=== PATIENT | male | born 1960 | race Caucasian/White ===

== ENCOUNTER → 2017-07-02 | Outpatient (CLI) | payer MEDICARE, OTHER ==
--- NOTE | 2017-07-02 10:17 | FL ---
EXAMINATION TYPE: FL barium swallow DATE OF EXAM: 07/02/2017 CLINICAL HISTORY: Difficulty swallowing liquids. TECHNIQUE: A single contrast esophagram is performed utilizing air and barium. A total of 48 second s of fluoroscopic time was utilized during procedure. 175 images were saved. COMPARISON: None FINDINGS: The exam is slightly limited as the patient was somewhat unable to follow instructions. The esophagus shows normal motility and emptying into the stomach. No evidence of hiatal hernia or s tricture noted. No significant gastroesophageal reflux was seen during real time performance of this study. No aspiration is identified. IMPRESSION: 1. No aspiration identified on today's examination, however if there is further clinical concern for aspiration modified barium swallow exam with speech therapy is recommended for full evaluation. 2. No evidence of hiatal hernia, esophageal stricture, gastroesophageal reflux, or abnormal esophagea l motility.
== END | disposition home or self-care (01) ==
LOC: RADFLWHC 08:41 → EEVIPCON 08:45
PROVIDERS: ATTEND Family Medicine
DX: R13.10 Dysphagia, unspecified (principal)
CPT/HCPCS: 74220

== ENCOUNTER 2021-01-12 08:23 | Emergency (ER) | payer MEDICARE, OTHER ==
[2021-01-12 08:33] VITALS: TEMP 97.9
[2021-01-12 09:45] VITALS: RESP 16
--- NOTE | 2021-01-12 10:19 | US ---
EXAMINATION TYPE: US venous doppler duplex LE RT DATE OF EXAM: 01/12/2021 10:05 AM COMPARISON: NONE CLINICAL HISTORY: Right lower extremity swelling, non ambulatory. SIDE PERFORMED: Right TECHNIQUE: The lower extremity deep venous system is examined utilizing real time linear array sonog ricardo with graded compression, doppler sonography and color-flow sonography. Patient unable to follow instructions and is in RLD position, thus limited US exam is performed. VESSELS IMAGED: Common Femoral Vein Deep Femoral Vein Femoral Vein Popliteal Vein Proximal Calf Veins Right Leg: Sonographic imaging maintained compression and flow in the imaged deep veins of the right lower extremity. Mild swelling of the in and subcutaneous tissue. IMPRESSION: Suboptimal evaluation due to nonambulatory condition without sonographic evidence of deep vein thrombosis in the right lower extremity
--- NOTE | 2021-01-12 10:34 | CT ---
EXAMINATION TYPE: CT lower extremity RT wo con DATE OF EXAM: 01/12/2021 COMPARISON: None HISTORY: Fall, pain TECHNIQUE: CT scan of the right lower extremity from the distal femur to the optimal foot without contrast. Thre e-D reconstruction reformats were performed. CT DLP: 203.1 mGycm Automated exposure control for dose reduction was used. FINDINGS: There is generalized osteopenia. There is a linear oblique hypoattenuating line extending from the di stal fibular diaphysis towards the tibiofibular syndesmosis. There is mild overlying soft tissue swel ling. There is narrowing at the lateral tibiotalar joint. The anterior cortex of the lateral malleolu s is displaced anteriorly 1 to 2 mm. The tibia itself appears intact. There is trace ankle joint effu danny. Included foot is acutely intact. The knee joint is acutely intact. Enthesophyte changes are see n at the insertion of the quadriceps and origin of the patellar tendons. Vascular calcifications are seen in the mid caliber. IMPRESSION: 1 TO 2 MM DISPLACED FRACTURE OF THE DISTAL FIBULAR DIAPHYSIS AND LATERAL MALLEOLUS EXTENDING INTO THE TIBIA FIBULAR SYNDESMOSIS. MILD NARROWING OF THE LATERAL TIBIOTALAR JOINT.
--- NOTE | 2021-01-12 10:57 | ED ---
Fall HPI - General Chief Complaint: Fall Stated Complaint: fall, hip pain Source: EMS Mode of arrival: EMS - History of Present Illness Initial Comments: Patient is a 60-year-old male with past medical history of cognitive imparement, nonambulatory who presents to the emergency department from [facility]. Patient was in his wheelchair 2 weeks ago when he fell out of it and injured his right ankle. They have done to x-rays of the joint at the nursing facility and there was question of a fracture. They do request that the patient have a CT performed of his right lower extremity. They state that his swelling has persisted. Patient's as impaired communication and therefore does not voice any pain. He is not on any anticoagulation. No known history of DVT or PE. No overlying skin changes. No other alleviating, precipitating or modifying factors. - Related Data Allergies Allergy/AdvReac Type Severity Reaction Status Date / Time Penicillins Allergy Unknown Verified 01/12/21 08:34 phenobarbital Allergy Unknown Verified 01/12/21 08:33 Review of Systems ROS Statement: Those systems with pertinent positive or pertinent negative responses have been documented in the HPI. ROS Other: All systems not noted in ROS Statement are negative. Past Medical History History of Any Multi-Drug Resistant Organisms: None Reported Past Psychological History: No Psychological Hx Reported Smoking Status: Smoker, current status unknown Past Alcohol Use History: Unable to Obtain Past Drug Use History: Unable to Obtain General Exam Limitations: altered mental status General appearance: alert, in no apparent distress Head exam: Present: atraumatic, normocephalic, normal inspection Respiratory exam: Present: normal lung sounds bilaterally. Absent: respiratory distress, wheezes, rales, rhonchi, stridor Cardiovascular Exam: Present: regular rate, normal rhythm, normal heart sounds. Absent: systolic murmur, diastolic murmur, rubs, gallop, clicks Extremities exam: Present: other (swelling rle - some tenderness to palpation. 2+ DP and PT pulses bilaterally. Atrophic musculature secondary to non weight bearing status. No cellulitic changes) Neurological exam: Present: alert Course Vital Signs 01/12/21 01/12/21 01/12/21 08:27 09:33 10:00 Temperature 97.9 F Pulse Rate 99 Respiratory 18 16 16 Rate Blood Pressure 159/81 O2 Sat by Pulse 94 L 95 95 Oximetry 01/12/21 01/12/21 11:00 11:16 Temperature 97.9 F Pulse Rate 89 Respiratory 16 16 Rate Blood Pressure 162/79 O2 Sat by Pulse 95 95 Oximetry Procedures - Orthopedic Splinting/Casting Injury #1 Side: right Lower Extremity Injury Location: short leg Lower Extremity Immobilizer: Blaise wrap, synthetic pre-padded splint Medical Decision Making - Medical Decision Making Upon arrival patient is placed into room 15. A thorough history and physical exam was performed. I did order a Doppler ultrasound of the right lower extremity as the patient is nonambulatory with swelling. It feels demonstrated DVT however it is a suboptimal evaluation. CT of the lower extremity is performed which demonstrates a 1-2 mm displaced fracture of the distal fibular diaphysis and lateral malleolus extending into the tibia fibular syndesmosis. There is mild narrowing of the tibiotalar joint. It discuss results with Luis F Rios asking if there is any benefit in splinting the patient as he is nonambulatory. He does believe the patient should be placed in a short leg splints needs to follow-up with orthopedics for further treatment. This is discussed with the nursing facility. Patient is placed in a orthoglass splint and is transferred back in stable condition Disposition Clinical Impression: Fall, Fracture of distal end of fibula Disposition: HOME SELF-CARE Condition: Stable Instructions (If sedation given, give patient instructions): Leg Fracture (ED) Additional Instructions: Please follow up with the orthopedic specialists. Call to make an appointment. Rest and elevate the extremity. Do not remove the splint. Return to the ED for any new or worsening symptoms. Is patient prescribed a controlled substance at d/c from ED?: No Referrals: Roque Madison MD [Primary Care Provider] - 1-2 days Matty Phillips MD [STAFF PHYSICIAN] - 1-2 days Time of Disposition: 10:56
[2021-01-12 11:17] VITALS: BP 162/79; PULSE 89
== END 2021-01-12 11:53 | disposition home or self-care (01) ==
LOC: EC 08:23 → EEVIPCON 08:23 → EC 11:53
DX: S82.61XA Displaced fracture of lateral malleolus of right fibula, initial encounter for closed fracture (principal); F17.200 Nicotine dependence, unspecified, uncomplicated; Z88.0 Allergy status to penicillin; Z88.8 Allergy status to other drugs, medicaments and biological substances; W19.XXXA Unspecified fall, initial encounter; Y92.009 Unspecified place in unspecified non-institutional (private) residence as the place of occurrence of the external cause
CPT/HCPCS: 29515; 99284

== ENCOUNTER 2024-09-12 15:54 | Inpatient (IN) | payer MEDICARE, OTHER ==
[2024-09-12 15:58] LABS: Glucose,Whole Blood 124 mg/dL (70-110)
--- NOTE | 2024-09-12 16:06 | ED ---
General Adult HPI - General Chief complaint: Altered Mental Status Stated complaint: unrsponsive Time Seen by Provider: 09/12/24 16:01 Source: EMS Mode of arrival: EMS Limitations: altered mental status - History of Present Illness Initial comments: Patient is 63-year-old gentleman past medical history of intellectual disability, chronic hypoxic respiratory failure typically on 1 to 2 L oxygen nasal cannula presenting from [facility] for respiratory distress and altered mental status. Patient was reportedly last seen at 1 PM acting like his normal self, AO x 2 and interactive. He was found prior to arrival in respiratory distress with pulse ox of 40%. On EMS arrival pulse ox remained 40% he was placed on a nonrebreather mask which brought his pulse ox up to 100%. He was minimally responsive. No seizure-like activity. Patient is not on blood thinners - Related Data Home Medications Medication Instructions Recorded Confirmed Acetaminophen Tab [Tylenol Tab] 500 mg PO TID 09/12/24 09/12/24 Brimonidine Tartrate [Alphagan P 1 drop BOTH EYES Q12H 09/12/24 09/12/24 0.2% Ophth Soln] Calcium Carbonate/Vitamin D3 1 tab PO BID 09/12/24 09/12/24 [Calcium 600 mg-Vit D3 5 mcg (200 unit)] Divalproex ER [Depakote ER] 1,000 mg PO DAILY 09/12/24 09/12/24 Divalproex ER [Depakote ER] 250 mg PO DAILY 09/12/24 09/12/24 Fluocinolone/Shower Cap 1 applic TOPICAL HS 09/12/24 09/12/24 [Cqzsa-Ltknhlu-Cs Scalp Oil] Ipratropium-Albuterol Nebulize 3 ml INHALATION RT-Q4H PRN 09/12/24 09/12/24 [Duoneb 0.5 mg-3 mg/3 ml Soln] Ketoconazole 2% Shampoo [Nizoral] 1 applic TOPICAL SUWE 09/12/24 09/12/24 Lactulose 20 gm PO TID@0700,1300,1900 09/12/24 09/12/24 Levothyroxine Sodium [Synthroid] 137 mcg PO DAILY@0500 09/12/24 09/12/24 Scopolamine [Scopolamine 1 MG/72 1 patch TRANSDERM Q72H 09/12/24 09/12/24 HR patch] Sennosides [Senokot] 17.2 mg PO HS 09/12/24 09/12/24 carBAMazepine [TEGretol XR] 400 mg PO BID@0700,1900 09/12/24 09/12/24 clonazePAM [KlonoPIN] 0.5 mg PO BID 09/12/24 09/12/24 levETIRAcetam [Keppra] 1,000 mg PO DAILY 09/12/24 09/12/24 lisinopriL 2.5 mg PO DAILY@0700 09/12/24 09/12/24 Allergies Allergy/AdvReac Type Severity Reaction Status Date / Time Penicillins Allergy Unknown Verified 09/12/24 16:28 phenobarbital Allergy Unknown Verified 09/12/24 16:28 Review of Systems ROS Statement: Those systems with pertinent positive or pertinent negative responses have been documented in the HPI. ROS Other: All systems not noted in ROS Statement are negative. Past Medical History Past Medical History: Asthma, Eye Disorder, Pneumonia History of Any Multi-Drug Resistant Organisms: None Reported Past Psychological History: No Psychological Hx Reported Smoking Status: Smoker, current status unknown Past Alcohol Use History: Unable to Obtain Past Drug Use History: Unable to Obtain General Exam - General Exam Comments Initial Comments: PE: CONSTITUTIONAL: Ill appearing, lethargic, does not appearing to be in distress, appears awake but eyes open however does not give verbal responses or follow commands SKIN: Warm, dry, no jaundice, hives or petechiae EYES: Right cornea is pale with nonreactive pupil (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 No appreciated murmurs, rubs or gallops. Strong radial pulses with intact distal perfusion. No lower e xtremity edema GASTROINTESTINAL: Soft, active bowel sounds throughout, non-tender, non- distended, no palpable masses, no rebound or guarding. No hepatosplenomegaly MUSCULOSKELETAL: Extremities have no gross deformity, no edema, redness, or swelling. muscle contractures of bilateral LE NEUROLOGIC:_a/o x 0, GCS 9, no verbal response, withdraws from pain, eyes open, question upward gaze of left eye no facial droop, grimaces with painful simuli to RUE andRLE, withdraws from painful stimuli of left upper and lower extremities, exam limited as patient unable to follow commands PSYCHIATRIC:unable to assess] Limitations: altered mental status Course Vital Signs 09/12/24 09/12/24 09/12/24 15:57 16:00 16:24 Temperature Pulse Rate 98 96 Respiratory 28 H 19 Rate Blood Pressure 123/60 140/74 O2 Sat by Pulse 100 100 97 Oximetry Fraction of Inspired Oxygen (FIO2) 09/12/24 09/12/24 09/12/24 16:28 16:50 16:59 Temperature 93.9 F L 94.5 F L Pulse Rate 90 90 74 Respiratory 26 H 26 H Rate Blood Pressure 108/63 129/74 104/70 O2 Sat by Pulse 98 100 100 Oximetry Fraction of 100 Inspired Oxygen (FIO2) 09/12/24 09/12/24 18:09 18:17 Temperature 95.2 F L 95.2 F L Pulse Rate 78 77 Respiratory 26 H 26 H Rate Blood Pressure 93/66 102/72 O2 Sat by Pulse 100 100 Oximetry Fraction of Inspired Oxygen (FIO2) EKG Findings - EKG Comments: EKG Findings:: Sinus rhythm, rate 97 bpm intervals within acceptable limits, normal axis, diffuse T wave inversions, no acute ST elevations or depressions, right bundle branch block small Q waves present II and avF Procedures - Intubation Sedative: Etomidate Laryngoscope: Arnav Assist Device Used: other (glydescope) ET Tube Size: 7.5 ET Tube Uncuffed: No Tube Secured Depth (cm): 24 Tube Secured Location: lips Tube Placement Confirmation: visualized tube passing through cords, equal breath sounds bilaterally, no breath sounds over epigastrium, confirmation by capnomet ry Patient Tolerated Procedure: well Intubation Complications: none Medical Decision Making - Medical Decision Making Was pt. sent in by a medical professional or institution (, PA, HEEL ATT[employer], urgent c are, hospital, or group home...) When possible be specific @ -sent in by [facility] Did you speak to anyone other than the patient for history (EMS, parent, family, police, friend...)? What history was obtained from this source @ EMS neetaronel provided history, patient had pulse ox 40% on their arrival to facility, now 100% on NRB, usually AOx1-2, pt now altered, no change in mental status from when pt was picked up to when he arrived here Did you review nursing and triage notes (agree or disagree)? Why? @ -I reviewed nursing and triage notes Were old charts reviewed (outside hosp., previous admission, EMS record, old EKG, old radiological studies, urgent care reports/EKG's, group home records)? Report findings @ -Medical records reviewed Differential Diagnosis (chest pain, altered mental status, abdominal pain women, abdominal pain men, vaginal bleeding, weakness, fever, dyspnea, syncope, headache, dizziness, GI bleed, back pain, seizure, CVA, palpatations, mental health, musculoskeletal)? @Differential Altered Mental Status: Hypoglycemia, DKA, hypercapnia, ETOH, overdose, CO poisoning, trauma, myxedema coma, HTN encephalopathy, infection, encephalitis, psychosis, intercranial hemorrhage, hepatic encephalopathy, meningitis, CVA, this is not meant to be an all-inclusive list EKG interpreted by me (3pts min.). @ -As above X-rays interpreted by me (1pt min.). Personally reviewed x-ray, ET tube appears appropriately positioned approximately 3 cm above the ezra, read by radiologist as 2.9 cm, multifocal opacities concerning for pneumonia I agree with radiologist interpretation CT interpreted by me (1pt min.). @I personally reviewed CT brain and CTA, and CT brain I see no evidence of hemorrhage, abscess or mass effect, and on CTA head and neck I see no evidence of dissection or large vessel occlusion I agree with radiologist interpretation U/S interpreted by me (1pt. min.). @ -None done What testing was considered but not performed or refused? (CT, X-rays, U/S, labs)? Why? @ -None What meds were considered but not given or refused? Why? @ -None Did you discuss the management of the patient with other professionals (professionals i.e. , PA, HE[employer], lab, RT, psych nurse, social science teacher, case manager specialist, teacher, state highway police officer, residential case manager)? Give summary @Case discussed with Ashley, neurointerventional team at [facility], recommends medical management with full dose aspirin and statin, MRI Was smoking cessation discussed for >3mins.? @ -No Was critical care preformed (if so, how long)? @ Yes 60 minutes Were there social determinants of health that impacted care today? How? (Homelessness, low income, unemployed, alcoholism, drug addiction, transport ation, low edu. Level, literacy, decrease access to med. care, fpc, rehab)? @ -No Was there de-escalation of care discussed even if they declined (Discuss DNR or withdrawal of care, Hospice)? @ -No What co-morbidities impacted this encounter? (DM, HTN, Smoking, COPD, CAD, Cancer, CVA, ARF, Chemo, Hep., AIDS, mental health diagnosis, sleep apnea, morbid obesity)? @ -intellectual disability, chronic hypoxic respiratory failure on 1-2 L home O2 Was patient admitted / discharged? Hospital course, mention meds given and route, prescriptions, significant lab abnormalities, going to OR and other p ertinent info. @ -Admission-this is a 63-year-old gentleman presenting today for respiratory distress and altered mental status from [facility]. Reportedly has intellectual disability and is oriented x 1-2 at baseline. Also reportedly was recently treated for pneumonia and completed oral antibiotics. Was last known normal at 1 PM this afternoon. At 330 approximately patient was found by staff in respiratory distress. EMS arrived and on the arrival patient had a pulse ox of 40%. A nonrebreather was placed. Patient was noted to be lethargic and altered. Not answering questions. Blind in right eye, was thought to have nonreactive pupil on left. Blood glucose was 130 for EMS. Pt placed on a NRB and transported to the ED with subsequent rise in pulse ox to 100% but persistent altered mentation. Patient seen and assessed on arrival. He is on a nonrebreather with pulse ox 100%. He is awake but lethargic. He is resting with his eyes open, left pupil is 3 equal round reactive however he appears to be gazing upwards. He does not follow commands or respond to verbal stimuli. H e withdraws his left upper and left lower extremity to painful stimuli, and grimaces with painful stimuli to the right lower and right upper extremity. Differential diagnosis was broad, top considerations included CVA, acute hypoxemic versus hypercapnic encephalopathy, infection, seizure. For this reason 4 mg IV Versed was trialed without improvement in mentation/change in mental status. Stroke alert was activated. ABG was obtained. Intubation was considered however patient is protecting his airway, not having any active episodes of emesis, nonrebreather was able to be decreased to 8 L with persistent pulse ox 100%. Patient taken to CT, but while patient was in CT ABG resulted with a pH of 7.131, CO2 greater than 98, consistent with hypercapnic respiratory failure, I suspect this is most likely the reason for the patient's altered mental status. At this point he is not mentating well enough to be able to tolerate BiPAP so will need to be intubated. 1 Litre NS hung prior to intubation. Imaging was completed to ensure no signs of hemorrhage, LVO or dissection. Patient returned to trauma bay and was intubated for hypercapnia. He tolerated this well without complication. X-ray appeared to show ET tube in appropriate position with possible multifocal pneumonia in the right lobe of the lung. CT brain was consistent with concerns of mastoiditis. For this reason patient was covered with antibiotics including cefepime, azithromycin and vancomycin. Blood cultures and lactic ordered, ordered additional litre NS, +maintenance fluids, completing sepsis bundle . Case was discussed with Dr. Ochoa, critical care who kindly excepted patient for admission to the ICU. Case discussed with CARRINGTON Roberts kindly accepted patient for admission. Undiagnosed new problem with uncertain prognosis? @ -No Drug Therapy requiring intensive monitoring for toxicity (Heparin, Nitro, In sulin, Cardizem)? @ -No Were any procedures done? @ -No Diagnosis/symptom? @ -Acute metabolic encephalopathy, hypercapneic respiratory failure, multifocal pnuemonia Acute, or Chronic, or Acute on Chronic? @acute Uncomplicated (without systemic symptoms) or Complicated (systemic symptoms)? complicated Side effects of treatment? @ -No Exacerbation, Progression, or Severe Exacerbation? @ -No Poses a threat to life or bodily function? How? (Chest pain, [place], [place], pneumonia, PE, COPD, DKA, ARF, appy, cholecystitis, CVA, Diverticulitis, Homicidal, Suicidal, threat to staff... and all critical care pts) @Yes - Lab Data Result diagrams: 09/15/24 04:13 09/15/24 04:13 Lab Results 09/12/24 09/12/24 09/12/24 Range/Units 15:57 16:05 16:05 WBC 12.37 H (4.50-10.00) 10*3/uL RBC 3.40 L (4.40-5.60) 10*6/uL Hgb 11.7 L (13.0-17.0) g/dL Hct 38.1 L (39.6-50.0) % MCV 112.1 H (80.0-97.0) fL MCH 34.4 H (27.0-32.0) pg MCHC 30.7 L (32.0-37.0) g/dL Plt Count 176 (140-440) 10*3/uL MPV 9.5 (9.5-12.2) fL Immature Gran % (Auto) 0.3 % Neutrophils % 83.9 % Lymphocytes % 7.9 % Monocytes % 7.5 % Eosinophils % 0.2 % Basophils % 0.2 % Immature Gran # 0.04 (0.00-0.04) 10*3/uL Neutrophils # 10.36 H (1.80-7.70) 10*3/uL Lymphocytes # 0.98 (0.90-5.00) 10*3/uL Monocytes # 0.93 (0.20-1.00) 10*3/uL Eosinophils # 0.03 L (0.04-0.35) 10*3/uL Basophils # 0.03 (0.00-0.10) 10*3/uL Manual Slide Review Performed Stomatocytes Present PT 10.2 (10.0-12.5) sec INR 0.9 (<1.2) APTT 23.7 (22.0-30.0) sec Sample Site ABG pH (7.35-7.45) ABG pCO2 (35-45) mmHg ABG pO2 (83-108) mmHg ABG O2 Saturation (94-97) % Miguel Test Hemoglobin (13.0-17.5) gm/dL FiO2 % Sodium (137-145) mmol/L Potassium (3.5-5.1) mmol/L Chloride (98-107) mmol/L Carbon Dioxide (22-30) mmol/L Anion Gap mmol/L BUN (9-20) mg/dL Creatinine (0.66-1.25) mg/dL Est GFR (CKD-EPI)AfAm (>60 ml/min/1.73 sqM) Est GFR (CKD-EPI)NonAf (>60 ml/min/1.73 sqM) Glucose (74-99) mg/dL POC Glucose (mg/dL) 124 H (70-110) mg/dL POC Glu Fountain Worker ID Nicole Reba Calcium (8.4-10.2) mg/dL Total Bilirubin (0.2-1.3) mg/dL AST (17-59) U/L ALT (4-49) U/L Alkaline Phosphatase (38-126) U/L Creatine Kinase (55-170) U/L Troponin I (0.000-0.034) ng/mL Total Protein (6.3-8.2) g/dL Albumin (3.5-5.0) g/dL Procalcitonin (0.02-0.50) ng/mL 09/12/24 09/12/24 09/12/24 Range/Units 16:05 16:05 16:05 WBC (4.50-10.00) 10*3/uL RBC (4.40-5.60) 10*6/uL Hgb (13.0-17.0) g/dL Hct (39.6-50.0) % MCV (80.0-97.0) fL MCH (27.0-32.0) pg MCHC (32.0-37.0) g/dL Plt Count (140-440) 10*3/uL MPV (9.5-12.2) fL Immature Gran % (Auto) % Neutrophils % % Lymphocytes % % Monocytes % % Eosinophils % % Basophils % % Immature Gran # (0.00-0.04) 10*3/uL Neutrophils # (1.80-7.70) 10*3/uL Lymphocytes # (0.90-5.00) 10*3/uL Monocytes # (0.20-1.00) 10*3/uL Eosinophils # (0.04-0.35) 10*3/uL Basophils # (0.00-0.10) 10*3/uL Manual Slide Review Stomatocytes PT (10.0-12.5) sec INR (<1.2) APTT (22.0-30.0) sec Sample Site ABG pH (7.35-7.45) ABG pCO2 (35-45) mmHg ABG pO2 (83-108) mmHg ABG O2 Saturation (94-97) % Miguel Test Hemoglobin (13.0-17.5) gm/dL FiO2 % Sodium 140 (137-145) mmol/L Potassium 5.3 H (3.5-5.1) mmol/L Chloride 96 L (98-107) mmol/L Carbon Dioxide 37 H (22-30) mmol/L Anion Gap 7 mmol/L BUN 43 H (9-20) mg/dL Creatinine 0.79 (0.66-1.25) mg/dL Est GFR (CKD-EPI)AfAm >90 (>60 ml/min/1.73 sqM) Est GFR (CKD-EPI)NonAf >90 (>60 ml/min/1.73 sqM) Glucose 125 H (74-99) mg/dL POC Glucose (mg/dL) (70-110) mg/dL POC Glu Fountain Worker ID Calcium 8.6 (8.4-10.2) mg/dL Total Bilirubin 0.4 (0.2-1.3) mg/dL AST 22 (17-59) U/L ALT 12 (4-49) U/L Alkaline Phosphatase 87 (38-126) U/L Creatine Kinase 169 (55-170) U/L Troponin I <0.012 (0.000-0.034) ng/mL Total Protein 7.3 (6.3-8.2) g/dL Albumin 3.8 (3.5-5.0) g/dL Procalcitonin 0.11 (0.02-0.50) ng/mL 09/12/24 Range/Units 16:08 WBC (4.50-10.00) 10*3/uL RBC (4.40-5.60) 10*6/uL Hgb (13.0-17.0) g/dL Hct (39.6-50.0) % MCV (80.0-97.0) fL MCH (27.0-32.0) pg MCHC (32.0-37.0) g/dL Plt Count (140-440) 10*3/uL MPV (9.5-12.2) fL Immature Gran % (Auto) % Neutrophils % % Lymphocytes % % Monocytes % % Eosinophils % % Basophils % % Immature Gran # (0.00-0.04) 10*3/uL Neutrophils # (1.80-7.70) 10*3/uL Lymphocytes # (0.90-5.00) 10*3/uL Monocytes # (0.20-1.00) 10*3/uL Eosinophils # (0.04-0.35) 10*3/uL Basophils # (0.00-0.10) 10*3/uL Manual Slide Review Stomatocytes PT (10.0-12.5) sec INR (<1.2) APTT (22.0-30.0) sec Sample Site RBrach ABG pH 7.13 L* (7.35-7.45) ABG pCO2 >98 H* (35-45) mmHg ABG pO2 153 H (83-108) mmHg ABG O2 Saturation 99.0 H (94-97) % Miguel Test Yes Hemoglobin 12.2 L (13.0-17.5) gm/dL FiO2 100 % Sodium (137-145) mmol/L Potassium (3.5-5.1) mmol/L Chloride (98-107) mmol/L Carbon Dioxide (22-30) mmol/L Anion Gap mmol/L BUN (9-20) mg/dL Creatinine (0.66-1.25) mg/dL Est GFR (CKD-EPI)AfAm (>60 ml/min/1.73 sqM) Est GFR (CKD-EPI)NonAf (>60 ml/min/1.73 sqM) Glucose (74-99) mg/dL POC Glucose (mg/dL) (70-110) mg/dL POC Glu Fountain Worker ID Calcium (8.4-10.2) mg/dL Total Bilirubin (0.2-1.3) mg/dL AST (17-59) U/L ALT (4-49) U/L Alkaline Phosphatase (38-126) U/L Creatine Kinase (55-170) U/L Troponin I (0.000-0.034) ng/mL Total Protein (6.3-8.2) g/dL Albumin (3.5-5.0) g/dL Procalcitonin (0.02-0.50) ng/mL Disposition Clinical Impression: Respiratory failure with hypercapnia, Acute metabolic encephalopathy Disposition: ADMITTED IP TO THIS HOSP Condition: Serious
[2024-09-12] MEDS: MIDAZOLAM 2 MG/2 ML VIAL IV ONE (16:08)
[2024-09-12 16:12] LABS: ABG PO2 153 mmHg (83-108); Allen Test Performed? Yes
[2024-09-12 16:15] LABS: Basophils # (A) 0.03 10*3/uL (0.00-0.10); Basophils % (A) 0.2 %; Eosinophils # (A) 0.03 10*3/uL (0.04-0.35); Eosinophils % (A) 0.2 %; HCT 38.1 % (39.6-50.0); HGB 11.7 g/dL (13.0-17.0); Lymphocytes # (A) 0.98 10*3/uL (0.90-5.00); Lymphocytes % (A) 7.9 %; MCH 34.4 pg (27.0-32.0); MCHC 30.7 g/dL (32.0-37.0); MCV 112.1 fL (80.0-97.0); Mean Platelet Volume 9.5 fL (9.5-12.2); Monocytes # (A) 0.93 10*3/uL (0.20-1.00); Monocytes % (A) 7.5 %; Neutrophils # (A) 10.36 10*3/uL (1.80-7.70); Neutrophils % (A) 83.9 %; Platelet Count 176 10*3/uL (140-440); RDW 12.9 % (11.5-14.5); WBC 12.37 10*3/uL (4.50-10.00)
[2024-09-12] MEDS ORDERED: fentaNYL (PF) 50 MCG/ML 2 ML AMP IVP PRN (16:20)
[2024-09-12] MEDS: ETOMIDATE 2 MG/ML 10 ML VIAL IVP STA ×2 (16:27→16:35)
[2024-09-12] MEDS: ROCURONIUM 10 MG/ML (5 ML VIAL) IV ONE (16:28)
[2024-09-12 16:32] LABS: ALT 12 U/L (4-49); AST 22 U/L (17-59); African American GFR (CKD) >90 (>60 ml/min/1.73 sqM); Albumin 3.8 g/dL (3.5-5.0); Alkaline Phosphatase 87 U/L (38-126); Blood Urea Nitrogen 43 mg/dL (9-20); Calcium 8.6 mg/dL (8.4-10.2); Chloride 96 mmol/L (98-107); Creatine Kinase 169 U/L (55-170); Glucose 125 mg/dL (74-99); Non-African American GFR(CKD) >90 (>60 ml/min/1.73 sqM); Potassium 5.3 mmol/L (3.5-5.1); Sodium 140 mmol/L (137-145); Total Bilirubin 0.4 mg/dL (0.2-1.3); Total Protein 7.3 g/dL (6.3-8.2)
--- NOTE | 2024-09-12 16:33 | CT ---
Head CT without contrast HISTORY: Code stroke. Neural deficit, stroke is suspected. COMPARISON: None TECHNIQUE: Multiple axial images were obtained the skull base to the vertex without the use of IV con trast material. The ventricles, basal cisterns and sulci over convexities are within normal limits for the patient's age and there is no mass effect or shift in midline structures. No abnormal density is seen throughout the brain parenchyma. There is no acute intra or extra-axial h emorrhage. Posterior fossa including the brainstem, fourth ventricle and cerebellopontine angles are grossly nor mal. There is marked calcification in decreased size of the right globe. There is a mucous retention cyst or polyp in the inferior left maxillary sinus. The frontal, ethmoid and sphenoid sinuses are well aerated. There is moderate fluid in the mastoid air cells bilaterally. The calvarium is intact. IMPRESSION: 1. No acute bleed or mass effect. 2. Sinusitis and mastoiditis as described above. [facility], Workstation: CARO 09/12/2024 4:31 PM
[2024-09-12 16:37] LABS: ABG PH 7.13 (7.35-7.45)
[2024-09-12 16:38] LABS: ABG PCO2 >98 mmHg (35-45)
[2024-09-12 16:38] LABS: Anion Gap 7 mmol/L
[2024-09-12 16:39] LABS: Carbon Dioxide 37 mmol/L (22-30)
--- NOTE | 2024-09-12 16:53 | XR ---
EXAMINATION TYPE: XR chest 1V portable DATE OF EXAM: 09/12/2024 4:41 PM COMPARISON: Same day CT head/neck study. CLINICAL INDICATION: Male, 63 years old with history of Tube placement; [facility] TECHNIQUE: XR chest 1V portable Frontal view of the chest. FINDINGS: Cardiomegaly. Small bilateral pleural effusions. No definite pneumothorax. Endotracheal tube terminates proximal to 0.5 cm above the ezra. Enteric t ube courses below the left hemidiaphragm with distal side hole overlying the expected gastric lumen. Patchy subtle opacities in the upper lobe region. IMPRESSION: 1. Endotracheal tube terminates 2.5 cm above ezra. 2. Enteric tube distal sidehole overlies the expected gastric lumen. 3. Small bilateral pleural effusions and subtle patchy opacities in the upper lobes which could refl ect infectious etiology. [facility], , 09/12/2024 4:51 PM
--- NOTE | 2024-09-12 17:05 | CT ---
EXAMINATION TYPE: CT angio head neck DATE OF EXAM: 09/12/2024 4:48 PM COMPARISON: None. CLINICAL INDICATION: Male, 63 years old with history of Neuro deficit, acute, stroke suspected; PHH, unresponsive. low O2. code stroke TECHNIQUE: Axially acquired helical CT angiogram of the head and neck was obtained with contrast. Axi al images are supplemented with 3D reconstructions and MIP images which were post-processed at an in dependent workstation. NASCET criteria used. Contrast used:65 ml mL of Isovue 370 with IV Contrast, Oral contrast used: None. CT DLP: 481.7 mGycm, Automated exposure control for dose reduction was used. FINDINGS: CTA HEAD: No evidence of acute intracranial hemorrhage, mass effect, or midline shift. The ventricles, sulci, a nd cisterns are unremarkable. Vertebral arteries: The vertebral arteries are patent. Vertebral artery dominance: Codominant Basilar artery: The basilar artery is intact. The basilar artery bifurcation is normal. Internal Carotid arteries: The cervical, petrous, cavernous and supraclinoid segments are normal. ASHLYN: Hypoplastic right A1 segment of the right anterior cerebral artery. Patent with no evidence of a neurysm. ACOM: Present without evidence of aneurysm. MCA: Patent with no evidence of aneurysm. BOTTOM HOOP DRIVER: Patent with no evidence of aneurysm. PCOM: Hypoplastic bilaterally. Dural sinuses: Patent. CTA NECK: Right Carotid System: The common carotid artery and external carotid artery are patent. The carotid bifurcation demonstrate s no evidence of hemodynamically significant stenosis. The remaining portions of the internal carotid artery demonstrate normal size without significant narrowing. Left Carotid System: The common carotid artery and external carotid artery are patent. The carotid bifurcation demonstrate s no evidence of hemodynamically significant stenosis. The remaining portions of the internal carotid artery demonstrate normal size without significant narrowing. Vertebral arteries are patent without evidence hemodynamically significant stenosis. There is a three-vessel aortic arch. The origins of the great vessels are patent. No evidence of hemo dynamically significant stenosis. Upper thorax: Severe dextroconvex scoliotic curvature and multilevel thoracic spine degenerative boss ges. Patchy ground glass opacities and partial visualized upper lobes. Consolidative changes in the p artially visualized left lung. IMPRESSION: 1. No evidence of dissection of the cervical internal carotid arteries or vertebral arteries. 2. No any evidence of significant stenosis at the carotid bifurcations. 3. No evidence of intracranial high-grade stenosis or intracranial aneurysm. 4. Patchy groundglass and consolidative opacities and partially visualized upper lungs suspicious fo r multifocal pneumonia. *Consider brain MRI for further evaluation if there is continued clinical concern for acute ischemia. [facility], , 09/12/2024 5:02 PM
[2024-09-12] MEDS: fentaNYL (PF). 1,000 MCG in SODIUM CHLORIDE 0.9% 80 ML IV SCH (17:08)
[2024-09-12] MEDS ORDERED: VANCOMYCIN IV PER PHARMACY 1 EACH MISC MISCELLANE PRN (17:10)
[2024-09-12] MEDS: INSULIN REGULAR 100 UNIT/ML VIAL (IV) IV ONE (17:23)
[2024-09-12] MEDS: DEXTROSE 50% SYRINGE 50 ML IVP ONE (17:24)
[2024-09-12] MEDS: CALCIUM GLUCONATE IN NACL 1 GM in SALINE 1 100ML.BAG IVPB ONE (17:24)
[2024-09-12] MEDS: fentaNYL (PF) 50 MCG/ML 2 ML AMP IVP STA (17:29)
[2024-09-12] MEDS: ATORVASTATIN 80 MG TAB PO STA (17:30)
[2024-09-12] MEDS: ASPIRIN 325 MG TAB PO STA (17:30)
[2024-09-12] MEDS ORDERED: Phosphorus Replacement Protoco 1 EACH MISC MISCELLANE PRN (17:45)
[2024-09-12] MEDS ORDERED: NALOXONE 0.4 MG/ML 1 ML VIAL IV PRN (17:45)
[2024-09-12] MEDS ORDERED: ACETAMINOPHEN SUPPOSITORY 650 MG SUPP RECTAL PRN (17:45)
[2024-09-12] MEDS ORDERED: Potassium Replacement Protocol 1 EACH MISC MISCELLANE PRN (17:45)
[2024-09-12] MEDS ORDERED: Magnesium Replacement Protocol 1 EACH MISC MISCELLANE PRN (17:45)
[2024-09-12] MEDS: SODIUM CHLORIDE 0.9% 1,000 ML IV SCH (17:53)
[2024-09-12] MEDS: SODIUM CHLORIDE 0.9% 1,000 ML IV ONE (17:53)
[2024-09-12] MEDS: AZITHROMYCIN 500 MG in SODIUM CHLORIDE 0.9% 250 ML IVPB STA (17:59)
[2024-09-12] MEDS: VANCOMYCIN 1,500 MG in SODIUM CHLORIDE 0.9% 500 ML 500 ML IVPB STA (18:11)
[2024-09-12 18:30] LABS: ABG Base Excess 8.7 mmol/L; ABG HCO3 31 mmol/L (21-25); ABG Oxygen Saturation >100.0 % (94-97); ABG PCO2 31 mmHg (35-45); ABG PO2 187 mmHg (83-108); ABG TCO2 31 mmol/L (19-24); Allen Test Performed? Yes
[2024-09-12 18:31] LABS: Stomatocytes Present
[2024-09-12 18:39] LABS: INR 0.9 (<1.2); Partial Thromboplastin Time 23.7 sec (22.0-30.0); Prothrombin Time 10.2 sec (10.0-12.5)
[2024-09-12 18:41] LABS: Glucose,Whole Blood 145 mg/dL (70-110)
[2024-09-12] MEDS: CEFEPIME 2 GM in SODIUM CHLORIDE 0.9% 100 ML IVPB STA (20:24)
[2024-09-12] MEDS: LACTATED RINGERS 1,000 ML IV SCH (20:27)
[2024-09-13] MEDS: levETIRAcetam IV 500 MG/5 ML VIAL IVP SCH ×2 (00:15→19:46)
--- NOTE | 2024-09-13 00:51 | P.CNPUL ---
History of Present Illness Consult date: 09/13/24 Requesting physician: Denia Boo Reason for consult: other (ICU management) Chief complaint: Altered mental status History of present illness: Patient is a 63-year-old male with past medical history significant for intellectual disability, seizure disorder, hypertension, hypothyroidism, chronic hypoxemic respiratory failure. He resides at a local [facility]. Noted to be confused with increased work of breathing by staff. His SpO2 was reading 40%. EMS was called and patient was transferred to the emergency department on a nonrebreather. He was minimally responsive on arrival. ABG consistent with severe hypercapnic respiratory failure with a PaO2 of 153, pCO2 greater than 98, pH of 7.13. Previously, received 4 mg IV Versed. Patient was intubated by the ER provider. Brain CT without contrast did not show any acute intracranial hemorrhage or mass effect. There was some sinusitis and moderate fluid in the mastoid air cells bilaterally. Brain CT angio did not show any evidence of cervical internal carotid artery or vertebral artery dissection or stenosis at the carotid bifurcations. No evidence of high-grade intracranial stenosis or aneurysm. Patchy groundglass and consolidative opacities visualized in the upper lung schwartz. Chest x-ray following intubation showing the endotracheal tube terminating 2.5 cm above the ezra. Severe kyphoscoliosis. There is patchy subtle opacities bilaterally. Suspect small bilateral pleural effusions. Enteric tube likely in the duodenum. CBC: WBC count 12.4, hemoglobin 11.7, platelets 176. CMP: Sodium 140, potassium 5.3, chloride 96, serum bicarb 37, BUN 43, creatinine 0.79, glucose 125. Lactic 2.4. LFTs not elevated. Troponin less than 0.012. EKG: Sinus rhythm, rate 97 bpm, RBBB pattern. Patient currently being evaluated in the intensive care unit. Remains intubated to the mechanical ventilator. Current ventilator settings assist-control, respiratory rate 20, tidal volume 450, FiO2 70%, PEEP of 5. Previous ventilator settings were appropriately adjusted following a recent follow-up ABG with a PaO2 of 187, PCO2 of 31, pH of 7.6. This was done on FiO2 100%. Respiratory rate has since been adjusted and FiO2 is being titrated appropriately. He is sedated on propofol which is infusing at 45 mcg/kg/min as well as fentanyl infusing at 0.5 mcg/kg/h. Currently synchronous with ventilator settings. Peak pressures around 26. Lactated Ringer's also infusing at 130 mL/h. Indwelling urinary catheter with urine output of greater than 100 mL/h. Blood pressure has been normotensive. Previously, patient was hypothermic with a temperature as low as 93.9 F, and was on a external warming blanket. Now normothermic. Continues with empiric antibiotics. Patient has a legal power of insurance attorney. Current CODE STATUS is full. Review of Systems ROS unobtainable: due to endotracheal tube, due to mental status Past Medical History Past Medical History: Asthma, Eye Disorder, Pneumonia History of Any Multi-Drug Resistant Organisms: None Reported Past Psychological History: No Psychological Hx Reported Smoking Status: Smoker, current status unknown Past Alcohol Use History: Unable to Obtain Past Drug Use History: Unable to Obtain Medications and Allergies Home Medications Medication Instructions Recorded Confirmed Type Acetaminophen Tab [Tylenol Tab] 500 mg PO TID 09/12/24 09/12/24 History Brimonidine Tartrate [Alphagan P 1 drop BOTH EYES Q12H 09/12/24 09/12/24 History 0.2% Ophth Soln] Calcium Carbonate/Vitamin D3 1 tab PO BID 09/12/24 09/12/24 History [Calcium 600 mg-Vit D3 5 mcg (200 unit)] Divalproex ER [Depakote ER] 1,000 mg PO DAILY 09/12/24 09/12/24 History Divalproex ER [Depakote ER] 250 mg PO DAILY 09/12/24 09/12/24 History Fluocinolone/Shower Cap 1 applic TOPICAL HS 09/12/24 09/12/24 History [Pmmti-Qdbovjj-Eq Scalp Oil] Ipratropium-Albuterol Nebulize 3 ml INHALATION RT-Q4H PRN 09/12/24 09/12/24 History [Duoneb 0.5 mg-3 mg/3 ml Soln] Ketoconazole 2% Shampoo [Nizoral] 1 applic TOPICAL SUWE 09/12/24 09/12/24 History Lactulose 20 gm PO TID@0700,1300,1900 09/12/24 09/12/24 History Levothyroxine Sodium [Synthroid] 137 mcg PO DAILY@0500 09/12/24 09/12/24 History Scopolamine [Scopolamine 1 MG/72 1 patch TRANSDERM Q72H 09/12/24 09/12/24 History HR patch] Sennosides [Senokot] 17.2 mg PO HS 09/12/24 09/12/24 History carBAMazepine [TEGretol XR] 400 mg PO BID@0700,1900 09/12/24 09/12/24 History clonazePAM [KlonoPIN] 0.5 mg PO BID 09/12/24 09/12/24 History levETIRAcetam [Keppra] 1,000 mg PO DAILY 09/12/24 09/12/24 History lisinopriL 2.5 mg PO DAILY@0700 09/12/24 09/12/24 History Allergies Allergy/AdvReac Type Severity Reaction Status Date / Time Penicillins Allergy Unknown Verified 09/12/24 16:28 phenobarbital Allergy Unknown Verified 09/12/24 16:28 Physical Exam Vitals: Vital Signs Temp Pulse Resp BP Pulse Ox FiO2 09/12/24 19:44 70 09/12/24 19:38 70 09/12/24 19:00 70 26 H 91/63 100 09/12/24 18:50 95.5 F L 71 26 H 95/49 100 09/12/24 18:41 26 H 100 09/12/24 18:17 95.2 F L 77 26 H 102/72 100 09/12/24 18:09 95.2 F L 78 26 H 93/66 100 09/12/24 16:59 94.5 F L 74 26 H 104/70 100 09/12/24 16:50 93.9 F L 90 26 H 129/74 100 09/12/24 16:28 90 108/63 98 100 09/12/24 16:24 96 19 140/74 97 09/12/24 16:00 100 09/12/24 15:57 98 28 H 123/60 100 Intake and Output 09/12/24 09/12/24 09/13/24 14:59 22:59 06:59 Intake Total 701.769 Output Total 260 Balance 441.769 Intake: IV 630 Sodium Chloride 0.9% 1, 130 000 ml @ 130 mls/hr IV . Q7H42M [facility] Rx#:[id number] Vancomycin 1,500 mg In 500 Sodium Chloride 0.9% 500 ml 500 ml @ 167 mls/hr IVPB Q12H [facility] Rx#: [id number] Intake, IV Titration 71.769 Amount propofoL 1,000 mg In 71.769 Empty Bag 1 bag @ 15 MCG/ KG/MIN 7.348 mls/hr IV . [id number] [facility] Rx#:[id number] Output: Urine 260 Uretheral (Carrillo) 60 Other: Weight 67.4 kg GENERAL EXAM: Sedated, 63-year-old male, intubated to the mechanical ventilator, currently synchronous with set rate HEAD: Normocephalic and atraumatic EYES: Blind right eye, left eye with normal pupillary response. No nystagmus. Nonicteric sclera. NOSE: Clear with pink turbinates. THROAT: No erythema or exudates. NECK: No masses, no JVD. CHEST: No chest wall deformity. Severe kyphoscoliosis. LUNGS: Equal air entry with no crackles, wheeze, rhonchi or dullness. With minimal dark marie endotracheal secretions. Peak pressures 26. CVS: S1 and S2 normal with no audible murmur, regular rhythm. No extra heart sounds ABDOMEN: No hepatosplenomegaly, active bowel sounds, no guarding or rigidity. SPINE: No scoliosis or deformity SKIN: No rashes CENTRAL NERVOUS SYSTEM: Sedated, withdraws to painful stimuli in all 4 extremities, no clinical seizure activity noted. EXTREMITIES: There is no peripheral edema, clubbing, or cyanosis. Peripheral pulses are intact. SCDs on. Results - Laboratory Findings CBC and BMP: 09/12/24 16:05 09/12/24 21:15 ABG ABG pH 7.60 (7.35-7.45) H* 09/12/24 18:26 ABG pCO2 31 mmHg (35-45) L 09/12/24 18:26 ABG pO2 187 mmHg (83-108) H 09/12/24 18:26 ABG O2 Saturation >100.0 % (94-97) H 09/12/24 18:26 PT/INR, D-dimer PT 10.2 sec (10.0-12.5) 09/12/24 16:05 INR 0.9 (<1.2) 09/12/24 16:05 Abnormal lab findings: Abnormal Labs 09/12/24 09/12/24 09/12/24 15:57 16:05 16:05 WBC 12.37 H RBC 3.40 L Hgb 11.7 L Hct 38.1 L MCV 112.1 H MCH 34.4 H MCHC 30.7 L Neutrophils # 10.36 H Eosinophils # 0.03 L ABG pH ABG pCO2 ABG pO2 ABG HCO3 ABG Total CO2 ABG O2 Saturation Hemoglobin Potassium 5.3 H Chloride 96 L Carbon Dioxide 37 H BUN 43 H Glucose 125 H POC Glucose (mg/dL) 124 H Plasma Lactic Acid Juan Francisco 09/12/24 09/12/24 09/12/24 16:08 18:00 18:26 WBC RBC Hgb Hct MCV MCH MCHC Neutrophils # Eosinophils # ABG pH 7.13 L* 7.60 H* ABG pCO2 >98 H* 31 L ABG pO2 153 H 187 H ABG HCO3 31 H ABG Total CO2 31 H ABG O2 Saturation 99.0 H >100.0 H Hemoglobin 12.2 L 10.5 L Potassium Chloride Carbon Dioxide BUN Glucose POC Glucose (mg/dL) Plasma Lactic Acid Juan Francisco 2.4 H* 09/12/24 18:39 WBC RBC Hgb Hct MCV MCH MCHC Neutrophils # Eosinophils # ABG pH ABG pCO2 ABG pO2 ABG HCO3 ABG Total CO2 ABG O2 Saturation Hemoglobin Potassium Chloride Carbon Dioxide BUN Glucose POC Glucose (mg/dL) 145 H Plasma Lactic Acid Juan Francisco - Diagnostic Findings Chest x-ray: image reviewed Assessment and Plan Assessment: Acute hypoxemic and hypercapnic respiratory failure, intubated to the mechanical ventilator; chest x-ray following intubation showing the endotracheal tube terminating 2.5 cm above the ezra. Severe kyphoscoliosis. There is patchy subtle opacities bilaterally. Suspect small bilateral pleural effusions. Multifocal pneumonia, healthcare associated, sepsis Acute leukocytosis Hypothermia, with external warming blanket Altered mental status, likely secondary to hypercapnic encephalopathy History of intellectual disability History of seizure disorder Severe kyphoscoliosis Blind right eye History of hypertension History of hypothyroidism [facility] resident Plan: Patient will remain intubated to the mechanical ventilator, with current ventilator settings, continue to wean FiO2 as tolerated Follow-up ABGs showing improvement in patient's severe hypercapnic and hypoxemic respiratory failure Continue sedation with a combination of propofol and fentanyl with daily interruptions of sedation May be difficult to wean from mechanical ventilator due to severe kyphoscoliosis and likely underlying restrictive process Continue broad-spectrum antibiotics Blood cultures, sputum cultures, urine Legionella antigen, Cepheid 4 Plex, and procalcitonin level pending. Antiepileptic medications were restarted, no clinical seizure activity noted on my examination. Previously received 4 mg IV Versed in ED. Seizure precautions Neurology is consulted GI prophylaxis: Protonix DVT prophylaxis: Subcutaneous heparin and mechanical SCDs Case discussed with legal guardian Current CODE STATUS is full Current prognosis is guarded, and patient will be monitored in the intensive care unit. I have personally seen and examined the patient, performed the documentation and the assessment and plan as written. Number of minutes spent on the visit:20 This dictation was produced using [employer] dictation software please excuse grammatical errors Time with Patient: Greater than 30
--- NOTE | 2024-09-13 01:05 | P.PCN ---
Date of Procedure: 09/13/24 Preoperative Diagnosis: Acute hypoxemic and hypercapnic respiratory failure, pneumonia, sepsis Postoperative Diagnosis: Acute hypoxemic and hypercapnic respiratory failure, pneumonia, sepsis Procedure(s) Performed: Insertion of a right radial arterial line Indications for Procedure: Hemodynamic monitoring and frequent blood draws Description of Procedure: Informed consent was obtained, and a procedural timeout was performed . The patient was placed in supine position. The right radial region was prepared in a sterile fashion, and a sterile drape was applied. The right radial artery was palpated, easily cannulated, and a guidewire was placed. A Cook catheter was inserted over the guidewire, and the guidewire was removed. There was good arterial blood flow, good arterial waveform, and no complications. The line was secured with using a 3-0 silk suture.
[2024-09-13 01:56] LABS: Amorphous Sediment,Urine Rare /hpf; Appearance,Urine Clear (Clear); Bilirubin,Urine Negative (Negative); Blood,Urine Small (Negative); Color,Urine Colorless; Glucose,Urine (UA) Negative (Negative); Ketones,Urine Negative (Negative); Leukocyte Esterase,Urine Small (Negative); Mucus,Urine Rare /hpf; Nitrite,Urine Negative (Negative); PH, Urine 8.5 (5.0-8.0); Protein,Urine Trace (Negative); RBC,Urine 68 /hpf (0-5); Specific Gravity,Urine 1.027 (1.001-1.035); Urobilinogen,Urine <2.0 mg/dL (<2.0); WBC,Urine 37 /hpf (0-5)
[2024-09-13] MEDS: SODIUM CHLORIDE 0.9% 1,000 ML IV ONE (02:00)
[2024-09-13 02:10] LABS: Influenza A Not Detected (Not Detectd); Influenza B Not Detected (Not Detectd); RSV Not Detected (Not Detectd)
[2024-09-13 02:19] LABS: ABG Base Excess 10.8 mmol/L; ABG HCO3 32 mmol/L (21-25); ABG Oxygen Saturation >100.0 % (94-97); ABG PCO2 31 mmHg (35-45); ABG PO2 195 mmHg (83-108); ABG TCO2 33 mmol/L (19-24)
[2024-09-13 02:26] LABS: ABG PH 7.63 (7.35-7.45); Allen Test Performed? no
[2024-09-13 04:02] LABS: Glucose,Whole Blood 90 mg/dL (70-110)
[2024-09-13] MEDS: IPRATROPIUM-ALBUTEROL 3 ML NEB INHALATION SCH (04:19)
[2024-09-13 04:35] LABS: Basophils # (A) 0.01 10*3/uL (0.00-0.10); Basophils % (A) 0.2 %; Eosinophils # (A) 0.02 10*3/uL (0.04-0.35); Eosinophils % (A) 0.3 %; HCT 29.5 % (39.6-50.0); Lymphocytes # (A) 0.68 10*3/uL (0.90-5.00); Lymphocytes % (A) 10.8 %; MCH 33.1 pg (27.0-32.0); MCHC 30.8 g/dL (32.0-37.0); Mean Platelet Volume 10.1 fL (9.5-12.2); Monocytes # (A) 0.67 10*3/uL (0.20-1.00); Monocytes % (A) 10.6 %; Neutrophils # (A) 4.92 10*3/uL (1.80-7.70); Neutrophils % (A) 77.8 %; Platelet Count 152 10*3/uL (140-440); RBC 2.75 10*6/uL (4.40-5.60); RDW 12.5 % (11.5-14.5); WBC 6.32 10*3/uL (4.50-10.00)
[2024-09-13 04:48] LABS: HGB 9.1 g/dL (13.0-17.0)
[2024-09-13 04:49] LABS: MCV 107.3 fL (80.0-97.0)
[2024-09-13 04:54] LABS: African American GFR (CKD) >90 (>60 ml/min/1.73 sqM); Anion Gap 2 mmol/L; Blood Urea Nitrogen 31 mg/dL (9-20); Calcium 8.4 mg/dL (8.4-10.2); Carbon Dioxide 30 mmol/L (22-30); Chloride 105 mmol/L (98-107); Glucose 78 mg/dL (74-99); Non-African American GFR(CKD) >90 (>60 ml/min/1.73 sqM); Potassium 3.9 mmol/L (3.5-5.1); Sodium 137 mmol/L (137-145)
[2024-09-13] MEDS: NOREPINEPHRINE 4 MG in SODIUM CHLORIDE 0.9% 250 ML IV SCH (05:40)
[2024-09-13] MEDS: VANCOMYCIN 1,500 MG in SODIUM CHLORIDE 0.9% 500 ML 500 ML IVPB SCH (05:44)
[2024-09-13 05:55] LABS: ABG Base Excess 7.3 mmol/L; ABG HCO3 30 mmol/L (21-25); ABG Oxygen Saturation 98.7 % (94-97); ABG PCO2 33 mmHg (35-45); ABG PO2 83 mmHg (83-108); ABG TCO2 31 mmol/L (19-24)
[2024-09-13 06:03] LABS: ABG PH 7.56 (7.35-7.45); Allen Test Performed? no
[2024-09-13 06:05] LABS: Glucose,Whole Blood 97 mg/dL (70-110)
--- NOTE | 2024-09-13 08:12 | XR ---
EXAMINATION TYPE: XR chest 1V portable DATE OF EXAM: 09/13/2024 4:16 AM COMPARISON: Chest radiographs from 09/12/2024 TECHNIQUE: XR chest 1V portable Portable AP radiograph of the chest. CLINICAL INDICATION:Male, 63 years old with history of Tube placement; FINDINGS: Lungs/Pleura: No pneumothorax. No sizable pleural effusion. Pulmonary vascularity: Mild pulmonary vascular congestion. Heart/mediastinum: Cardiomediastinal silhouette is enlarged and stable. Musculoskeletal: No acute osseous pathology. Marked dextroscoliotic curvature of the thoracic spine. Other findings: None Lines/Tubes: Endotracheal tube with distal tip 2.4 cm above the ezra Nasogastric tube with its distal tip and side-port projecting under the diaphragm. IMPRESSION: 1. Cardiomegaly and mild pulmonary vascular congestion. Correlate with BNP for congestive heart fail ure. 2. Stable support tubes. 3. Marked scoliotic curvature. [facility], , 09/13/2024 8:10 AM
[2024-09-13] MEDS: POTASSIUM BICARBONATE/CIT AC 20 MEQ TABLET.EFF NG-TUBE SCH (09:40)
[2024-09-13] MEDS: CISATRACURIUM 2 MG/ML 5 ML VIAL IV ONE (09:49)
[2024-09-13] MEDS: CHLORHEXIDINE GLUCONATE 15 ML CUP MUCOUS MEM SCH (10:44)
[2024-09-13] MEDS: PANTOPRAZOLE 40 MG/10 ML VIAL IV SCH (10:44)
[2024-09-13] MEDS: HEPARIN SODIUM,PORCINE 5,000 UNIT/ML 1 ML VIAL SQ SCH (10:44)
[2024-09-13] MEDS: AZITHROMYCIN 500 MG in SODIUM CHLORIDE 0.9% 250 ML IVPB SCH (10:45)
--- NOTE | 2024-09-13 11:03 | XR ---
EXAMINATION TYPE: XR chest 1V portable DATE OF EXAM: 09/13/2024 10:44 AM COMPARISON: Chest radiographs from 09/13/2024 TECHNIQUE: XR chest 1V portable Portable AP radiograph of the chest. CLINICAL INDICATION:Male, 63 years old with history of post central line insertion; FINDINGS: Lungs/Pleura: No pneumothorax. Small bilateral pleural effusions suggested. Patchy perihilar airspace opacities. Heart/mediastinum: Cardiomediastinal silhouette is enlarged and stable. Musculoskeletal: No acute osseous pathology. Marked dextroscoliotic curvature of the thoracic spine. Other findings: None Lines/Tubes: Endotracheal tube with distal tip 2.6 cm above the ezra Nasogastric tube with its distal tip and side-port projecting under the diaphragm. Interval placement of right IJ central venous catheter with distal tip in the region of the low SVC. IMPRESSION: 1. Interval placement of right IJ central venous catheter with distal tip in the region of the low S VC. No discrete pneumothorax. Remaining support tubes are stable. 2. Cardiomegaly with small bilateral pleural effusions suggested. Bilateral perihilar airspace opacit ies which may represent pulmonary edema versus infiltrates. [facility], , 09/13/2024 11:01 AM
[2024-09-13 11:36] LABS: ABG Base Excess 3.6 mmol/L; ABG HCO3 29 mmol/L (21-25); ABG PCO2 45 mmHg (35-45); ABG PH 7.42 (7.35-7.45); ABG PO2 93 mmHg (83-108); ABG TCO2 30 mmol/L (19-24)
[2024-09-13 11:38] LABS: Allen Test Performed? NO
[2024-09-13 11:52] LABS: Glucose,Whole Blood 102 mg/dL (70-110)
[2024-09-13 11:52] LABS: African American GFR (CKD) >90 (>60 ml/min/1.73 sqM); Anion Gap 0 mmol/L; Blood Urea Nitrogen 26 mg/dL (9-20); Calcium 8.1 mg/dL (8.4-10.2); Carbon Dioxide 31 mmol/L (22-30); Chloride 106 mmol/L (98-107); Glucose 111 mg/dL (74-99); Non-African American GFR(CKD) >90 (>60 ml/min/1.73 sqM); Potassium 4.1 mmol/L (3.5-5.1); Sodium 137 mmol/L (137-145)
--- NOTE | 2024-09-13 11:57 | PCN ---
PROCEDURE NOTE PROCEDURE: Right internal jugular triple-lumen catheter. PREOPERATIVE DIAGNOSIS: Administration of fluids and pressors. POSTOPERATIVE DIAGNOSIS: Administration of fluids and pressors. OPERATORS: Dr. Ochoa, Dr. Heller and Dr. Plata. The patient's procedure took place in room 254. There was informed consent. TRIPLE LUMEN CATHETER PLACEMENT: Indication: Hemodynamic monitoring/Intravenous access. A time-out was completed verifying correct patient, procedure, site, positioning, and implant(s) or special equipment if applicable. The patient was placed in a dependent position appropriate for triple lumen catheter placement based on the vein to be cannulated. The patient's right shoulder or right neck or right groin was prepped and draped in sterile fashion. 1% Lidocaine was used to anesthetize the surrounding skin area. A triple lumen 9F Cordis catheter was introduced into the right internal jugular vein using Seldinger technique. The catheter was threaded smoothly over the guide wire and appropriate blood return was obtained. Each lumen of the catheter was evacuated of air and flushed with sterile saline. The catheter was then sutured in place to the skin and a sterile dressing applied. Perfusion to the extremity distal to the point of catheter insertion was checked and found to be adequate. We used a right internal jugular vein. We went via the posterior approach. There was good blood return from all 3 ports. The patient tolerated the procedure well. A chest x-ray was ordered. The tip of the catheter was seen in the superior vena cava and right atrium. The catheter was sutured in place. Sterile dressing was applied by the nurse. There was no immediate complication. MMODL / IJN: [id number] /
[2024-09-13 12:54] VITALS: BMI 22.9
--- NOTE | 2024-09-13 15:09 | P.HPIM ---
History of Present Illness H&P Date: 09/13/24 Chief Complaint: Difficulty in breathing Patient is a 63-year-old male with a known history of mentally challenged, seizure disorder, asthma, hypertension, hypothyroidism and chronic hypoxemic respiratory failure who is currently at [facility]. Patient was sent to hospital due to worsening shortness of breath and altered mental status and was also hypoxic with pulse ox 40% when he presented to ER. Patient was placed on nonrebreather and was minimally responsive on arrival to ER. Patient had ABGs was done showed PaO2 153. pCO2 98 and also pH 7.13 patient was intubated in the ER. Patient was also sedated with propofol and fentanyl. CT head showed no acute bleed or mass effect. Sinusitis and mastoiditis as described above. CT angiogram of the head and neck showed no evidence of dissection of the cervical internal carotid arteries or vertebral arteries. Patchy groundglass and consolidative opacities in partially visualized upper lungs suspicious for multifocal pneumonia Chest x-ray showed endotracheal tube terminates 2.5 cm above ezra. Enteric tube distal sidehole overlies the expected gastric lumen. Small bilateral pleural effusions and subtle patchy opacities in the upper lobes which could reflect infectious etiology. EKG showed sinus rhythm with right bundle branch block. Laboratory data on admission showed WBC 12.3 hemoglobin 11.7 and platelets 176 and MCV 112 sodium 140 potassium 5.3 chloride 96 bicarb is 37 BUN 43 and creatinine 0.79 and blood sugar 125 and calcium 8.6 liver enzymes are not elevated troponin x 1 negative and procalcitonin level is 0.11 Patient is also hypothermic requiring Roly hugger. Influenza A BRAC COVID-19 and Legionella urine antigen negative. Review of Systems ROS unobtainable: due to mental status Past Medical History Past Medical History: Asthma, Eye Disorder, Pneumonia History of Any Multi-Drug Resistant Organisms: None Reported Past Psychological History: No Psychological Hx Reported Smoking Status: Smoker, current status unknown Past Alcohol Use History: Unable to Obtain Past Drug Use History: Unable to Obtain Medications and Allergies Home Medications Medication Instructions Recorded Confirmed Type Acetaminophen Tab [Tylenol Tab] 500 mg PO TID 09/12/24 09/12/24 History Brimonidine Tartrate [Alphagan P 1 drop BOTH EYES Q12H 09/12/24 09/12/24 History 0.2% Ophth Soln] Calcium Carbonate/Vitamin D3 1 tab PO BID 09/12/24 09/12/24 History [Calcium 600 mg-Vit D3 5 mcg (200 unit)] Divalproex ER [Depakote ER] 1,000 mg PO DAILY 09/12/24 09/12/24 History Divalproex ER [Depakote ER] 250 mg PO DAILY 09/12/24 09/12/24 History Fluocinolone/Shower Cap 1 applic TOPICAL HS 09/12/24 09/12/24 History [Sytrz-Vmgxdux-Tk Scalp Oil] Ipratropium-Albuterol Nebulize 3 ml INHALATION RT-Q4H PRN 09/12/24 09/12/24 History [Duoneb 0.5 mg-3 mg/3 ml Soln] Ketoconazole 2% Shampoo [Nizoral] 1 applic TOPICAL SUWE 09/12/24 09/12/24 History Lactulose 20 gm PO TID@0700,1300,1900 09/12/24 09/12/24 History Levothyroxine Sodium [Synthroid] 137 mcg PO DAILY@0500 09/12/24 09/12/24 History Scopolamine [Scopolamine 1 MG/72 1 patch TRANSDERM Q72H 09/12/24 09/12/24 History HR patch] Sennosides [Senokot] 17.2 mg PO HS 09/12/24 09/12/24 History carBAMazepine [TEGretol XR] 400 mg PO BID@0700,1900 09/12/24 09/12/24 History clonazePAM [KlonoPIN] 0.5 mg PO BID 09/12/24 09/12/24 History levETIRAcetam [Keppra] 1,000 mg PO DAILY 09/12/24 09/12/24 History lisinopriL 2.5 mg PO DAILY@0700 09/12/24 09/12/24 History Allergies Allergy/AdvReac Type Severity Reaction Status Date / Time Penicillins Allergy Unknown Verified 09/12/24 16:28 phenobarbital Allergy Unknown Verified 09/12/24 16:28 Physical Exam Vitals: Vital Signs Temp Pulse Resp BP Pulse Ox FiO2 09/13/24 11:49 92 09/13/24 11:40 96 09/13/24 11:38 50 09/13/24 08:11 80 09/13/24 08:03 83 09/13/24 07:57 50 09/13/24 07:00 95.5 F L 61 20 100 09/13/24 06:45 55 L 20 100 09/13/24 06:30 64 20 100 09/13/24 06:15 59 L 20 100 09/13/24 06:00 95.4 F L 57 L 20 106/52 100 09/13/24 05:45 47 L 20 100 09/13/24 05:30 95.5 F L 56 L 20 100 09/13/24 05:15 55 L 20 100 09/13/24 05:00 95.9 F L 55 L 20 100 09/13/24 04:45 57 L 20 100 09/13/24 04:32 64 20 09/13/24 04:30 63 20 100 09/13/24 04:23 50 09/13/24 04:20 60 20 09/13/24 04:15 66 20 100 09/13/24 04:00 97.5 F L 54 L 20 100 50 09/13/24 03:45 61 20 100 09/13/24 03:30 64 20 100 09/13/24 03:15 63 20 100 09/13/24 03:00 99.7 F H 65 20 100 09/13/24 02:45 67 20 100 09/13/24 02:40 50 09/13/24 02:30 73 20 100 09/13/24 02:15 74 20 100 09/13/24 02:00 76 20 100 09/13/24 01:45 102.0 F H 80 20 100 09/13/24 01:30 84 20 100 09/13/24 01:15 101.8 F H 85 20 99 09/13/24 01:00 87 20 106/52 100 09/13/24 00:45 85 20 114/70 100 09/13/24 00:30 88 20 113/70 100 09/13/24 00:15 88 20 98/55 100 09/13/24 00:12 70 09/13/24 00:00 101.2 F H 84 20 135/53 100 70 09/12/24 23:45 86 20 104/78 100 09/12/24 23:30 86 20 90/61 100 09/12/24 23:15 82 20 90/70 100 09/12/24 23:00 98.9 F 82 20 106/61 100 09/12/24 22:45 80 20 108/78 100 09/12/24 22:30 80 20 133/74 100 09/12/24 22:15 92 22 105/69 100 09/12/24 22:00 75 21 108/55 100 09/12/24 21:45 73 20 102/61 100 09/12/24 21:30 72 22 106/67 100 09/12/24 21:15 72 20 97/65 100 09/12/24 21:00 70 20 97/58 100 09/12/24 20:45 68 20 90/57 100 09/12/24 20:30 68 20 84/53 100 09/12/24 20:15 67 20 89/56 100 09/12/24 20:00 97.4 F L 68 20 81/50 100 70 09/12/24 19:45 69 20 88/57 100 09/12/24 19:44 70 09/12/24 19:38 70 09/12/24 19:00 70 26 H 91/63 100 09/12/24 18:50 95.5 F L 71 26 H 95/49 100 09/12/24 18:41 26 H 100 09/12/24 18:17 95.2 F L 77 26 H 102/72 100 09/12/24 18:09 95.2 F L 78 26 H 93/66 100 09/12/24 16:59 94.5 F L 74 26 H 104/70 100 09/12/24 16:50 93.9 F L 90 26 H 129/74 100 09/12/24 16:28 90 108/63 98 100 09/12/24 16:24 96 19 140/74 97 09/12/24 16:00 100 09/12/24 15:57 98 28 H 123/60 100 Intake and Output 09/12/24 09/13/24 09/13/24 22:59 06:59 14:59 Intake Total 3368.183 9887.265 326.498 Output Total 450 540 75 Balance 519.360 2017.265 251.498 Intake: IV 760 Sodium Chloride 0.9% 1, 260 000 ml @ 130 mls/hr IV . Q7H42M [facility] Rx#:[id number] Vancomycin 1,500 mg In 500 Sodium Chloride 0.9% 500 ml 500 ml @ 167 mls/hr IVPB Q12H [facility] Rx#: [id number] Intake, IV Titration 388.806 6378.265 326.498 Amount Lactated Ringers 1,000 ml 260 1040 130 @ 130 mls/hr IV .Q7H42M [facility] Rx#:[id number] Norepinephrine 4 mg In 3.909 11.901 Sodium Chloride 0.9% 250 ml @ 0.03 MCG/KG/MIN 7. 818 mls/hr IV .Q24H [facility] Rx#:[id number] Sodium Chloride 0.9% 1, 1000 000 ml @ 999 mls/hr IV . Q1H1M [facility] Rx#:[id number] Vancomycin 1,500 mg In 500 Sodium Chloride 0.9% 500 ml 500 ml @ 167 mls/hr IVPB [facility] Rx#: [id number] fentaNYL (PF). 1,000 mcg 62.322 31.568 In Sodium Chloride 0.9% 80 ml @ 0.5 MCG/KG/HR 4. 082 mls/hr IV .Q24H [facility] Rx#:[id number] propofoL 1,000 mg In 71.769 190.034 153.029 Empty Bag 1 bag @ 15 MCG/ KG/MIN 7.348 mls/hr IV . [id number] [facility] Rx#:[id number] Output: Urine 450 540 75 Uretheral (Carrillo) 60 Other: Voiding Method Indwelling Catheter Indwelling Catheter Weight 67.4 kg 68.4 kg ABP, PAP, CO, CI - Last 8 Hours Arterial Blood Pressure 102/42 Arterial Blood Pressure 109/43 Arterial Blood Pressure 111/47 Arterial Blood Pressure 123/49 Arterial Blood Pressure 140/57 Arterial Blood Pressure 121/45 Arterial Blood Pressure 109/43 Arterial Blood Pressure 112/42 Arterial Blood Pressure 108/42 Arterial Blood Pressure 108/43 Arterial Blood Pressure 120/50 PHYSICAL EXAMINATION: Patient is lying in the bed intubated and sedated. Mentally challenged at baseline.. HEENT: Normocephalic. Neck is supple. Left pupils reactive. Nostrils clear. Or al cavity is moist. Right eye blindness Neck reveals no JVD, carotid bruits, or thyromegaly. CHEST EXAMINATION: Trachea is central. Symmetrical expansion. Bibasilar diminished sounds. Scattered coarse sounds. No wheezing. CARDIAC: Normal S1, S2 with no gallops. No murmurs ABDOMEN: Soft. Bowel sounds normal. No organomegaly. No abdominal bruits. Extremities: reveal no edema. No clubbing or cyanosis Neurologically could not be assessed at this time. Contracted extremities. Skin: No rash or skin lesions. Psychiatric: Could not be assessed. Musculoskeletal: No joint swelling or deformity. Results CBC & Chem 7: 09/13/24 03:49 09/13/24 11:29 Labs: Abnormal Lab Results - Last 24 Hours (Table) 09/12/24 09/12/24 09/12/24 Range/Units 15:57 16:05 16:05 WBC 12.37 H (4.50-10.00) 10*3/uL RBC 3.40 L (4.40-5.60) 10*6/uL Hgb 11.7 L (13.0-17.0) g/dL Hct 38.1 L (39.6-50.0) % MCV 112.1 H (80.0-97.0) fL MCH 34.4 H (27.0-32.0) pg MCHC 30.7 L (32.0-37.0) g/dL Neutrophils # 10.36 H (1.80-7.70) 10*3/uL Lymphocytes # (0.90-5.00) 10*3/uL Eosinophils # 0.03 L (0.04-0.35) 10*3/uL ABG pH (7.35-7.45) ABG pCO2 (35-45) mmHg ABG pO2 (83-108) mmHg ABG HCO3 (21-25) mmol/L ABG Total CO2 (19-24) mmol/L ABG O2 Saturation (94-97) % Hemoglobin (13.0-17.5) gm/dL Potassium 5.3 H (3.5-5.1) mmol/L Chloride 96 L (98-107) mmol/L Carbon Dioxide 37 H (22-30) mmol/L BUN 43 H (9-20) mg/dL Creatinine (0.66-1.25) mg/dL Glucose 125 H (74-99) mg/dL POC Glucose (mg/dL) 124 H (70-110) mg/dL Plasma Lactic Acid Juan Francisco (0.7-2.0) mmol/L Calcium (8.4-10.2) mg/dL Urine pH (5.0-8.0) Urine Protein (Negative) Urine Blood (Negative) Ur Leukocyte Esterase (Negative) Urine RBC (0-5) /hpf Urine WBC (0-5) /hpf Amorphous Sediment (None) /hpf Urine Mucus (None) /hpf 09/12/24 09/12/24 09/12/24 Range/Units 16:08 18:00 18:26 WBC (4.50-10.00) 10*3/uL RBC (4.40-5.60) 10*6/uL Hgb (13.0-17.0) g/dL Hct (39.6-50.0) % MCV (80.0-97.0) fL MCH (27.0-32.0) pg MCHC (32.0-37.0) g/dL Neutrophils # (1.80-7.70) 10*3/uL Lymphocytes # (0.90-5.00) 10*3/uL Eosinophils # (0.04-0.35) 10*3/uL ABG pH 7.13 L* 7.60 H* (7.35-7.45) ABG pCO2 >98 H* 31 L (35-45) mmHg ABG pO2 153 H 187 H (83-108) mmHg ABG HCO3 31 H (21-25) mmol/L ABG Total CO2 31 H (19-24) mmol/L ABG O2 Saturation 99.0 H >100.0 H (94-97) % Hemoglobin 12.2 L 10.5 L (13.0-17.5) gm/dL Potassium (3.5-5.1) mmol/L Chloride (98-107) mmol/L Carbon Dioxide (22-30) mmol/L BUN (9-20) mg/dL Creatinine (0.66-1.25) mg/dL Glucose (74-99) mg/dL POC Glucose (mg/dL) (70-110) mg/dL Plasma Lactic Acid Juan Francisco 2.4 H* (0.7-2.0) mmol/L Calcium (8.4-10.2) mg/dL Urine pH (5.0-8.0) Urine Protein (Negative) Urine Blood (Negative) Ur Leukocyte Esterase (Negative) Urine RBC (0-5) /hpf Urine WBC (0-5) /hpf Amorphous Sediment (None) /hpf Urine Mucus (None) /hpf 09/12/24 09/13/24 09/13/24 Range/Units 18:39 00:49 02:20 WBC (4.50-10.00) 10*3/uL RBC (4.40-5.60) 10*6/uL Hgb (13.0-17.0) g/dL Hct (39.6-50.0) % MCV (80.0-97.0) fL MCH (27.0-32.0) pg MCHC (32.0-37.0) g/dL Neutrophils # (1.80-7.70) 10*3/uL Lymphocytes # (0.90-5.00) 10*3/uL Eosinophils # (0.04-0.35) 10*3/uL ABG pH 7.63 H* (7.35-7.45) ABG pCO2 31 L (35-45) mmHg ABG pO2 195 H (83-108) mmHg ABG HCO3 32 H (21-25) mmol/L ABG Total CO2 33 H (19-24) mmol/L ABG O2 Saturation >100.0 H (94-97) % Hemoglobin 9.5 L (13.0-17.5) gm/dL Potassium (3.5-5.1) mmol/L Chloride (98-107) mmol/L Carbon Dioxide (22-30) mmol/L BUN (9-20) mg/dL Creatinine (0.66-1.25) mg/dL Glucose (74-99) mg/dL POC Glucose (mg/dL) 145 H (70-110) mg/dL Plasma Lactic Acid Juan Francisco (0.7-2.0) mmol/L Calcium (8.4-10.2) mg/dL Urine pH 8.5 H (5.0-8.0) Urine Protein Trace H (Negative) Urine Blood Small H (Negative) Ur Leukocyte Esterase Small H (Negative) Urine RBC 68 H (0-5) /hpf Urine WBC 37 H (0-5) /hpf Amorphous Sediment Rare H (None) /hpf Urine Mucus Rare H (None) /hpf 09/13/24 09/13/24 09/13/24 Range/Units 03:49 03:49 05:48 WBC (4.50-10.00) 10*3/uL RBC 2.75 L (4.40-5.60) 10*6/uL Hgb 9.1 L D (13.0-17.0) g/dL Hct 29.5 L (39.6-50.0) % MCV 107.3 H (80.0-97.0) fL MCH 33.1 H (27.0-32.0) pg MCHC 30.8 L (32.0-37.0) g/dL Neutrophils # (1.80-7.70) 10*3/uL Lymphocytes # 0.68 L (0.90-5.00) 10*3/uL Eosinophils # 0.02 L (0.04-0.35) 10*3/uL ABG pH 7.56 H* (7.35-7.45) ABG pCO2 33 L (35-45) mmHg ABG pO2 (83-108) mmHg ABG HCO3 30 H (21-25) mmol/L ABG Total CO2 31 H (19-24) mmol/L ABG O2 Saturation 98.7 H (94-97) % Hemoglobin 9.2 L (13.0-17.5) gm/dL Potassium (3.5-5.1) mmol/L Chloride (98-107) mmol/L Carbon Dioxide (22-30) mmol/L BUN 31 H (9-20) mg/dL Creatinine 0.53 L (0.66-1.25) mg/dL Glucose (74-99) mg/dL POC Glucose (mg/dL) (70-110) mg/dL Plasma Lactic Acid Juan Francisco (0.7-2.0) mmol/L Calcium (8.4-10.2) mg/dL Urine pH (5.0-8.0) Urine Protein (Negative) Urine Blood (Negative) Ur Leukocyte Esterase (Negative) Urine RBC (0-5) /hpf Urine WBC (0-5) /hpf Amorphous Sediment (None) /hpf Urine Mucus (None) /hpf 09/13/24 09/13/24 Range/Units 11:29 11:34 WBC (4.50-10.00) 10*3/uL RBC (4.40-5.60) 10*6/uL Hgb (13.0-17.0) g/dL Hct (39.6-50.0) % MCV (80.0-97.0) fL MCH (27.0-32.0) pg MCHC (32.0-37.0) g/dL Neutrophils # (1.80-7.70) 10*3/uL Lymphocytes # (0.90-5.00) 10*3/uL Eosinophils # (0.04-0.35) 10*3/uL ABG pH (7.35-7.45) ABG pCO2 (35-45) mmHg ABG pO2 (83-108) mmHg ABG HCO3 29 H (21-25) mmol/L ABG Total CO2 30 H (19-24) mmol/L ABG O2 Saturation 98.0 H (94-97) % Hemoglobin 9.6 L (13.0-17.5) gm/dL Potassium (3.5-5.1) mmol/L Chloride (98-107) mmol/L Carbon Dioxide 31 H (22-30) mmol/L BUN 26 H (9-20) mg/dL Creatinine 0.59 L (0.66-1.25) mg/dL Glucose 111 H (74-99) mg/dL POC Glucose (mg/dL) (70-110) mg/dL Plasma Lactic Acid Juan Francisco (0.7-2.0) mmol/L Calcium 8.1 L (8.4-10.2) mg/dL Urine pH (5.0-8.0) Urine Protein (Negative) Urine Blood (Negative) Ur Leukocyte Esterase (Negative) Urine RBC (0-5) /hpf Urine WBC (0-5) /hpf Amorphous Sediment (None) /hpf Urine Mucus (None) /hpf Thrombosis Risk Factor Assmnt - DVT/VTE Prophylaxis DVT/VTE Prophylaxis: Pharmacologic Prophylaxis ordered Assessment and Plan Assessment: Acute hypoxic and hypercapnic respiratory failure requiring intubation mec hanical ventilator. Multifocal pneumonia-healthcare associated Sepsis secondary pneumonia Hypertension Hypothyroidism Hypothermia Altered mental status secondary to metabolic encephalopathy and infection History of intellectual disability Seizure disorder Severe kyphoscoliosis Right eye blindness Medical debility currently at [facility] DVT prophylax with heparin subcu Plan: Patient is currently in the MICU. Intubated and sedated. Requiring pressor support with norepinephrine. Does have cough and gag reflex. Continued on antibiotics above ceftriaxone, vancomycin and azithromycin. Patient was started back on antiepileptic medications Keppra 1000 mg IV every 12. Neurology and critical care team is on board. Follow culture report. Prognosis is guarded at this time with multimedical problems and comorbid conditions. Time with Patient: Greater than 30
--- NOTE | 2024-09-13 15:51 | P.CNNES ---
History of Present Illness Consult date: 09/13/24 Requesting physician: Denia Boo Reason for Consult: Altered mental status History of Present Illness: Patient is a 63-year-old male, with history of intellectual disability, seizure disorder, hypertension, hypothyroidism and chronic hypoxic respiratory failure, resides at a local shelter. Patient was brought to the hospital by ambulance yesterday at 3:54 PM for altered mental status. Patient not able to provide history, as patient is intubated, sedated on propofol and fentanyl. As per EMS flowsheet when they arrived at [facility] to find 63-year-old male laying in his bed unresponsive with pulse ox in the 40s. Patient was last seen normal around 1 PM in the afternoon. When patient was rechecked he was found to be unresponsive and leaning towards his right side, unable to hold hims elf upright. Patient has history of cognitive impairment. Patient's GCS was 3. Patient remained unresponsive to all stimuli during transport. Patient remained on 15 L nonrebreather mask throughout the transport. EKG showed sinus rhythm. Blood glucose was 130. Patient's vitals at the scene was blood pressure 105/58, pulse rate 98 respiration 30. CO2 was 80. Patient developed acute hypoxemic and hypercapnic respiratory failure, and was intubated in the ER. Patient has been diagnosed with multifocal pneumonia, healthcare associated's, with sepsis. Patient had hypothermia, requiring war sera blanket. Patient has severe kyphoscoliosis. He is blind in the right eye. Vital signs in the hospital was 123/60, pulse rate 98. Patient had spiked temperature of 101.2 at midnight. Blood test shows WBC 12.37, hemoglobin 11.7 platelets are 176. PT PTT normal, ABG with pH of 7.13, PCO2 > 98, pO2 153 saturation 99%. Sodium 140 potassium 5.3, BUN 43 creatinine 0.79. Hepatic panel is normal troponin negative, CK normal. Lactate 2.4. UA shows no significant infection. CT head showed no acute bleed or mass effect. Sinusitis and mastoiditis. I personally reviewed CT head, agree with the findings. EKG shows sinus rhythm. Chest x-ray shows endotracheal tube. Enteric tube distal sidehole overlies expected gastric lumen. Small bilateral pleural effusion and subtle patchy opacities in the upper lobes, which could reflect infectious etiology. Home medications include Depakote 250 mg in the morning and Depakote 1000 mg daily, lisinopril 2.5 mg, Tegretol XR 400 mg twice daily clonazepam 0.5 mg twice daily, lactulose Keppra 1000 mg daily, Review of Systems ROS unobtainable: due to endotracheal tube, due to mental status Past Medical History Past Medical History: Asthma, Eye Disorder, Pneumonia History of Any Multi-Drug Resistant Organisms: None Reported Past Psychological History: No Psychological Hx Reported Smoking Status: Smoker, current status unknown Past Alcohol Use History: Unable to Obtain Past Drug Use History: Unable to Obtain Medications and Allergies Home Medications Medication Instructions Recorded Confirmed Type Acetaminophen Tab [Tylenol Tab] 500 mg PO TID 09/12/24 09/12/24 History Brimonidine Tartrate [Alphagan P 1 drop BOTH EYES Q12H 09/12/24 09/12/24 History 0.2% Ophth Soln] Calcium Carbonate/Vitamin D3 1 tab PO BID 09/12/24 09/12/24 History [Calcium 600 mg-Vit D3 5 mcg (200 unit)] Divalproex ER [Depakote ER] 1,000 mg PO DAILY 09/12/24 09/12/24 History Divalproex ER [Depakote ER] 250 mg PO DAILY 09/12/24 09/12/24 History Fluocinolone/Shower Cap 1 applic TOPICAL HS 09/12/24 09/12/24 History [Zfikc-Jzzbmjt-Cj Scalp Oil] Ipratropium-Albuterol Nebulize 3 ml INHALATION RT-Q4H PRN 09/12/24 09/12/24 History [Duoneb 0.5 mg-3 mg/3 ml Soln] Ketoconazole 2% Shampoo [Nizoral] 1 applic TOPICAL SUWE 09/12/24 09/12/24 Hi story Lactulose 20 gm PO TID@0700,1300,1900 09/12/24 09/12/24 History Levothyroxine Sodium [Synthroid] 137 mcg PO DAILY@0500 09/12/24 09/12/24 History Scopolamine [Scopolamine 1 MG/72 1 patch TRANSDERM Q72H 09/12/24 09/12/24 History HR patch] Sennosides [Senokot] 17.2 mg PO HS 09/12/24 09/12/24 History carBAMazepine [TEGretol XR] 400 mg PO BID@0700,1900 09/12/24 09/12/24 History clonazePAM [KlonoPIN] 0.5 mg PO BID 09/12/24 09/12/24 History levETIRAcetam [Keppra] 1,000 mg PO DAILY 09/12/24 09/12/24 History lisinopriL 2.5 mg PO DAILY@0700 09/12/24 09/12/24 History Allergies Allergy/AdvReac Type Severity Reaction Status Date / Time Penicillins Allergy Unknown Verified 09/12/24 16:28 phenobarbital Allergy Unknown Verified 09/12/24 16:28 Physical Examination - Vital Signs Vital Signs: Vital Signs Temp Pulse Resp BP Pulse Ox FiO2 09/13/24 12:15 96 16 98/62 97 09/13/24 12:00 97.3 F L 98 16 96 50 09/13/24 11:49 92 09/13/24 11:45 94 16 100 09/13/24 11:40 96 09/13/24 11:38 50 09/13/24 11:30 96 16 100 09/13/24 11:15 97.5 F L 101 H 16 100 09/13/24 11:00 99 16 100 09/13/24 10:45 98 16 100 09/13/24 10:30 105 H 16 99 09/13/24 10:15 104 H 16 99 09/13/24 10:00 96 16 96 09/13/24 09:45 86 16 96 09/13/24 09:30 96.9 F L 73 16 93 L 09/13/24 09:15 72 20 92 L 09/13/24 09:00 74 20 92 L 09/13/24 08:45 70 20 100 09/13/24 08:30 75 20 100 09/13/24 08:15 80 20 154/70 100 09/13/24 08:11 80 09/13/24 08:03 83 09/13/24 08:00 95.7 F L 68 21 100 50 09/13/24 07:57 50 09/13/24 07:45 61 20 106/52 100 09/13/24 07:30 59 L 20 100 09/13/24 07:15 64 20 100 09/13/24 07:00 95.5 F L 61 20 100 09/13/24 06:45 55 L 20 100 09/13/24 06:30 64 20 100 09/13/24 06:15 59 L 20 100 09/13/24 06:00 95.4 F L 57 L 20 106/52 100 09/13/24 05:45 47 L 20 100 09/13/24 05:30 95.5 F L 56 L 20 100 09/13/24 05:15 55 L 20 100 09/13/24 05:00 95.9 F L 55 L 20 100 09/13/24 04:45 57 L 20 100 09/13/24 04:32 64 20 09/13/24 04:30 63 20 100 09/13/24 04:23 50 09/13/24 04:20 60 20 09/13/24 04:15 66 20 100 09/13/24 04:00 97.5 F L 54 L 20 100 50 09/13/24 03:45 61 20 100 09/13/24 03:30 64 20 100 09/13/24 03:15 63 20 100 09/13/24 03:00 99.7 F H 65 20 100 09/13/24 02:45 67 20 100 09/13/24 02:40 50 09/13/24 02:30 73 20 100 09/13/24 02:15 74 20 100 09/13/24 02:00 76 20 100 09/13/24 01:45 102.0 F H 80 20 100 09/13/24 01:30 84 20 100 09/13/24 01:15 101.8 F H 85 20 99 09/13/24 01:00 87 20 106/52 100 09/13/24 00:45 85 20 114/70 100 09/13/24 00:30 88 20 113/70 100 09/13/24 00:15 88 20 98/55 100 09/13/24 00:12 70 09/13/24 00:00 101.2 F H 84 20 135/53 100 70 09/12/24 23:45 86 20 104/78 100 09/12/24 23:30 86 20 90/61 100 09/12/24 23:15 82 20 90/70 100 09/12/24 23:00 98.9 F 82 20 106/61 100 09/12/24 22:45 80 20 108/78 100 09/12/24 22:30 80 20 133/74 100 09/12/24 22:15 92 22 105/69 100 09/12/24 22:00 75 21 108/55 100 09/12/24 21:45 73 20 102/61 100 09/12/24 21:30 72 22 106/67 100 09/12/24 21:15 72 20 97/65 100 09/12/24 21:00 70 20 97/58 100 09/12/24 20:45 68 20 90/57 100 09/12/24 20:30 68 20 84/53 100 09/12/24 20:15 67 20 89/56 100 09/12/24 20:00 97.4 F L 68 20 81/50 100 70 09/12/24 19:45 69 20 88/57 100 09/12/24 19:44 70 09/12/24 19:38 70 09/12/24 19:00 70 26 H 91/63 100 09/12/24 18:50 95.5 F L 71 26 H 95/49 100 09/12/24 18:41 26 H 100 09/12/24 18:17 95.2 F L 77 26 H 102/72 100 09/12/24 18:09 95.2 F L 78 26 H 93/66 100 09/12/24 16:59 94.5 F L 74 26 H 104/70 100 09/12/24 16:50 93.9 F L 90 26 H 129/74 100 09/12/24 16:28 90 108/63 98 100 09/12/24 16:24 96 19 140/74 97 09/12/24 16:00 100 09/12/24 15:57 98 28 H 123/60 100 Intake and Output 09/12/24 09/13/24 09/13/24 22:59 06:59 14:59 Intake Total 8759.458 6041.265 1311.916 Output Total 450 540 315 Balance 407.783 0358.265 996.916 Intake: IV 760 650 Sodium Chloride 0.9% 1, 260 650 000 ml @ 130 mls/hr IV . Q7H42M [facility] Rx#:[id number] Vancomycin 1,500 mg In 500 Sodium Chloride 0.9% 500 ml 500 ml @ 167 mls/hr IVPB Q12H [facility] Rx#: [id number] Intake, IV Titration 076.472 2790.265 661.916 Amount Azithromycin 500 mg In 250 Sodium Chloride 0.9% 250 ml @ 250 mls/hr IVPB DAILY [facility] Rx#:[id number] Lactated Ringers 1,000 ml 260 1040 130 @ 130 mls/hr IV .Q7H42M [facility] Rx#:[id number] Norepinephrine 4 mg In 3.909 27.319 Sodium Chloride 0.9% 250 ml @ 0.03 MCG/KG/MIN 7. 818 mls/hr IV .Q24H [facility] Rx#:[id number] Sodium Chloride 0.9% 1, 1000 000 ml @ 999 mls/hr IV . Q1H1M [facility] Rx#:[id number] Sodium Chloride 0.9% 1, 20 000 ml @ 999 mls/hr IV . Q1H1M [facility] Rx#:[id number] Vancomycin 1,500 mg In 500 Sodium Chloride 0.9% 500 ml 500 ml @ 167 mls/hr IVPB ONCE [facility] Rx#: [id number] cefTRIAXone 1 gm In 50 Sodium Chloride 0.9% 50 ml @ 100 mls/hr IVPB Q24HR [facility] Rx#:[id number] fentaNYL (PF). 1,000 mcg 62.322 31.568 In Sodium Chloride 0.9% 80 ml @ 0.5 MCG/KG/HR 4. 082 mls/hr IV .Q24H [facility] Rx#:[id number] propofoL 1,000 mg In 71.769 190.034 153.029 Empty Bag 1 bag @ 15 MCG/ KG/MIN 7.348 mls/hr IV . Q66L82H [facility] Rx#:[id number] Output: Urine 450 540 315 Uretheral (Carrillo) 60 Other: Voiding Method Indwelling Catheter Indwelling Catheter Indwelling Catheter Weight 67.4 kg 68.4 kg 68.4 kg ABP, PAP, CO, CI - Last 8 Hours Arterial Blood Pressure 88/46 Arterial Blood Pressure 91/47 Arterial Blood Pressure 89/47 Arterial Blood Pressure 102/47 Arterial Blood Pressure 93/45 Arterial Blood Pressure 124/64 Arterial Blood Pressure 144/68 Arterial Blood Pressure 181/77 Arterial Blood Pressure 172/69 Arterial Blood Pressure 163/66 Arterial Blood Pressure 137/61 Arterial Blood Pressure 110/46 Arterial Blood Pressure 115/48 Arterial Blood Pressure 122/51 Arterial Blood Pressure 131/55 Arterial Blood Pressure 146/63 Arterial Blood Pressure 120/50 Arterial Blood Pressure 121/49 Arterial Blood Pressure 122/51 Arterial Blood Pressure 102/42 Arterial Blood Pressure 109/43 Arterial Blood Pressure 111/47 Arterial Blood Pressure 123/49 Arterial Blood Pressure 140/57 Arterial Blood Pressure 121/45 Arterial Blood Pressure 109/43 Patient is a late middle-aged male, who is intubated, sedated. Patie nt on propofol 35 mcg/kg/min. Patient also on fentanyl 0.5 mcg/kg/h. Patient also on norepinephrine 0.1 mcg/kg/min. Patient is sedated, unresponsive, intubated. On cranial nerve examination, patient's left pupil is about 3 mm, very minimally reacting. Patient has corneal opacity on the right side. Patient is legally blind right eye. Oculocephalics absent. Neck appears somewhat stiff. He is having sometimes fine tremors of his lower jaw, almost like chattering teeth. No obvious seizure-like activity. On muscle strength testing, patient is not following any directions because of mental status. Patient does withdraw slightly to painful stimulus in all 4 extremities. He slightly grimaces also. Deep tendon reflexes are hypoactive. Plantars are probable upgoing. Sensory to touch cannot be assessed. Response to painful stimulus as above. Cerebellar function cannot be assessed. Tone and bulk of muscles normal. Gait deferred.. On general examination, there is no carotid bruit or murmur, S1-S2 audible. Chest is clear on consultation. Abdomen is soft nontender. No organomegaly, bowel sounds present. Peripheral pulses are present. No peripheral edema. Results - Laboratory Findings CBC and BMP: 09/13/24 03:49 09/13/24 11:29 Abnormal Lab Findings: Abnormal Labs 09/12/24 09/12/24 09/12/24 15:57 16:05 16:05 WBC 12.37 H RBC 3.40 L Hgb 11.7 L Hct 38.1 L MCV 112.1 H MCH 34.4 H MCHC 30.7 L Neutrophils # 10.36 H Lymphocytes # Eosinophils # 0.03 L ABG pH ABG pCO2 ABG pO2 ABG HCO3 ABG Total CO2 ABG O2 Saturation Hemoglobin Potassium 5.3 H Chloride 96 L Carbon Dioxide 37 H BUN 43 H Creatinine Glucose 125 H POC Glucose (mg/dL) 124 H Plasma Lactic Acid Juan Francisco Calcium Urine pH Urine Protein Urine Blood Ur Leukocyte Esterase Urine RBC Urine WBC Amorphous Sediment Urine Mucus 09/12/24 09/12/24 09/12/24 16:08 18:00 18:26 WBC RBC Hgb Hct MCV MCH MCHC Neutrophils # Lymphocytes # Eosinophils # ABG pH 7.13 L* 7.60 H* ABG pCO2 >98 H* 31 L ABG pO2 153 H 187 H ABG HCO3 31 H ABG Total CO2 31 H ABG O2 Saturation 99.0 H >100.0 H Hemoglobin 12.2 L 10.5 L Potassium Chloride Carbon Dioxide BUN Creatinine Glucose POC Glucose (mg/dL) Plasma Lactic Acid Juan Francisco 2.4 H* Calcium Urine pH Urine Protein Urine Blood Ur Leukocyte Esterase Urine RBC Urine WBC Amorphous Sediment Urine Mucus 09/12/24 09/13/24 09/13/24 18:39 00:49 02:20 WBC RBC Hgb Hct MCV MCH MCHC Neutrophils # Lymphocytes # Eosinophils # ABG pH 7.63 H* ABG pCO2 31 L ABG pO2 195 H ABG HCO3 32 H ABG Total CO2 33 H ABG O2 Saturation >100.0 H Hemoglobin 9.5 L Potassium Chloride Carbon Dioxide BUN Creatinine Glucose POC Glucose (mg/dL) 145 H Plasma Lactic Acid Juan Francisco Calcium Urine pH 8.5 H Urine Protein Trace H Urine Blood Small H Ur Leukocyte Esterase Small H Urine RBC 68 H Urine WBC 37 H Amorphous Sediment Rare H Urine Mucus Rare H 09/13/24 09/13/24 09/13/24 03:49 03:49 05:48 WBC RBC 2.75 L Hgb 9.1 L D Hct 29.5 L MCV 107.3 H MCH 33.1 H MCHC 30.8 L Neutrophils # Lymphocytes # 0.68 L Eosinophils # 0.02 L ABG pH 7.56 H* ABG pCO2 33 L ABG pO2 ABG HCO3 30 H ABG Total CO2 31 H ABG O2 Saturation 98.7 H Hemoglobin 9.2 L Potassium Chloride Carbon Dioxide BUN 31 H Creatinine 0.53 L Glucose POC Glucose (mg/dL) Plasma Lactic Acid Juan Francisco Calcium Urine pH Urine Protein Urine Blood Ur Leukocyte Esterase Urine RBC Urine WBC Amorphous Sediment Urine Mucus 09/13/24 09/13/24 11:29 11:34 WBC RBC Hgb Hct MCV MCH MCHC Neutrophils # Lymphocytes # Eosinophils # ABG pH ABG pCO2 ABG pO2 ABG HCO3 29 H ABG Total CO2 30 H ABG O2 Saturation 98.0 H Hemoglobin 9.6 L Potassium Chloride Carbon Dioxide 31 H BUN 26 H Creatinine 0.59 L Glucose 111 H POC Glucose (mg/dL) Plasma Lactic Acid Juan Francisco Calcium 8.1 L Urine pH Urine Protein Urine Blood Ur Leukocyte Esterase Urine RBC Urine WBC Amorphous Sediment Urine Mucus Assessment and Plan Assessment: * Altered mental status, likely due to metabolic encephalopathy. * Acute hypoxic, hypercapnic respiratory failure, status post intubation. * Severe kyphoscoliosis * Multifocal pneumonia, healthcare associated with sepsis * Hypothermia, due to above * History of intellectual disability * History of seizure disorder * Right eye blindness * Hypertension * Hypothyroidism * [facility]CF resident Plan: * Patient is having some tremoring, which is not seizures, likely related to hypothermia/temperature/infection. * Patient will be continued on same seizure medication as he was taking at home. We will switch from oral to IV form if possible otherwise through OGT. * EEG was performed, which was abnormal due to background slowing of moderate degree, suggestive of generalized cerebral dysfunction as can be seen with toxic metabolic encephalopathy related to diffuse structural brain abnormality or medication effect. No epileptiform activity was seen. * Check Tegretol, Depakote and Keppra level. Check ammonia level. * Patient currently on azithromycin and ceftriaxone. * Other medical management as per IM and critical care. * Neurology will follow sporadically. * Thank you for the consult.
[2024-09-13 18:29] LABS: Glucose,Whole Blood 110 mg/dL (70-110)
[2024-09-13] MEDS: carBAMazepine 200 MG TAB PO SCH (19:46)
[2024-09-13] MEDS: VALPROATE SODIUM 750 MG in SODIUM CHLORIDE 0.9% 50 ML IVPB SCH (20:01)
--- NOTE | 2024-09-13 22:18 | EEG ---
ELECTROENCEPHALOGRAM REPORT PREAMBLE: This is a 63-year-old male, who came with tremors. The patient does have a history of seizure disorder, on Keppra, Depakote, and Tegretol. EEG FINDINGS: This is a 21-channel digital EEG recording with video component, utilizing 10/20 international system with referential and bipolar montage. Background consists of moderately well-developed and regulated, mixed frequencies of 6 Hz theta, intermixed with some 3 Hz delta activity in the bihemispheric region. Background does not seem to be reactive to eye opening or closing. Some periods of generalized suppression are also seen intermittently during the study. Hyperventilation and photic stimulation were not done. No definitive focal or generalized epileptiform activity was seen. Some sleep spindles were seen with superimposed sleep. IMPRESSION: This is an abnormal EEG due to background slowing of at least moderate degree, and some periods of generalized background suppression as well. Overall, this is suggestive of generalized cerebral dysfunction as can be seen with toxic metabolic encephalopathy or related to diffuse structural brain abnormality or medication effect. Clinical correlation is recommended. No definitive epileptiform activity was seen. No electrographic seizure was recorded. MMODL / IJN: [id number] / [facility]
[2024-09-14 00:03] LABS: Glucose,Whole Blood 121 mg/dL (70-110)
[2024-09-14 02:54] LABS: Carbamazepine (Tegretol) 3.8 UG/ML (4.0-12.0)
[2024-09-14 04:31] LABS: Basophils # (A) 0.02 10*3/uL (0.00-0.10); Basophils % (A) 0.3 %; Eosinophils # (A) 0.05 10*3/uL (0.04-0.35); Eosinophils % (A) 0.8 %; HCT 27.2 % (39.6-50.0); HGB 8.9 g/dL (13.0-17.0); Lymphocytes # (A) 0.82 10*3/uL (0.90-5.00); Lymphocytes % (A) 12.4 %; MCH 34.2 pg (27.0-32.0); MCHC 32.7 g/dL (32.0-37.0); MCV 104.6 fL (80.0-97.0); Mean Platelet Volume 9.2 fL (9.5-12.2); Neutrophils # (A) 5.11 10*3/uL (1.80-7.70); Platelet Count 168 10*3/uL (140-440); RDW 13.1 % (11.5-14.5); WBC 6.63 10*3/uL (4.50-10.00)
[2024-09-14 04:55] LABS: African American GFR (CKD) >90 (>60 ml/min/1.73 sqM); Blood Urea Nitrogen 17 mg/dL (9-20); Calcium 8.3 mg/dL (8.4-10.2); Carbon Dioxide 27 mmol/L (22-30); Glucose 141 mg/dL (74-99); Non-African American GFR(CKD) >90 (>60 ml/min/1.73 sqM); Potassium 4.1 mmol/L (3.5-5.1); Sodium 139 mmol/L (137-145)
[2024-09-14 05:03] LABS: Anion Gap 6 mmol/L; Chloride 106 mmol/L (98-107)
[2024-09-14 05:24] LABS: ABG Base Excess 4.9 mmol/L; ABG HCO3 29 mmol/L (21-25); ABG Oxygen Saturation 98.8 % (94-97); ABG PCO2 43 mmHg (35-45); ABG PH 7.45 (7.35-7.45); ABG PO2 132 mmHg (83-108); ABG TCO2 31 mmol/L (19-24)
[2024-09-14 05:26] LABS: Allen Test Performed? no
[2024-09-14 06:08] LABS: Glucose,Whole Blood 158 mg/dL (70-110)
[2024-09-14] MEDS: VANCOMYCIN TROUGH DUE 1 EACH MISC MISCELLANE ONE (07:38)
--- NOTE | 2024-09-14 08:10 | XR ---
EXAMINATION TYPE: XR chest 1V portable DATE OF EXAM: 09/14/2024 5:33 AM COMPARISON: Chest radiographs from 09/13/2024 TECHNIQUE: XR chest 1V portable Portable AP radiograph of the chest. CLINICAL INDICATION:Male, 63 years old with history of Tube placement; FINDINGS: Lungs/Pleura: No pneumothorax. Small bilateral pleural effusions suggested. Patchy perihilar airspace opacities redemonstrated. Heart/mediastinum: Cardiomediastinal silhouette is enlarged and stable. Musculoskeletal: No acute osseous pathology. Marked dextroscoliotic curvature of the thoracic spine. Other findings: None Lines/Tubes: Endotracheal tube with distal tip 2.9 cm above the ezra Nasogastric tube with its distal tip and side-port projecting under the diaphragm. Stable right IJ central venous catheter with distal tip in the region of the low SVC. IMPRESSION: 1. Stable support lines and tubes. 2. Cardiomegaly with small bilateral pleural effusions suggested. Similar bilateral perihilar airspac e opacities which may represent pulmonary edema versus infiltrates. [facility], , 09/14/2024 8:08 AM
--- NOTE | 2024-09-14 10:05 | P.PN ---
Subjective Progress Note Date: 09/14/24 Acute hypoxemic and hypercapnic respiratory failure Patient is a 63-year-old male with past medical history significant for intellectual disability, seizure disorder, hypertension, hypothyroidism, chronic hypoxemic respiratory failure. He resides at a local [facility]. Noted to be confused with increased work of breathing by staff. His SpO2 was reading 40%. EMS was called and patient was transferred to the emergency department on a nonrebreather. He was minimally responsive on arrival. ABG consistent with severe hypercapnic respiratory failure with a PaO2 of 153, pCO2 greater than 98, pH of 7.13. Previously, received 4 mg IV Versed. Patient was intubated by the ER provider. Brain CT without contrast did not show any acute intracranial hemorrhage or mass effect. There was some sinusitis and moderate fluid in the mastoid air cells bilaterally. Brain CT angio did not show any evidence of cervical internal carotid artery or vertebral artery dissection or stenosis at the carotid bifurcations. No evidence of high-grade intracranial stenosis or aneurysm. Patchy groundglass and consolidative opacities visualized in the upper lung schwartz. Chest x-ray following intubation showing the endotracheal tube terminating 2.5 cm above the ezra. Severe kyphoscoliosis. There is patchy subtle opacities bilaterally. Suspect small bilateral pleural effusions. Enteric tube likely in the duodenum. CBC: WBC count 12.4, hemoglobin 11.7, platelets 176. CMP: Sodium 140, potassium 5.3, chloride 96, serum bicarb 37, BUN 43, creatinine 0.79, glucose 125. Lactic 2.4. LFTs not elevated. Troponin less than 0.012. EKG: Sinus rhythm, rate 97 bpm, RBBB pattern. Patient currently being evaluated in the intensive care unit. Remains intubated to the mechanical ventilator. Current ventilator settings assist-control, respiratory rate 20, tidal volume 450, FiO2 70%, PEEP of 5. Previous ventilator settings were appropriately adjusted following a recent follow-up ABG with a PaO2 of 187, PCO2 of 31, pH of 7.6. This was done on FiO2 100%. Respiratory rate has since been adjusted and FiO2 is being titrated appropriately. He is sedated on propofol which is infusing at 45 mcg/kg/min as well as fentanyl infusing at 0.5 mcg/kg/h. Currently synchronous with ventilator settings. Peak pressures ar ound 26. Lactated Ringer's also infusing at 130 mL/h. Indwelling urinary catheter with urine output of greater than 100 mL/h. Blood pressure has been normotensive. Previously, patient was hypothermic with a temperature as low as 93.9 F, and was on a external warming blanket. Now normothermic. Continues with empiric antibiotics. Patient has a legal power of securities attorney. Current CODE STATUS is full. 09/14/2024 Patient seen and examined at the bedside. Patient continue be sedated and mechanically ventilated. Currently patient is sedated with fentanyl at 0.5 mcg/kg/min and propofol at 30 mcg/kg/min. Patient is on volume assist-control with setting of respiratory of 16, tidal volume of 400, FiO2 of 40% and PEEP of 5. Arterial blood gas today shows pH of 7.45, pCO2 43, PaO2 132, bicarb 29. FiO2 is decreased to 35%. Chest x-ray this morning shows cardiomegaly with small bilateral pleural effusions. Urine output is good. Patient is also on lactated Ringer's running at 130 cc/h and Levophed at 0.03 mcg/kg/h. Patient is continued to be on vancomycin, azithromycin and Rocephin for empiric coverage for multifocal pneumonia. Prolactin is 0.11. Lab work from today shows WBC 6.6 3, hemoglobin 8.9, platelet count 162, sodium 139, potassium 4.1, chloride 106, bicarb 27, BUN 17, creatinine 0.56, glucose 141, calcium 8.3. He is currently on vital HP tube feeds running at 30 cc/h with a goal of 50. Objective - Vital Signs Vital signs: Vital Signs Temp 97.3 F L 09/14/24 09:00 Pulse 72 09/14/24 09:00 Resp 16 09/14/24 09:00 BP 117/70 09/14/24 09:00 Pulse Ox 100 09/14/24 09:00 FiO2 40 09/14/24 08:08 Intake & Output 09/13/24 09/14/24 09/14/24 18:59 06:59 18:59 Intake Total 3064.598 2990.741 569.403 Output Total 610 1820 250 Balance 2454.598 1170.741 319.403 Weight 68.4 kg Intake: IV 36 2146 366 Lactated Ringers 1,000 ml 1560 260 @ 130 mls/hr IV .[id number] [facility] Rx#:[id number] Valproate Sodium 750 mg 50 50 In Sodium Chloride 0.9% 50 ml @ 50 mls/hr IVPB Q12HR [facility] Rx#:[id number] Vancomycin 1,500 mg In 500 Sodium Chloride 0.9% 500 ml 500 ml @ 167 mls/hr IVPB Q12H [facility] Rx#: [id number] a line 36 36 6 cefTRIAXone 1 gm In 50 Sodium Chloride 0.9% 50 ml @ 100 mls/hr IVPB Q24HR [facility] Rx#:[id number] Intake, IV Titration 3028.598 454.741 113.403 Amount Azithromycin 500 mg In 250 Sodium Chloride 0.9% 250 ml @ 250 mls/hr IVPB DAILY [facility] Rx#:[id number] Lactated Ringers 1,000 ml 1560 @ 130 mls/hr [facility] Rx#:[id number] Norepinephrine 4 mg In 172.820 241.273 Sodium Chloride 0.9% 250 ml @ 0.03 MCG/KG/MIN 7. 818 mls/hr IV .Q24H [facility] Rx#:[id number] Sodium Chloride 0.9% 1, 130 000 ml @ 130 mls/hr IV . Q7H42[facility] Rx#:[id number] Sodium Chloride 0.9% 1, 10 000 ml @ 999 mls/hr IV . [facility] Rx#:[id number] Sodium Chloride 0.9% 1, 90 000 ml @ 999 mls/hr IV . Q[address] Rx#:[id number] Vancomycin 1,500 mg In 500 Sodium Chloride 0.9% 500 ml 500 ml @ 167 mls/hr IVPB Q12H [facility] Rx#: [id number] cefTRIAXone 1 gm In 50 Sodium Chloride 0.9% 50 ml @ 100 mls/hr IVPB Q24HR [facility] Rx#:[id number] fentaNYL (PF). 1,000 mcg 31.568 88.910 In Sodium Chloride 0.9% 80 ml @ 0.5 MCG/KG/HR 4. 082 mls/hr IV .Q24H [facility] Rx#:[id number] propofoL 1,000 mg In 234.210 213.468 24.493 Empty Bag 1 bag @ 15 MCG/ KG/MIN 7.348 mls/hr IV . [id number] [facility] Rx#:[id number] Tube Feeding 300 60 Other 90 30 Output: Urine 610 1820 250 Other: Voiding Method Indwelling Catheter Indwelling Catheter Indwelling Catheter ABP, PAP, CO, CI - Last Documented Arterial Blood Pressure 120/53 - Exam GENERAL EXAM: Sedated, 63-year-old male, intubated to the mechanical ventilator, currently synchronous with set rate HEAD: Normocephalic and atraumatic EYES: Blind right eye, left eye with normal pupillary response. No nystagmus. Nonicteric sclera. NOSE: Clear with pink turbinates. THROAT: No erythema or exudates. NECK: No masses, no JVD. CHEST: No chest wall deformity. Severe kyphoscoliosis. LUNGS: Equal air entry with no crackles, wheeze, rhonchi or dullness. With minimal dark marie endotracheal secretions. CVS: S1 and S2 normal with no audible murmur, regular rhythm. No extra heart sounds ABDOMEN: No hepatosplenomegaly, active bowel sounds, no guarding or rigidity. SPINE: No scoliosis or deformity SKIN: No rashes CENTRAL NERVOUS SYSTEM: Sedated, withdraws to painful stimuli in all 4 extremities, no clinical seizure activity noted. EXTREMITIES: There is no peripheral edema, clubbing, or cyanosis. Peripheral pulses are intact. SCDs on. - Labs CBC & Chem 7: 09/14/24 04:22 09/14/24 04:22 Labs: Abnormal Lab Results - Last 24 Hours (Table) 09/13/24 09/13/24 09/13/24 Range/Units 11:29 11:34 16:08 RBC (4.40-5.60) 10*6/uL Hgb (13.0-17.0) g/dL Hct (39.6-50.0) % MCV (80.0-97.0) fL MCH (27.0-32.0) pg MPV (9.5-12.2) fL Lymphocytes # (0.90-5.00) 10*3/uL ABG pO2 (83-108) mmHg ABG HCO3 29 H (21-25) mmol/L ABG Total CO2 30 H (19-24) mmol/L ABG O2 Saturation 98.0 H (94-97) % Hemoglobin 9.6 L (13.0-17.5) gm/dL Carbon Dioxide 31 H (22-30) mmol/L BUN 26 H (9-20) mg/dL Creatinine 0.59 L (0.66-1.25) mg/dL Glucose 111 H (74-99) mg/dL POC Glucose (mg/dL) (70-110) mg/dL Calcium 8.1 L (8.4-10.2) mg/dL Carbamazepine 3.8 L (4.0-12.0) UG/ML 09/14/24 09/14/24 09/14/24 Range/Units 00:02 04:22 04:22 RBC 2.60 L (4.40-5.60) 10*6/uL Hgb 8.9 L (13.0-17.0) g/dL Hct 27.2 L (39.6-50.0) % MCV 104.6 H (80.0-97.0) fL MCH 34.2 H (27.0-32.0) pg MPV 9.2 L (9.5-12.2) fL Lymphocytes # 0.82 L (0.90-5.00) 10*3/uL ABG pO2 (83-108) mmHg ABG HCO3 (21-25) mmol/L ABG Total CO2 (19-24) mmol/L ABG O2 Saturation (94-97) % Hemoglobin (13.0-17.5) gm/dL Carbon Dioxide (22-30) mmol/L BUN (9-20) mg/dL Creatinine 0.56 L (0.66-1.25) mg/dL Glucose 141 H (74-99) mg/dL POC Glucose (mg/dL) 121 H (70-110) mg/dL Calcium 8.3 L (8.4-10.2) mg/dL Carbamazepine (4.0-12.0) UG/ML 09/14/24 09/14/24 Range/Units 05:14 06:07 RBC (4.40-5.60) 10*6/uL Hgb (13.0-17.0) g/dL Hct (39.6-50.0) % MCV (80.0-97.0) fL MCH (27.0-32.0) pg MPV (9.5-12.2) fL Lymphocytes # (0.90-5.00) 10*3/uL ABG pO2 132 H (83-108) mmHg ABG HCO3 29 H (21-25) mmol/L ABG Total CO2 31 H (19-24) mmol/L ABG O2 Saturation 98.8 H (94-97) % Hemoglobin 9.0 L (13.0-17.5) gm/dL Carbon Dioxide (22-30) mmol/L BUN (9-20) mg/dL Creatinine (0.66-1.25) mg/dL Glucose (74-99) mg/dL POC Glucose (mg/dL) 158 H (70-110) mg/dL Calcium (8.4-10.2) mg/dL Carbamazepine (4.0-12.0) UG/ML Microbiology - Last 24 Hours (Table) 09/12/24 18:00 Blood Culture - Preliminary Blood 09/12/24 22:30 Gram Stain - Preliminary Sputum Assessment and Plan Assessment: Acute hypoxemic and hypercapnic respiratory failure, intubated to the mechanical ventilator; chest x-ray following intubation showing the endotracheal tube terminating 2.5 cm above the ezra. Severe kyphoscoliosis. There is patchy subtle opacities bilaterally. Suspect small bilateral pleural effusions. Multifocal pneumonia, healthcare associated, sepsis, less likely Acute leukocytosis, resolved Hypothermia, with external warming blanket Altered mental status, likely secondary to hypercapnic encephalopathy History of intellectual disability History of seizure disorder Severe kyphoscoliosis Blind right eye History of hypertension History of hypothyroidism ECF resident Macrocytic anemia Plan: Patient will remain intubated to the mechanical ventilator, with current ventilator settings, continue to wean FiO2 as tolerated Follow-up ABGs showing improvement in patient's severe hypercapnic and hypoxemic respiratory failure Continue sedation with a combination of propofol and fentanyl with daily interruptions of sedation May be difficult to wean from mechanical ventilator due to severe kyphoscoliosis and likely underlying restrictive process Broad-spectrum antibiotics have been discontinued with prolactin level to be negative and WBC is normal. Blood cultures, sputum cultures, urine Legionella antigen, is pending Cepheid 4 Plex is negative Order vitamin B12, folate RBC, iron studies including ferritin, cortisol level Order echocardiogram to assess cardiac structure and to rule out cardiac etiology for encephalopathy Antiepileptic medications were restarted, no clinical seizure activity noted on my examination. Seizure precautions Neurology is is following GI prophylaxis: Protonix DVT prophylaxis: Subcutaneous heparin and mechanical SCDs Case discussed with legal guardian Current CODE STATUS is full Current prognosis is guarded, and patient will be monitored in the intensive care unit.
[2024-09-14 11:48] LABS: Glucose,Whole Blood 101 mg/dL (70-110)
[2024-09-14 17:39] LABS: T4, Free (Free Thyroxine) 1.26 ng/dL (0.78-2.19)
[2024-09-14 18:58] LABS: Glucose,Whole Blood 95 mg/dL (70-110)
[2024-09-14 22:02] LABS: % Iron Saturation 11.76 (15.00-50.00); Iron 16 UG/DL (65-175); Total Iron Binding Capacity 136 UG/DL (228-460)
[2024-09-14 23:33] LABS: Glucose,Whole Blood 123 mg/dL (70-110)
[2024-09-15 04:22] LABS: Basophils # (A) 0.01 10*3/uL (0.00-0.10); Basophils % (A) 0.2 %; Eosinophils # (A) 0.11 10*3/uL (0.04-0.35); Eosinophils % (A) 1.8 %; HGB 8.5 g/dL (13.0-17.0); Lymphocytes # (A) 0.86 10*3/uL (0.90-5.00); Lymphocytes % (A) 14.1 %; MCH 33.7 pg (27.0-32.0); MCHC 32.7 g/dL (32.0-37.0); MCV 103.2 fL (80.0-97.0); Mean Platelet Volume 9.6 fL (9.5-12.2); Monocytes # (A) 0.57 10*3/uL (0.20-1.00); Monocytes % (A) 9.4 %; Neutrophils # (A) 4.52 10*3/uL (1.80-7.70); Neutrophils % (A) 74.3 %; Platelet Count 159 10*3/uL (140-440); RBC 2.52 10*6/uL (4.40-5.60); RDW 13.6 % (11.5-14.5); WBC 6.08 10*3/uL (4.50-10.00)
[2024-09-15 04:38] LABS: African American GFR (CKD) >90 (>60 ml/min/1.73 sqM); Anion Gap -1 mmol/L; Blood Urea Nitrogen 15 mg/dL (9-20); Calcium 7.9 mg/dL (8.4-10.2); Carbon Dioxide 31 mmol/L (22-30); Chloride 107 mmol/L (98-107); Glucose 114 mg/dL (74-99); Non-African American GFR(CKD) >90 (>60 ml/min/1.73 sqM); Potassium 3.6 mmol/L (3.5-5.1); Sodium 137 mmol/L (137-145)
[2024-09-15] MEDS: POTASSIUM BICARBONATE/CIT AC 20 MEQ TABLET.EFF NG-TUBE SCH (04:59)
[2024-09-15 05:38] LABS: Glucose,Whole Blood 120 mg/dL (70-110)
[2024-09-15 05:48] LABS: ABG Base Excess 5.2 mmol/L; ABG HCO3 30 mmol/L (21-25); ABG Oxygen Saturation 95.4 % (94-97); ABG PCO2 45 mmHg (35-45); ABG PH 7.44 (7.35-7.45); ABG PO2 70 mmHg (83-108); ABG TCO2 31 mmol/L (19-24)
[2024-09-15 05:49] LABS: Allen Test Performed? no
--- NOTE | 2024-09-15 08:08 | XR ---
EXAMINATION TYPE: XR chest 1V portable DATE OF EXAM: 09/15/2024 5:34 AM COMPARISON: Multiple radiographs, with the most recent on 09/14/2024 TECHNIQUE: XR chest 1V portable Portable AP radiograph of the chest. CLINICAL INDICATION:Male, 63 years old with history of Tube placement; FINDINGS: Lungs/Pleura: No pneumothorax. Small bilateral pleural effusions suggested. Patchy perihilar airspace opacities redemonstrated. Heart/mediastinum: Cardiomediastinal silhouette is enlarged and stable. Musculoskeletal: No acute osseous pathology. Marked dextroscoliotic curvature of the thoracic spine. Other findings: None Lines/Tubes: Endotracheal tube with distal tip 3.0 cm above the ezra Nasogastric tube with its distal tip and side-port projecting under the diaphragm. Stable right IJ central venous catheter with distal tip in the region of the low SVC. IMPRESSION: 1. Stable support lines and tubes. 2. Cardiomegaly with small bilateral pleural effusions suggested. Similar bilateral perihilar airspac e opacities which may represent pulmonary edema versus infiltrates. [facility], , 09/15/2024 8:06 AM
[2024-09-15] MEDS: cefTRIAXone 2 GM in DEXTROSE 5% IN WATER 50 ML IVPB SCH (08:42)
[2024-09-15] MEDS ORDERED: IPRATROPIUM-ALBUTEROL 3 ML NEB INHALATION PRN (09:00)
--- NOTE | 2024-09-15 09:01 | P.PN ---
Subjective Progress Note Date: 09/14/24 Patient was seen for a follow-up. Patient continues to be intubated on mechanical ventilation. Patient is on propofol 10 g/kg/min. Patient is off fentanyl. Patient is more awake. Objective - Vital Signs Vital signs: Vital Signs Temp 99.3 F 09/14/24 12:00 Pulse 96 09/14/24 14:45 Resp 18 09/14/24 14:45 BP 109/68 09/14/24 14:45 Pulse Ox 100 09/14/24 14:45 FiO2 30 09/14/24 14:59 Intake & Output 09/13/24 09/14/24 09/14/24 18:59 06:59 18:59 Intake Total 3064.598 2990.741 1605.922 Output Total 610 1820 750 Balance 2454.598 1170.741 855.922 Weight 68.4 kg Intake: IV 36 2146 1006 Azithromycin 500 mg In 250 Sodium Chloride 0.9% 250 ml @ 250 mls/hr IVPB DAILY [facility] Rx#:[id number] Lactated Ringers 1,000 ml 1560 635 @ 75 mls/hr IV .[id number] [facility] Rx#:[id number] Valproate Sodium 750 mg 50 50 In Sodium Chloride 0.9% 50 ml @ 50 mls/hr IVPB Q12HR [facility] Rx#:[id number] Vancomycin 1,500 mg In 500 Sodium Chloride 0.9% 500 ml 500 ml @ 167 mls/hr IVPB Q12H [facility] Rx#: [id number] a line 36 36 21 cefTRIAXone 1 gm In 50 Sodium Chloride 0.9% 50 ml @ 100 mls/hr IVPB Q24HR [facility] Rx#:[id number] Intake, IV Titration 3028.598 454.741 279.922 Amount Azithromycin 500 mg In 250 Sodium Chloride 0.9% 250 ml @ 250 mls/hr IVPB DAILY [facility] Rx#:[id number] Lactated Ringers 1,000 ml 1560 @ 75 mls/hr IV .[id number] [facility] Rx#:[id number] Norepinephrine 4 mg In 172.820 241.273 136.515 Sodium Chloride 0.9% 250 ml @ 0.03 MCG/KG/MIN 7. 818 mls/hr IV .Q24H [facility] Rx#:[id number] Sodium Chloride 0.9% 1, 130 000 ml @ 130 mls/hr IV . Q7H42M [facility] Rx#:[id number] Sodium Chloride 0.9% 1, 10 000 ml @ 999 mls/hr IV . Q1H1M [facility] Rx#:[id number] Sodium Chloride 0.9% 1, 90 000 ml @ 999 mls/hr IV . Q1H1M [facility] Rx#:[id number] Vancomycin 1,500 mg In 500 Sodium Chloride 0.9% 500 ml 500 ml @ 167 mls/hr IVPB Q12H [facility] Rx#: [id number] cefTRIAXone 1 gm In 50 Sodium Chloride 0.9% 50 ml @ 100 mls/hr IVPB Q24HR [facility] Rx#:[id number] fentaNYL (PF). 1,000 mcg 31.568 88.910 In Sodium Chloride 0.9% 80 ml @ 0.5 MCG/KG/HR 4. 082 mls/hr IV .Q24H [facility] Rx#:[id number] propofoL 1,000 mg In 234.210 213.468 54.497 Empty Bag 1 bag @ 15 MCG/ KG/MIN 7.348 mls/hr IV . [id number] [facility] Rx#:[id number] Tube Feeding 300 260 Other 90 60 Output: Urine 610 1820 750 Other: Voiding Method Indwelling Catheter Indwelling Catheter Indwelling Catheter ABP, PAP, CO, CI - Last Documented Arterial Blood Pressure 118/52 - Exam Patient is on mechanical ventilation. He is only on propofol 10 g. Patient is more awake. He opens his eyes to nailbed pressures. Does not make eye contact or track. No obvious seizure-like activity. - Labs CBC & Chem 7: 09/15/24 04:13 09/15/24 04:13 Labs: Abnormal Lab Results - Last 24 Hours (Table) 09/13/24 09/14/24 09/14/24 Range/Units 16:08 00:02 04:22 RBC 2.60 L (4.40-5.60) 10*6/uL Hgb 8.9 L (13.0-17.0) g/dL Hct 27.2 L (39.6-50.0) % MCV 104.6 H (80.0-97.0) fL MCH 34.2 H (27.0-32.0) pg MPV 9.2 L (9.5-12.2) fL Lymphocytes # 0.82 L (0.90-5.00) 10*3/uL ABG pO2 (83-108) mmHg ABG HCO3 (21-25) mmol/L ABG Total CO2 (19-24) mmol/L ABG O2 Saturation (94-97) % Hemoglobin (13.0-17.5) gm/dL Creatinine (0.66-1.25) mg/dL Glucose (74-99) mg/dL POC Glucose (mg/dL) 121 H (70-110) mg/dL Calcium (8.4-10.2) mg/dL Carbamazepine 3.8 L (4.0-12.0) UG/ML 09/14/24 09/14/24 09/14/24 Range/Units 04:22 05:14 06:07 RBC (4.40-5.60) 10*6/uL Hgb (13.0-17.0) g/dL Hct (39.6-50.0) % MCV (80.0-97.0) fL MCH (27.0-32.0) pg MPV (9.5-12.2) fL Lymphocytes # (0.90-5.00) 10*3/uL ABG pO2 132 H (83-108) mmHg ABG HCO3 29 H (21-25) mmol/L ABG Total CO2 31 H (19-24) mmol/L ABG O2 Saturation 98.8 H (94-97) % Hemoglobin 9.0 L (13.0-17.5) gm/dL Creatinine 0.56 L (0.66-1.25) mg/dL Glucose 141 H (74-99) mg/dL POC Glucose (mg/dL) 158 H (70-110) mg/dL Calcium 8.3 L (8.4-10.2) mg/dL Carbamazepine (4.0-12.0) UG/ML Microbiology - Last 24 Hours (Table) 09/12/24 22:30 Gram Stain - Preliminary Sputum Sputum Culture - Preliminary Haemophilus influenzae 09/12/24 18:00 Blood Culture - Preliminary Blood Assessment and Plan Assessment: * Altered mental status, likely due to metabolic encephalopathy. * Acute hypoxic, hypercapnic respiratory failure, status post intubation. * Severe kyphoscoliosis * Multifocal pneumonia, healthcare associated with sepsis * Hypothermia, due to above * History of intellectual disability * History of seizure disorder * Right eye blindness * Hypertension * Hypothyroidism * ECF resident Plan: * Patient is doing better. No seizure-like activity noticed by the nursing staff. * Patient will be continued on same seizure medication as he was taking at home. We will switch from oral to IV form if possible otherwise through OGT. * EEG was performed, which was abnormal due to background slowing of moderate degree, suggestive of generalized cerebral dysfunction as can be seen with toxic metabolic encephalopathy related to diffuse structural brain abnormality or medication effect. No epileptiform activity was seen. * Tegretol 3.8(4-12), Depakote 37 and Keppra level 32.3(3-60). Ammonia 16. * Patient currently on azithromycin and ceftriaxone. Patient is off vancomycin. * Other medical management as per IM and critical care.
[2024-09-15] MEDS: AZITHROMYCIN 500 MG in SODIUM CHLORIDE 0.9% 250 ML IVPB SCH (09:25)
--- NOTE | 2024-09-15 09:53 | P.PN ---
Subjective Progress Note Date: 09/15/24 Acute hypoxemic and hypercapnic respiratory failure Patient is a 63-year-old male with past medical history significant for intellectual disability, seizure disorder, hypertension, hypothyroidism, chronic hypoxemic respiratory failure. He resides at a local [facility]. Noted to be confused with increased work of breathing by staff. His SpO2 was reading 40%. EMS was called and patient was transferred to the emergency department on a nonrebreather. He was minimally responsive on arrival. ABG consistent with severe hypercapnic respiratory failure with a PaO2 of 153, pCO2 greater than 98, pH of 7.13. Previously, received 4 mg IV Versed. Patient was intubated by the ER provider. Brain CT without contrast did not show any acute intracranial hemorrhage or mass effect. There was some sinusitis and moderate fluid in the mastoid air cells bilaterally. Brain CT angio did not show any evidence of cervical internal carotid artery or vertebral artery dissection or stenosis at the carotid bifurcations. No evidence of high-grade intracranial stenosis or aneurysm. Patchy groundglass and consolidative opacities visualized in the upper lung schwartz. Chest x-ray following intubation showing the endotracheal tube terminating 2.5 cm above the ezra. Severe kyphoscoliosis. There is patchy subtle opacities bilaterally. Suspect small bilateral pleural effusions. Enteric tube likely in the duodenum. CBC: WBC count 12.4, hemoglobin 11.7, platelets 176. CMP: Sodium 140, potassium 5.3, chloride 96, serum bicarb 37, BUN 43, creatinine 0.79, glucose 125. Lactic 2.4. LFTs not elevated. Troponin less than 0.012. EKG: Sinus rhythm, rate 97 bpm, RBBB pattern. Patient currently being evaluated in the intensive care unit. Remains intubated to the mechanical ventilator. Current ventilator settings assist-control, respiratory rate 20, tidal volume 450, FiO2 70%, PEEP of 5. Previous ventilator settings were appropriately adjusted following a recent follow-up ABG with a PaO2 of 187, PCO2 of 31, pH of 7.6. This was done on FiO2 100%. Respiratory rate has since been adjusted and FiO2 is being titrated appropriately. He is sedated on propofol which is infusing at 45 mcg/kg/min as well as fentanyl infusing at 0.5 mcg/kg/h. Currently synchronous with ventilator settings. Peak pressures royal und 26. Lactated Ringer's also infusing at 130 mL/h. Indwelling urinary catheter with urine output of greater than 100 mL/h. Blood pressure has been normotensive. Previously, patient was hypothermic with a temperature as low as 93.9 F, and was on a external warming blanket. Now normothermic. Continues with empiric antibiotics. 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 Current CODE STATUS is full. 09/14/2024 Patient seen and examined at the bedside. Patient continue be sedated and mechanically ventilated. Currently patient is sedated with fentanyl at 0.5 mcg/kg/min and propofol at 30 mcg/kg/min. Patient is on volume assist-control with setting of respiratory of 16, tidal volume of 400, FiO2 of 40% and PEEP of 5. Arterial blood gas today shows pH of 7.45, pCO2 43, PaO2 132, bicarb 29. FiO2 is decreased to 35%. Chest x-ray this morning shows cardiomegaly with small bilateral pleural effusions. Urine output is good. Patient is also on lactated Ringer's running at 130 cc/h and Levophed at 0.03 mcg/kg/h. Patient is continued to be on vancomycin, azithromycin and Rocephin for empiric coverage for multifocal pneumonia. Prolactin is 0.11. Lab work from today shows WBC 6.63, hemoglobin 8.9, platelet count 162, sodium 139, potassium 4.1, chloride 106, bicarb 27, BUN 17, creatinine 0.56, glucose 141, calcium 8.3. He is currently on vital HP tube feeds running at 30 cc/h with a goal of 50. 09/15/2024 Patient seen and examined at the bedside. Patient continued to be sedated and mechanically ventilated. Patient is currently on fentanyl at 0.05 mcg/kg/min and propofol at 25 mcg/kg/min. Patient is on volume assist-control with a settings of respiratory rate of 16, tidal volume of 400, FiO2 of 30%, PEEP of 5.0. ABG shows pH of 7.44, pCO2 45, PO2 of 70, HCO3 of 30. Chest x-ray done today shows cardiomegaly with small bilateral pleural effusions. Urine output is good. Patient is on lactated ringer Ringer's at 75 cc/h. He is getting tube feeds with vital HP at 55 which is at goal. Patient has been restarted on azithromycin and Rocephin for positive sputum culture which shows H. influenzae growth. Lab work from today shows WBC 6.08, hemoglobin 8.5, platelet count 159, sodium 137, potassium 3.6, chloride 107, bicarb 31, BUN 15, creatinine 0.57, glucose 114, calcium 7.9. TSH 19.7, free T41.26, cortisol 11.2. Iron 16, TIBC 136, percent saturation 11.76, transferrin 97, ferritin 446.0. Objective - Vital Signs Vital signs: Vital Signs Temp 98.1 F 09/15/24 08:00 Pulse 85 09/15/24 09:00 Resp 16 09/15/24 09:00 BP 96/55 09/15/24 09:00 Pulse Ox 98 09/15/24 09:00 FiO2 30 09/15/24 08:09 Intake & Output 09/14/24 09/15/24 09/15/24 18:59 06:59 18:59 Intake Total 2146.295 1932.670 714.307 Output Total 1250 850 75 Balance 796.135 0837.670 639.307 Intake: IV 1318 1064 478 Azithromycin 500 mg In 250 250 Sodium Chloride 0.9% 250 ml @ 250 mls/hr IVPB DAILY AG Rx#:[id number] Lactated Ringers 1,000 ml 935 975 75 @ 75 mls/hr IV .[id number] [facility] Rx#:[id number] Valproate Sodium 750 mg 50 50 50 In Sodium Chloride 0.9% 50 ml @ 50 mls/hr IVPB Q12HR [facility] Rx#:[id number] a line 33 39 3 cefTRIAXone 1 gm In 50 50 Sodium Chloride 0.9% 50 ml @ 100 mls/hr IVPB Q24HR [facility] Rx#:[id number] cefTRIAXone 2 gm In 50 Dextrose 5% in Water 50 ml @ 100 mls/hr IVPB Q24HR [facility] Rx#:[id number] Intake, IV Titration 318.295 102.670 154.307 Amount Norepinephrine 4 mg In 136.515 Sodium Chloride 0.9% 250 ml @ 0.03 MCG/KG/MIN 7. 818 mls/hr IV .Q24H [facility] Rx#:[id number] fentaNYL (PF). 1,000 mcg 88.910 61.434 In Sodium Chloride 0.9% 80 ml @ 0.5 MCG/KG/HR 4. 082 mls/hr IV .Q24H [facility] Rx#:[id number] propofoL 1,000 mg In 92.870 102.670 92.873 Empty Bag 1 bag @ 15 MCG/ KG/MIN 7.348 mls/hr IV . [id number] [facility] Rx#:[id number] Tube Feeding 420 676 52 Other 90 90 30 Output: Urine 1250 850 75 Other: Voiding Method Indwelling Catheter Indwelling Catheter Indwelling Catheter ABP, PAP, CO, CI - Last Documented Arterial Blood Pressure 99/47 - Exam GENERAL EXAM: Sedated, 63-year-old male, intubated to the mechanical ventilator, currently synchronous with set rate HEAD: Normocephalic and atraumatic EYES: Blind right eye, left eye with normal pupillary response. No nystagmus. Nonicteric sclera. NOSE: Clear with pink turbinates. THROAT: No erythema or exudates. NECK: No masses, no JVD. CHEST: No chest wall deformity. Severe kyphoscoliosis. LUNGS: Equal air entry with no crackles, wheeze, rhonchi or dullness. With minimal dark marie endotracheal secretions. CVS: S1 and S2 normal with no audible murmur, regular rhythm. No extra heart sounds ABDOMEN: No hepatosplenomegaly, active bowel sounds, no guarding or rigidity. SPINE: No scoliosis or deformity SKIN: No rashes CENTRAL NERVOUS SYSTEM: Sedated, withdraws to painful stimuli in all 4 extremities, no clinical seizure activity noted. EXTREMITIES: There is no peripheral edema, clubbing, or cyanosis. Peripheral pu lses are intact. SCDs on. - Labs CBC & Chem 7: 09/15/24 04:13 09/15/24 04:13 Labs: Abnormal Lab Results - Last 24 Hours (Table) 09/14/24 09/14/24 09/15/24 Range/Units 04:22 23:31 04:13 RBC 2.52 L (4.40-5.60) 10*6/uL Hgb 8.5 L (13.0-17.0) g/dL Hct 26.0 L (39.6-50.0) % MCV 103.2 H (80.0-97.0) fL MCH 33.7 H (27.0-32.0) pg Lymphocytes # 0.86 L (0.90-5.00) 10*3/uL ABG pO2 (83-108) mmHg ABG HCO3 (21-25) mmol/L ABG Total CO2 (19-24) mmol/L Hemoglobin (13.0-17.5) gm/dL Carbon Dioxide (22-30) mmol/L Creatinine (0.66-1.25) mg/dL Glucose (74-99) mg/dL POC Glucose (mg/dL) 123 H (70-110) mg/dL Calcium (8.4-10.2) mg/dL Iron 16 L (65-175) UG/DL TIBC 136 L (228-460) UG/DL % Saturation 11.76 L (15.00-50.00) Transferrin 97.0 L (204.0-354.0) mg/dL Ferritin 446.0 H (22.0-322.0) ng/mL TSH 19.700 H (0.465-4.680) mIU/L 09/15/24 09/15/24 09/15/24 Range/Units 04:13 05:36 05:44 RBC (4.40-5.60) 10*6/uL Hgb (13.0-17.0) g/dL Hct (39.6-50.0) % MCV (80.0-97.0) fL MCH (27.0-32.0) pg Lymphocytes # (0.90-5.00) 10*3/uL ABG pO2 70 L (83-108) mmHg ABG HCO3 30 H (21-25) mmol/L ABG Total CO2 31 H (19-24) mmol/L Hemoglobin 8.5 L (13.0-17.5) gm/dL Carbon Dioxide 31 H (22-30) mmol/L Creatinine 0.57 L (0.66-1.25) mg/dL Glucose 114 H (74-99) mg/dL POC Glucose (mg/dL) 120 H (70-110) mg/dL Calcium 7.9 L (8.4-10.2) mg/dL Iron (65-175) UG/DL TIBC (228-460) UG/DL % Saturation (15.00-50.00) Transferrin (204.0-354.0) mg/dL Ferritin (22.0-322.0) ng/mL TSH (0.465-4.680) mIU/L Microbiology - Last 24 Hours (Table) 09/12/24 18:00 Blood Culture - Preliminary Blood 09/12/24 22:30 Gram Stain - Preliminary Sputum Sputum Culture - Preliminary Haemophilus influenzae Assessment and Plan Assessment: Acute hypoxemic and hypercapnic respiratory failure, intubated to the mechanical ventilator; chest x-ray following intubation showing the endotracheal tube terminating 2.5 cm above the ezra. Severe kyphoscoliosis. There is patchy subtle opacities bilaterally. Suspect small bilateral pleural effusions. Multifocal pneumonia, healthcare associated, sepsis, less likely Acute leukocytosis, resolved Hypothermia, with external warming blanket Altered mental status, likely secondary to hypercapnic encephalopathy History of intellectual disability History of seizure disorder Severe kyphoscoliosis Blind right eye History of hypertension History of hypothyroidism, home levothyroxine has been restarted [facility]CF resident Macrocytic anemia versus anemia of chronic disease Plan: Patient will remain intubated to the mechanical ventilator, with current ventilator settings, continue to wean FiO2 as tolerated Follow-up ABGs showing improvement in patient's severe hypercapnic and hypoxemic respiratory failure Fentanyl has been discontinued. Will wean patient off propofol and perform daily interruption of sedation and SBT. May be difficult to wean from mechanical ventilator due to severe kyphoscoliosis and likely underlying restrictive process Sputum culture positive for H. influenzae influenza, patient has been restarted on Rocephin (day 3 of 5) and azithromycin (day 3 of 3) Blood cultures preliminary report shows no growth, sputum cultures is positive for H influenza, urine Legionella antigen is negative Cepheid 4 Plex is negative Iron level is low start patient on ferrous sulfate 325 mg orally once daily Order echocardiogram to assess cardiac structure and to rule out cardiac etiology for encephalopathy, reports pending Antiepileptic medications were restarted, no clinical seizure activity noted on my examination. Seizure precautions Neurology is is following GI prophylaxis: Protonix DVT prophylaxis: Subcutaneous heparin and mechanical SCDs Case discussed with legal guardian Current CODE STATUS is full Current prognosis is guarded, and patient will be monitored in the intensive care unit.
--- NOTE | 2024-09-15 10:16 | CA ---
Transthoracic Echo Report Name: Bertin Erickson Age: 63 Gender: M : 1960 Exam Date: 09/14/2024 12:55 Exam Location: [facility] Ht (in): 68 Wt (lb): 150 Ordering Physician: Aries Plata MD Attending/Referring Phys: Compressor Engineer Laney Eastman RDCS Procedure CPT: Indications: Cardiac structure assessment; history of AMS Cardiac Hx: severe scoliosis, dextrocardia Technical Quality: Very technically difficult study Contrast 1: Total Dose (mL): Contrast 2: Total Dose (mL): MEASUREMENTS (Male / Female) Normal Values 2D ECHO LV Diastolic Volume MOD 4C 73.6 cm??? LV Systolic Volume MOD 4C 41.6 cm??? LV Ejection Fraction MOD 4C 43.5 % LV Cardiac Index MOD 4C 1697.6 cm???/min???m??? LV Diastolic Length 4C 8.1 cm LV Systolic Length 4C 7.6 cm M-MODE LV Diastolic Diameter MM 5.0 cm 4.2 - 5.9 / 3.9 - 5.3 cm LV Systolic Diameter MM 4.1 cm LV Cardiac Index MM Teich 2463.0 cm???/min???m??? IVS Diastolic Thickness MM 0.8 cm 0.6 - 1.0 / 0.6 - 0.9 cm LVPW Diastolic Thickness MM 0.9 cm 0.6 - 1.0 / 0.6 - 0.9 cm LV Relative Wall Thickness MM 0.3 0.24 - 0.42 / 0.22 - 0.42 LV Mass Index MM 84.0 g/m??? 49 - 115 / 43 - 95 g/m??? FINDINGS Left Ventricle Left ventricular ejection fraction is estimated at 35-40 %. Moderately decreased fractional shortening. Moderately decreased midwall fractional shortening. Only basel vargas remberto Right Ventricle Right ventricle not well visualized. Right Atrium Right atrium not well visualized. Left Atrium Left atrium not well visualized. Mitral Valve Mitral valve not well visualized. Aortic Valve Aortic valve not well visualized. Tricuspid Valve Tricuspid valve not well visualized. Pulmonic Valve Pulmonic valve not well visualized. Pericardium Small pericardial effusion. by RV Aorta Aortic root and proximal ascending aorta not well visualized. CONCLUSIONS Technically difficult study with poor acoustic window and limited views LVEF 35% Apical and periapical hypokinesia Small pericardial effusion, with no signs of tamponade physiology Previewed by: Dr Kaleb Suero (Electronically Signed) Final Date: 15 September 2024 10:15
--- NOTE | 2024-09-15 10:41 | P.PN ---
Subjective Progress Note Date: 09/14/24 Patient is a 63-year-old male with a known history of mentally challenged, seizure disorder, asthma, hypertension, hypothyroidism and chronic hypoxemic respiratory failure who is currently at [facility]. Patient was sent to hospital due to worsening shortness of breath and altered mental status and was also hypoxic with pulse ox 40% when he presented to ER. Patient was placed on nonrebreather and was minimally responsive on arrival to ER. Patient had ABGs was done showed PaO2 153. pCO2 98 and also pH 7.13 patient was intubated in the ER. Patient was also sedated with propofol and fentanyl. CT head showed no acute bleed or mass effect. Sinusitis and mastoiditis as described above. CT angiogram of the head and neck showed no evidence of dissection of the cervical internal carotid arteries or vertebral arteries. Patchy groundglass and consolidative opacities in partially visualized upper lungs suspicious for multifocal pneumonia Chest x-ray showed endotracheal tube terminates 2.5 cm above ezra. Enteric tube distal sidehole overlies the expected gastric lumen. Small bilateral pleural effusions and subtle patchy opacities in the upper lobes which could reflect infectious etiology. EKG showed sinus rhythm with right bundle branch block. Laboratory data on admission showed WBC 12.3 hemoglobin 11.7 and platelets 176 and MCV 112 sodium 140 potassium 5.3 chloride 96 bicarb is 37 BUN 43 and creatinine 0.79 and blood sugar 125 and calcium 8.6 liver enzymes are not elevated troponin x 1 negative and procalcitonin level is 0.11 Patient is also hypothermic requiring Roly hugger. Influenza A BRAC COVID-19 and Legionella urine antigen negative. 09/14/2024 Patient is currently in the MICU. On sedation holiday. Was able to tolerate pressure support for short duration this morning currently back to [facility] control.. ABG showed pH 7.4 [id number] and PO2 132 Other laboratory data showed WBC 6.6 hemoglobin 8.9 and MCV 104.6 and platelets 168. BUN 17 and creatinine 0.56. Chest x-ray showed cardiomegaly with small bilateral pleural effusions. Patient is on IV hydration with Ringer's lactate at 130 cc/h and also requiring pressure support with Levophed. Continue with antibiotics for multifocal pneumonia. Procalcitonin level is not elevated at 0.11. Current medications reviewed. Objective - Vital Signs Vital signs: Vital Signs Temp 97.5 F L 09/14/24 10:00 Pulse 90 09/14/24 10:00 Resp 16 09/14/24 10:00 BP 128/74 09/14/24 10:00 Pulse Ox 100 09/14/24 10:00 FiO2 35 09/14/24 08:40 Intake & Output 09/13/24 09/14/24 09/14/24 18:59 06:59 18:59 Intake Total 3064.598 2990.741 1089.893 Output Total 610 1820 325 Balance 2454.598 1170.741 764.893 Weight 68.4 kg Intake: IV 36 2146 694 Azithromycin 500 mg In 250 Sodium Chloride 0.9% 250 ml @ 250 mls/hr IVPB DAILY [facility] Rx#:[id number] Lactated Ringers 1,000 ml 1560 335 @ 75 mls/hr IV .[id number] AG Rx#:[id number] Valproate Sodium 750 mg 50 50 In Sodium Chloride 0.9% 50 ml @ 50 mls/hr IVPB Q12HR [facility] Rx#:[id number] Vancomycin 1,500 mg In 500 Sodium Chloride 0.9% 500 ml 500 ml @ 167 mls/hr IVPB Q12H [facility] Rx#: [id number] a line 36 36 9 cefTRIAXone 1 gm In 50 Sodium Chloride 0.9% 50 ml @ 100 mls/hr IVPB Q24HR [facility] Rx#:[id number] Intake, IV Titration 3028.598 454.741 265.893 Amount Azithromycin 500 mg In 250 Sodium Chloride 0.9% 250 ml @ 250 mls/hr IVPB DAILY [facility] Rx#:[id number] Lactated Ringers 1,000 ml 1560 @ 75 mls/hr IV .[id number] [facility] Rx#:[id number] Norepinephrine 4 mg In 172.820 241.273 122.486 Sodium Chloride 0.9% 250 ml @ 0.03 MCG/KG/MIN 7. 818 mls/hr IV .Q24H [facility] Rx#:[id number] Sodium Chloride 0.9% 1, 130 000 ml @ 130 mls/hr IV . [id number] [facility] Rx#:[id number] Sodium Chloride 0.9% 1, 10 000 ml @ 999 mls/hr IV . Q1H1M [facility] Rx#:[id number] Sodium Chloride 0.9% 1, 90 000 ml @ 999 mls/hr IV . Q1H1M [facility] Rx#:[id number] Vancomycin 1,500 mg In 500 Sodium Chloride 0.9% 500 ml 500 ml @ 167 mls/hr IVPB Q12H [facility] Rx#: [id number] cefTRIAXone 1 gm In 50 Sodium Chloride 0.9% 50 ml @ 100 mls/hr IVPB Q24HR [facility] Rx#:[id number] fentaNYL (PF). 1,000 mcg 31.568 88.910 In Sodium Chloride 0.9% 80 ml @ 0.5 MCG/KG/HR 4. 082 mls/hr IV .Q24H [facility] Rx#:[id number] propofoL 1,000 mg In 234.210 213.468 54.497 Empty Bag 1 bag @ 15 MCG/ KG/MIN 7.348 mls/hr IV . [id number] [facility] Rx#:[id number] Tube Feeding 300 100 Other 90 30 Output: Urine 610 1820 325 Other: Voiding Method Indwelling Catheter Indwelling Catheter Indwelling Catheter ABP, PAP, CO, CI - Last Documented Arterial Blood Pressure 125/63 - Exam PHYSICAL EXAMINATION: Patient is lying in the bed intubated and sedated. Mentally challenged at baseline.. HEENT: Normocephalic. Neck is supple. Left pupils reactive. Nostrils clear. Oral cavity is moist. Right eye blindness Neck reveals no JVD, carotid bruits, or thyromegaly. CHEST EXAMINATION: Trachea is central. Symmetrical expansion. Bibasilar diminished sounds. Scattered coarse sounds. No wheezing. CARDIAC: Normal S1, S2 with no gallops. No murmurs ABDOMEN: Soft. Bowel sounds normal. No organomegaly. No abdominal bruits. Extremities: reveal no edema. No clubbing or cyanosis Neurologically could not be assessed at this time. Contracted extremities. Skin: No rash or skin lesions. Psychiatric: Could not be assessed. Musculoskeletal: No joint swelling or deformity. - Labs CBC & Chem 7: 09/15/24 04:13 09/15/24 04:13 Labs: Abnormal Lab Results - Last 24 Hours (Table) 09/13/24 09/13/24 09/13/24 Range/Units 11:29 11:34 16:08 RBC (4.40-5.60) 10*6/uL Hgb (13.0-17.0) g/dL Hct (39.6-50.0) % MCV (80.0-97.0) fL MCH (27.0-32.0) pg MPV (9.5-12.2) fL Lymphocytes # (0.90-5.00) 10*3/uL ABG pO2 (83-108) mmHg ABG HCO3 29 H (21-25) mmol/L ABG Total CO2 30 H (19-24) mmol/L ABG O2 Saturation 98.0 H (94-97) % Hemoglobin 9.6 L (13.0-17.5) gm/dL Carbon Dioxide 31 H (22-30) mmol/L BUN 26 H (9-20) mg/dL Creatinine 0.59 L (0.66-1.25) mg/dL Glucose 111 H (74-99) mg/dL POC Glucose (mg/dL) (70-110) mg/dL Calcium 8.1 L (8.4-10.2) mg/dL Carbamazepine 3.8 L (4.0-12.0) UG/ML 09/14/24 09/14/24 09/14/24 Range/Units 00:02 04:22 04:22 RBC 2.60 L (4.40-5.60) 10*6/uL Hgb 8.9 L (13.0-17.0) g/dL Hct 27.2 L (39.6-50.0) % MCV 104.6 H (80.0-97.0) fL MCH 34.2 H (27.0-32.0) pg MPV 9.2 L (9.5-12.2) fL Lymphocytes # 0.82 L (0.90-5.00) 10*3/uL ABG pO2 (83-108) mmHg ABG HCO3 (21-25) mmol/L ABG Total CO2 (19-24) mmol/L ABG O2 Saturation (94-97) % Hemoglobin (13.0-17.5) gm/dL Carbon Dioxide (22-30) mmol/L BUN (9-20) mg/dL Creatinine 0.56 L (0.66-1.25) mg/dL Glucose 141 H (74-99) mg/dL POC Glucose (mg/dL) 121 H (70-110) mg/dL Calcium 8.3 L (8.4-10.2) mg/dL Carbamazepine (4.0-12.0) UG/ML 09/14/24 09/14/24 Range/Units 05:14 06:07 RBC (4.40-5.60) 10*6/uL Hgb (13.0-17.0) g/dL Hct (39.6-50.0) % MCV (80.0-97.0) fL MCH (27.0-32.0) pg MPV (9.5-12.2) fL Lymphocytes # (0.90-5.00) 10*3/uL ABG pO2 132 H (83-108) mmHg ABG HCO3 29 H (21-25) mmol/L ABG Total CO2 31 H (19-24) mmol/L ABG O2 Saturation 98.8 H (94-97) % Hemoglobin 9.0 L (13.0-17.5) gm/dL Carbon Dioxide (22-30) mmol/L BUN (9-20) mg/dL Creatinine (0.66-1.25) mg/dL Glucose (74-99) mg/dL POC Glucose (mg/dL) 158 H (70-110) mg/dL Calcium (8.4-10.2) mg/dL Carbamazepine (4.0-12.0) UG/ML Microbiology - Last 24 Hours (Table) 09/12/24 18:00 Blood Culture - Preliminary Blood 09/12/24 22:30 Gram Stain - Preliminary Sputum Assessment and Plan Assessment: Acute hypoxic and hypercapnic respiratory failure requiring intubation mechanical ventilator. Possible multifocal pneumonia-healthcare associated Sepsis secondary pneumonia Hypertension Hypothyroidism Hypothermia Altered mental status secondary to metabolic encephalopathy and infection History of intellectual disability Seizure disorder Severe kyphoscoliosis Right eye blindness Medical debility currently at [facility] DVT prophylax with heparin subcu Plan: Patient is currently in the MICU. Intubated on mechanical ventilator. Sedation is off. Continued on IV hydration. Requiring pressor support with norepinephrine. Does have cough and gag reflex. Vancomycin has been discontinued. Continue ceftriaxone and monitor. Procalcitonin is not elevated. Patient was started back on antiepileptic medications Keppra 1000 mg IV every 12. Also on Depakote. Neurology and critical care team is on board. Follow culture report. Prognosis is guarded at this time with multimedical problems and comorbid conditions. Time with Patient: Greater than 30
[2024-09-15 12:05] LABS: Glucose,Whole Blood 91 mg/dL (70-110)
[2024-09-15] MEDS ORDERED: FERROUS SULFATE 325 MG TAB PO SCH (12:30)
[2024-09-15] MEDS: FERROUS SULFATE ORAL ELIXIR 300 MG/5 ML CUP PO SCH (17:01)
[2024-09-15 17:11] LABS: Glucose,Whole Blood 104 mg/dL (70-110)
[2024-09-15] MEDS: SENNOSIDES 8.6 MG TAB PO SCH (20:40)
[2024-09-16 00:20] LABS: Glucose,Whole Blood 91 mg/dL (70-110)
[2024-09-16 04:42] LABS: Glucose,Whole Blood 101 mg/dL (70-110)
[2024-09-16 04:56] LABS: Basophils # (A) 0.01 10*3/uL (0.00-0.10); Basophils % (A) 0.2 %; Eosinophils # (A) 0.14 10*3/uL (0.04-0.35); Eosinophils % (A) 2.7 %; HCT 23.8 % (39.6-50.0); HGB 7.8 g/dL (13.0-17.0); Lymphocytes # (A) 0.72 10*3/uL (0.90-5.00); Lymphocytes % (A) 13.9 %; MCH 33.5 pg (27.0-32.0); MCHC 32.8 g/dL (32.0-37.0); MCV 102.1 fL (80.0-97.0); Mean Platelet Volume 9.7 fL (9.5-12.2); Monocytes # (A) 0.45 10*3/uL (0.20-1.00); Monocytes % (A) 8.7 %; Neutrophils # (A) 3.83 10*3/uL (1.80-7.70); Neutrophils % (A) 74.1 %; Platelet Count 159 10*3/uL (140-440); RBC 2.33 10*6/uL (4.40-5.60); RDW 14.1 % (11.5-14.5); WBC 5.17 10*3/uL (4.50-10.00)
[2024-09-16 05:13] LABS: African American GFR (CKD) >90 (>60 ml/min/1.73 sqM); Anion Gap 3 mmol/L; Blood Urea Nitrogen 17 mg/dL (9-20); Calcium 7.8 mg/dL (8.4-10.2); Carbon Dioxide 30 mmol/L (22-30); Chloride 104 mmol/L (98-107); Glucose 93 mg/dL (74-99); Non-African American GFR(CKD) >90 (>60 ml/min/1.73 sqM); Potassium 3.9 mmol/L (3.5-5.1); Sodium 137 mmol/L (137-145)
[2024-09-16 05:57] LABS: ABG Base Excess 5.9 mmol/L; ABG HCO3 30 mmol/L (21-25); ABG Oxygen Saturation 96.7 % (94-97); ABG PCO2 42 mmHg (35-45); ABG PH 7.47 (7.35-7.45); ABG PO2 77 mmHg (83-108); ABG TCO2 31 mmol/L (19-24)
[2024-09-16] MEDS: LEVOTHYROXINE 137 MCG TAB PO SCH (06:18)
[2024-09-16 06:24] LABS: Allen Test Performed? No
--- NOTE | 2024-09-16 06:55 | XR ---
EXAMINATION TYPE: XR chest 1V portable DATE OF EXAM: 09/16/2024 COMPARISON: 09/15/2024 CLINICAL INDICATION: Male, 63 years old with history of Pt. intubated; TECHNIQUE: Single frontal view of the chest is obtained. FINDINGS: There is an ET tube 2.4 cm above the ezra. The NG tube within the stomach. There is marked deformity of the thorax secondary to severe scoliosis of the thoracic spine. There are hazy opacities in the lung bases bilaterally reflecting pleural effusions and interstitial infiltrates. There is no pneumothorax. IMPRESSION: 1. ET tube 2.4 cm above the ezra. NG tube within the stomach. 2. No change in the acute cardiopulmonary disease involving both mid and lower lung zones. [facility], , 09/16/2024 6:53 AM
[2024-09-16] MEDS: POTASSIUM BICARBONATE/CIT AC 20 MEQ TABLET.EFF NG-TUBE SCH (09:18)
--- NOTE | 2024-09-16 09:33 | P.PN ---
Subjective Progress Note Date: 09/15/24 Patient was seen for a follow-up. Patient continues to be intubated on mechanical ventilation. Patient is on propofol 25 g/kg/min. Patient is off fentanyl. Patient is again sedated. Objective - Vital Signs Vital signs: Vital Signs Temp 97.6 F 09/15/24 16:00 Pulse 87 09/15/24 17:00 Resp 16 09/15/24 17:00 BP 100/59 09/15/24 17:00 Pulse Ox 100 09/15/24 17:00 FiO2 30 09/15/24 17:00 Intake & Output 09/14/24 09/15/24 09/15/24 18:59 06:59 18:59 Intake Total 2146.295 5598.431 4907.307 Output Total 1250 850 675 Balance 240.360 7474.670 1217.307 Weight 68.4 kg Intake: IV 1318 1064 1180 Azithromycin 500 mg In 250 250 Sodium Chloride 0.9% 250 ml @ 250 mls/hr IVPB DAILY AG Rx#:[id number] Lactated Ringers 1,000 ml 935 975 750 @ 75 mls/hr IV .[id number] AG Rx#:[id number] Valproate Sodium 750 mg 50 50 50 In Sodium Chloride 0.9% 50 ml @ 50 mls/hr IVPB Q12HR AG Rx#:[id number] a line 33 39 30 cefTRIAXone 1 gm In 50 50 Sodium Chloride 0.9% 50 ml @ 100 mls/hr IVPB Q24HR AG Rx#:[id number] cefTRIAXone 2 gm In 50 Dextrose 5% in Water 50 ml @ 100 mls/hr IVPB Q24HR AG Rx#:[id number] Intake, IV Titration 318.295 102.670 154.307 Amount Norepinephrine 4 mg In 136.515 Sodium Chloride 0.9% 250 ml @ 0.03 MCG/KG/MIN 7. 818 mls/hr IV .Q24H AG Rx#:[id number] fentaNYL (PF). 1,000 mcg 88.910 61.434 In Sodium Chloride 0.9% 80 ml @ 0.5 MCG/KG/HR 4. 082 mls/hr IV .Q24H AG Rx#:[id number] propofoL 1,000 mg In 92.870 102.670 92.873 Empty Bag 1 bag @ 15 MCG/ KG/MIN 7.348 mls/hr IV . [id number] [facility] Rx#:[id number] Tube Feeding 420 676 468 Other 90 90 90 Output: Urine 1250 850 675 Other: Voiding Method Indwelling Catheter Indwelling Catheter Indwelling Catheter ABP, PAP, CO, CI - Last Documented Arterial Blood Pressure 116/55 - Exam Patient is on mechanical ventilation. He is only on propofol 25 g. Patient is sedated. No obvious seizure-like activity. Exam limited. - Labs CBC & Chem 7: 09/16/24 04:41 09/16/24 04:41 Labs: Abnormal Lab Results - Last 24 Hours (Table) 09/14/24 09/14/24 09/15/24 Range/Units 04:22 23:31 04:13 RBC 2.52 L (4.40-5.60) 10*6/uL Hgb 8.5 L (13.0-17.0) g/dL Hct 26.0 L (39.6-50.0) % MCV 103.2 H (80.0-97.0) fL MCH 33.7 H (27.0-32.0) pg Lymphocytes # 0.86 L (0.90-5.00) 10*3/uL ABG pO2 (83-108) mmHg ABG HCO3 (21-25) mmol/L ABG Total CO2 (19-24) mmol/L Hemoglobin (13.0-17.5) gm/dL Carbon Dioxide (22-30) mmol/L Creatinine (0.66-1.25) mg/dL Glucose (74-99) mg/dL POC Glucose (mg/dL) 123 H (70-110) mg/dL Calcium (8.4-10.2) mg/dL Iron 16 L (65-175) UG/DL TIBC 136 L (228-460) UG/DL % Saturation 11.76 L (15.00-50.00) Transferrin 97.0 L (204.0-354.0) mg/dL Ferritin 446.0 H (22.0-322.0) ng/mL 09/15/24 09/15/24 09/15/24 Range/Units 04:13 05:36 05:44 RBC (4.40-5.60) 10*6/uL Hgb (13.0-17.0) g/dL Hct (39.6-50.0) % MCV (80.0-97.0) fL MCH (27.0-32.0) pg Lymphocytes # (0.90-5.00) 10*3/uL ABG pO2 70 L (83-108) mmHg ABG HCO3 30 H (21-25) mmol/L ABG Total CO2 31 H (19-24) mmol/L Hemoglobin 8.5 L (13.0-17.5) gm/dL Carbon Dioxide 31 H (22-30) mmol/L Creatinine 0.57 L (0.66-1.25) mg/dL Glucose 114 H (74-99) mg/dL POC Glucose (mg/dL) 120 H (70-110) mg/dL Calcium 7.9 L (8.4-10.2) mg/dL Iron (65-175) UG/DL TIBC (228-460) UG/DL % Saturation (15.00-50.00) Transferrin (204.0-354.0) mg/dL Ferritin (22.0-322.0) ng/mL Microbiology - Last 24 Hours (Table) 09/12/24 22:30 Gram Stain - Final Sputum Sputum Culture - Final Haemophilus influenzae 09/12/24 18:00 Blood Culture - Preliminary Blood Assessment and Plan Assessment: * Altered mental status, likely due to metabolic encephalopathy. * Acute hypoxic, hypercapnic respiratory failure, status post intubation. * Severe kyphoscoliosis * Multifocal pneumonia, healthcare associated with sepsis * Hypothermia, due to above * History of intellectual disability * History of seizure disorder * Right eye blindness * Hypertension * Hypothyroidism * ECF resident Plan: * Patient is sedated today, exam limited. No seizure-like activity noticed by the nursing staff. * Patient will be continued on same seizure medication as he was taking at home. We will switch from oral to IV form if possible otherwise through OGT. * EEG was performed, which was abnormal due to background slowing of moderate degree, suggestive of generalized cerebral dysfunction as can be seen with toxic metabolic encephalopathy related to diffuse structural brain abnormality or medication effect. No epileptiform activity was seen. * Tegretol 3.8(4-12), Depakote 37 and Keppra level 32.3(3-60). Ammonia 16. * Patient currently on azithromycin and ceftriaxone. Patient is off vancomycin. * Other medical management as per IM and critical care. * Supportive care.
--- NOTE | 2024-09-16 09:49 | P.PN ---
Subjective Progress Note Date: 09/16/24 Principal diagnosis: Respiratory failure. Patient is a 63-year-old male with past medical history significant for intellectual disability, seizure disorder, hypertension, hypothyroidism, chronic hypoxemic respiratory failure. He resides at a local [facility]. Noted to be confused with increased work of breathing by staff. His SpO2 was reading 40%. EMS was called and patient was transferred to the emergency department on a nonrebreather. He was minimally responsive on arrival. ABG consistent with severe hypercapnic respiratory failure with a PaO2 of 153, pCO2 greater than 98, pH of 7.13. Previously, received 4 mg IV Versed. Patient was intubated by the ER provider. Brain CT without contrast did not show any acute intracranial hemorrhage or mass effect. There was some sinusitis and moderate fluid in the mastoid air cells bilaterally. Brain CT angio did not show any evidence of cervical internal carotid artery or vertebral artery dissection or stenosis at the carotid bifurcations. No evidence of high-grade intracranial stenosis or aneurysm. Patchy groundglass and consolidative opacities visualized in the upper lung schwartz. Chest x-ray following intubation showing the endotracheal tube terminating 2.5 cm above the ezra. Severe kyphoscoliosis. There is pat sneha subtle opacities bilaterally. Suspect small bilateral pleural effusions. Enteric tube likely in the duodenum. CBC: WBC count 12.4, hemoglobin 11.7, platelets 176. CMP: Sodium 140, potassium 5.3, chloride 96, serum bicarb 37, BUN 43, creatinine 0.79, glucose 125. Lactic 2.4. LFTs not elevated. Troponin less than 0.012. EKG: Sinus rhythm, rate 97 bpm, RBBB pattern. Patient currently being evaluated in the intensive care unit. Remains intubated to the mechanical ventilator. Current ventilator settings assist-control, respiratory rate 20, tidal volume 450, FiO2 70%, PEEP of 5. Previous ventilator settings were appropriately adjusted following a recent follow-up ABG with a PaO2 of 187, PCO2 of 31, pH of 7.6. This was done on FiO2 100%. Respiratory rate has since been adjusted and FiO2 is being titrated appropriately. He is sedated on propofol which is infusing at 45 mcg/kg/min as well as fentanyl infusing at 0.5 mcg/kg/h. Currently synchronous with ventilator settings. Peak pressures around 26. Lactated Ringer's also infusing at 130 mL/h. Indwelling urinary catheter with urine output of greater than 100 mL/h. Blood pressure has been normotensive. Previously, patient was hypothermic with a temperature as low as 93.9 F, and was on a external warming blanket. Now normothermic. Continues with empiric antibiotics. Patient has a legal power of staff attorney. Current CODE STATUS is full. 09/14/2024 Patient seen and examined at the bedside. Patient continue be sedated and mechanically ventilated. Currently patient is sedated with fentanyl at 0.5 mcg/kg/min and propofol at 30 mcg/kg/min. Patient is on volume assist-control with setting of respiratory of 16, tidal volume of 400, FiO2 of 40% and PEEP of 5. Arterial blood gas today shows pH of 7.45, pCO2 43, PaO2 132, bicarb 29. FiO2 is decreased to 35%. Chest x-ray this morning shows cardiomegaly with s mall bilateral pleural effusions. Urine output is good. Patient is also on lactated Ringer's running at 130 cc/h and Levophed at 0.03 mcg/kg/h. Patient is continued to be on vancomycin, azithromycin and Rocephin for empiric coverage for multifocal pneumonia. Prolactin is 0.11. Lab work from today shows WBC 6.63, hemoglobin 8.9, platelet count 162, sodium 139, potassium 4.1, chloride 106, bicarb 27, BUN 17, creatinine 0.56, glucose 141, calcium 8.3. He is currently on vital HP tube feeds running at 30 cc/h with a goal of 50. 09/15/2024 Patient seen and examined at the bedside. Patient continued to be sedated and mechanically ventilated. Patient is currently on fentanyl at 0.05 mcg/kg/min and propofol at 25 mcg/kg/min. Patient is on volume assist-control with a settings of respiratory rate of 16, tidal volume of 400, FiO2 of 30%, PEEP of 5.0. ABG shows pH of 7.44, pCO2 45, PO2 of 70, HCO3 of 30. Chest x-ray done today shows cardiomegaly with small bilateral pleural effusions. Urine output is good. Patient is on lactated ringer Ringer's at 75 cc/h. He is getting tube feeds with vital HP at 55 which is at goal. Patient has been restarted on azithromycin and Rocephin for positive sputum culture which shows H. influenzae growth. Lab work from today shows WBC 6.08, hemoglobin 8.5, platelet count 159, sodium 137, potassium 3.6, chloride 107, bicarb 31, BUN 15, creatinine 0.57, glucose 114, calcium 7.9. TSH 19.7, free T41.26, cortisol 11.2. Iron 16, TIBC 136, percent saturation 11.76, transferrin 97, ferritin 446.0. Progress note dated September 16, 2024. 63-year-old male seen today in room 254. He remains on the mechanical ventilator. He is on volume assist-control, rate 16, tidal volume 400, FiO2 30%, PEEP of 5. Blood gases show PO2 77, pCO2 of 42, pH is 7.47. The patient is currently on propofol at 25 mcg/kg/min, lactated Ringer's at 75 cc an hour, saline at 20 cc an hour. The patient is also getting vital high-protein at 52 cc an hour which is goal. Sputum was positive for Haemophilus influenzae. The patient continues on Rocephin. White count is 5.17, hemoglobin 7.8, hematocrit 23.8, platelet count is 159,000. Sodium 137, potassium 3.9, chloride 104, CO2 30, BUN 17, creatinine 0.54. Calcium is 7.8. Chest x-ray shows the endotracheal tube 2.4 cm above the ezra. The patient has diffuse bilateral opacities. Objective - Vital Signs Vital signs: Vital Signs Temp 98.2 F 09/16/24 04:00 Pulse 91 09/16/24 08:23 Resp 16 09/16/24 07:00 BP 121/69 09/16/24 07:00 Pulse Ox 99 09/16/24 07:00 FiO2 30 09/16/24 08:05 Intake & Output 09/15/24 09/16/24 09/16/24 18:59 06:59 18:59 Intake Total 2304.307 1674.866 130 Output Total 875 1320 80 Balance 1429.307 354.866 50 Weight 68.4 kg Intake: IV 1336 858 78 Azithromycin 500 mg In 250 Sodium Chloride 0.9% 250 ml @ 250 mls/hr IVPB DAILY [facility] Rx#:[id number] Lactated Ringers 1,000 ml 900 825 75 @ 75 mls/hr IV .[id number] [facility] Rx#:[id number] Valproate Sodium 750 mg 50 In Sodium Chloride 0.9% 50 ml @ 50 mls/hr IVPB Q12HR [facility] Rx#:[id number] a line 36 33 3 cefTRIAXone 1 gm In 50 Sodium Chloride 0.9% 50 ml @ 100 mls/hr IVPB Q24HR [facility] Rx#:[id number] cefTRIAXone 2 gm In 50 Dextrose 5% in Water 50 ml @ 100 mls/hr IVPB Q24HR [facility] Rx#:[id number] Intake, IV Titration 254.307 102.866 Amount Valproate Sodium 750 mg 50 In Sodium Chloride 0.9% 50 ml @ 50 mls/hr IVPB Q12HR [facility] Rx#:[id number] fentaNYL (PF). 1,000 mcg 61.434 In Sodium Chloride 0.9% 80 ml @ 0.5 MCG/KG/HR 4. 082 mls/hr IV .Q24H [facility] Rx#:[id number] propofoL 1,000 mg In 192.873 52.866 Empty Bag 1 bag @ 15 MCG/ KG/MIN 7.348 mls/hr IV . [id number] [facility] Rx#:[id number] Tube Feeding 624 624 52 Other 90 90 Output: Urine 875 1320 80 Other: Voiding Method Indwelling Catheter Indwelling Catheter # Bowel Movements 0 ABP, PAP, CO, CI - Last Documented Arterial Blood Pressure 121/51 - Exam No acute distress, sedated, with an orally placed endotracheal tube. HEENT examination is grossly unremarkable. Neck supple. Full range of motion. No adenopathy thyromegaly or neck vein distention. Cardiovascular examination reveals regular rhythm rate. S1-S2 normal. No S3 or S4. No discernible murmur noted. Lungs reveal bilateral coarse rhonchi. No wheezes. No crackles. Breath sounds equal bilaterally. Abdomen soft with bowel sounds. No masses or tenderness. Extremities are intact. No cyanosis clubbing or edema. Skin is without rash or lesion. Neurologic examination cannot be evaluated as the patient is currently sedated. - Labs CBC & Chem 7: 09/16/24 04:41 09/16/24 04:41 Labs: Abnormal Lab Results - Last 24 Hours (Table) 09/16/24 09/16/24 09/16/24 Range/Units 04:41 04:41 05:52 RBC 2.33 L (4.40-5.60) 10*6/uL Hgb 7.8 L (13.0-17.0) g/dL Hct 23.8 L (39.6-50.0) % MCV 102.1 H (80.0-97.0) fL MCH 33.5 H (27.0-32.0) pg Lymphocytes # 0.72 L (0.90-5.00) 10*3/uL ABG pH 7.47 H (7.35-7.45) ABG pO2 77 L (83-108) mmHg ABG HCO3 30 H (21-25) mmol/L ABG Total CO2 31 H (19-24) mmol/L Hemoglobin 8.1 L (13.0-17.5) gm/dL Creatinine 0.54 L (0.66-1.25) mg/dL Calcium 7.8 L (8.4-10.2) mg/dL Microbiology - Last 24 Hours (Table) 09/12/24 18:00 Blood Culture - Preliminary Blood 09/12/24 22:30 Gram Stain - Final Sputum Sputum Culture - Final Haemophilus influenzae Assessment and Plan Assessment: Acute hypoxemic and hypercapnic respiratory failure, intubated and on the mechanical ventilator. Multifocal pneumonia, secondary to Haemophilus influenzae. Acute leukocytosis, secondary to infection. Hypothermia, resolved. Altered mental status, secondary to encephalopathy, and sepsis. History of intellectual disability. History of seizure disorder. Severe kyphoscoliosis. Blind right eye. History of hypertension. History of hypothyroidism. Plan: Plan dated September 16, 2024. The patient is seen today in room 254. The patient remains on the mechanical ventilator. Ventilator settings include volume assist-control, rate 16, tidal volume 400, FiO2 30%, PEEP of 5. Blood gases show pO2 of 77, PCO2 of 42, pH of 7.47. The patient is getting propofol at 25 mcg/kg/min, and is also on tube feeds, with vital HP, at goal. The patient continues on Rocephin, Haemophilus i nfluenzae that is in his sputum. The patient's overall prognosis is poor. We will continue to follow the patient, make recommendations. We have spoken to the patient's legal guardian. CODE STATUS remains full. The patient in our opinion should be a DNR. Labs, x-rays, and medications are reviewed. We will continue to follow. Dictation was produced using [employer] dictation software. Please excuse any grammatical, word or spelling errors. Time with Patient: Greater than 30
[2024-09-16 11:21] LABS: Glucose,Whole Blood 87 mg/dL (70-110)
--- NOTE | 2024-09-16 17:54 | P.PN ---
Subjective Progress Note Date: 09/15/24 Patient is a 63-year-old male with a known history of mentally challenged, seizure disorder, asthma, hypertension, hypothyroidism and chronic hypoxemic respiratory failure who is currently at [facility]. Patient was sent to hospital due to worsening shortness of breath and altered mental status and was also hypoxic with pulse ox 40% when he presented to ER. Patient was placed on nonrebreather and was minimally responsive on arrival to ER. Patient had ABGs was done showed PaO2 153. pCO2 98 and also pH 7.13 patient was intubated in the ER. Patient was also sedated with propofol and fentanyl. CT head showed no acute bleed or mass effect. Sinusitis and mastoiditis as described above. CT angiogram of the head and neck showed no evidence of dissection of the cervical internal carotid arteries or vertebral arteries. Patchy groundglass and consolidative opacities in partially visualized upper lungs suspicious for multifocal pneumonia Chest x-ray showed endotracheal tube terminates 2.5 cm above ezra. Enteric tube distal sidehole overlies the expected gastric lumen. Small bilateral pleural effusions and subtle patchy opacities in the upper lobes which could reflect infectious etiology. EKG showed sinus rhythm with right bundle branch block. Laboratory data on admission showed WBC 12.3 hemoglobin 11.7 and platelets 176 and MCV 112 sodium 140 potassium 5.3 chloride 96 bicarb is 37 BUN 43 and creatinine 0.79 and blood sugar 125 and calcium 8.6 liver enzymes are not elevated troponin x 1 negative and procalcitonin level is 0.11 Patient is also hypothermic requiring Roly hugger. Influenza A BRAC COVID-19 and Legionella urine antigen negative. 09/14/2024 Patient is currently in the MICU. On sedation holiday. Was able to tolerate pressure support for short duration this morning currently back to [facility]- control.. ABG showed pH 7.4 [id number] and PO2 132 Other laboratory data showed WBC 6.6 hemoglobin 8.9 and MCV 104.6 and platelets 168. BUN 17 and creatinine 0.56. Chest x-ray showed cardiomegaly with small bilateral pleural effusions. Patient is on IV hydration with Ringer's lactate at 130 cc/h and also requiring pressure support with Levophed. Continue with antibiotics for multifocal pneumonia. Procalcitonin level is not elevated at 0.11. 09/15/2024 Patient is in the MICU. Intubated and on mechanical ventilator. Patient is back on sedation with propofol and is also on fentanyl drip. Currently on assist-control with respiratory rate 16, tidal volume 400 FiO2 30% and PEEP of 5. Chest x-ray showed cardiomegaly and small bilateral pleural effusions. Continued on IV hydration with Ringer's lactate at 75 cc/h. Patient is being continued on antibiotics in the form of ceftriaxone. Sputum culture showed haemophilus influenza. Laboratory showed WBC 6.0 hemoglobin 8.5 and platelets 159 sodium 137 potassium 3.6 chloride 107 bicarb is 31 BUN 51 creatinine 0.57 blood sugar 114 and calcium 7.9. Current medications reviewed. Objective - Vital Signs Vital signs: Vital Signs Temp 98.1 F 09/15/24 08:00 Pulse 95 09/15/24 10:00 Resp 16 09/15/24 10:00 BP 115/66 09/15/24 10:00 Pulse Ox 97 09/15/24 10:00 FiO2 30 09/15/24 08:09 Intake & Output 09/14/24 09/15/24 09/15/24 18:59 06:59 18:59 Intake Total 2146.295 1932.670 974.307 Output Total 1250 850 235 Balance 282.800 0626.670 739.307 Intake: IV 1318 1064 634 Azithromycin 500 mg In 250 250 Sodium Chloride 0.9% 250 ml @ 250 mls/hr IVPB DAILY [facility] Rx#:[id number] Lactated Ringers 1,000 ml 935 975 225 @ 75 mls/hr IV .[id number] [facility] Rx#:[id number] Valproate Sodium 750 mg 50 50 50 In Sodium Chloride 0.9% 50 ml @ 50 mls/hr IVPB Q12HR AG Rx#:[id number] a line 33 39 9 cefTRIAXone 1 gm In 50 50 Sodium Chloride 0.9% 50 ml @ 100 mls/hr IVPB Q24HR AG Rx#:[id number] cefTRIAXone 2 gm In 50 Dextrose 5% in Water 50 ml @ 100 mls/hr IVPB Q24HR AG Rx#:[id number] Intake, IV Titration 318.295 102.670 154.307 Amount Norepinephrine 4 mg In 136.515 Sodium Chloride 0.9% 250 ml @ 0.03 MCG/KG/MIN 7. 818 mls/hr IV .Q24H [facility] Rx#:[id number] fentaNYL (PF). 1,000 mcg 88.910 61.434 In Sodium Chloride 0.9% 80 ml @ 0.5 MCG/KG/HR 4. 082 mls/hr IV .Q24H [facility] Rx#:[id number] propofoL 1,000 mg In 92.870 102.670 92.873 Empty Bag 1 bag @ 15 MCG/ KG/MIN 7.348 mls/hr IV . [id number] [facility] Rx#:[id number] Tube Feeding 420 676 156 Other 90 90 30 Output: Urine 1250 850 235 Other: Voiding Method Indwelling Catheter Indwelling Catheter Indwelling Catheter ABP, PAP, CO, CI - Last Documented Arterial Blood Pressure 113/58 - Exam PHYSICAL EXAMINATION: Patient is lying in the bed intubated and sedated. Mentally challenged at base line.. HEENT: Normocephalic. Neck is supple. Left pupils reactive. Nostrils clear. Oral cavity is moist. Right eye blindness Neck reveals no JVD, carotid bruits, or thyromegaly. CHEST EXAMINATION: Trachea is central. Symmetrical expansion. Bibasilar diminished sounds. Scattered coarse sounds. No wheezing. CARDIAC: Normal S1, S2 with no gallops. No murmurs ABDOMEN: Soft. Bowel sounds normal. No organomegaly. No abdominal bruits. Extremities: reveal no edema. No clubbing or cyanosis Neurologically could not be assessed at this time. Contracted extremities. Skin: No rash or skin lesions. Psychiatric: Could not be assessed. Musculoskeletal: No joint swelling or deformity. - Labs CBC & Chem 7: 09/16/24 04:41 09/16/24 04:41 Labs: Abnormal Lab Results - Last 24 Hours (Table) 09/14/24 09/14/24 09/15/24 Range/Units 04:22 23:31 04:13 RBC 2.52 L (4.40-5.60) 10*6/uL Hgb 8.5 L (13.0-17.0) g/dL Hct 26.0 L (39.6-50.0) % MCV 103.2 H (80.0-97.0) fL MCH 33.7 H (27.0-32.0) pg Lymphocytes # 0.86 L (0.90-5.00) 10*3/uL ABG pO2 (83-108) mmHg ABG HCO3 (21-25) mmol/L ABG Total CO2 (19-24) mmol/L Hemoglobin (13.0-17.5) gm/dL Carbon Dioxide (22-30) mmol/L Creatinine (0.66-1.25) mg/dL Glucose (74-99) mg/dL POC Glucose (mg/dL) 123 H (70-110) mg/dL Calcium (8.4-10.2) mg/dL Iron 16 L (65-175) UG/DL TIBC 136 L (228-460) UG/DL % Saturation 11.76 L (15.00-50.00) Transferrin 97.0 L (204.0-354.0) mg/dL Ferritin 446.0 H (22.0-322.0) ng/mL TSH 19.700 H (0.465-4.680) mIU/L 09/15/24 09/15/24 09/15/24 Range/Units 04:13 05:36 05:44 RBC (4.40-5.60) 10*6/uL Hgb (13.0-17.0) g/dL Hct (39.6-50.0) % MCV (80.0-97.0) fL MCH (27.0-32.0) pg Lymphocytes # (0.90-5.00) 10*3/uL ABG pO2 70 L (83-108) mmHg ABG HCO3 30 H (21-25) mmol/L ABG Total CO2 31 H (19-24) mmol/L Hemoglobin 8.5 L (13.0-17.5) gm/dL Carbon Dioxide 31 H (22-30) mmol/L Creatinine 0.57 L (0.66-1.25) mg/dL Glucose 114 H (74-99) mg/dL POC Glucose (mg/dL) 120 H (70-110) mg/dL Calcium 7.9 L (8.4-10.2) mg/dL Iron (65-175) UG/DL TIBC (228-460) UG/DL % Saturation (15.00-50.00) Transferrin (204.0-354.0) mg/dL Ferritin (22.0-322.0) ng/mL TSH (0.465-4.680) mIU/L Microbiology - Last 24 Hours (Table) 09/12/24 22:30 Gram Stain - Final Sputum Sputum Culture - Final Haemophilus influenzae 09/12/24 18:00 Blood Culture - Preliminary Blood Assessment and Plan Assessment: Acute hypoxic and hypercapnic respiratory failure requiring intubation mechanical ventilator. Multifocal pneumonia-healthcare associated. Sputum culture showed influenza pneumonia. Sepsis secondary pneumonia Hypertension Hypothyroidism Hypothermia Altered mental status secondary to metabolic encephalopathy and infection History of intellectual disability Seizure disorder Severe kyphoscoliosis Right eye blindness Medical debility currently at [facility] DVT prophylax with heparin subcu Plan: Patient is currently in the MICU. Intubated on mechanical ventilator. Sedated. Continued on IV hydration. Pressure support is off. Patient has been continued on antibiotics at home ceftriaxone. Patient was started back on antiepileptic medications Keppra 1000 mg IV every 12. Also on Depakote. Neurology and critical care team is on board. Blood cultures negative. Sputum culture showed haemophilus influenza. Prognosis is guarded at this time with multimedical problems and comorbid conditions. Time with Patient: Greater than 30
--- NOTE | 2024-09-16 17:57 | P.PN ---
Subjective Progress Note Date: 09/16/24 Patient is a 63-year-old male with a known history of mentally challenged, seizure disorder, asthma, hypertension, hypothyroidism and chronic hypoxemic respiratory failure who [facility]. Patient was sent to hospital due to worsening shortness of breath and altered mental status and was also hypoxic with pulse ox 40% when he presented to ER. Patient was placed on nonrebreather and was minimally responsive on arrival to ER. Patient had ABGs was done showed PaO2 153. pCO2 98 and also pH 7.13 patient was intubated in the ER. Patient was also sedated with propofol and fentanyl. CT head showed no acute bleed or mass effect. Sinusitis and mastoiditis as described above. CT angiogram of the head and neck showed no evidence of dissection of the cervical internal carotid arteries or vertebral arteries. Patchy groundglass and consolidative opacities in partially visualized upper lungs suspicious for multifocal pneumonia Chest x-ray showed endotracheal tube terminates 2.5 cm above ezra. Enteric tube distal sidehole overlies the expected gastric lumen. Small bilateral pleural effusions and subtle patchy opacities in the upper lobes which could reflect infectious etiology. EKG showed sinus rhythm with right bundle branch block. Laboratory data on admission showed WBC 12.3 hemoglobin 11.7 and platelets 176 and MCV 112 sodium 140 potassium 5.3 chloride 96 bicarb is 37 BUN 43 and creatinine 0.79 and blood sugar 125 and calcium 8.6 liver enzymes are not elevated troponin x 1 negative and procalcitonin level is 0.11 Patient is also hypothermic requiring Roly hugger. Influenza A BRAC COVID-19 and Legionella urine antigen negative. 09/14/2024 Patient is currently in the MICU. On sedation holiday. Was able to tolerate pressure support for short duration this morning currently back to [facility]- control.. ABG showed pH 7.4 [id number] and PO2 132 Other laboratory data showed WBC 6.6 hemoglobin 8.9 and MCV 104.6 and platelets 168. BUN 17 and creatinine 0.56. Chest x-ray showed cardiomegaly with small bilateral pleural effusions. Patient is on IV hydration with Ringer's lactate at 130 cc/h and also requiring pressure support with Levophed. Continue with antibiotics for multifocal pneumonia. Procalcitonin level is not elevated at 0.11. 09/15/2024 Patient is in the MICU. Intubated and on mechanical ventilator. Patient is back on sedation with propofol and is also on fentanyl drip. Currently on assist-control with respiratory rate 16, tidal volume 400 FiO2 30% and PEEP of 5. Chest x-ray showed cardiomegaly and small bilateral pleural effusions. Continued on IV hydration with Ringer's lactate at 75 cc/h. Patient is being continued on antibiotics in the form of ceftriaxone. Sputum culture showed haemophilus influenza. Laboratory showed WBC 6.0 hemoglobin 8.5 and platelets 159 sodium 137 potassium 3.6 chloride 107 bicarb is 31 BUN 51 creatinine 0.57 blood sugar 114 and calcium 7.9. 09/16/2024 Patient is in the MICU. Remains on mechanical ventilator. Sedated with propofol drip. Continues on IV hydration with Ringer's lactate at 75 cc/h. Patient was also started on NG tube feeding. Continued on antibiotics in the form of ceftriaxone. Sputum culture is growing haemophilus influenza. Lab data showed WBC 5.1 hemoglobin 7.8 and platelets 159, sodium 137 potassium 3.9 chloride 104 bicarb is 30 BUN 17 and creatinine 0.54 and blood sugar 101 and calcium 7.8. Current medications reviewed. Objective - Vital Signs Vital signs: Vital Signs Temp 97.9 F 09/16/24 12:00 Pulse 92 09/16/24 13:00 Resp 11 L 09/16/24 13:00 BP 133/75 09/16/24 13:00 Pulse Ox 99 09/16/24 13:00 FiO2 30 09/16/24 12:00 Intake & Output 09/15/24 09/16/24 09/16/24 18:59 06:59 18:59 Intake Total 2304.307 7162.457 9813.698 Output Total 875 1320 565 Balance 1429.307 354.866 663.698 Weight 68.4 kg Intake: IV 1336 858 546 Azithromycin 500 mg In 250 Sodium Chloride 0.9% 250 ml @ 250 mls/hr IVPB DAILY AG Rx#:[id number] Lactated Ringers 1,000 ml 900 825 525 @ 75 mls/hr IV .[id number] AG Rx#:[id number] Valproate Sodium 750 mg 50 In Sodium Chloride 0.9% 50 ml @ 50 mls/hr IVPB Q12HR AG Rx#:[id number] a line 36 33 21 cefTRIAXone 1 gm In 50 Sodium Chloride 0.9% 50 ml @ 100 mls/hr IVPB Q24HR AG Rx#:[id number] cefTRIAXone 2 gm In 50 Dextrose 5% in Water 50 ml @ 100 mls/hr IVPB Q24HR AG Rx#:[id number] Intake, IV Titration 254.307 102.866 124.698 Amount Valproate Sodium 750 mg 50 In Sodium Chloride 0.9% 50 ml @ 50 mls/hr IVPB Q12HR AG Rx#:[id number] fentaNYL (PF). 1,000 mcg 61.434 In Sodium Chloride 0.9% 80 ml @ 0.5 MCG/KG/HR 4. 082 mls/hr IV .Q24H AG Rx#:[id number] propofoL 1,000 mg In 192.873 52.866 124.698 Empty Bag 1 bag @ 15 MCG/ KG/MIN 7.348 mls/hr IV . [id number] AG Rx#:[id number] Tube Feeding 624 624 468 Other 90 90 90 Output: Urine 875 1320 565 Other: Voiding Method Indwelling Catheter Indwelling Catheter Indwelling Catheter # Bowel Movements 0 ABP, PAP, CO, CI - Last Documented Arterial Blood Pressure 122/57 - Exam PHYSICAL EXAMINATION: Patient is lying in the bed intubated and sedated. Mentally challenged at baseline.. HEENT: Normocephalic. Neck is supple. Left pupils reactive. Nostrils clear. Oral cavity is moist. Right eye blindness Neck reveals no JVD, carotid bruits, or thyromegaly. CHEST EXAMINATION: Trachea is central. Symmetrical expansion. Bibasilar diminished sounds. Scattered coarse sounds. No wheezing. CARDIAC: Normal S1, S2 with no gallops. No murmurs ABDOMEN: Soft. Bowel sounds normal. No organomegaly. No abdominal bruits. Extremities: reveal no edema. No clubbing or cyanosis Neurologically could not be assessed at this time. Contracted extremities. Skin: No rash or skin lesions. Psychiatric: Could not be assessed. Musculoskeletal: No joint swelling or deformity. - Labs CBC & Chem 7: 09/16/24 04:41 09/16/24 04:41 Labs: Abnormal Lab Results - Last 24 Hours (Table) 09/16/24 09/16/24 09/16/24 Range/Units 04:41 04:41 05:52 RBC 2.33 L (4.40-5.60) 10*6/uL Hgb 7.8 L (13.0-17.0) g/dL Hct 23.8 L (39.6-50.0) % MCV 102.1 H (80.0-97.0) fL MCH 33.5 H (27.0-32.0) pg Lymphocytes # 0.72 L (0.90-5.00) 10*3/uL ABG pH 7.47 H (7.35-7.45) ABG pO2 77 L (83-108) mmHg ABG HCO3 30 H (21-25) mmol/L ABG Total CO2 31 H (19-24) mmol/L Hemoglobin 8.1 L (13.0-17.5) gm/dL Creatinine 0.54 L (0.66-1.25) mg/dL Calcium 7.8 L (8.4-10.2) mg/dL Microbiology - Last 24 Hours (Table) 09/12/24 18:00 Blood Culture - Preliminary Blood Assessment and Plan Assessment: Acute hypoxic and hypercapnic respiratory failure requiring intubation mechanical ventilator. Multifocal pneumonia-healthcare associated. Sputum culture showed influenza pneumonia. Sepsis secondary pneumonia Hypertension Hypothyroidism Hypothermia Altered mental status secondary to metabolic encephalopathy and infection History of intellectual disability Seizure disorder Severe kyphoscoliosis Right eye blindness Medical debility currently at [facility] DVT prophylax with heparin subcu Plan: Patient is currently in the MICU. Intubated on mechanical ventilator. Sedated. Continued on IV hydration with Ringer's lactate. Pressure support is off. Patient has been continued on antibiotics at home ceftriaxone. Patient was started back on antiepileptic medications Keppra 1000 mg IV every 12. Also on Depakote. Neurology and critical care team is on board. Blood cultures negative. Sputum culture showed haemophilus influenza. Prognosis is guarded at this time with multimedical problems and comorbid conditions. Time with Patient: Greater than 30
[2024-09-16 18:07] LABS: Glucose,Whole Blood 104 mg/dL (70-110)
[2024-09-16 23:43] LABS: Glucose,Whole Blood 118 mg/dL (70-110)
[2024-09-17 05:23] LABS: Basophils # (A) 0.01 10*3/uL (0.00-0.10); Basophils % (A) 0.2 %; Eosinophils # (A) 0.15 10*3/uL (0.04-0.35); Eosinophils % (A) 3.1 %; HCT 23.8 % (39.6-50.0); HGB 7.9 g/dL (13.0-17.0); Lymphocytes % (A) 12.4 %; MCH 33.9 pg (27.0-32.0); MCHC 33.2 g/dL (32.0-37.0); MCV 102.1 fL (80.0-97.0); Mean Platelet Volume 9.7 fL (9.5-12.2); Monocytes # (A) 0.41 10*3/uL (0.20-1.00); Monocytes % (A) 8.5 %; Neutrophils # (A) 3.63 10*3/uL (1.80-7.70); Neutrophils % (A) 75.2 %; Platelet Count 192 10*3/uL (140-440); RBC 2.33 10*6/uL (4.40-5.60); RDW 14.4 % (11.5-14.5); WBC 4.83 10*3/uL (4.50-10.00)
[2024-09-17 05:37] LABS: Glucose,Whole Blood 122 mg/dL (70-110)
[2024-09-17 05:40] LABS: ABG Base Excess 5.1 mmol/L; ABG HCO3 30 mmol/L (21-25); ABG Oxygen Saturation 96.8 % (94-97); ABG PCO2 44 mmHg (35-45); ABG PH 7.44 (7.35-7.45); ABG PO2 83 mmHg (83-108); ABG TCO2 31 mmol/L (19-24)
[2024-09-17 05:40] LABS: African American GFR (CKD) >90 (>60 ml/min/1.73 sqM); Anion Gap 1 mmol/L; Blood Urea Nitrogen 19 mg/dL (9-20); Carbon Dioxide 32 mmol/L (22-30); Chloride 106 mmol/L (98-107); Glucose 103 mg/dL (74-99); Non-African American GFR(CKD) >90 (>60 ml/min/1.73 sqM); Sodium 139 mmol/L (137-145)
[2024-09-17 05:54] LABS: Allen Test Performed? No
--- NOTE | 2024-09-17 07:03 | XR ---
EXAMINATION TYPE: XR chest 1V portable DATE OF EXAM: 09/17/2024 COMPARISON: 09/16/2024 CLINICAL INDICATION: Male, 63 years old with history of Pt. intubated; TECHNIQUE: Single frontal view of the chest is obtained. FINDINGS: ET tube is 2.7 cm above the ezra. There is an NG tube within the stomach. There is marked deformity of the thorax secondary to severe scoliosis of the thoracic spine. There is no change in the bilateral diffuse primarily interstitial process. There is no pneumothorax. IMPRESSION: 1. ET tube 2.7 cm above the ezra. 2. No change in the acute cardiopulmonary process. [facility], Workstation: [facility], 09/17/2024 7:00 AM
--- NOTE | 2024-09-17 08:50 | P.PN ---
Subjective Progress Note Date: 09/17/24 Principal diagnosis: Respiratory failure. Patient is a 63-year-old male with past medical history significant for intellectual disability, seizure disorder, hypertension, hypothyroidism, chronic hypoxemic respiratory failure. He resides at a local [facility]. Noted to be confused with increased work of breathing by staff. His SpO2 was reading 40%. EMS was called and patient was transferred to the emergency department on a nonrebreather. He was minimally responsive on arrival. ABG consistent with severe hypercapnic respiratory failure with a PaO2 of 153, pCO2 greater than 98, pH of 7.13. Previously, received 4 mg IV Versed. Patient was intubated by the ER provider. Brain CT without contrast did not show any acute intracranial hemorrhage or mass effect. There was some sinusitis and moderate fluid in the mastoid air cells bilaterally. Brain CT angio did not show any evidence of cervical internal carotid artery or vertebral artery dissection or stenosis at the carotid bifurcations. No evidence of high-grade intracranial stenosis or aneurysm. Patchy groundglass and consolidative opacities visualized in the upper lung schwartz. Chest x-ray following intubation showing the endotracheal tube terminating 2.5 cm above the ezra. Severe kyphoscoliosis. There is pat sneha subtle opacities bilaterally. Suspect small bilateral pleural effusions. Enteric tube likely in the duodenum. CBC: WBC count 12.4, hemoglobin 11.7, platelets 176. CMP: Sodium 140, potassium 5.3, chloride 96, serum bicarb 37, BUN 43, creatinine 0.79, glucose 125. Lactic 2.4. LFTs not elevated. Troponin less than 0.012. EKG: Sinus rhythm, rate 97 bpm, RBBB pattern. Patient currently being evaluated in the intensive care unit. Remains intubated to the mechanical ventilator. Current ventilator settings assist-control, respiratory rate 20, tidal volume 450, FiO2 70%, PEEP of 5. Previous ventilator settings were appropriately adjusted following a recent follow-up ABG with a PaO2 of 187, PCO2 of 31, pH of 7.6. This was done on FiO2 100%. Respiratory rate has since been adjusted and FiO2 is being titrated appropriately. He is sedated on propofol which is infusing at 45 mcg/kg/min as well as fentanyl infusing at 0.5 mcg/kg/h. Currently synchronous with ventilator settings. Peak pressures around 26. Lactated Ringer's also infusing at 130 mL/h. Indwelling urinary catheter with urine output of greater than 100 mL/h. Blood pressure has been normotensive. Previously, patient was hypothermic with a temperature as low as 93.9 F, and was on a external warming blanket. Now normothermic. Continues with empiric antibiotics. Patient has a legal power of attorney general. Current CODE STATUS is full. 09/14/2024 Patient seen and examined at the bedside. Patient continue be sedated and mechanically ventilated. Currently patient is sedated with fentanyl at 0.5 mcg/kg/min and propofol at 30 mcg/kg/min. Patient is on volume assist-control with setting of respiratory of 16, tidal volume of 400, FiO2 of 40% and PEEP of 5. Arterial blood gas today shows pH of 7.45, pCO2 43, PaO2 132, bicarb 29. FiO2 is decreased to 35%. Chest x-ray this morning shows cardiomegaly with s mall bilateral pleural effusions. Urine output is good. Patient is also on lactated Ringer's running at 130 cc/h and Levophed at 0.03 mcg/kg/h. Patient is continued to be on vancomycin, azithromycin and Rocephin for empiric coverage for multifocal pneumonia. Prolactin is 0.11. Lab work from today shows WBC 6.63, hemoglobin 8.9, platelet count 162, sodium 139, potassium 4.1, chloride 106, bicarb 27, BUN 17, creatinine 0.56, glucose 141, calcium 8.3. He is currently on vital HP tube feeds running at 30 cc/h with a goal of 50. 09/15/2024 Patient seen and examined at the bedside. Patient continued to be sedated and mechanically ventilated. Patient is currently on fentanyl at 0.05 mcg/kg/min and propofol at 25 mcg/kg/min. Patient is on volume assist-control with a settings of respiratory rate of 16, tidal volume of 400, FiO2 of 30%, PEEP of 5.0. ABG shows pH of 7.44, pCO2 45, PO2 of 70, HCO3 of 30. Chest x-ray done today shows cardiomegaly with small bilateral pleural effusions. Urine output is good. Patient is on lactated ringer Ringer's at 75 cc/h. He is getting tube feeds with vital HP at 55 which is at goal. Patient has been restarted on azithromycin and Rocephin for positive sputum culture which shows H. influenzae growth. Lab work from today shows WBC 6.08, hemoglobin 8.5, platelet count 159, sodium 137, potassium 3.6, chloride 107, bicarb 31, BUN 15, creatinine 0.57, glucose 114, calcium 7.9. TSH 19.7, free T41.26, cortisol 11.2. Iron 16, TIBC 136, percent saturation 11.76, transferrin 97, ferritin 446.0. Progress note dated September 16, 2024. 63-year-old male seen today in room 254. He remains on the mechanical ventilator. He is on volume assist-control, rate 16, tidal volume 400, FiO2 30%, PEEP of 5. Blood gases show PO2 77, pCO2 of 42, pH is 7.47. The patient is currently on propofol at 25 mcg/kg/min, lactated Ringer's at 75 cc an hour, saline at 20 cc an hour. The patient is also getting vital high-protein at 52 cc an hour which is goal. Sputum was positive for Haemophilus influenzae. The patient continues on Rocephin. White count is 5.17, hemoglobin 7.8, hematocrit 23.8, platelet count is 159,000. Sodium 137, potassium 3.9, chloride 104, CO2 30, BUN 17, creatinine 0.54. Calcium is 7.8. Chest x-ray shows the endotracheal tube 2.4 cm above the ezra. The patient has diffuse bilateral opacities. Progress note dated September 17, 2024. 63-year-old male seen today in room 254. The patient remains on the mechanical ventilator, with settings of volume assist-control, rate 16, tidal volume 400, FiO2 30%, PEEP of 5. Blood gases show pO2 of 83, pCO2 of 44, and a pH of 7.44. He is on propofol at 35 mcg/kg/min, LR at 75 cc an hour, saline at 20 cc an hour, and vital high-protein at 52 cc an hour, which is goal. He continues on Rocephin for the Haemophilus influenzae that was in his sputum. Today the patient will have a daily interruption of sedation. I do not suspect he is ready for weaning and extubation. Current white count 4.8, hemoglobin 7.9, hematocrit 23.8, platelet count 192,000. Sodium 139, potassium 4, chlorides 106, CO2 32, BUN 19, creatinine 0.49. Glucose is 122. Calcium 8. Chest x-ray is largely unchanged. Objective - Vital Signs Vital signs: Vital Signs Temp 97.7 F 09/17/24 04:00 Pulse 85 09/17/24 08:06 Resp 16 09/17/24 07:00 BP 115/64 09/17/24 07:00 Pulse Ox 98 09/17/24 07:00 FiO2 30 09/17/24 07:45 Intake & Output 09/16/24 09/17/24 09/17/24 18:59 06:59 18:59 Intake Total 6706.426 7188.299 202.871 Output Total 1215 2065 100 Balance 742.000 -138.701 102.871 Intake: IV 936 936 78 Lactated Ringers 1,000 ml 900 900 75 @ 75 mls/hr IV .[id number] AG Rx#:[id number] a line 36 36 3 Intake, IV Titration 200.000 224.299 72.871 Amount Valproate Sodium 750 mg 50 In Sodium Chloride 0.9% 50 ml @ 50 mls/hr IVPB Q12HR AG Rx#:[id number] propofoL 1,000 mg In 200.000 174.299 72.871 Empty Bag 1 bag @ 15 MCG/ KG/MIN 7.348 mls/hr IV . [id number] AG Rx#:[id number] Tube Feeding 728 676 52 Other 93 90 Output: Urine 1215 2065 100 Other: Voiding Method Indwelling Catheter Indwelling Catheter ABP, PAP, CO, CI - Last Documented Arterial Blood Pressure 116/55 - Exam No acute distress, sedated, with an orally placed endotracheal tube. HEENT examination is grossly unremarkable. Neck supple. Full range of motion. No adenopathy thyromegaly or neck vein distention. Cardiovascular examination reveals regular rhythm rate. S1-S2 normal. No S3 or S4. No discernible murmur noted. Lungs reveal bilateral coarse rhonchi. No wheezes. No crackles. Breath sounds equal bilaterally. Abdomen soft with bowel sounds. No masses or tenderness. Extremities are intact. No cyanosis clubbing or edema. Skin is without rash or lesion. Neurologic examination cannot be evaluated as the patient is currently sedated. - Labs CBC & Chem 7: 09/17/24 05:00 09/17/24 05:00 Labs: Abnormal Lab Results - Last 24 Hours (Table) 09/16/24 09/17/24 09/17/24 Range/Units 23:42 05:00 05:00 RBC 2.33 L (4.40-5.60) 10*6/uL Hgb 7.9 L (13.0-17.0) g/dL Hct 23.8 L (39.6-50.0) % MCV 102.1 H (80.0-97.0) fL MCH 33.9 H (27.0-32.0) pg Lymphocytes # 0.60 L (0.90-5.00) 10*3/uL ABG HCO3 (21-25) mmol/L ABG Total CO2 (19-24) mmol/L Hemoglobin (13.0-17.5) gm/dL Carbon Dioxide 32 H (22-30) mmol/L Creatinine 0.49 L (0.66-1.25) mg/dL Glucose 103 H (74-99) mg/dL POC Glucose (mg/dL) 118 H (70-110) mg/dL Calcium 8.0 L (8.4-10.2) mg/dL 09/17/24 09/17/24 Range/Units 05:35 05:35 RBC (4.40-5.60) 10*6/uL Hgb (13.0-17.0) g/dL Hct (39.6-50.0) % MCV (80.0-97.0) fL MCH (27.0-32.0) pg Lymphocytes # (0.90-5.00) 10*3/uL ABG HCO3 30 H (21-25) mmol/L ABG Total CO2 31 H (19-24) mmol/L Hemoglobin 8.6 L (13.0-17.5) gm/dL Carbon Dioxide (22-30) mmol/L Creatinine (0.66-1.25) mg/dL Glucose (74-99) mg/dL POC Glucose (mg/dL) 122 H (70-110) mg/dL Calcium (8.4-10.2) mg/dL Microbiology - Last 24 Hours (Table) 09/12/24 18:00 Blood Culture - Preliminary Blood Assessment and Plan Assessment: Acute hypoxemic and hypercapnic respiratory failure, intubated and on the mechanical ventilator. Multifocal pneumonia, secondary to Haemophilus influenzae. Acute leukocytosis, secondary to infection. Hypothermia, resolved. Altered mental status, secondary to encephalopathy, and sepsis. History of intellectual disability. History of seizure disorder. Severe kyphoscoliosis. Blind right eye. History of hypertension. History of hypothyroidism. Plan: Plan dated September 16, 2024. The patient is seen today in room 254. The patient remains on the mechanical ventilator. Ventilator settings include volume assist-control, rate 16, tidal volume 400, FiO2 30%, PEEP of 5. Blood gases show pO2 of 77, PCO2 of 42, pH of 7.47. The patient is getting propofol at 25 mcg/kg/min, and is also on tube feeds, with vital HP, at goal. The patient continues on Rocephin, Haemophilus influenzae that is in his sputum. The patient's overall prognosis is poor. We will continue to follow the patient, make recommendations. We have spoken to the patient's legal guardian. CODE STATUS remains full. The patient in our opinion should be a DNR. Labs, x-rays, and medications are reviewed. We will continue to follow. Dictation was produced using [employer] software. Please excuse any grammatical, word or spelling errors. Plan dated September 17, 2024. The patient is seen today in room 254. Currently he remains on the mechanical ventilator. Blood gases show pO2 of 83, pCO2 of 44, pH of 7.44. He is getting propofol at 35 mcg/kg/min, LR at 75 cc an hour, saline at 20 cc an hour, and vital high-protein at goal, which is 52 cc an hour. The patient continues on Rocephin. Labs, x-rays, and all medications are reviewed. We will lighten the patient sedation, and evaluate him. I do not suspect that he is a candidate for weaning and extubation. Overall prognosis remains guarded. We will continue to follow. Dictation was produced using [employer] software. Please excuse any grammatical, word or spelling errors. Time with Patient: Greater than 30
[2024-09-17 13:15] LABS: Glucose,Whole Blood 106 mg/dL (70-110)
[2024-09-17 17:54] LABS: Glucose,Whole Blood 107 mg/dL (70-110)
--- NOTE | 2024-09-17 20:13 | P.PN ---
Subjective Progress Note Date: 09/17/24 Patient is a 63-year-old male with a known history of mentally challenged, seizure disorder, asthma, hypertension, hypothyroidism and chronic hypoxemic respiratory failure who is currently at [facility]. Patient was sent to hospital due to worsening shortness of breath and altered mental status and was also hypoxic with pulse ox 40% when he presented to ER. Patient was placed on nonrebreather and was minimally responsive on arrival to ER. Patient had ABGs was done showed PaO2 153. pCO2 98 and also pH 7.13 patient was intubated in the ER. Patient was also sedated with propofol and fentanyl. CT head showed no acute bleed or mass effect. Sinusitis and mastoiditis as described above. CT angiogram of the head and neck showed no evidence of dissection of the cervical internal carotid arteries or vertebral arteries. Patchy groundglass and consolidative opacities in partially visualized upper lungs suspicious for multifocal pneumonia Chest x-ray showed endotracheal tube terminates 2.5 cm above ezra. Enteric tube distal sidehole overlies the expected gastric lumen. Small bilateral pleural effusions and subtle patchy opacities in the upper lobes which could reflect infectious etiology. EKG showed sinus rhythm with right bundle branch block. Laboratory data on admission showed WBC 12.3 hemoglobin 11.7 and platelets 176 and MCV 112 sodium 140 potassium 5.3 chloride 96 bicarb is 37 BUN 43 and creatinine 0.79 and blood sugar 125 and calcium 8.6 liver enzymes are not elevated troponin x 1 negative and procalcitonin level is 0.11 Patient is also hypothermic requiring Roly hugger. Influenza A BRAC COVID-19 and Legionella urine antigen negative. 09/14/2024 Patient is currently in the MICU. On sedation holiday. Was able to tolerate pressure support for short duration this morning currently back to [facility]- control.. ABG showed pH 7.4 UOP038 and PO2 132 Other laboratory data showed WBC 6.6 hemoglobin 8.9 and MCV 104.6 and platelets 168. BUN 17 and creatinine 0.56. Chest x-ray showed cardiomegaly with small bilateral pleural effusions. Patient is on IV hydration with Ringer's lactate at 130 cc/h and also requiring pressure support with Levophed. Continue with antibiotics for multifocal pneumonia. Procalcitonin level is not elevated at 0.11. 09/15/2024 Patient is in the MICU. Intubated and on mechanical ventilator. Patient is back on sedation with propofol and is also on fentanyl drip. Currently on assist-control with respiratory rate 16, tidal volume 400 FiO2 30% and PEEP of 5. Chest x-ray showed cardiomegaly and small bilateral pleural effusions. Continued on IV hydration with Ringer's lactate at 75 cc/h. Patient is being continued on antibiotics in the form of ceftriaxone. Sputum culture showed haemophilus influenza. Laboratory showed WBC 6.0 hemoglobin 8.5 and platelets 159 sodium 137 potassium 3.6 chloride 107 bicarb is 31 BUN 51 creatinine 0.57 blood sugar 114 and calcium 7.9. 09/16/2024 Patient is in the MICU. Remains on mechanical ventilator. Sedated with propofol drip. Continues on IV hydration with Ringer's lactate at 75 cc/h. Patient was also started on NG tube feeding. Continued on antibiotics in the form of ceftriaxone. Sputum culture is growing haemophilus influenza. Lab data showed WBC 5.1 hemoglobin 7.8 and platelets 159, sodium 137 potassium 3.9 chloride 104 bicarb is 30 BUN 17 and creatinine 0.54 and blood sugar 101 and calcium 7.8. 09/17/2024 Patient is in the MICU. Currently intubated on mechanical ventilator. Patient did have daily sedation holiday today and was placed back on Pro[employer]. Not on pressor support. Continued on antibiotics in the form of ceftriaxone. Sputum cultures growing haemophilus influenza. Patient is on IV hydration with Ringer's lactate at 75 cc/h. On tube feeding via NG tube. Chest x-ray showed ET tube 2.7 cm above ezra. No change in acute pulmonary process. Laboratory data showed WBC 4.8 hemoglobin 7.9 and platelets 192 sodium 139 potassium 4.0 chloride 106 bicarb is 32, BUN 19 and creatinine 0.49 and blood sugar 103 and calcium 8.0. Current medications reviewed. Objective - Vital Signs Vital signs: Vital Signs Temp 97.9 F 09/17/24 08:00 Pulse 95 09/17/24 10:00 Resp 16 09/17/24 10:00 BP 128/77 09/17/24 10:00 Pulse Ox 99 09/17/24 10:00 FiO2 30 09/17/24 08:00 Intake & Output 09/16/24 09/17/24 09/17/24 18:59 06:59 18:59 Intake Total 0657.199 3090.299 655.892 Output Total 1215 2065 430 Balance 742.000 -138.701 225.892 Intake: IV 936 936 372 .9 KVO 60 Lactated Ringers 1,000 ml 900 900 300 @ 75 mls/hr IV .[id number] AG Rx#:[id number] a line 36 36 12 Intake, IV Titration 200.000 224.299 179.892 Amount Valproate Sodium 750 mg 50 50 In Sodium Chloride 0.9% 50 ml @ 50 mls/hr IVPB Q12HR AG Rx#:[id number] cefTRIAXone 2 gm In 50 Dextrose 5% in Water 50 ml @ 100 mls/hr IVPB Q24HR AG Rx#:[id number] propofoL 1,000 mg In 200.000 174.299 79.892 Empty Bag 1 bag @ 15 MCG/ KG/MIN 7.348 mls/hr IV . [id number] AG Rx#:[id number] Tube Feeding 728 676 104 Other 93 90 Output: Urine 1215 430 Other: Voiding Method Indwelling Catheter Indwelling Catheter Indwelling Catheter ABP, PAP, CO, CI - Last Documented Arterial Blood Pressure 144/62 - Exam PHYSICAL EXAMINATION: Patient is lying in the bed intubated and sedated. Mentally challenged at baseline.. HEENT: Normocephalic. Neck is supple. Left pupils reactive. Nostrils clear. Oral cavity is moist. Right eye blindness Neck reveals no JVD, carotid bruits, or thyromegaly. CHEST EXAMINATION: Trachea is central. Symmetrical expansion. Bibasilar diminished sounds. Scattered coarse sounds. No wheezing. CARDIAC: Normal S1, S2 with no gallops. No murmurs ABDOMEN: Soft. Bowel sounds normal. No organomegaly. No abdominal bruits. Extremities: reveal no edema. No clubbing or cyanosis Neurologically could not be assessed at this time. Contracted extremities. Skin: No rash or skin lesions. Psychiatric: Could not be assessed. Musculoskeletal: No joint swelling or deformity. - Labs CBC & Chem 7: 09/17/24 05:00 09/17/24 05:00 Labs: Abnormal Lab Results - Last 24 Hours (Table) 09/16/24 09/17/24 09/17/24 Range/Units 23:42 05:00 05:00 RBC 2.33 L (4.40-5.60) 10*6/uL Hgb 7.9 L (13.0-17.0) g/dL Hct 23.8 L (39.6-50.0) % MCV 102.1 H (80.0-97.0) fL MCH 33.9 H (27.0-32.0) pg Lymphocytes # 0.60 L (0.90-5.00) 10*3/uL ABG HCO3 (21-25) mmol/L ABG Total CO2 (19-24) mmol/L Hemoglobin (13.0-17.5) gm/dL Carbon Dioxide 32 H (22-30) mmol/L Creatinine 0.49 L (0.66-1.25) mg/dL Glucose 103 H (74-99) mg/dL POC Glucose (mg/dL) 118 H (70-110) mg/dL Calcium 8.0 L (8.4-10.2) mg/dL 09/17/24 09/17/24 Range/Units 05:35 05:35 RBC (4.40-5.60) 10*6/uL Hgb (13.0-17.0) g/dL Hct (39.6-50.0) % MCV (80.0-97.0) fL MCH (27.0-32.0) pg Lymphocytes # (0.90-5.00) 10*3/uL ABG HCO3 30 H (21-25) mmol/L ABG Total CO2 31 H (19-24) mmol/L Hemoglobin 8.6 L (13.0-17.5) gm/dL Carbon Dioxide (22-30) mmol/L Creatinine (0.66-1.25) mg/dL Glucose (74-99) mg/dL POC Glucose (mg/dL) 122 H (70-110) mg/dL Calcium (8.4-10.2) mg/dL Assessment and Plan Assessment: Acute hypoxic and hypercapnic respiratory failure requiring intubation mechanical ventilator. Multifocal pneumonia-healthcare associated. Sputum culture showed influenza pneumonia. Sepsis secondary pneumonia Hypertension Hypothyroidism Hypothermia Altered mental status secondary to metabolic encephalopathy and infection History of intellectual disability Seizure disorder Severe kyphoscoliosis Right eye blindness Medical debility currently at [facility] DVT prophylax with heparin subcu Plan: Patient is currently in the MICU. Intubated on mechanical ventilator. Sedated. Continued on IV hydration with Ringer's lactate. Pressure support is off. Patient has been continued on antibiotics at home ceftriaxone. Patient was started back on antiepileptic medications Keppra 1000 mg IV every 12. Also on Depakote. Neurology and critical care team is on board. Blood cultures negative. Sputum culture showed haemophilus influenza. Prognosis is guarded at this time with multimedical problems and comorbid conditions. Pending court appointed legal guardian. Time with Patient: Greater than 30
[2024-09-18 00:18] LABS: Glucose,Whole Blood 98 mg/dL (70-110)
[2024-09-18 04:28] LABS: Glucose,Whole Blood 109 mg/dL (70-110)
[2024-09-18 05:16] LABS: ABG Base Excess 5.4 mmol/L; ABG HCO3 30 mmol/L (21-25); ABG Oxygen Saturation 95.9 % (94-97); ABG PCO2 44 mmHg (35-45); ABG PH 7.44 (7.35-7.45); ABG PO2 76 mmHg (83-108); ABG TCO2 31 mmol/L (19-24)
[2024-09-18 05:25] LABS: Allen Test Performed? No
--- NOTE | 2024-09-18 09:22 | XR ---
EXAMINATION TYPE: XR chest 1V portable DATE OF EXAM: 09/18/2024 6:27 AM COMPARISON: 09/17/2024 CLINICAL INDICATION: Male, 63 years old with history of shortness of breath; TECHNIQUE: XR chest 1V portable Frontal view of the chest. FINDINGS: Lungs/Pleura: There is no evidence of pleural effusion, focal consolidation, or pneumothorax. Pulmonary vascularity: Unremarkable. Heart/mediastinum: Cardiomediastinal silhouette is unremarkable. Musculoskeletal: No acute osseous pathology. Other findings: None Lines/Tubes: Endotracheal tube with distal tip 2.8 cm above the ezra. Nasogastric tube with its distal tip and side-port projecting under the diaphragm. IMPRESSION: No acute cardiopulmonary disease/process. [facility], , 09/18/2024 9:20 AM
[2024-09-18] MEDS: MAGNESIUM SULFATE-D5W PMX 1 GM in DEXTROSE/WATER 1 100ML.BAG IVPB ONE (10:43)
[2024-09-18 11:30] LABS: Glucose,Whole Blood 95 mg/dL (70-110)
[2024-09-18 11:36] LABS: Basophils # (A) 0.02 10*3/uL (0.00-0.10); Basophils % (A) 0.4 %; Eosinophils # (A) 0.13 10*3/uL (0.04-0.35); Eosinophils % (A) 2.7 %; HCT 25.9 % (39.6-50.0); HGB 8.4 g/dL (13.0-17.0); Lymphocytes # (A) 0.65 10*3/uL (0.90-5.00); Lymphocytes % (A) 13.4 %; MCH 33.2 pg (27.0-32.0); MCHC 32.4 g/dL (32.0-37.0); MCV 102.4 fL (80.0-97.0); Mean Platelet Volume 9.5 fL (9.5-12.2); Monocytes # (A) 0.61 10*3/uL (0.20-1.00); Monocytes % (A) 12.6 %; Neutrophils # (A) 3.39 10*3/uL (1.80-7.70); Neutrophils % (A) 69.7 %; Platelet Count 233 10*3/uL (140-440); RBC 2.53 10*6/uL (4.40-5.60); RDW 14.5 % (11.5-14.5); WBC 4.86 10*3/uL (4.50-10.00)
[2024-09-18 11:59] LABS: African American GFR (CKD) >90 (>60 ml/min/1.73 sqM); Anion Gap 4 mmol/L; Blood Urea Nitrogen 20 mg/dL (9-20); Calcium 7.8 mg/dL (8.4-10.2); Carbon Dioxide 28 mmol/L (22-30); Chloride 106 mmol/L (98-107); Glucose 94 mg/dL (74-99); Non-African American GFR(CKD) >90 (>60 ml/min/1.73 sqM); Potassium 3.8 mmol/L (3.5-5.1); Sodium 138 mmol/L (137-145)
--- NOTE | 2024-09-18 13:28 | P.PN ---
Subjective Progress Note Date: 09/18/24 Patient is a 63-year-old male with past medical history significant for intellectual disability, seizure disorder, hypertension, hypothyroidism, chronic hypoxemic respiratory failure. He resides at a local [facility]. Noted to be confused with increased work of breathing by staff. His SpO2 was reading 40%. EMS was called and patient was transferred to the emergency department on a nonrebreather. He was minimally responsive on arrival. ABG consistent with severe hypercapnic respiratory failure with a PaO2 of 153, pCO2 greater than 98, pH of 7.13. Previously, received 4 mg IV Versed. Patient was intubated by the ER provider. Brain CT without contrast did not show any acute intracranial hemorrhage or mass effect. There was some sinusitis and moderate fluid in the mastoid air cells bilaterally. Brain CT angio did not show any evidence of cervical internal carotid artery or vertebral artery dissection or stenosis at the carotid bifurcations. No evidence of high-grade intracranial stenosis or aneurysm. Patchy groundglass and consolidative opacities visualized in the upper lung schwartz. Chest x-ray following intubation showing the endotracheal tube terminating 2.5 cm above the ezra. Severe kyphoscoliosis. There is patchy subtle opacities bilaterally. Suspect small bilateral pleural effusions. Enteric tube likely in the duodenum. CBC: WBC count 12.4, hemoglobin 11.7, platelets 176. CMP: Sodium 140, potassium 5.3, chloride 96, serum bicarb 37, BUN 43, creatinine 0.79, glucose 125. Lactic 2.4. LFTs not elevated. Troponin less than 0.012. EKG: Sinus rhythm, rate 97 bpm, RBBB pattern. Patient currently being evaluated in the intensive care unit. Remains intubated to the mechanical ventilator. Current ventilator settings assist-control, respiratory rate 20, tidal volume 450, FiO2 70%, PEEP of 5. Previous ventilator settings were appropriately adjusted following a recent follow-up ABG with a PaO2 of 187, PCO2 of 31, pH of 7.6. This was done on FiO2 100%. Respiratory rate has since been adjusted and FiO2 is being titrated appropriately. He is sedated on propofol which is infusing at 45 mcg/kg/min as well as fentanyl infusing at 0.5 mcg/kg/h. Currently synchronous with ventilator settings. Peak pressures around 26. Lactated Ringer's also infusing at 130 mL/h. Indwelling urinary catheter with urine output of greater than 100 mL/h. Blood pressure has been normotensive. Previously, patient was hypothermic with a temperature as low as 93.9 F, and was on a external warming blanket. Now normothermic. Continues with empiric antibiotics. Patient has a legal power of erisa attorney. Current CODE STATUS is full. 09/14/2024 Patient seen and examined at the bedside. Patient continue be sedated and mechanically ventilated. Currently patient is sedated with fentanyl at 0.5 mcg/kg/min and propofol at 30 mcg/kg/min. Patient is on volume assist-control with setting of respiratory of 16, tidal volume of 400, FiO2 of 40% and PEEP of 5. Arterial blood gas today shows pH of 7.45, pCO2 43, PaO2 132, bicarb 29. FiO2 is decreased to 35%. Chest x-ray this morning shows cardiomegaly with small bilateral pleural effusions. Urine output is good. Patient is also on lactated Ringer's running at 130 cc/h and Levophed at 0.03 mcg/kg/h. Patient is continued to be on vancomycin, azithromycin and Rocephin for empiric coverage for multifocal pneumonia. Prolactin is 0.11. Lab work from today shows WBC 6.63, hemoglobin 8.9, platelet count 162, sodium 139, potassium 4.1, chloride 106, bicarb 27, BUN 17, creatinine 0.56, glucose 141, calcium 8.3. He is cur rently on vital HP tube feeds running at 30 cc/h with a goal of 50. 09/15/2024 Patient seen and examined at the bedside. Patient continued to be sedated and mechanically ventilated. Patient is currently on fentanyl at 0.05 mcg/kg/min and propofol at 25 mcg/kg/min. Patient is on volume assist-control with a settings of respiratory rate of 16, tidal volume of 400, FiO2 of 30%, PEEP of 5.0. ABG shows pH of 7.44, pCO2 45, PO2 of 70, HCO3 of 30. Chest x-ray done today shows cardiomegaly with small bilateral pleural effusions. Urine output is good. Patient is on lactated ringer Ringer's at 75 cc/h. He is getting tube feeds with vital HP at 55 which is at goal. Patient has been restarted on azithromycin and Rocephin for positive sputum culture which shows H. influenzae growth. Lab work from today shows WBC 6.08, hemoglobin 8.5, platelet count 159, sodium 137, potassium 3.6, chloride 107, bicarb 31, BUN 15, creatinine 0.57, glucose 114, calcium 7.9. TSH 19.7, free T41.26, cortisol 11.2. Iron 16, TIBC 136, percent saturation 11.76, transferrin 97, ferritin 446.0. Progress note dated September 16, 2024. 63-year-old male seen today in room 254. He remains on the mechanical ventilat or. He is on volume assist-control, rate 16, tidal volume 400, FiO2 30%, PEEP of 5. Blood gases show PO2 77, pCO2 of 42, pH is 7.47. The patient is currently on propofol at 25 mcg/kg/min, lactated Ringer's at 75 cc an hour, saline at 20 cc an hour. The patient is also getting vital high-protein at 52 cc an hour which is goal. Sputum was positive for Haemophilus influenzae. The patient continues on Rocephin. White count is 5.17, hemoglobin 7.8, hematocrit 23.8, platelet count is 159,000. Sodium 137, potassium 3.9, chloride 104, CO2 30, BUN 17, creatinine 0.54. Calcium is 7.8. Chest x-ray shows the endotracheal tube 2.4 cm above the ezra. The patient has diffuse bilateral opacities. Progress note dated September 17, 2024. 63-year-old male seen today in room 254. The patient remains on the mechanical ventilator, with settings of volume assist-control, rate 16, tidal volume 400, FiO2 30%, PEEP of 5. Blood gases show pO2 of 83, pCO2 of 44, and a pH of 7.44. He is on propofol at 35 mcg/kg/min, LR at 75 cc an hour, saline at 20 cc an hour, and vital high-protein at 52 cc an hour, which is goal. He continues on Rocephin for the Haemophilus influenzae that was in his sputum. Today the patient will have a daily interruption of sedation. I do not suspect he is ready for weaning and extubation. Current white count 4.8, hemoglobin 7.9, hematocrit 23.8, platelet count 192,000. Sodium 139, potassium 4, chlorides 106, CO2 32, BUN 19, creatinine 0.49. Glucose is 122. Calcium 8. Chest x-ray is largely unchanged. 09/18/2024, the patient remains intubated on the mechanical ventilator. This morning, the patient on a propofol of 35 mcg/kg/min. The patient also on lactat ed Ringer at 75 cc an hour. He remains on assist-control mode of mechanical ventilation at rate of 16, tidal volume of 400, FiO2 30% with a PEEP of 5. Blood gas showed pH of 7.44 with PCO2 of 44 and PO2 of 70. Chest x-ray from today shows severe kyphosis of the chest and kyphoscoliosis. The consolidation involving the right lung is improved. There are some residual left perihilar infiltrates. The patient was diagnosed and treated for Moraxella pneumonia and the patient is currently off antibiotics. Hemodynamically stable. He was intubated on 05/16/2025. He was initially treated with a combination of cefepime, Zithromax and vancomycin and later on switched to Zithromax and Rocephin and currently is off antibiotics. He continues to receive vital high- protein at rate of 52 cc an hour. Blood work from today shows a white cell count of 4.8, hemoglobin of 8.4 and platelet count of 233. Sodium level is at 138, BUN is 20 with a creatinine of 0.5. Otherwise, no other significant ev ents. He is arousable. Does not communicate. He is on antiepileptics including Tegretol and valproic acid. He is on heparin subcu for DVT prophylaxis. He remains on Synthroid. He is also on Keppra. Objective - Vital Signs Vital signs: Vital Signs Temp 97.6 F 09/18/24 04:00 Pulse 88 09/18/24 07:45 Resp 16 09/18/24 07:00 BP 135/73 09/18/24 07:00 Pulse Ox 98 09/18/24 07:00 FiO2 30 09/18/24 07:33 Intake & Output 09/17/24 09/18/24 09/18/24 18:59 06:59 18:59 Intake Total 6120.124 2475.316 140 Output Total 1140 1630 100 Balance 633.059 268.316 40 Intake: IV 1254 968 88 .9 KVO 240 110 10 Lactated Ringers 1,000 ml 975 825 75 @ 75 mls/hr IV .[id number] AG Rx#:[id number] a line 39 33 3 Intake, IV Titration 311.059 216.316 Amount Valproate Sodium 750 mg 50 50 In Sodium Chloride 0.9% 50 ml @ 50 mls/hr IVPB Q12HR AG Rx#:[id number] cefTRIAXone 2 gm In 50 Dextrose 5% in Water 50 ml @ 100 mls/hr IVPB Q24HR AG Rx#:[id number] propofoL 1,000 mg In 211.059 166.316 Empty Bag 1 bag @ 15 MCG/ KG/MIN 7.348 mls/hr IV . [id number] AG Rx#:[id number] Tube Feeding 208 624 52 Other 90 Output: Urine 1140 1630 100 Other: Voiding Method Indwelling Catheter Indwelling Catheter ABP, PAP, CO, CI - Last Documented Arterial Blood Pressure 139/60 - Exam No acute distress, sedated, with an orally placed endotracheal tube., Comfortable, well sedated on propofol. Orogastric and orotracheal tube are both in place. HEENT examination is grossly unremarkable. Neck supple. Full range of motion. No adenopathy thyromegaly or neck vein distention. Cardiovascular examination reveals regular rhythm rate. S1-S2 normal. No S3 or S4. No discernible murmur noted. Lungs reveal bilateral coarse rhonchi. No wheezes. No crackles. Breath sounds equal bilaterally. The patient has significant kyphoscoliosis of the thoracic spine and scattered rhonchi heard bilaterally. Abdominal exam revealed normal bowel sounds. The abdomen was soft, non-tender, and without masses, organomegaly, or appreciable enlargement of the abdominal aorta. Extremities are intact. No cyanosis clubbing or edema. Skin is without rash or lesion. Neurologic examination cannot be evaluated as the patient is currently sedated. - Labs CBC & Chem 7: 09/18/24 11:30 09/18/24 11:30 Labs: Abnormal Lab Results - Last 24 Hours (Table) 09/18/24 Range/Units 05:11 ABG pO2 76 L (83-108) mmHg ABG HCO3 30 H (21-25) mmol/L ABG Total CO2 31 H (19-24) mmol/L Hemoglobin 8.0 L (13.0-17.5) gm/dL Microbiology - Last 24 Hours (Table) 04/15/25 18:00 Blood Culture - Final Blood Assessment and Plan Plan: Acute hypoxemic and hypercapnic respiratory failure, secondary to bacterial pneumonia. Sputum culture was positive for haemophilus influenza, treated with IV antibiotics and the patient completed the course of antibiotics. Chest x-ray shows improvement in bilateral pulmonary filtrates. There is obvious improvement in the patient's oxygenation and ventilation. Please refer to the blood gases. Multifocal pneumonia, secondary to Haemophilus influenzae, treated with subsequent improvement of chest x-ray findings, improved, the patient is currently hemodynamically stable. Acute leukocytosis, secondary to infection, improved Hypothermia, resolved. Altered mental status, secondary to encephalopathy, and sepsis. This morning, the patient is sedated. He does have developmental delay and intellectual disability in addition to his history of seizure disorder. Currently free of any seizures. History of intellectual disability. History of seizure disorder. Maintained on Keppra, valproate and Depakote. Severe kyphoscoliosis. Blind right eye. History of hypertension. History of hypothyroidism. Plan Continue vent support, no change on the mechanical ventilator for today Patient has adequate oxygenation and ventilation. Cough seems to be also adequate. The patient's chest x-ray is improved The patient completed antibiotic course Will establish a CODE STATUS and this is going to a public guardian in the court and hopefully we should be able to obtain a DNI CODE STATUS. Following that, the patient will be extubated. I believe the patient will survive extubation. Long-term success postextubation is obviously not certain. Continue enteral feeding for nutritional support Continue antiepileptic medications No seizure activity for now Hemodynamically stable Continue supportive care and will continue to follow. Critical care evaluation 35 minutes. Time with Patient: Greater than 30
[2024-09-18] MEDS: POTASSIUM BICARBONATE/CIT AC 20 MEQ TABLET.EFF NG-TUBE SCH (22:14)
--- NOTE | 2024-09-18 22:24 | P.PN ---
Subjective Progress Note Date: 09/18/24 Patient is a 63-year-old male with a known history of mentally challenged, seizure disorder, asthma, hypertension, hypothyroidism and chronic hypoxemic respiratory failure who is currently at [facility]. Patient was sent to hospital due to worsening shortness of breath and altered mental status and was also hypoxic with pulse ox 40% when he presented to ER. Patient was placed on nonrebreather and was minimally responsive on arrival to ER. Patient had ABGs was done showed PaO2 153. pCO2 98 and also pH 7.13 patient was intubated in the ER. Patient was also sedated with propofol and fentanyl. CT head showed no acute bleed or mass effect. Sinusitis and mastoiditis as described above. CT angiogram of the head and neck showed no evidence of dissection of the cervical internal carotid arteries or vertebral arteries. Patchy groundglass and consolidative opacities in partially visualized upper lungs suspicious for multifocal pneumonia Chest x-ray showed endotracheal tube terminates 2.5 cm above ezra. Enteric tube distal sidehole overlies the expected gastric lumen. Small bilateral pleural effusions and subtle patchy opacities in the upper lobes which could reflect infectious etiology. EKG showed sinus rhythm with right bundle branch block. Laboratory data on admission showed WBC 12.3 hemoglobin 11.7 and platelets 176 and MCV 112 sodium 140 potassium 5.3 chloride 96 bicarb is 37 BUN 43 and creatinine 0.79 and blood sugar 125 and calcium 8.6 liver enzymes are not elevated troponin x 1 negative and procalcitonin level is 0.11 Patient is also hypothermic requiring Roly hugger. Influenza A BRAC COVID-19 and Legionella urine antigen negative. 09/14/2024 Patient is currently in the MICU. On sedation holiday. Was able to tolerate pressure support for short duration this morning currently back to [facility]- control.. ABG showed pH 7.4 [id number] and PO2 132 Other laboratory data showed WBC 6.6 hemoglobin 8.9 and MCV 104.6 and platelets 168. BUN 17 and creatinine 0.56. Chest x-ray showed cardiomegaly with small bilateral pleural effusions. Patient is on IV hydration with Ringer's lactate at 130 cc/h and also requiring pressure support with Levophed. Continue with antibiotics for multifocal pneumonia. Procalcitonin level is not elevated at 0.11. 09/15/2024 Patient is in the MICU. Intubated and on mechanical ventilator. Patient is back on sedation with propofol and is also on fentanyl drip. Currently on assist-control with respiratory rate 16, tidal volume 400 FiO2 30% and PEEP of 5. Chest x-ray showed cardiomegaly and small bilateral pleural effusions. Continued on IV hydration with Ringer's lactate at 75 cc/h. Patient is being continued on antibiotics in the form of ceftriaxone. Sputum culture showed haemophilus influenza. Laboratory showed WBC 6.0 hemoglobin 8.5 and platelets 159 sodium 137 potassium 3.6 chloride 107 bicarb is 31 BUN 51 creatinine 0.57 blood sugar 114 and calcium 7.9. 09/16/2024 Patient is in the MICU. Remains on mechanical ventilator. Sedated with propofol drip. Continues on IV hydration with Ringer's lactate at 75 cc/h. Patient was also started on NG tube feeding. Continued on antibiotics in the form of ceftriaxone. Sputum culture is growing haemophilus influenza. Lab data showed WBC 5.1 hemoglobin 7.8 and platelets 159, sodium 137 potassium 3.9 chloride 104 bicarb is 30 BUN 17 and creatinine 0.54 and blood sugar 101 and calcium 7.8. 09/17/2024 Patient is in the MICU. Currently intubated on mechanical ventilator. Patient did have daily sedation holiday today and was placed back on ProForma. Not on pressor support. Continued on antibiotics in the form of ceftriaxone. Sputum cultures growing haemophilus influenza. Patient is on IV hydration with Ringer's lactate at 75 cc/h. On tube feeding via NG tube. Chest x-ray showed ET tube 2.7 cm above ezra. No change in acute pulmonary process. Laboratory data showed WBC 4.8 hemoglobin 7.9 and platelets 192 sodium 139 potassium 4.0 chloride 106 bicarb is 32, BUN 19 and creatinine 0.49 and blood sugar 103 and calcium 8.0. 09/18/2024 Patient is in the MICU. Remains on mechanical ventilator. Patient is also sedated with propofol. Blood gas showed pH 7.44 [id number], PO270. Chest x-ray showed no acute cardiopulmonary process. Currently off antibiotics. Patient h as been afebrile. Laboratory data showed WBC 4.8 hemoglobin 8.4 and platelets 233 sodium 138 potassium 3.8 chloride 106 bicarb is 28 BUN 20) 0.56 and blood sugar 94 and calcium 7.8. Patient is being continued DuoNebs, IV hydration with Ringer's lactate at 75 cc/h. Patient is also on valproic acid and Keppra. Neurology and pulmonary is on board. Current medications reviewed. Objective - Vital Signs Vital signs: Vital Signs Temp 97.8 F 09/18/24 16:00 Pulse 81 09/18/24 19:00 Resp 16 09/18/24 19:00 BP 110/61 09/18/24 19:00 Pulse Ox 97 09/18/24 19:00 FiO2 30 09/18/24 16:00 Intake & Output 09/18/24 09/18/24 09/19/24 06:59 18:59 06:59 Intake Total 4294.374 8299.292 140 Output Total 1630 1350 250 Balance 268.316 626.292 -110 Weight 68.4 kg Intake: IV 968 996 88 .9 KVO 110 110 10 Lactated Ringers 1,000 ml 825 750 75 @ 75 mls/hr IV .[id number] [facility] Rx#:[id number] Magnesium Sulfate-D5w Pmx 100 1 gm In Dextrose/Water 1 100ml.bag @ 100 mls/hr IVPB ONCE ONE Rx#: [id number] a line 33 36 3 Intake, IV Titration 216.316 236.292 Amount Valproate Sodium 750 mg 50 In Sodium Chloride 0.9% 50 ml @ 50 mls/hr IVPB Q12HR [facility] Rx#:[id number] propofoL 1,000 mg In 166.316 236.292 Empty Bag 1 bag @ 15 MCG/ KG/MIN 7.348 mls/hr IV . [id number] [facility] Rx#:[id number] Tube Feeding 624 624 52 Other 90 120 Output: Urine 1630 1350 250 Other: Voiding Method Indwelling Catheter Indwelling Catheter ABP, PAP, CO, CI - Last Documented Arterial Blood Pressure 120/52 - Exam PHYSICAL EXAMINATION: Patient is lying in the bed intubated and sedated. Mentally challenged at baseline.. HEENT: Normocephalic. Neck is supple. Left pupils reactive. Nostrils clear. Oral cavity is moist. Right eye blindness Neck reveals no JVD, carotid bruits, or thyromegaly. CHEST EXAMINATION: Trachea is central. Symmetrical expansion. Bibasilar diminished sounds. Scattered coarse sounds. No wheezing. CARDIAC: Normal S1, S2 with no gallops. No murmurs ABDOMEN: Soft. Bowel sounds normal. No organomegaly. No abdominal bruits. Extremities: reveal no edema. No clubbing or cyanosis Neurologically could not be assessed at this time. Contracted extremities. Skin: No rash or skin lesions. Psychiatric: Could not be assessed. Musculoskeletal: No joint swelling or deformity. - Labs CBC & Chem 7: 09/18/24 11:30 09/18/24 11:30 Labs: Abnormal Lab Results - Last 24 Hours (Table) 09/18/24 09/18/24 09/18/24 Range/Units 05:11 11:30 11:30 RBC 2.53 L (4.40-5.60) 10*6/uL Hgb 8.4 L (13.0-17.0) g/dL Hct 25.9 L (39.6-50.0) % MCV 102.4 H (80.0-97.0) fL MCH 33.2 H (27.0-32.0) pg Immature Gran # 0.06 H (0.00-0.04) 10*3/uL Lymphocytes # 0.65 L (0.90-5.00) 10*3/uL ABG pO2 76 L (83-108) mmHg ABG HCO3 30 H (21-25) mmol/L ABG Total CO2 31 H (19-24) mmol/L Hemoglobin 8.0 L (13.0-17.5) gm/dL Creatinine 0.56 L (0.66-1.25) mg/dL Calcium 7.8 L (8.4-10.2) mg/dL Microbiology - Last 24 Hours (Table) 09/12/24 18:00 Blood Culture - Final Blood Assessment and Plan Assessment: Acute hypoxic and hypercapnic respiratory failure requiring intubation mechanical ventilator. Multifocal pneumonia-healthcare associated. Sputum culture showed haemophilus influenza. Completed antibiotic course with ceftriaxone.. Sepsis secondary pneumonia Hypertension Hypothyroidism Hypothermia Altered mental status secondary to metabolic encephalopathy and infection History of intellectual disability Seizure disorder Severe kyphoscoliosis Right eye blindness Medical debility currently at [facility] DVT prophylax with heparin subcu Plan: Patient is currently in the MICU. Intubated on mechanical ventilator. Sedated. Continued on IV hydration with Ringer's lactate. Pressure support is off. Patient completed antibiotic course with ceftriaxone. Patient was started back on antiepileptic medications Keppra 1000 mg IV every 12. Also on Depakote. Neurology and critical care team is on board. Blood cultures negative. Sputum culture showed haemophilus influenza. Prognosis is guarded at this time with multimedical problems and comorbid conditions. Awaiting court date for court appointed legal guardian. Time with Patient: Greater than 30
[2024-09-18 23:34] LABS: Glucose,Whole Blood 110 mg/dL (70-110)
[2024-09-19 04:24] LABS: Basophils # (A) 0.02 10*3/uL (0.00-0.10); Basophils % (A) 0.4 %; Eosinophils # (A) 0.12 10*3/uL (0.04-0.35); Eosinophils % (A) 2.2 %; HCT 25.8 % (39.6-50.0); HGB 8.5 g/dL (13.0-17.0); Lymphocytes % (A) 10.8 %; MCHC 32.9 g/dL (32.0-37.0); MCV 103.2 fL (80.0-97.0); Mean Platelet Volume 9.4 fL (9.5-12.2); Monocytes # (A) 0.86 10*3/uL (0.20-1.00); Monocytes % (A) 15.5 %; Neutrophils # (A) 3.87 10*3/uL (1.80-7.70); Neutrophils % (A) 69.5 %; Platelet Count 240 10*3/uL (140-440); RDW 14.8 % (11.5-14.5); WBC 5.56 10*3/uL (4.50-10.00)
[2024-09-19 04:40] LABS: African American GFR (CKD) >90 (>60 ml/min/1.73 sqM); Anion Gap 6 mmol/L; Blood Urea Nitrogen 21 mg/dL (9-20); Calcium 8.4 mg/dL (8.4-10.2); Carbon Dioxide 28 mmol/L (22-30); Chloride 105 mmol/L (98-107); Glucose 103 mg/dL (74-99); Non-African American GFR(CKD) >90 (>60 ml/min/1.73 sqM); Potassium 4.1 mmol/L (3.5-5.1); Sodium 139 mmol/L (137-145)
[2024-09-19 05:23] LABS: ABG Base Excess 5.7 mmol/L; ABG HCO3 31 mmol/L (21-25); ABG Oxygen Saturation 95.1 % (94-97); ABG PCO2 47 mmHg (35-45); ABG PH 7.43 (7.35-7.45); ABG PO2 73 mmHg (83-108); ABG TCO2 32 mmol/L (19-24)
[2024-09-19 05:24] LABS: Allen Test Performed? no
[2024-09-19 06:12] LABS: Glucose,Whole Blood 106 mg/dL (70-110)
--- NOTE | 2024-09-19 08:02 | XR ---
EXAMINATION TYPE: XR chest 1V portable DATE OF EXAM: 09/19/2024 5:47 AM COMPARISON: Chest radiographs from 09/18/2024. CLINICAL INDICATION: Male, 63 years old with history of shortness of breath; [facility] TECHNIQUE: XR chest 1V portable Frontal view of the chest. FINDINGS: Lungs/Pleura: There is no evidence of pleural effusion, focal consolidation, or pneumothorax. Pulmonary vascularity: Unremarkable. Heart/mediastinum: Cardiomediastinal silhouette is unremarkable. Musculoskeletal: No acute osseous pathology. Other findings: None Lines/Tubes: Endotracheal tube with distal tip 2.6 cm above the ezra. Nasogastric tube with its distal tip and side-port projecting under the diaphragm. Right internal jugular central venous catheter with distal tip at the cavoatrial junction. IMPRESSION: Rotated exam no significant change from others. Support line and tubes in appropriate position. [facility], , 09/19/2024 8:00 AM
[2024-09-19] MEDS: FUROSEMIDE 10 MG/ML 4 ML VIAL IV STA (09:35)
[2024-09-19 11:45] LABS: Glucose,Whole Blood 89 mg/dL (70-110)
--- NOTE | 2024-09-19 14:53 | P.PN ---
Subjective Progress Note Date: 09/19/24 Patient is a 63-year-old male with past medical history significant for intellectual disability, seizure disorder, hypertension, hypothyroidism, chronic hypoxemic respiratory failure. He resides at a local [facility]. Noted to be confused with increased work of breathing by staff. His SpO2 was reading 40%. EMS was called and patient was transferred to the emergency department on a nonrebreather. He was minimally responsive on arrival. ABG consistent with severe hypercapnic respiratory failure with a PaO2 of 153, pCO2 greater than 98, pH of 7.13. Previously, received 4 mg IV Versed. Patient was intubated by the ER provider. Brain CT without contrast did not show any acute intracranial hemorrhage or mass effect. There was some sinusitis and moderate fluid in the mastoid air cells bilaterally. Brain CT angio did not show any evidence of cervical internal carotid artery or vertebral artery dissection or stenosis at the carotid bifurcations. No evidence of high-grade intracranial stenosis or aneurysm. Patchy groundglass and consolidative opacities visualized in the upper lung schwartz. Chest x-ray following intubation showing the endotracheal tube terminating 2.5 cm above the ezra. Severe kyphoscoliosis. There is patchy subtle opacities bilaterally. Suspect small bilateral pleural effusions. Enteric tube likely in the duodenum. CBC: WBC count 12.4, hemoglobin 11.7, platelets 176. CMP: Sodium 140, potassium 5.3, chloride 96, serum bicarb 37, BUN 43, creatinine 0.79, glucose 125. Lactic 2.4. LFTs not elevated. Troponin less than 0.012. EKG: Sinus rhythm, rate 97 bpm, RBBB pattern. Patient currently being evaluated in the intensive care unit. Remains intubated to the mechanical ventilator. Current ventilator settings assist-control, respiratory rate 20, tidal volume 450, FiO2 70%, PEEP of 5. Previous ventilator settings were appropriately adjusted following a recent follow-up ABG with a PaO2 of 187, PCO2 of 31, pH of 7.6. This was done on FiO2 100%. Respiratory rate has since been adjusted and FiO2 is being titrated appropriately. He is sedated on propofol which is infusing at 45 mcg/kg/min as well as fentanyl infusing at 0.5 mcg/kg/h. Currently synchronous with ventilator settings. Peak pressures around 26. Lactated Ringer's also infusing at 130 mL/h. Indwelling urinary catheter with urine output of greater than 100 mL/h. Blood pressure has been normotensive. Previously, patient was hypothermic with a temperature as low as 93.9 F, and was on a external warming blanket. Now normothermic. Continues with empiric antibiotics. 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 Current CODE STATUS is full. 09/14/2024 Patient seen and examined at the bedside. Patient continue be sedated and mechanically ventilated. Currently patient is sedated with fentanyl at 0.5 mcg/kg/min and propofol at 30 mcg/kg/min. Patient is on volume assist-control with setting of respiratory of 16, tidal volume of 400, FiO2 of 40% and PEEP of 5. Arterial blood gas today shows pH of 7.45, pCO2 43, PaO2 132, bicarb 29. FiO2 is decreased to 35%. Chest x-ray this morning shows cardiomegaly with small bilateral pleural effusions. Urine output is good. Patient is also on lactated Ringer's running at 130 cc/h and Levophed at 0.03 mcg/kg/h. Patient is continued to be on vancomycin, azithromycin and Rocephin for empiric coverage for multifocal pneumonia. Prolactin is 0.11. Lab work from today shows WBC 6.63, hemoglobin 8.9, platelet count 162, sodium 139, potassium 4.1, chloride 106, bicarb 27, BUN 17, creatinine 0.56, glucose 141, calcium 8.3. He is cur rently on vital HP tube feeds running at 30 cc/h with a goal of 50. 09/15/2024 Patient seen and examined at the bedside. Patient continued to be sedated and mechanically ventilated. Patient is currently on fentanyl at 0.05 mcg/kg/min and propofol at 25 mcg/kg/min. Patient is on volume assist-control with a settings of respiratory rate of 16, tidal volume of 400, FiO2 of 30%, PEEP of 5.0. ABG shows pH of 7.44, pCO2 45, PO2 of 70, HCO3 of 30. Chest x-ray done today shows cardiomegaly with small bilateral pleural effusions. Urine output is good. Patient is on lactated ringer Ringer's at 75 cc/h. He is getting tube feeds with vital HP at 55 which is at goal. Patient has been restarted on azithromycin and Rocephin for positive sputum culture which shows H. influenzae growth. Lab work from today shows WBC 6.08, hemoglobin 8.5, platelet count 159, sodium 137, potassium 3.6, chloride 107, bicarb 31, BUN 15, creatinine 0.57, glucose 114, calcium 7.9. TSH 19.7, free T41.26, cortisol 11.2. Iron 16, TIBC 136, percent saturation 11.76, transferrin 97, ferritin 446.0. Progress note dated September 16, 2024. 63-year-old male seen today in room 254. He remains on the mechanical ventilat or. He is on volume assist-control, rate 16, tidal volume 400, FiO2 30%, PEEP of 5. Blood gases show PO2 77, pCO2 of 42, pH is 7.47. The patient is currently on propofol at 25 mcg/kg/min, lactated Ringer's at 75 cc an hour, saline at 20 cc an hour. The patient is also getting vital high-protein at 52 cc an hour which is goal. Sputum was positive for Haemophilus influenzae. The patient continues on Rocephin. White count is 5.17, hemoglobin 7.8, hematocrit 23.8, platelet count is 159,000. Sodium 137, potassium 3.9, chloride 104, CO2 30, BUN 17, creatinine 0.54. Calcium is 7.8. Chest x-ray shows the endotracheal tube 2.4 cm above the ezra. The patient has diffuse bilateral opacities. Progress note dated September 17, 2024. 63-year-old male seen today in room 254. The patient remains on the mechanical ventilator, with settings of volume assist-control, rate 16, tidal volume 400, FiO2 30%, PEEP of 5. Blood gases show pO2 of 83, pCO2 of 44, and a pH of 7.44. He is on propofol at 35 mcg/kg/min, LR at 75 cc an hour, saline at 20 cc an hour, and vital high-protein at 52 cc an hour, which is goal. He continues on Rocephin for the Haemophilus influenzae that was in his sputum. Today the patient will have a daily interruption of sedation. I do not suspect he is ready for weaning and extubation. Current white count 4.8, hemoglobin 7.9, hematocrit 23.8, platelet count 192,000. Sodium 139, potassium 4, chlorides 106, CO2 32, BUN 19, creatinine 0.49. Glucose is 122. Calcium 8. Chest x-ray is largely unchanged. 09/18/2024, the patient remains intubated on the mechanical ventilator. This morning, the patient on a propofol of 35 mcg/kg/min. The patient also on lactat ed Ringer at 75 cc an hour. He remains on assist-control mode of mechanical ventilation at rate of 16, tidal volume of 400, FiO2 30% with a PEEP of 5. Blood gas showed pH of 7.44 with PCO2 of 44 and PO2 of 70. Chest x-ray from today shows severe kyphosis of the chest and kyphoscoliosis. The consolidation involving the right lung is improved. There are some residual left perihilar infiltrates. The patient was diagnosed and treated for Moraxella pneumonia and the patient is currently off antibiotics. Hemodynamically stable. He was intubated on 05/16/2025. He was initially treated with a combination of cefepime, Zithromax and vancomycin and later on switched to Zithromax and Rocephin and currently is off antibiotics. He continues to receive vital high- protein at rate of 52 cc an hour. Blood work from today shows a white cell count of 4.8, hemoglobin of 8.4 and platelet count of 233. Sodium level is at 138, BUN is 20 with a creatinine of 0.5. Otherwise, no other significant ev ents. He is arousable. Does not communicate. He is on antiepileptics including Tegretol and valproic acid. He is on heparin subcu for DVT prophylaxis. He remains on Synthroid. He is also on Keppra. On 09/20/2024, the patient is being seen for a follow-up. This morning, the patient remains sedated on propofol running at 30 mcg/kg/min. The patient remains on n lactated Ringer at rate of 75 cc an hour. At the same time, the patient remains intubated on mechanical ventilator. He remains on assist- control mode at rate of 60, tidal volume of 400, FiO2 30% with a PEEP of 5. Blood gas showed a pH of 7.43 with a ENY492 and PO2 of 73. Chest x-ray findings are essentially suboptimal due to his skeletal deformities and kyphoscoliosis of the chest. The patient continues to have perihilar pulmonary infiltration and possibly some small bilateral pleural effusions. Orotracheal tube is in a good location. Meanwhile, the patient is receiving enteral feeding for nutritional support and the patient is on vital high-protein at rate of 52 cc an hour. The white cell count is 5.5 with a hemoglobin 8.5 and a platelet count of 240. Sodium is at 139, BUN is 20 with a creatinine of 0.45 and a potassium levels of 4.1. Blood sugars at 89. The patient is currently off antibiotics. Antiepile ptic medications are essentially unchanged. I performed a bedside bronchoscopy on this patient. Respiratory secretions were scant. Due to his severe kyphoscoliosis of the chest, there was some atelectatic changes at various segments of the lower lobes bilaterally. There was also atelectatic changes of the various segments of the right upper lobe. Nevertheless, no significant or secretions. No significant mucous retention. No mucous plugs. No endobronchial abnormalities. Objective - Vital Signs Vital signs: Vital Signs Temp 97.6 F 09/19/24 08:00 Pulse 83 09/19/24 09:00 Resp 16 09/19/24 09:00 BP 119/68 09/19/24 09:00 Pulse Ox 99 09/19/24 09:00 FiO2 30 09/19/24 08:13 Intake & Output 09/18/24 09/19/24 09/19/24 18:59 06:59 18:59 Intake Total 4586.020 6501.534 352.5 Output Total 1350 2110 250 Balance 626.292 -77.466 102.5 Weight 68.4 kg Intake: IV 996 1144 176 .9 KVO 110 130 20 Lactated Ringers 1,000 ml 750 975 150 @ 75 mls/hr IV .[id number] [facility] Rx#:[id number] Magnesium Sulfate-D5w Pmx 100 1 gm In Dextrose/Water 1 100ml.bag @ 100 mls/hr IVPB ONCE ONE Rx#: [id number] a line 36 39 6 Intake, IV Titration 236.292 122.534 72.5 Amount propofoL 1,000 mg In 236.292 122.534 72.5 Empty Bag 1 bag @ 15 MCG/ KG/MIN 7.348 mls/hr IV . [id number] [facility] Rx#:[id number] Tube Feeding 624 676 104 Other 120 90 Output: Urine 1350 2110 250 Other: Voiding Method Indwelling Catheter Indwelling Catheter ABP, PAP, CO, CI - Last Documented Arterial Blood Pressure 124/51 - Exam No acute distress, sedated, with an orally placed endotracheal tube., Comfortable, well sedated on propofol. Orogastric and orotracheal tube are both in place. HEENT examination is grossly unremarkable. Neck supple. Full range of motion. No adenopathy thyromegaly or neck vein distention. Cardiovascular examination reveals regular rhythm rate. S1-S2 normal. No S3 or S4. No discernible murmur noted. Lungs reveal bilateral coarse rhonchi. No wheezes. No crackles. Breath sounds equal bilaterally. The patient has significant kyphoscoliosis of the thoracic spine and scattered rhonchi heard bilaterally. Abdominal exam revealed normal bowel sounds. The abdomen was soft, non-tender, and without masses, organomegaly, or appreciable enlargement of the abdominal aorta. Extremities are intact. No cyanosis clubbing or edema. Skin is without rash or lesion. Neurologic examination cannot be evaluated as the patient is currently sedated. - Labs CBC & Chem 7: 09/19/24 04:00 09/19/24 04:00 Labs: Abnormal Lab Results - Last 24 Hours (Table) 09/18/24 09/18/24 09/19/24 Range/Units 11:30 11:30 04:00 RBC 2.53 L (4.40-5.60) 10*6/uL Hgb 8.4 L (13.0-17.0) g/dL Hct 25.9 L (39.6-50.0) % MCV 102.4 H (80.0-97.0) fL MCH 33.2 H (27.0-32.0) pg MPV (9.5-12.2) fL Immature Gran # 0.06 H (0.00-0.04) 10*3/uL Lymphocytes # 0.65 L (0.90-5.00) 10*3/uL ABG pCO2 (35-45) mmHg ABG pO2 (83-108) mmHg ABG HCO3 (21-25) mmol/L ABG Total CO2 (19-24) mmol/L Hemoglobin (13.0-17.5) gm/dL BUN 21 H (9-20) mg/dL Creatinine 0.56 L 0.45 L (0.66-1.25) mg/dL Glucose 103 H (74-99) mg/dL Calcium 7.8 L (8.4-10.2) mg/dL 09/19/24 09/19/24 Range/Units 04:00 05:19 RBC 2.50 L (4.40-5.60) 10*6/uL Hgb 8.5 L (13.0-17.0) g/dL Hct 25.8 L (39.6-50.0) % MCV 103.2 H (80.0-97.0) fL MCH 34.0 H (27.0-32.0) pg MPV 9.4 L (9.5-12.2) fL Immature Gran # 0.09 H (0.00-0.04) 10*3/uL Lymphocytes # 0.60 L (0.90-5.00) 10*3/uL ABG pCO2 47 H (35-45) mmHg ABG pO2 73 L (83-108) mmHg ABG HCO3 31 H (21-25) mmol/L ABG Total CO2 32 H (19-24) mmol/L Hemoglobin 8.6 L (13.0-17.5) gm/dL BUN (9-20) mg/dL Creatinine (0.66-1.25) mg/dL Glucose (74-99) mg/dL Calcium (8.4-10.2) mg/dL Assessment and Plan Plan: Acute hypoxemic and hypercapnic respiratory failure, secondary to bacterial pneumonia. Sputum culture was positive for haemophilus influenza, treated with IV antibiotics and the patient completed the course of antibiotics. Chest x-ray shows improvement in bilateral pulmonary filtrates. There is obvious improvement in the patient's oxygenation and ventilation. Overall oxygenation and respiration remains stable. Chest x-ray findings are stable. The patient is post bronchoscopy on 09/19/2024 and he does have only scant amount of respiratory secretions. Multifocal pneumonia, secondary to Haemophilus influenzae, treated with subsequent improvement of chest x-ray findings, improved, the patient is currently hemodynamically stable. Acute leukocytosis, secondary to infection, improved Hypothermia, resolved. Altered mental status, secondary to encephalopathy, and sepsis. This morning, the patient is sedated. He does have developmental delay and intellectual disability in addition to his history of seizure disorder. Currently free of any seizures. History of intellectual disability. History of seizure disorder. Maintained on Keppra, valproate and Depakote. Severe kyphoscoliosis. Blind right eye. History of hypertension. History of hypothyroidism. Plan Continue vent support, no change on the mechanical ventilator for today Patient has adequate oxygenation and ventilation. Cough seems to be also adequate. The patient's chest x-ray is stable compared to yesterday The patient completed antibiotic course Awaiting to establish a CODE STATUS. Awaiting a court order and we hope to achieve a DNR/DNI CODE STATUS. While we are awaiting a final change in the patient's CODE STATUS, I suggested to wean off the sedation and give the patient a spontaneous breathing trial and assess his readiness to wean. Obviously, he has significant respiratory insuff iciency and compromise and extubation may not be successful. Based on blood work, would like to establish a final CODE STATUS prior to any attempt to extubate the patient. Note if the weaning trial goes uneventful and successful, I may considering extubating the patient pending further establishment of his CODE STATUS. Continue enteral feeding for nutritional support Continue antiepileptic medications No seizure activity for now Hemodynamically stable Continue supportive care and will continue to follow. Critical care evaluation 35 minutes. Time with Patient: Greater than 30
--- NOTE | 2024-09-19 15:01 | P.PCN ---
Date of Procedure: 09/19/24 Preoperative Diagnosis: Pneumonia, ventilator dependent respiratory failure Postoperative Diagnosis: Same Procedure(s) Performed: Flexible bronchoscopy, therapeutic airway suctioning, airway inspection. Anesthesia: MAC Surgeon: Linda Nazario Estimated Blood Loss (ml): 0 Pathology: other Condition: critical Disposition: ICU Operative Findings: This procedure was done as the patient was still intubated on a mechanical ventilator. The patient was already sedated with propofol The disposable bronchoscope was used to complete this procedure. The flexible bronchoscope was inserted through the orotracheal tube and was advanced into the distal trachea. Distal trachea was essentially within normal limits. Minimal moderate respiratory secretions encountered in the distal trachea bilateral mainstem bronchi and those were suctioned out without any major difficulties. Airway inspection was completed. V the visualized airways included the bilateral mainstem bronchi right upper lobe bronchus, right middle lobe bronchus and the right lower lobe bronchus and the various 10 segments on the right and examination of the left side included the left upper lobe bronchus and the left lower lobe bronchus and the various 8 segments on the left. Noted the very segments of the lower lobes bilaterally were quite atelectatic and this was attributed to the patient's significant thoracic kyphoscoliosis. There is also some atelectatic changes in the right upper lobe subsegments. Respiratory secretions were scant and a total of 10 cc of loose respiratory secretions were suctioned out and sent for cultures. No complications. The patient tolerated procedure well. No oxygen desaturations. Remained hemodynamically stable.
[2024-09-19 17:19] LABS: Glucose,Whole Blood 114 mg/dL (70-110)
--- NOTE | 2024-09-19 20:37 | P.PN ---
Subjective Progress Note Date: 09/19/24 Patient is a 63-year-old male with a known history of mentally challenged, seizure disorder, asthma, hypertension, hypothyroidism and chronic hypoxemic respiratory failure who is currently at [facility]. Patient was sent to hospital due to worsening shortness of breath and altered mental status and was also hypoxic with pulse ox 40% when he presented to ER. Patient was placed on nonrebreather and was minimally responsive on arrival to ER. Patient had ABGs was done showed PaO2 153. pCO2 98 and also pH 7.13 patient was intubated in the ER. Patient was also sedated with propofol and fentanyl. CT head showed no acute bleed or mass effect. Sinusitis and mastoiditis as described above. CT angiogram of the head and neck showed no evidence of dissection of the cervical internal carotid arteries or vertebral arteries. Patchy groundglass and consolidative opacities in partially visualized upper lungs suspicious for multifocal pneumonia Chest x-ray showed endotracheal tube terminates 2.5 cm above ezra. Enteric tube distal sidehole overlies the expected gastric lumen. Small bilateral pleural effusions and subtle patchy opacities in the upper lobes which could reflect infectious etiology. EKG showed sinus rhythm with right bundle branch block. Laboratory data on admission showed WBC 12.3 hemoglobin 11.7 and platelets 176 and MCV 112 sodium 140 potassium 5.3 chloride 96 bicarb is 37 BUN 43 and creatinine 0.79 and blood sugar 125 and calcium 8.6 liver enzymes are not elevated troponin x 1 negative and procalcitonin level is 0.11 Patient is also hypothermic requiring Roly hugger. Influenza A BRAC COVID-19 and Legionella urine antigen negative. 09/14/2024 Patient is currently in the MICU. On sedation holiday. Was able to tolerate pressure support for short duration this morning currently back to [facility]- control.. ABG showed pH 7.4 [id number] and PO2 132 Other laboratory data showed WBC 6.6 hemoglobin 8.9 and MCV 104.6 and platelets 168. BUN 17 and creatinine 0.56. Chest x-ray showed cardiomegaly with small bilateral pleural effusions. Patient is on IV hydration with Ringer's lactate at 130 cc/h and also requiring pressure support with Levophed. Continue with antibiotics for multifocal pneumonia. Procalcitonin level is not elevated at 0.11. 09/15/2024 Patient is in the MICU. Intubated and on mechanical ventilator. Patient is back on sedation with propofol and is also on fentanyl drip. Currently on assist-control with respiratory rate 16, tidal volume 400 FiO2 30% and PEEP of 5. Chest x-ray showed cardiomegaly and small bilateral pleural effusions. Continued on IV hydration with Ringer's lactate at 75 cc/h. Patient is being continued on antibiotics in the form of ceftriaxone. Sputum culture showed haemophilus influenza. Laboratory showed WBC 6.0 hemoglobin 8.5 and platelets 159 sodium 137 potassium 3.6 chloride 107 bicarb is 31 BUN 51 creatinine 0.57 blood sugar 114 and calcium 7.9. 09/16/2024 Patient is in the MICU. Remains on mechanical ventilator. Sedated with propofol drip. Continues on IV hydration with Ringer's lactate at 75 cc/h. Patient was also started on NG tube feeding. Continued on antibiotics in the form of ceftriaxone. Sputum culture is growing haemophilus influenza. Lab data showed WBC 5.1 hemoglobin 7.8 and platelets 159, sodium 137 potassium 3.9 chloride 104 bicarb is 30 BUN 17 and creatinine 0.54 and blood sugar 101 and calcium 7.8. 09/17/2024 Patient is in the MICU. Currently intubated on mechanical ventilator. Patient did have daily sedation holiday today and was placed back on ProForma. Not on pressor support. Continued on antibiotics in the form of ceftriaxone. Sputum cultures growing haemophilus influenza. Patient is on IV hydration with Ringer's lactate at 75 cc/h. On tube feeding via NG tube. Chest x-ray showed ET tube 2.7 cm above ezra. No change in acute pulmonary process. Laboratory data showed WBC 4.8 hemoglobin 7.9 and platelets 192 sodium 139 potassium 4.0 chloride 106 bicarb is 32, BUN 19 and creatinine 0.49 and blood sugar 103 and calcium 8.0. 09/18/2024 Patient is in the MICU. Remains on mechanical ventilator. Patient is also sedated with propofol. Blood gas showed pH 7.44 [id number], PO270. Chest x-ray showed no acute cardiopulmonary process. Currently off antibiotics. Patient h as been afebrile. Laboratory data showed WBC 4.8 hemoglobin 8.4 and platelets 233 sodium 138 potassium 3.8 chloride 106 bicarb is 28 BUN 20) 0.56 and blood sugar 94 and calcium 7.8. Patient is being continued DuoNebs, IV hydration with Ringer's lactate at 75 cc/h. Patient is also on valproic acid and Keppra. Neurology and pulmonary is on board. 09/19/2024 Patient is on mechanical ventilator and on sedation with propofol. IV hydration with Ringer's lactate at 75 cc out. Currently on assist-control with tidal volume 400 respiratory rate 16, FiO2 30% and PEEP of 5. Chest x-ray showed suboptimal due to skeletal deformities and kyphoscoliosis of the chest. Not on pressor support. Tolerating orogastric tube feeding. Currently patient is off antibiotics. Patient underwent bedside bronchoscopy by critical care team. Laboratory data showed WBC 5.1 hemoglobin 8.5 and platelets 240 sodium 139 potassium 4.1 chloride 105 bicarb is 28 BUN 21 and creatinine 0.45 blood sugar 103 magnesium 2.0. Current medications reviewed. Objective - Vital Signs Vital signs: Vital Signs Temp 98.3 F 09/19/24 20:00 Pulse 113 H 09/19/24 20:00 Resp 31 H 09/19/24 20:00 BP 110/66 09/19/24 20:00 Pulse Ox 94 L 09/19/24 20:00 FiO2 30 09/19/24 20:00 Intake & Output 09/19/24 09/19/24 09/20/24 06:59 18:59 06:59 Intake Total 2032.534 1861.569 250 Output Total 2110 3165 75 Balance -77.466 -1303.431 175 Intake: IV 1144 1056 88 .9 KVO 130 120 10 Lactated Ringers 1,000 ml 975 900 75 @ 75 mls/hr IV .[id number] AG Rx#:[id number] a line 39 36 3 Intake, IV Titration 122.534 119.569 50 Amount Valproate Sodium 750 mg 50 In Sodium Chloride 0.9% 50 ml @ 50 mls/hr IVPB Q12HR AG Rx#:[id number] propofoL 1,000 mg In 122.534 119.569 0 Empty Bag 1 bag @ 15 MCG/ KG/MIN 7.348 mls/hr IV . [id number] AG Rx#:[id number] Tube Feeding 676 626 52 Other 90 60 60 Output: Urine 2110 3165 75 Other: Voiding Method Indwelling Catheter Indwelling Catheter ABP, PAP, CO, CI - Last Documented Arterial Blood Pressure 119/56 - Exam PHYSICAL EXAMINATION: Patient is lying in the bed intubated and sedated. Mentally challenged at baseline.. HEENT: Normocephalic. Neck is supple. Left pupils reactive. Nostrils clear. Oral cavity is moist. Right eye blindness Neck reveals no JVD, carotid bruits, or thyromegaly. CHEST EXAMINATION: Trachea is central. Symmetrical expansion. Bibasilar diminished sounds. Scattered coarse sounds. No wheezing. CARDIAC: Normal S1, S2 with no gallops. No murmurs ABDOMEN: Soft. Bowel sounds normal. No organomegaly. No abdominal bruits. Extremities: reveal no edema. No clubbing or cyanosis Neurologically could not be assessed at this time. Contracted extremities. Skin: No rash or skin lesions. Psychiatric: Could not be assessed. Musculoskeletal: No joint swelling or deformity. - Labs CBC & Chem 7: 09/19/24 04:00 09/19/24 04:00 Labs: Abnormal Lab Results - Last 24 Hours (Table) 09/19/24 09/19/24 09/19/24 Range/Units 04:00 04:00 05:19 RBC 2.50 L (4.40-5.60) 10*6/uL Hgb 8.5 L (13.0-17.0) g/dL Hct 25.8 L (39.6-50.0) % MCV 103.2 H (80.0-97.0) fL MCH 34.0 H (27.0-32.0) pg MPV 9.4 L (9.5-12.2) fL Immature Gran # 0.09 H (0.00-0.04) 10*3/uL Lymphocytes # 0.60 L (0.90-5.00) 10*3/uL ABG pCO2 47 H (35-45) mmHg ABG pO2 73 L (83-108) mmHg ABG HCO3 31 H (21-25) mmol/L ABG Total CO2 32 H (19-24) mmol/L Hemoglobin 8.6 L (13.0-17.5) gm/dL BUN 21 H (9-20) mg/dL Creatinine 0.45 L (0.66-1.25) mg/dL Glucose 103 H (74-99) mg/dL POC Glucose (mg/dL) (70-110) mg/dL 09/19/24 Range/Units 17:17 RBC (4.40-5.60) 10*6/uL Hgb (13.0-17.0) g/dL Hct (39.6-50.0) % MCV (80.0-97.0) fL MCH (27.0-32.0) pg MPV (9.5-12.2) fL Immature Gran # (0.00-0.04) 10*3/uL Lymphocytes # (0.90-5.00) 10*3/uL ABG pCO2 (35-45) mmHg ABG pO2 (83-108) mmHg ABG HCO3 (21-25) mmol/L ABG Total CO2 (19-24) mmol/L Hemoglobin (13.0-17.5) gm/dL BUN (9-20) mg/dL Creatinine (0.66-1.25) mg/dL Glucose (74-99) mg/dL POC Glucose (mg/dL) 114 H (70-110) mg/dL Assessment and Plan Assessment: Acute hypoxic and hypercapnic respiratory failure requiring intubation mechanical ventilator. Multifocal pneumonia-healthcare associated. Sputum culture showed haemophilus influenza. Completed antibiotic course with ceftriaxone.. Sepsis secondary pneumonia Hypertension Hypothyroidism Hypothermia Altered mental status secondary to metabolic encephalopathy and infection History of intellectual disability Seizure disorder Severe kyphoscoliosis Right eye blindness Medical debility currently at [facility] DVT prophylax with heparin subcu Plan: Patient is currently in the MICU. Intubated on mechanical ventilator. Sedated. Continued on IV hydration with Ringer's lactate. Pressure support is off. Patient underwent bedside bronchoscopy today. Patient completed antibiotic course with ceftriaxone. Patient was started back on antiepileptic medications Keppra 1000 mg IV every 12. Also on Depakote. Neurology and critical care team is on board. Blood cultures negative. Sputum culture showed haemophilus influenza. Prognosis is guarded at this time with multimedical problems and comorbid conditions. Awaiting court date for court appointed legal guardian. Time with Patient: Greater than 30
[2024-09-19 23:48] LABS: Glucose,Whole Blood 109 mg/dL (70-110)
[2024-09-20 02:35] LABS: Glucose,Whole Blood 92 mg/dL (70-110)
[2024-09-20 04:58] LABS: ABG Base Excess 7.2 mmol/L; ABG HCO3 32 mmol/L (21-25); ABG Oxygen Saturation 95.2 % (94-97); ABG PCO2 45 mmHg (35-45); ABG PH 7.46 (7.35-7.45); ABG PO2 72 mmHg (83-108); ABG TCO2 33 mmol/L (19-24)
[2024-09-20 04:59] LABS: Allen Test Performed? no
[2024-09-20 06:09] LABS: Basophils # (A) 0.03 10*3/uL (0.00-0.10); Basophils % (A) 0.4 %; Eosinophils # (A) 0.09 10*3/uL (0.04-0.35); Eosinophils % (A) 1.2 %; HCT 25.3 % (39.6-50.0); HGB 8.2 g/dL (13.0-17.0); Lymphocytes # (A) 0.99 10*3/uL (0.90-5.00); MCH 33.6 pg (27.0-32.0); MCHC 32.4 g/dL (32.0-37.0); MCV 103.7 fL (80.0-97.0); Mean Platelet Volume 9.6 fL (9.5-12.2); Monocytes # (A) 1.05 10*3/uL (0.20-1.00); Monocytes % (A) 13.8 %; Neutrophils # (A) 5.31 10*3/uL (1.80-7.70); Platelet Count 258 10*3/uL (140-440); RBC 2.44 10*6/uL (4.40-5.60); RDW 14.9 % (11.5-14.5); WBC 7.59 10*3/uL (4.50-10.00)
[2024-09-20 06:16] LABS: Glucose,Whole Blood 99 mg/dL (70-110)
[2024-09-20 06:31] LABS: African American GFR (CKD) >90 (>60 ml/min/1.73 sqM); Anion Gap 3 mmol/L; Blood Urea Nitrogen 25 mg/dL (9-20); Calcium 8.5 mg/dL (8.4-10.2); Carbon Dioxide 32 mmol/L (22-30); Chloride 101 mmol/L (98-107); Glucose 97 mg/dL (74-99); Non-African American GFR(CKD) >90 (>60 ml/min/1.73 sqM); Potassium 3.8 mmol/L (3.5-5.1); Sodium 136 mmol/L (137-145)
[2024-09-20] MEDS: POTASSIUM BICARBONATE/CIT AC 20 MEQ TABLET.EFF NG-TUBE SCH (06:43)
--- NOTE | 2024-09-20 08:19 | XR ---
EXAMINATION TYPE: XR chest 1V portable DATE OF EXAM: 09/20/2024 5:32 AM COMPARISON: Multiple radiographs, with the most recent on 09/19/2024 TECHNIQUE: XR chest 1V portable Portable AP radiograph of the chest. CLINICAL INDICATION:Male, 63 years old with history of shortness of breath; FINDINGS: Lungs/Pleura: No pneumothorax. Small bilateral pleural effusions suggested. Patchy perihilar airspace opacities redemonstrated. Heart/mediastinum: Cardiomediastinal silhouette is enlarged and stable. Musculoskeletal: No acute osseous pathology. Marked dextroscoliotic curvature of the thoracic spine. Other findings: None Lines/Tubes: Endotracheal tube with distal tip 3.4 cm above the ezra Nasogastric tube with its distal tip and side-port projecting under the diaphragm and projecting over the gastric lumen. Stable right IJ central venous catheter with distal tip in the region of right atrium. IMPRESSION: 1. Stable support lines and tubes. 2. Cardiomegaly with small bilateral pleural effusions suggested. Similar bilateral perihilar airspac e opacities which may represent pulmonary edema versus infiltrates. [facility], , 09/20/2024 8:17 AM
--- NOTE | 2024-09-20 08:43 | P.PN ---
Subjective Patient is a 63-year-old male with a known history of mentally challenged, seizure disorder, asthma, hypertension, hypothyroidism and chronic hypoxemic respiratory failure who is currently at [facility]. Patient was sent to hospital due to worsening shortness of breath and altered mental status and was also hypoxic with pulse ox 40% when he presented to ER. Patient was placed on nonrebreather and was minimally responsive on arrival to ER. Patient had ABGs was done showed PaO2 153. pCO2 98 and also pH 7.13 patient was intubated in the ER. Patient was also sedated with propofol and fentanyl. CT head showed no acute bleed or mass effect. Sinusitis and mastoiditis as described above. CT angiogram of the head and neck showed no evidence of dissection of the cervical internal carotid arteries or vertebral arteries. Patchy groundglass and consolidative opacities in partially visualized upper lungs suspicious for multifocal pneumonia Chest x-ray showed endotracheal tube terminates 2.5 cm above ezra. Enteric tube distal sidehole overlies the expected gastric lumen. Small bilateral pleural effusions and subtle patchy opacities in the upper lobes which could reflect infectious etiology. EKG showed sinus rhythm with right bundle branch block. Laboratory data on admission showed WBC 12.3 hemoglobin 11.7 and platelets 176 and MCV 112 sodium 140 potassium 5.3 chloride 96 bicarb is 37 BUN 43 and creatinine 0.79 and blood sugar 125 and calcium 8.6 liver enzymes are not elevated troponin x 1 negative and procalcitonin level is 0.11 Patient is also hypothermic requiring Roly hugger. Influenza A BRAC COVID-19 and Legionella urine antigen negative. 09/14/2024 Patient is currently in the MICU. On sedation holiday. Was able to tolerate pressure support for short duration this morning currently back to [facility]- control.. ABG showed pH 7.4 [id number] and PO2 132 Other laboratory data showed WBC 6.6 hemoglobin 8.9 and MCV 104.6 and platelets 168. BUN 17 and creatinine 0.56. Chest x-ray showed cardiomegaly with small bilateral pleural effusions. Patient is on IV hydration with Ringer's lactate at 130 cc/h and also requiring pressure support with Levophed. Continue with antibiotics for multifocal pneumonia. Procalcitonin level is not elevated at 0.11. 09/15/2024 Patient is in the MICU. Intubated and on mechanical ventilator. Patient is back on sedation with propofol and is also on fentanyl drip. Currently on assist-control with respiratory rate 16, tidal volume 400 FiO2 30% and PEEP of 5. Chest x-ray showed cardiomegaly and small bilateral pleural effusions. Continued on IV hydration with Ringer's lactate at 75 cc/h. Patient is being continued on antibiotics in the form of ceftriaxone. Sputum culture showed haemophilus influenza. Laboratory showed WBC 6.0 hemoglobin 8.5 and platelets 159 sodium 137 potassium 3.6 chloride 107 bicarb is 31 BUN 51 creatinine 0.57 blood sugar 114 and calcium 7.9. 09/16/2024 Patient is in the MICU. Remains on mechanical ventilator. Sedated with propofol drip. Continues on IV hydration with Ringer's lactate at 75 cc/h. Patient was also started on NG tube feeding. Continued on antibiotics in the form of ceftriaxone. Sputum culture is growing haemophilus influenza. Lab data showed WBC 5.1 hemoglobin 7.8 and platelets 159, sodium 137 potassium 3.9 chloride 104 bicarb is 30 BUN 17 and creatinine 0.54 and blood sugar 101 and calcium 7.8. 09/17/2024 Patient is in the MICU. Currently intubated on mechanical ventilator. Patient did have daily sedation holiday today and was placed back on ProForma. Not on pressor support. Continued on antibiotics in the form of ceftriaxone. Sputum cultures growing haemophilus influenza. Patient is on IV hydration with Ringer's lactate at 75 cc/h. On tube feeding via NG tube. Chest x-ray showed ET tube 2.7 cm above ezra. No change in acute pulmonary process. Laboratory data showed WBC 4.8 hemoglobin 7.9 and platelets 192 sodium 139 potassium 4.0 chloride 106 bicarb is 32, BUN 19 and creatinine 0.49 and blood sugar 103 and calcium 8.0. 09/18/2024 Patient is in the MICU. Remains on mechanical ventilator. Patient is also sedated with propofol. Blood gas showed pH 7.44 [id number], PO270. Chest x-ray showed no acute cardiopulmonary process. Currently off antibiotics. Patient has been afebrile. Laboratory data showed WBC 4.8 hemoglobin 8.4 and platelets 233 sodium 138 potassium 3.8 chloride 106 bicarb is 28 BUN 20) 0.56 and blood sugar 94 and calcium 7.8. Patient is being continued DuoNebs, IV hydration with Ringer's lactate at 75 cc/h. Patient is also on valproic acid and Keppra. Neurology and pulmonary is on board. 09/19/2024 Patient is on mechanical ventilator and on sedation with propofol. IV hydration with Ringer's lactate at 75 cc out. Currently on assist-control with tidal volume 400 respiratory rate 16, FiO2 30% and PEEP of 5. Chest x-ray showed suboptimal due to skeletal deformities and kyphoscoliosis of the chest. Not on pressor support. Tolerating orogastric tube feeding. Currently patient is off antibiotics. Patient underwent bedside bronchoscopy by critical care team. Laboratory data showed WBC 5.1 hemoglobin 8.5 and platelets 240 sodium 139 potassium 4.1 chloride 105 bicarb is 28 BUN 21 and creatinine 0.45 blood sugar 103 magnesium 2.0. 09/20 I am resuming the care of the patient today Remains in the ICU intubated and sedated with pulmonary/renal care team helping with vent management He is s/p bronchoscopy yesterday He has a lot of secretion and scopolamine patch was added today As per staff public guardian are considering comfort care measures and they are going for a court order as patient has developmental delay throughout his life. Objective - Vital Signs Vital signs: Vital Signs Temp 97.5 F L 09/20/24 08:00 Pulse 98 09/20/24 08:00 Resp 16 09/20/24 08:00 BP 121/72 09/20/24 08:00 Pulse Ox 97 09/20/24 08:00 FiO2 30 09/20/24 08:00 Intake & Output 09/19/24 09/20/24 09/20/24 18:59 06:59 18:59 Intake Total 8551.332 1093.080 340 Output Total 3165 1445 185 Balance -1303.431 390.080 155 Intake: IV 1056 968 176 .9 KVO 120 110 20 Lactated Ringers 1,000 ml 900 825 150 @ 75 mls/hr IV .[id number] AG Rx#:[id number] a line 36 33 6 Intake, IV Titration 119.569 145.080 Amount Valproate Sodium 750 mg 50 In Sodium Chloride 0.9% 50 ml @ 50 mls/hr IVPB Q12HR AG Rx#:[id number] propofoL 1,000 mg In 119.569 95.080 Empty Bag 1 bag @ 15 MCG/ KG/MIN 7.348 mls/hr IV . [id number] [facility] Rx#:[id number] Tube Feeding 626 572 104 Other 60 150 60 Output: Urine 3165 945 185 Other 500 Other: Voiding Method Indwelling Catheter Indwelling Catheter Indwelling Catheter # Voids 1 ABP, PAP, CO, CI - Last Documented Arterial Blood Pressure 120/49 - Exam -GENERAL: The patient is intubated and sedated HEENT: Pupils are round and equally reacting to light. EOMI. No scleral icterus. No conjunctival pallor. Normocephalic, atraumatic. No pharyngeal erythema. No thyromegaly. CARDIOVASCULAR: S1 and S2 present. No murmurs, rubs, or gallops. PULMONARY: Chest is clear to auscultation, no wheezing , no crackles. ABDOMEN: Soft, nontender, nondistended, normoactive bowel sounds. No palpable organomegaly. MUSCULOSKELETAL: No joint swelling or deformity. EXTREMITIES: No cyanosis, clubbing, or pedal edema. NEUROLOGICAL: Gross neurological examination did not reveal any focal deficits. SKIN: No rashes. no petechiae. - Labs CBC & Chem 7: 09/20/24 04:45 09/20/24 04:45 Labs: Abnormal Lab Results - Last 24 Hours (Table) 09/19/24 09/20/24 09/20/24 Range/Units 17:17 04:45 04:45 RBC 2.44 L (4.40-5.60) 10*6/uL Hgb 8.2 L (13.0-17.0) g/dL Hct 25.3 L (39.6-50.0) % MCV 103.7 H (80.0-97.0) fL MCH 33.6 H (27.0-32.0) pg Immature Gran # 0.12 H (0.00-0.04) 10*3/uL Monocytes # 1.05 H (0.20-1.00) 10*3/uL ABG pH (7.35-7.45) ABG pO2 (83-108) mmHg ABG HCO3 (21-25) mmol/L ABG Total CO2 (19-24) mmol/L Hemoglobin (13.0-17.5) gm/dL Sodium 136 L (137-145) mmol/L Carbon Dioxide 32 H (22-30) mmol/L BUN 25 H (9-20) mg/dL Creatinine 0.59 L (0.66-1.25) mg/dL POC Glucose (mg/dL) 114 H (70-110) mg/dL 09/20/24 Range/Units 04:55 RBC (4.40-5.60) 10*6/uL Hgb (13.0-17.0) g/dL Hct (39.6-50.0) % MCV (80.0-97.0) fL MCH (27.0-32.0) pg Immature Gran # (0.00-0.04) 10*3/uL Monocytes # (0.20-1.00) 10*3/uL ABG pH 7.46 H (7.35-7.45) ABG pO2 72 L (83-108) mmHg ABG HCO3 32 H (21-25) mmol/L ABG Total CO2 33 H (19-24) mmol/L Hemoglobin 8.5 L (13.0-17.5) gm/dL Sodium (137-145) mmol/L Carbon Dioxide (22-30) mmol/L BUN (9-20) mg/dL Creatinine (0.66-1.25) mg/dL POC Glucose (mg/dL) (70-110) mg/dL Microbiology - Last 24 Hours (Table) 09/19/24 09:43 Gram Stain - Preliminary Bronchoalviolar Lavage - Right Assessment and Plan Assessment: Acute hypoxic and hypercapnic respiratory failure requiring intubation mechanical ventilator. Multifocal pneumonia-healthcare associated. Sputum culture showed haemophilus influenza. Completed antibiotic course with ceftriaxone.. Sepsis secondary pneumonia Hypertension Hypothyroidism Hypothermia Altered mental status secondary to metabolic encephalopathy and infection History of intellectual disability Seizure disorder Severe kyphoscoliosis Right eye blindness Medical debility currently at [facility] Plan: Continue with IV fluid Continue with seizure medication per neurologist including IV Keppra and valpr oate as well as Tegretol Continue with intubation and mechanical ventilation as per pulmonary/critical care team Neurology and critical care team consult Public guardian now considering comfort care Labs and medication were reviewed.. Continue same treatment. Continue with symptomatic treatment. Resume home medication. Monitor labs and vitals. DVT and GI prophylaxis. Further recommendations as per clinical course of the patient DVT prophylaxis: Subcutaneous heparin GI Prophylaxis: Ppi Prognosis is guarded
[2024-09-20] MEDS: FUROSEMIDE 10 MG/ML 4 ML VIAL IV STA ×2 (09:19→17:42)
[2024-09-20 12:23] LABS: Glucose,Whole Blood 89 mg/dL (70-110)
--- NOTE | 2024-09-20 12:59 | P.PN ---
Subjective Progress Note Date: 09/20/24 I am seeing the patient for the first time during this hospital visit. Please refer to Dr. De Luna's notes for further details. The patient is currently intubated on a ventilator. He was on low IV Propofol a nd per nurse sedation held for 45 minutes prior to my arrival and doing a weaning trial to assess if can be extubated. Objective - Vital Signs Vital signs: Vital Signs Temp 98.4 F 09/20/24 12:00 Pulse 109 H 09/20/24 12:00 Resp 17 09/20/24 12:00 BP 108/70 09/20/24 12:00 Pulse Ox 96 09/20/24 12:00 FiO2 30 09/20/24 12:02 Intake & Output 09/19/24 09/20/24 09/20/24 18:59 06:59 18:59 Intake Total 7446.806 9829.080 723.167 Output Total 3165 1445 1460 Balance -1303.431 390.080 -736.833 Intake: IV 1056 968 333 .9 KVO 120 110 60 Lactated Ringers 1,000 ml 900 825 255 @ 75 mls/hr IV .[id number] AG Rx#:[id number] a line 36 33 18 Intake, IV Titration 119.569 145.080 18.167 Amount Valproate Sodium 750 mg 50 In Sodium Chloride 0.9% 50 ml @ 50 mls/hr IVPB Q12HR AG Rx#:[id number] propofoL 1,000 mg In 119.569 95.080 18.167 Empty Bag 1 bag @ 15 MCG/ KG/MIN 7.348 mls/hr IV . [id number] AG Rx#:[id number] Tube Feeding 626 572 312 Other 60 150 60 Output: Urine 3165 945 1460 Other 500 Other: Voiding Method Indwelling Catheter Indwelling Catheter Indwelling Catheter # Voids 1 ABP, PAP, CO, CI - Last Documented Arterial Blood Pressure 113/51 - Exam General: Lying in bed and does not appear in acute distress. Lung: Intubated on a ventilator. Neuro: Limited. Was on low dose IV Propofol and stopped about 45 minutes prior to my examination. Patient is awake and looking around the room. Not following commands. Pupils are round and reactive to light. From limitation no facial weakness. - Labs CBC & Chem 7: 09/20/24 04:45 09/20/24 04:45 Labs: Abnormal Lab Results - Last 24 Hours (Table) 09/19/24 09/20/24 09/20/24 Range/Units 17:17 04:45 04:45 RBC 2.44 L (4.40-5.60) 10*6/uL Hgb 8.2 L (13.0-17.0) g/dL Hct 25.3 L (39.6-50.0) % MCV 103.7 H (80.0-97.0) fL MCH 33.6 H (27.0-32.0) pg Immature Gran # 0.12 H (0.00-0.04) 10*3/uL Monocytes # 1.05 H (0.20-1.00) 10*3/uL ABG pH (7.35-7.45) ABG pO2 (83-108) mmHg ABG HCO3 (21-25) mmol/L ABG Total CO2 (19-24) mmol/L Hemoglobin (13.0-17.5) gm/dL Sodium 136 L (137-145) mmol/L Carbon Dioxide 32 H (22-30) mmol/L BUN 25 H (9-20) mg/dL Creatinine 0.59 L (0.66-1.25) mg/dL POC Glucose (mg/dL) 114 H (70-110) mg/dL 09/20/24 Range/Units 04:55 RBC (4.40-5.60) 10*6/uL Hgb (13.0-17.0) g/dL Hct (39.6-50.0) % MCV (80.0-97.0) fL MCH (27.0-32.0) pg Immature Gran # (0.00-0.04) 10*3/uL Monocytes # (0.20-1.00) 10*3/uL ABG pH 7.46 H (7.35-7.45) ABG pO2 72 L (83-108) mmHg ABG HCO3 32 H (21-25) mmol/L ABG Total CO2 33 H (19-24) mmol/L Hemoglobin 8.5 L (13.0-17.5) gm/dL Sodium (137-145) mmol/L Carbon Dioxide (22-30) mmol/L BUN (9-20) mg/dL Creatinine (0.66-1.25) mg/dL POC Glucose (mg/dL) (70-110) mg/dL Microbiology - Last 24 Hours (Table) 09/19/24 09:43 Gram Stain - Preliminary Bronchoalviolar Lavage - Right Assessment and Plan Assessment: * Altered mental status, likely due to metabolic encephalopathy. * Acute hypoxic, hypercapnic respiratory failure, status post intubation. * Severe kyphoscoliosis * Multifocal pneumonia, healthcare associated with sepsis * Hypothermia, due to above * History of intellectual disability * History of seizure disorder * Right eye blindness * Hypertension * Hypothyroidism * [facility] resident Plan: * Patient will be continued on same seizure medication as he was taking at home. * EEG was performed, which was abnormal due to background slowing of moderate degree, suggestive of generalized cerebral dysfunction as can be seen with toxic metabolic encephalopathy related to diffuse structural brain abnormality or medication effect. No epileptiform activity was seen. * Tegretol 3.8(4-12), Depakote 37 and Keppra level 32.3(3-60). Ammonia 16. * Patient currently on azithromycin and ceftriaxone. Patient is off vancomycin. * Other medical management as per IM and critical care. The plan is discussed with the nurse. Will follow-up with patient sporadically. Time with Patient: Less than 30
--- NOTE | 2024-09-20 15:35 | P.PN ---
Subjective Progress Note Date: 09/20/24 Patient is a 63-year-old male with past medical history significant for intellectual disability, seizure disorder, hypertension, hypothyroidism, chronic hypoxemic respiratory failure. He resides at a local [facility]. Noted to be confused with increased work of breathing by staff. His SpO2 was reading 40%. EMS was called and patient was transferred to the emergency department on a nonrebreather. He was minimally responsive on arrival. ABG consistent with severe hypercapnic respiratory failure with a PaO2 of 153, pCO2 greater than 98, pH of 7.13. Previously, received 4 mg IV Versed. Patient was intubated by the ER provider. Brain CT without contrast did not show any acute intracranial hemorrhage or mass effect. There was some sinusitis and moderate fluid in the mastoid air cells bilaterally. Brain CT angio did not show any evidence of cervical internal carotid artery or vertebral artery dissection or stenosis at the carotid bifurcations. No evidence of high-grade intracranial stenosis or aneurysm. Patchy groundglass and consolidative opacities visualized in the upper lung schwartz. Chest x-ray following intubation showing the endotracheal tube terminating 2.5 cm above the ezra. Severe kyphoscoliosis. There is patchy subtle opacities bilaterally. Suspect small bilateral pleural effusions. Enteric tube likely in the duodenum. CBC: WBC count 12.4, hemoglobin 11.7, platelets 176. CMP: Sodium 140, potassium 5.3, chloride 96, serum bicarb 37, BUN 43, creatinine 0.79, glucose 125. Lactic 2.4. LFTs not elevated. Troponin less than 0.012. EKG: Sinus rhythm, rate 97 bpm, RBBB pattern. Patient currently being evaluated in the intensive care unit. Remains intubated to the mechanical ventilator. Current ventilator settings assist-control, respiratory rate 20, tidal volume 450, FiO2 70%, PEEP of 5. Previous ventilator settings were appropriately adjusted following a recent follow-up ABG with a PaO2 of 187, PCO2 of 31, pH of 7.6. This was done on FiO2 100%. Respiratory rate has since been adjusted and FiO2 is being titrated appropriately. He is sedated on propofol which is infusing at 45 mcg/kg/min as well as fentanyl infusing at 0.5 mcg/kg/h. Currently synchronous with ventilator settings. Peak pressures around 26. Lactated Ringer's also infusing at 130 mL/h. Indwelling urinary catheter with urine output of greater than 100 mL/h. Blood pressure has been normotensive. Previously, patient was hypothermic with a temperature as low as 93.9 F, and was on a external warming blanket. Now normothermic. Continues with empiric antibiotics. Patient has a legal power of rn plastic surgery. Current CODE STATUS is full. 09/14/2024 Patient seen and examined at the bedside. Patient continue be sedated and mechanically ventilated. Currently patient is sedated with fentanyl at 0.5 mcg/kg/min and propofol at 30 mcg/kg/min. Patient is on volume assist-control with setting of respiratory of 16, tidal volume of 400, FiO2 of 40% and PEEP of 5. Arterial blood gas today shows pH of 7.45, pCO2 43, PaO2 132, bicarb 29. FiO2 is decreased to 35%. Chest x-ray this morning shows cardiomegaly with small bilateral pleural effusions. Urine output is good. Patient is also on lactated Ringer's running at 130 cc/h and Levophed at 0.03 mcg/kg/h. Patient is continued to be on vancomycin, azithromycin and Rocephin for empiric coverage for multifocal pneumonia. Prolactin is 0.11. Lab work from today shows WBC 6.63, hemoglobin 8.9, platelet count 162, sodium 139, potassium 4.1, chloride 106, bicarb 27, BUN 17, creatinine 0.56, glucose 141, calcium 8.3. He is cur rently on vital HP tube feeds running at 30 cc/h with a goal of 50. 09/15/2024 Patient seen and examined at the bedside. Patient continued to be sedated and mechanically ventilated. Patient is currently on fentanyl at 0.05 mcg/kg/min and propofol at 25 mcg/kg/min. Patient is on volume assist-control with a settings of respiratory rate of 16, tidal volume of 400, FiO2 of 30%, PEEP of 5.0. ABG shows pH of 7.44, pCO2 45, PO2 of 70, HCO3 of 30. Chest x-ray done today shows cardiomegaly with small bilateral pleural effusions. Urine output is good. Patient is on lactated ringer Ringer's at 75 cc/h. He is getting tube feeds with vital HP at 55 which is at goal. Patient has been restarted on azithromycin and Rocephin for positive sputum culture which shows H. influenzae growth. Lab work from today shows WBC 6.08, hemoglobin 8.5, platelet count 159, sodium 137, potassium 3.6, chloride 107, bicarb 31, BUN 15, creatinine 0.57, glucose 114, calcium 7.9. TSH 19.7, free T41.26, cortisol 11.2. Iron 16, TIBC 136, percent saturation 11.76, transferrin 97, ferritin 446.0. Progress note dated September 16, 2024. 63-year-old male seen today in room 254. He remains on the mechanical ventilat or. He is on volume assist-control, rate 16, tidal volume 400, FiO2 30%, PEEP of 5. Blood gases show PO2 77, pCO2 of 42, pH is 7.47. The patient is currently on propofol at 25 mcg/kg/min, lactated Ringer's at 75 cc an hour, saline at 20 cc an hour. The patient is also getting vital high-protein at 52 cc an hour which is goal. Sputum was positive for Haemophilus influenzae. The patient continues on Rocephin. White count is 5.17, hemoglobin 7.8, hematocrit 23.8, platelet count is 159,000. Sodium 137, potassium 3.9, chloride 104, CO2 30, BUN 17, creatinine 0.54. Calcium is 7.8. Chest x-ray shows the endotracheal tube 2.4 cm above the ezra. The patient has diffuse bilateral opacities. Progress note dated September 17, 2024. 63-year-old male seen today in room 254. The patient remains on the mechanical ventilator, with settings of volume assist-control, rate 16, tidal volume 400, FiO2 30%, PEEP of 5. Blood gases show pO2 of 83, pCO2 of 44, and a pH of 7.44. He is on propofol at 35 mcg/kg/min, LR at 75 cc an hour, saline at 20 cc an hour, and vital high-protein at 52 cc an hour, which is goal. He continues on Rocephin for the Haemophilus influenzae that was in his sputum. Today the patient will have a daily interruption of sedation. I do not suspect he is ready for weaning and extubation. Current white count 4.8, hemoglobin 7.9, hematocrit 23.8, platelet count 192,000. Sodium 139, potassium 4, chlorides 106, CO2 32, BUN 19, creatinine 0.49. Glucose is 122. Calcium 8. Chest x-ray is largely unchanged. 09/18/2024, the patient remains intubated on the mechanical ventilator. This morning, the patient on a propofol of 35 mcg/kg/min. The patient also on lactat ed Ringer at 75 cc an hour. He remains on assist-control mode of mechanical ventilation at rate of 16, tidal volume of 400, FiO2 30% with a PEEP of 5. Blood gas showed pH of 7.44 with PCO2 of 44 and PO2 of 70. Chest x-ray from today shows severe kyphosis of the chest and kyphoscoliosis. The consolidation involving the right lung is improved. There are some residual left perihilar infiltrates. The patient was diagnosed and treated for Moraxella pneumonia and the patient is currently off antibiotics. Hemodynamically stable. He was intubated on 05/16/2025. He was initially treated with a combination of cefepime, Zithromax and vancomycin and later on switched to Zithromax and Rocephin and currently is off antibiotics. He continues to receive vital high- protein at rate of 52 cc an hour. Blood work from today shows a white cell count of 4.8, hemoglobin of 8.4 and platelet count of 233. Sodium level is at 138, BUN is 20 with a creatinine of 0.5. Otherwise, no other significant ev ents. He is arousable. Does not communicate. He is on antiepileptics including Tegretol and valproic acid. He is on heparin subcu for DVT prophylaxis. He remains on Synthroid. He is also on Keppra. On 09/20/2024, the patient is being seen for a follow-up. This morning, the patient remains sedated on propofol running at 30 mcg/kg/min. The patient remains on n lactated Ringer at rate of 75 cc an hour. At the same time, the patient remains intubated on mechanical ventilator. He remains on assist- control mode at rate of 60, tidal volume of 400, FiO2 30% with a PEEP of 5. Blood gas showed a pH of 7.43 with a APG488 and PO2 of 73. Chest x-ray findings are essentially suboptimal due to his skeletal deformities and kyphoscoliosis of the chest. The patient continues to have perihilar pulmonary infiltration and possibly some small bilateral pleural effusions. Orotracheal tube is in a good location. Meanwhile, the patient is receiving enteral feeding for nutritional support and the patient is on vital high-protein at rate of 52 cc an hour. The white cell count is 5.5 with a hemoglobin 8.5 and a platelet count of 240. Sodium is at 139, BUN is 20 with a creatinine of 0.45 and a potassium levels of 4.1. Blood sugars at 89. The patient is currently off antibiotics. Antiepile ptic medications are essentially unchanged. I performed a bedside bronchoscopy on this patient. Respiratory secretions were scant. Due to his severe kyphoscoliosis of the chest, there was some atelectatic changes at various segments of the lower lobes bilaterally. There was also atelectatic changes of the various segments of the right upper lobe. Nevertheless, no significant or secretions. No significant mucous retention. No mucous plugs. No endobronchial abnormalities. On 09/20/2024, the patient is being seen for a follow-up. I had a meeting with her public guardian. The message was given from the public guardian's date she does not want a comfort measures yet and she is interested in considering extubation or at least giving the patient a trial of extubation. The patient meanwhile remains on sedation. This morning, he remains on propofol running at 50 mcg/kg/min. Respiratory secretions are loose. Bronchoscopy was done yesterday. The follow-up cultures are still pending for now. Meanwhile, he is on assist-control rate of 16, tidal volume of 400, FiO2 30% with a PEEP of 5. No significant events or hemodynamic instability. Blood gas showed a pH of 7.46 with a [id number] and pO2 72. Fluid balance is -915 cc over the past 24 hours. Remains at lactated Ringer at a rate of 75 cc an hour and is also on vital HP at rate of 52. The white cell count 7.5, hemoglobin 8.2 and a platelet count of 258. Sodium is 136, BUN 25 with a creatinine 0.59. Potassium level is at 3.8. No pressors for now. No antibiotic coverage the patient completed the course of antibiotics. No seizure activity. Arousable off sedation. Extremely hard of hearing. Objective - Vital Signs Vital signs: Vital Signs Temp 98.4 F 09/20/24 12:00 Pulse 105 H 09/20/24 15:00 Resp 16 09/20/24 15:00 BP 113/63 09/20/24 14:00 Pulse Ox 96 09/20/24 15:00 FiO2 30 09/20/24 12:02 Intake & Output 09/19/24 09/20/24 09/20/24 18:59 06:59 18:59 Intake Total 8875.185 4371.080 978.167 Output Total 3165 1445 1885 Balance -1303.431 390.080 -906.833 Intake: IV 1056 968 402 .9 KVO 120 110 90 Lactated Ringers 1,000 ml 900 825 285 @ 20 mls/hr IV .Q24H AG Rx#:[id number] a line 36 33 27 Intake, IV Titration 119.569 145.080 18.167 Amount Valproate Sodium 750 mg 50 In Sodium Chloride 0.9% 50 ml @ 50 mls/hr IVPB Q12HR AG Rx#:[id number] propofoL 1,000 mg In 119.569 95.080 18.167 Empty Bag 1 bag @ 15 MCG/ KG/MIN 7.348 mls/hr IV . [id number] AG Rx#:[id number] Tube Feeding 626 572 468 Other 60 150 90 Output: Urine 3165 945 1885 Other 500 Other: Voiding Method Indwelling Catheter Indwelling Catheter Indwelling Catheter # Voids 1 ABP, PAP, CO, CI - Last Documented Arterial Blood Pressure 114/55 - Exam No acute distress, sedated, with an orally placed endotracheal tube., Comfortable, well sedated on propofol. Orogastric and orotracheal tube are both in place. HEENT examination is grossly unremarkable. Neck supple. Full range of motion. No adenopathy thyromegaly or neck vein distention. Cardiovascular examination reveals regular rhythm rate. S1-S2 normal. No S3 or S4. No discernible murmur noted. Lungs reveal bilateral coarse rhonchi. No wheezes. No crackles. Breath sounds equal bilaterally. The patient has significant kyphoscoliosis of the thoracic spine and scattered rhonchi heard bilaterally. Abdominal exam revealed normal bowel sounds. The abdomen was soft, non-tender, and without masses, organomegaly, or appreciable enlargement of the abdominal aorta. Extremities are intact. No cyanosis clubbing or edema. Skin is without rash or lesion. Neurologic examination cannot be evaluated as the patient is currently sedated. - Labs CBC & Chem 7: 09/20/24 04:45 09/20/24 04:45 Labs: Abnormal Lab Results - Last 24 Hours (Table) 09/19/24 09/20/24 09/20/24 Range/Units 17:17 04:45 04:45 RBC 2.44 L (4.40-5.60) 10*6/uL Hgb 8.2 L (13.0-17.0) g/dL Hct 25.3 L (39.6-50.0) % MCV 103.7 H (80.0-97.0) fL MCH 33.6 H (27.0-32.0) pg Immature Gran # 0.12 H (0.00-0.04) 10*3/uL Monocytes # 1.05 H (0.20-1.00) 10*3/uL ABG pH (7.35-7.45) ABG pO2 (83-108) mmHg ABG HCO3 (21-25) mmol/L ABG Total CO2 (19-24) mmol/L Hemoglobin (13.0-17.5) gm/dL Sodium 136 L (137-145) mmol/L Carbon Dioxide 32 H (22-30) mmol/L BUN 25 H (9-20) mg/dL Creatinine 0.59 L (0.66-1.25) mg/dL POC Glucose (mg/dL) 114 H (70-110) mg/dL 09/20/24 Range/Units 04:55 RBC (4.40-5.60) 10*6/uL Hgb (13.0-17.0) g/dL Hct (39.6-50.0) % MCV (80.0-97.0) fL MCH (27.0-32.0) pg Immature Gran # (0.00-0.04) 10*3/uL Monocytes # (0.20-1.00) 10*3/uL ABG pH 7.46 H (7.35-7.45) ABG pO2 72 L (83-108) mmHg ABG HCO3 32 H (21-25) mmol/L ABG Total CO2 33 H (19-24) mmol/L Hemoglobin 8.5 L (13.0-17.5) gm/dL Sodium (137-145) mmol/L Carbon Dioxide (22-30) mmol/L BUN (9-20) mg/dL Creatinine (0.66-1.25) mg/dL POC Glucose (mg/dL) (70-110) mg/dL Microbiology - Last 24 Hours (Table) 09/19/24 09:43 Gram Stain - Preliminary Bronchoalviolar Lavage - Right Bronchial Washings Culture - Preliminary Assessment and Plan Plan: Acute hypoxemic and hypercapnic respiratory failure, secondary to bacterial pneumonia. Sputum culture was positive for haemophilus influenza, treated with IV antibiotics and the patient completed the course of antibiotics. Chest x-ray shows improvement in bilateral pulmonary filtrates. There is obvious improvement in the patient's oxygenation and ventilation. Overall oxygenation and respiration remains stable. Chest x-ray findings are stable. The patient is post bronchoscopy on 09/19/2024 and he does have only scant amount of respiratory secretions. Multifocal pneumonia, secondary to Haemophilus influenzae, treated with subsequent improvement of chest x-ray findings, improved, the patient is currently hemodynamically stable. Acute leukocytosis, secondary to infection, improved Hypothermia, resolved. Altered mental status, secondary to encephalopathy, and sepsis. This morning, the patient is sedated. He does have developmental delay and intellectual disability in addition to his history of seizure disorder. Currently free of any seizures. History of intellectual disability. History of seizure disorder. Maintained on Keppra, valproate and Depakote. Severe kyphoscoliosis. Blind right eye. History of hypertension. History of hypothyroidism. Plan based on my conversation with the public guardian, the patient will remain a full CODE STATUS for the time being. She is interested in giving him a trial of extubation and assess his progress. I think that is reasonable. I made aware that extubation process may not be completely successful as the patient has significant intellectual delay and the patient has a weak cough with severe kyphoscoliosis of the chest and his ability to clear respiratory secretions may not be optimal. However, I am willing to give the patient a trial of extubation and assess his condition of mechanical ventilation. Meanwhile, we are going to continue vent support. Continue vent support, no change on the mechanical ventilator for today Patient has adequate oxygenation and ventilation. Cough seems to be also adequate. Bronchoscopy was done and the respiratory secretions are scant Will change IV fluids to KVO We will put the patient on Lasix 20 mg IV every 12 hours Chest x-ray findings are unchanged The patient completed antibiotic course Continue enteral feeding for nutritional support Continue antiepileptic medications No seizure activity for now Hemodynamically stable Continue supportive care and will continue to follow. Critical care evaluation 35 minutes. Possible trial of extubation either today over the next 24 hours based on the sedation holiday and his ability to perform a short spontaneous breathing trial. Time with Patient: Greater than 30
[2024-09-20 16:25] LABS: ABG Base Excess 9.2 mmol/L; ABG HCO3 34 mmol/L (21-25); ABG Oxygen Saturation 95.8 % (94-97); ABG PCO2 48 mmHg (35-45); ABG PH 7.46 (7.35-7.45); ABG PO2 76 mmHg (83-108); ABG TCO2 36 mmol/L (19-24); Allen Test Performed? Yes
[2024-09-20 17:57] LABS: Glucose,Whole Blood 108 mg/dL (70-110)
[2024-09-20] MEDS: FUROSEMIDE 10 MG/ML 2 ML VIAL IV SCH (21:57)
[2024-09-20] MEDS: levETIRAcetam IV 500 MG/5 ML VIAL IVP SCH (21:57)
[2024-09-20 23:37] LABS: Glucose,Whole Blood 121 mg/dL (70-110)
[2024-09-21] MEDS: HYDROmorphone 0.5 MG/0.5 ML SYRINGE IVP PRN (01:04)
[2024-09-21 05:47] LABS: Glucose,Whole Blood 94 mg/dL (70-110)
[2024-09-21 05:59] LABS: Basophils # (A) 0.04 10*3/uL (0.00-0.10); Basophils % (A) 0.3 %; Eosinophils # (A) 0.11 10*3/uL (0.04-0.35); Eosinophils % (A) 0.9 %; HCT 30.2 % (39.6-50.0); Lymphocytes % (A) 7.2 %; MCH 34.4 pg (27.0-32.0); MCHC 32.1 g/dL (32.0-37.0); Monocytes # (A) 1.89 10*3/uL (0.20-1.00); Monocytes % (A) 15.1 %; Neutrophils # (A) 9.46 10*3/uL (1.80-7.70); Neutrophils % (A) 75.9 %; Platelet Count 279 10*3/uL (140-440); RBC 2.82 10*6/uL (4.40-5.60); RDW 14.8 % (11.5-14.5); WBC 12.48 10*3/uL (4.50-10.00)
[2024-09-21 06:07] LABS: African American GFR (CKD) >90 (>60 ml/min/1.73 sqM); Anion Gap 5 mmol/L; Blood Urea Nitrogen 30 mg/dL (9-20); Calcium 8.4 mg/dL (8.4-10.2); Carbon Dioxide 37 mmol/L (22-30); Chloride 93 mmol/L (98-107); Glucose 93 mg/dL (74-99); Magnesium 1.8 mg/dL (1.6-2.3); Non-African American GFR(CKD) >90 (>60 ml/min/1.73 sqM); Potassium 4.4 mmol/L (3.5-5.1); Sodium 135 mmol/L (137-145)
[2024-09-21 06:11] LABS: HGB 9.7 g/dL (13.0-17.0)
[2024-09-21 06:12] LABS: MCV 107.1 fL (80.0-97.0)
[2024-09-21] MEDS ORDERED: Magnesium Replacement Protocol 1 EACH MISC MISCELLANE PRN (06:14)
[2024-09-21] MEDS: MAGNESIUM SULFATE-D5W PMX 1 GM in DEXTROSE/WATER 1 100ML.BAG IVPB ONE (06:44)
--- NOTE | 2024-09-21 08:02 | XR ---
EXAMINATION TYPE: XR chest 1V portable DATE OF EXAM: 09/21/2024 4:54 AM COMPARISON: Multiple radiographs, with the most recent on 09/20/2024 TECHNIQUE: XR chest 1V portable Portable AP radiograph of the chest. CLINICAL INDICATION:Male, 63 years old with history of extubated to BIPAP; f/u Pneumonia; FINDINGS: Lungs/Pleura: No pneumothorax. Small bilateral pleural effusions. Similar patchy perihilar airspace o pacities redemonstrated. Heart/mediastinum: Cardiomediastinal silhouette is enlarged and stable. Musculoskeletal: No acute osseous pathology. Marked dextroscoliotic curvature of the thoracic spine. Other findings: None Lines/Tubes: Interval removal of endotracheal and enteric tubes. Stable right IJ central venous catheter with dist al tip in the region of right atrium. IMPRESSION: 1. Interval removal of endotracheal and enteric tubes. Stable right central venous catheter. 2. Cardiomegaly with small bilateral pleural effusions. Similar bilateral perihilar airspace opacitie s which may represent pulmonary edema versus infiltrates. [facility], , 09/21/2024 8:00 AM
[2024-09-21 09:45] LABS: ABG Base Excess 10.3 mmol/L; ABG HCO3 38 mmol/L (21-25); ABG PH 7.33 (7.35-7.45); ABG PO2 64 mmHg (83-108); ABG TCO2 41 mmol/L (19-24)
[2024-09-21 09:47] LABS: ABG PCO2 73 mmHg (35-45); Allen Test Performed? no
[2024-09-21 11:55] LABS: Glucose,Whole Blood 89 mg/dL (70-110)
--- NOTE | 2024-09-21 11:56 | P.PN ---
Subjective Progress Note Date: 09/21/24 Patient is a 63-year-old male with past medical history significant for intellectual disability, seizure disorder, hypertension, hypothyroidism, chronic hypoxemic respiratory failure. He resides at a local [facility]. Noted to be confused with increased work of breathing by staff. His SpO2 was reading 40%. EMS was called and patient was transferred to the emergency department on a nonrebreather. He was minimally responsive on arrival. ABG consistent with severe hypercapnic respiratory failure with a PaO2 of 153, pCO2 greater than 98, pH of 7.13. Previously, received 4 mg IV Versed. Patient was intubated by the ER provider. Brain CT without contrast did not show any acute intracranial hemorrhage or mass effect. There was some sinusitis and moderate fluid in the mastoid air cells bilaterally. Brain CT angio did not show any evidence of cervical internal carotid artery or vertebral artery dissection or stenosis at the carotid bifurcations. No evidence of high-grade intracranial stenosis or aneurysm. Patchy groundglass and consolidative opacities visualized in the upper lung schwartz. Chest x-ray following intubation showing the endotracheal tube terminating 2.5 cm above the ezra. Severe kyphoscoliosis. There is patchy subtle opacities bilaterally. Suspect small bilateral pleural effusions. Enteric tube likely in the duodenum. CBC: WBC count 12.4, hemoglobin 11.7, platelets 176. CMP: Sodium 140, potassium 5.3, chloride 96, serum bicarb 37, BUN 43, creatinine 0.79, glucose 125. Lactic 2.4. LFTs not elevated. Troponin less than 0.012. EKG: Sinus rhythm, rate 97 bpm, RBBB pattern. Patient currently being evaluated in the intensive care unit. Remains intubated to the mechanical ventilator. Current ventilator settings assist-control, respiratory rate 20, tidal volume 450, FiO2 70%, PEEP of 5. Previous ventilator settings were appropriately adjusted following a recent follow-up ABG with a PaO2 of 187, PCO2 of 31, pH of 7.6. This was done on FiO2 100%. Respiratory rate has since been adjusted and FiO2 is being titrated appropriately. He is sedated on propofol which is infusing at 45 mcg/kg/min as well as fentanyl infusing at 0.5 mcg/kg/h. Currently synchronous with ventilator settings. Peak pressures around 26. Lactated Ringer's also infusing at 130 mL/h. Indwelling urinary catheter with urine output of greater than 100 mL/h. Blood pressure has been normotensive. Previously, patient was hypothermic with a temperature as low as 93.9 F, and was on a external warming blanket. Now normothermic. Continues with empiric antibiotics. Patient has a legal power of employee benefits attorney. Current CODE STATUS is full. 09/14/2024 Patient seen and examined at the bedside. Patient continue be sedated and mechanically ventilated. Currently patient is sedated with fentanyl at 0.5 mcg/kg/min and propofol at 30 mcg/kg/min. Patient is on volume assist-control with setting of respiratory of 16, tidal volume of 400, FiO2 of 40% and PEEP of 5. Arterial blood gas today shows pH of 7.45, pCO2 43, PaO2 132, bicarb 29. FiO2 is decreased to 35%. Chest x-ray this morning shows cardiomegaly with small bilateral pleural effusions. Urine output is good. Patient is also on lactated Ringer's running at 130 cc/h and Levophed at 0.03 mcg/kg/h. Patient is continued to be on vancomycin, azithromycin and Rocephin for empiric coverage for multifocal pneumonia. Prolactin is 0.11. Lab work from today shows WBC 6.63, hemoglobin 8.9, platelet count 162, sodium 139, potassium 4.1, chloride 106, bicarb 27, BUN 17, creatinine 0.56, glucose 141, calcium 8.3. He is cur rently on vital HP tube feeds running at 30 cc/h with a goal of 50. 09/15/2024 Patient seen and examined at the bedside. Patient continued to be sedated and mechanically ventilated. Patient is currently on fentanyl at 0.05 mcg/kg/min and propofol at 25 mcg/kg/min. Patient is on volume assist-control with a settings of respiratory rate of 16, tidal volume of 400, FiO2 of 30%, PEEP of 5.0. ABG shows pH of 7.44, pCO2 45, PO2 of 70, HCO3 of 30. Chest x-ray done today shows cardiomegaly with small bilateral pleural effusions. Urine output is good. Patient is on lactated ringer Ringer's at 75 cc/h. He is getting tube feeds with vital HP at 55 which is at goal. Patient has been restarted on azithromycin and Rocephin for positive sputum culture which shows H. influenzae growth. Lab work from today shows WBC 6.08, hemoglobin 8.5, platelet count 159, sodium 137, potassium 3.6, chloride 107, bicarb 31, BUN 15, creatinine 0.57, glucose 114, calcium 7.9. TSH 19.7, free T41.26, cortisol 11.2. Iron 16, TIBC 136, percent saturation 11.76, transferrin 97, ferritin 446.0. Progress note dated September 16, 2024. 63-year-old male seen today in room 254. He remains on the mechanical ventilat or. He is on volume assist-control, rate 16, tidal volume 400, FiO2 30%, PEEP of 5. Blood gases show PO2 77, pCO2 of 42, pH is 7.47. The patient is currently on propofol at 25 mcg/kg/min, lactated Ringer's at 75 cc an hour, saline at 20 cc an hour. The patient is also getting vital high-protein at 52 cc an hour which is goal. Sputum was positive for Haemophilus influenzae. The patient continues on Rocephin. White count is 5.17, hemoglobin 7.8, hematocrit 23.8, platelet count is 159,000. Sodium 137, potassium 3.9, chloride 104, CO2 30, BUN 17, creatinine 0.54. Calcium is 7.8. Chest x-ray shows the endotracheal tube 2.4 cm above the ezra. The patient has diffuse bilateral opacities. Progress note dated September 17, 2024. 63-year-old male seen today in room 254. The patient remains on the mechanical ventilator, with settings of volume assist-control, rate 16, tidal volume 400, FiO2 30%, PEEP of 5. Blood gases show pO2 of 83, pCO2 of 44, and a pH of 7.44. He is on propofol at 35 mcg/kg/min, LR at 75 cc an hour, saline at 20 cc an hour, and vital high-protein at 52 cc an hour, which is goal. He continues on Rocephin for the Haemophilus influenzae that was in his sputum. Today the patient will have a daily interruption of sedation. I do not suspect he is ready for weaning and extubation. Current white count 4.8, hemoglobin 7.9, hematocrit 23.8, platelet count 192,000. Sodium 139, potassium 4, chlorides 106, CO2 32, BUN 19, creatinine 0.49. Glucose is 122. Calcium 8. Chest x-ray is largely unchanged. 09/18/2024, the patient remains intubated on the mechanical ventilator. This morning, the patient on a propofol of 35 mcg/kg/min. The patient also on lactat ed Ringer at 75 cc an hour. He remains on assist-control mode of mechanical ventilation at rate of 16, tidal volume of 400, FiO2 30% with a PEEP of 5. Blood gas showed pH of 7.44 with PCO2 of 44 and PO2 of 70. Chest x-ray from today shows severe kyphosis of the chest and kyphoscoliosis. The consolidation involving the right lung is improved. There are some residual left perihilar infiltrates. The patient was diagnosed and treated for Moraxella pneumonia and the patient is currently off antibiotics. Hemodynamically stable. He was intubated on 05/16/2025. He was initially treated with a combination of cefepime, Zithromax and vancomycin and later on switched to Zithromax and Rocephin and currently is off antibiotics. He continues to receive vital high- protein at rate of 52 cc an hour. Blood work from today shows a white cell count of 4.8, hemoglobin of 8.4 and platelet count of 233. Sodium level is at 138, BUN is 20 with a creatinine of 0.5. Otherwise, no other significant ev ents. He is arousable. Does not communicate. He is on antiepileptics including Tegretol and valproic acid. He is on heparin subcu for DVT prophylaxis. He remains on Synthroid. He is also on Keppra. On 09/20/2024, the patient is being seen for a follow-up. This morning, the patient remains sedated on propofol running at 30 mcg/kg/min. The patient remains on n lactated Ringer at rate of 75 cc an hour. At the same time, the patient remains intubated on mechanical ventilator. He remains on assist- control mode at rate of 60, tidal volume of 400, FiO2 30% with a PEEP of 5. Blood gas showed a pH of 7.43 with a [id number] and PO2 of 73. Chest x-ray findings are essentially suboptimal due to his skeletal deformities and kyphoscoliosis of the chest. The patient continues to have perihilar pulmonary infiltration and possibly some small bilateral pleural effusions. Orotracheal tube is in a good location. Meanwhile, the patient is receiving enteral feeding for nutritional support and the patient is on vital high-protein at rate of 52 cc an hour. The white cell count is 5.5 with a hemoglobin 8.5 and a platelet count of 240. Sodium is at 139, BUN is 20 with a creatinine of 0.45 and a potassium levels of 4.1. Blood sugars at 89. The patient is currently off antibiotics. Antiepile ptic medications are essentially unchanged. I performed a bedside bronchoscopy on this patient. Respiratory secretions were scant. Due to his severe kyphoscoliosis of the chest, there was some atelectatic changes at various segments of the lower lobes bilaterally. There was also atelectatic changes of the various segments of the right upper lobe. Nevertheless, no significant or secretions. No significant mucous retention. No mucous plugs. No endobronchial abnormalities. On 09/20/2024, the patient is being seen for a follow-up. I had a meeting with her public guardian. The message was given from the public guardian's date she does not want a comfort measures yet and she is interested in considering extubation or at least giving the patient a trial of extubation. The patient meanwhile remains on sedation. This morning, he remains on propofol running at 50 mcg/kg/min. Respiratory secretions are loose. Bronchoscopy was done yesterday. The follow-up cultures are still pending for now. Meanwhile, he is on assist-control rate of 16, tidal volume of 400, FiO2 30% with a PEEP of 5. No significant events or hemodynamic instability. Blood gas showed a pH of 7.46 with a HAR406 and pO2 72. Fluid balance is -915 cc over the past 24 hours. Remains at lactated Ringer at a rate of 75 cc an hour and is also on vital HP at rate of 52. The white cell count 7.5, hemoglobin 8.2 and a platelet count of 258. Sodium is 136, BUN 25 with a creatinine 0.59. Potassium level is at 3.8. No pressors for now. No antibiotic coverage the patient completed the course of antibiotics. No seizure activity. Arousable off sedation. Extremely hard of hearing. On 09/21/2024, the patient remains extubated. Noted the patient was extubated on 09/20/2024 and the patient was placed on a BiPAP postextubation. This morning, he is on a BiPAP pressure of 16 over 5 cm of water with an FiO2 100%. Unable to wean down FiO2 any further due to development of hypoxemia. The patient is able to generate a tidal volume of 350 with a respiratory rate of 26 and a minute ventilation of 9 L/min. Chest x-ray is showing severe kyphoscoliosis of the chest, there is cardiomegaly and bilateral pleural effusions and pulm vessel congestion and perihilar airspace opacities. The patient is currently on Lasix 20 mg IV push every 12 hours. The patient is -3.3 L over the past 24 hours and the patient is producing excellent urine output. No signs of any significant respiratory distress, nevertheless, he seems to be BiPAP dependent. The white cell count of 12.4 with hemoglobin 9.7 and platelet count 279. BUN 30 with a creatinine of 0.6 and a sodium levels at 135 and a potassium level is at 4.4. Serum bicarb is at 37. No antibiotic coverage as the patient completed his antibiotic course. IV fluids are currently at KVO and the patient remains on Lasix 20 mg IV push every 12 hours. Arousable. Very hard of hearing. Unable to communicate at this point. Discussed the case again with the legal guardian and his CODE STATUS switched to DNR/DNI. Objective - Vital Signs Vital signs: Vital Signs Temp 97.7 F 09/21/24 08:00 Pulse 108 H 09/21/24 11:51 Resp 15 09/21/24 11:00 BP 99/61 09/21/24 11:00 Pulse Ox 100 09/21/24 11:00 FiO2 100 09/21/24 11:37 Intake & Output 09/20/24 09/21/24 09/21/24 18:59 06:59 18:59 Intake Total 1099.167 309 52 Output Total 2185 2610 745 Balance -1085.833 -2301 -693 Intake: IV 471 259 52 .9 KVO 120 130 40 Lactated Ringers 1,000 ml 315 90 @ 10 mls/hr IV .Q24H AG Rx#:[id number] a line 36 39 12 Intake, IV Titration 18.167 50 Amount Valproate Sodium 750 mg 50 In Sodium Chloride 0.9% 50 ml @ 50 mls/hr IVPB Q12HR AG Rx#:[id number] propofoL 1,000 mg In 18.167 Empty Bag 1 bag @ 15 MCG/ KG/MIN 7.348 mls/hr IV . [id number] [facility] Rx#:[id number] Tube Feeding 520 Other 90 Output: Urine 2185 2610 745 Stool 0 Other: Voiding Method Indwelling Catheter Indwelling Catheter Indwelling Catheter ABP, PAP, CO, CI - Last Documented Arterial Blood Pressure 114/52 - Exam No acute distress, extubated and the patient is currently on a BiPAP at a pressure of 16 over 5 cm of water with an FiO2 of 100%. Sitting up in bed. Has significant thoracolumbar kyphoscoliosis. HEENT examination is grossly unremarkable. Neck supple. Full range of motion. No adenopathy thyromegaly or neck vein distention. Cardiovascular examination reveals regular rhythm rate. S1-S2 normal. No S3 or S4. No discernible murmur noted. Lungs reveal bilateral coarse rhonchi. No wheezes. No crackles. Breath sounds equal bilaterally. The patient has significant kyphoscoliosis of the thoracic spine and scattered rhonchi heard bilaterally. Crackles in the lung bases. Diminished breath sounds in left lung base. Abdominal exam revealed normal bowel sounds. The abdomen was soft, non-tender, and without masses, organomegaly, or appreciable enlargement of the abdominal aorta. Extremities are intact. No cyanosis clubbing there is +1 edema in all 4 extremities involving the upper and lower extremities. Skin is without rash or lesion. Neurologic examination cannot be evaluated as the patient is unable to communicate. Opens eyes spontaneously. Withdraws to painful stimulation. - Labs CBC & Chem 7: 09/21/24 05:45 09/21/24 05:45 Labs: Abnormal Lab Results - Last 24 Hours (Table) 09/20/24 09/20/24 09/21/24 Range/Units 16:18 23:35 05:45 WBC 12.48 H (4.50-10.00) 10*3/uL RBC 2.82 L (4.40-5.60) 10*6/uL Hgb 9.7 L D (13.0-17.0) g/dL Hct 30.2 L (39.6-50.0) % MCV 107.1 H (80.0-97.0) fL MCH 34.4 H (27.0-32.0) pg MPV 9.0 L (9.5-12.2) fL Immature Gran # 0.08 H (0.00-0.04) 10*3/uL Neutrophils # 9.46 H (1.80-7.70) 10*3/uL Monocytes # 1.89 H (0.20-1.00) 10*3/uL ABG pH 7.46 H (7.35-7.45) ABG pCO2 48 H (35-45) mmHg ABG pO2 76 L (83-108) mmHg ABG HCO3 34 H (21-25) mmol/L ABG Total CO2 36 H (19-24) mmol/L ABG O2 Saturation (94-97) % Hemoglobin 9.3 L (13.0-17.5) gm/dL Sodium (137-145) mmol/L Chloride (98-107) mmol/L Carbon Dioxide (22-30) mmol/L BUN (9-20) mg/dL Creatinine (0.66-1.25) mg/dL POC Glucose (mg/dL) 121 H (70-110) mg/dL 09/21/24 09/21/24 Range/Units 05:45 09:43 WBC (4.50-10.00) 10*3/uL RBC (4.40-5.60) 10*6/uL Hgb (13.0-17.0) g/dL Hct (39.6-50.0) % MCV (80.0-97.0) fL MCH (27.0-32.0) pg MPV (9.5-12.2) fL Immature Gran # (0.00-0.04) 10*3/uL Neutrophils # (1.80-7.70) 10*3/uL Monocytes # (0.20-1.00) 10*3/uL ABG pH 7.33 L (7.35-7.45) ABG pCO2 73 H* (35-45) mmHg ABG pO2 64 L (83-108) mmHg ABG HCO3 38 H (21-25) mmol/L ABG Total CO2 41 H (19-24) mmol/L ABG O2 Saturation 91.0 L (94-97) % Hemoglobin 9.9 L (13.0-17.5) gm/dL Sodium 135 L (137-145) mmol/L Chloride 93 L (98-107) mmol/L Carbon Dioxide 37 H (22-30) mmol/L BUN 30 H (9-20) mg/dL Creatinine 0.61 L (0.66-1.25) mg/dL POC Glucose (mg/dL) (70-110) mg/dL Microbiology - Last 24 Hours (Table) 09/19/24 09:43 Gram Stain - Final Bronchoalviolar Lavage - Right Bronchial Washings Culture - Final Assessment and Plan Plan: Acute hypoxemic and hypercapnic respiratory failure, secondary to bacterial pneumonia. Sputum culture was positive for haemophilus influenza, treated with IV antibiotics and the patient completed the course of antibiotics. The patient was extubated to a BiPAP on 09/20/2024 and the patient currently is on a BiPAP pressure of 16 over 5 cm of water on FiO2 of 100%. Chest x-ray showing small bilateral pleural effusion, pulm vessel congestion, perihilar opacities and the patient is currently being diuresed with IV Lasix. Multifocal pneumonia, secondary to Haemophilus influenzae, treated with subsequent improvement of chest x-ray findings, improved, the patient is currently hemodynamically stable. Acute leukocytosis, secondary to infection, improved Hypothermia, resolved. Altered mental status, secondary to encephalopathy, and sepsis. This morning, the patient is sedated. He does have developmental delay and intellectual disability in addition to his history of seizure disorder. Currently free of any seizures. History of intellectual disability. History of seizure disorder. Maintained on Keppra, valproate and Depakote. Severe kyphoscoliosis. Blind right eye. History of hypertension. History of hypothyroidism. Plan Continue BiPAP for respiratory support, no change in settings Continue IV Lasix Fluid balance is negative Keep the patient n.p.o. Close monitoring of the respiratory status CODE STATUS has been switched to DNR/DNI per guardian's wishes Will change IV fluids to KVO Lasix 20 mg IV every 12 hours Chest x-ray findings are unchanged, suboptimal chest x-ray due to body habitus The patient completed antibiotic course Continue antiepileptic medications No seizure activity for now Hemodynamically stable Continue supportive care and will continue to follow. Critical care evaluation 35 minutes. Time with Patient: Greater than 30
--- NOTE | 2024-09-21 14:43 | P.PN ---
Subjective Progress Note Date: 09/21/24 I am following up with the patient and according to the nurse yesterday and I time I was paged since the patient was extubated but is unable to swallow and is not getting the Tegretol therefore I increased the Keppra. Today it does not seem that the patient had any seizure overnight or today. Objective - Vital Signs Vital signs: Vital Signs Temp 98.1 F 09/21/24 12:00 Pulse 112 H 09/21/24 14:00 Resp 19 09/21/24 14:00 BP 108/65 09/21/24 14:00 Pulse Ox 92 L 09/21/24 14:00 FiO2 100 09/21/24 12:00 Intake & Output 09/20/24 09/21/24 09/21/24 18:59 06:59 18:59 Intake Total 1099.167 309 91 Output Total 2185 2610 1030 Balance -1085.833 -2301 -939 Weight 68.4 kg Intake: IV 471 259 91 .9 KVO 120 130 70 Lactated Ringers 1,000 ml 315 90 @ 10 mls/hr IV .Q24H [facility] Rx#:[id number] a line 36 39 21 Intake, IV Titration 18.167 50 Amount Valproate Sodium 750 mg 50 In Sodium Chloride 0.9% 50 ml @ 50 mls/hr IVPB Q12HR [facility] Rx#:[id number] propofoL 1,000 mg In 18.167 Empty Bag 1 bag @ 15 MCG/ KG/MIN 7.348 mls/hr IV . [id number] [facility] Rx#:[id number] Tube Feeding 520 Other 90 Output: Urine 2185 2610 1030 Stool 0 Other: Voiding Method Indwelling Catheter Indwelling Catheter Indwelling Catheter ABP, PAP, CO, CI - Last Documented Arterial Blood Pressure 125/54 - Exam General: Lying in bed and does not appear in acute distress. Lung:Is on BiPAP. Neuro: Drowsy but is awake able to voice. He opens his eyes and tracks. Otherwise examination is very limited - Labs CBC & Chem 7: 09/21/24 05:45 09/21/24 05:45 Labs: Abnormal Lab Results - Last 24 Hours (Table) 09/20/24 09/20/24 09/21/24 Range/Units 16:18 23:35 05:45 WBC 12.48 H (4.50-10.00) 10*3/uL RBC 2.82 L (4.40-5.60) 10*6/uL Hgb 9.7 L D (13.0-17.0) g/dL Hct 30.2 L (39.6-50.0) % MCV 107.1 H (80.0-97.0) fL MCH 34.4 H (27.0-32.0) pg MPV 9.0 L (9.5-12.2) fL Immature Gran # 0.08 H (0.00-0.04) 10*3/uL Neutrophils # 9.46 H (1.80-7.70) 10*3/uL Monocytes # 1.89 H (0.20-1.00) 10*3/uL ABG pH 7.46 H (7.35-7.45) ABG pCO2 48 H (35-45) mmHg ABG pO2 76 L (83-108) mmHg ABG HCO3 34 H (21-25) mmol/L ABG Total CO2 36 H (19-24) mmol/L ABG O2 Saturation (94-97) % Hemoglobin 9.3 L (13.0-17.5) gm/dL Sodium (137-145) mmol/L Chloride (98-107) mmol/L Carbon Dioxide (22-30) mmol/L BUN (9-20) mg/dL Creatinine (0.66-1.25) mg/dL POC Glucose (mg/dL) 121 H (70-110) mg/dL 09/21/24 09/21/24 Range/Units 05:45 09:43 WBC (4.50-10.00) 10*3/uL RBC (4.40-5.60) 10*6/uL Hgb (13.0-17.0) g/dL Hct (39.6-50.0) % MCV (80.0-97.0) fL MCH (27.0-32.0) pg MPV (9.5-12.2) fL Immature Gran # (0.00-0.04) 10*3/uL Neutrophils # (1.80-7.70) 10*3/uL Monocytes # (0.20-1.00) 10*3/uL ABG pH 7.33 L (7.35-7.45) ABG pCO2 73 H* (35-45) mmHg ABG pO2 64 L (83-108) mmHg ABG HCO3 38 H (21-25) mmol/L ABG Total CO2 41 H (19-24) mmol/L ABG O2 Saturation 91.0 L (94-97) % Hemoglobin 9.9 L (13.0-17.5) gm/dL Sodium 135 L (137-145) mmol/L Chloride 93 L (98-107) mmol/L Carbon Dioxide 37 H (22-30) mmol/L BUN 30 H (9-20) mg/dL Creatinine 0.61 L (0.66-1.25) mg/dL POC Glucose (mg/dL) (70-110) mg/dL Microbiology - Last 24 Hours (Table) 09/19/24 09:43 Gram Stain - Final Bronchoalviolar Lavage - Right Bronchial Washings Culture - Final Assessment and Plan Assessment: * Altered mental status, likely due to metabolic encephalopathy. * Acute hypoxic, hypercapnic respiratory failure, status post intubation and extubated on 09/20/2024. Is currently on BiPAP. * Severe kyphoscoliosis * Multifocal pneumonia, healthcare associated with sepsis * Hypothermia, due to above * History of intellectual disability * History of seizure disorder * Right eye blindness * Hypertension * Hypothyroidism * [facility] resident Plan: * Patient is unable to swallow therefore is not getting Tegretol during this hospital visit therefore I increased the Keppra to 1 g twice daily. His rest of his home seizure medication is same. * EEG was performed, which was abnormal due to background slowing of moderate degree, suggestive of generalized cerebral dysfunction as can be seen with toxic metabolic encephalopathy related to diffuse structural brain abnormality or medication effect. No epileptiform activity was seen. * Tegretol 3.8(4-12), Depakote 37 and Keppra level 32.3(3-60). Ammonia 16. * Patient currently on azithromycin and ceftriaxone. Patient is off vancomycin. * Other medical management as per IM and critical care. The plan is discussed with the nurse. Will follow-up with patient sporadically. Time with Patient: Less than 30
[2024-09-21] MEDS: FUROSEMIDE 10 MG/ML 2 ML VIAL IV ONE (16:51)
[2024-09-21 18:04] LABS: Glucose,Whole Blood 100 mg/dL (70-110)
--- NOTE | 2024-09-21 20:58 | P.PN ---
Subjective Patient is a 63-year-old male with a known history of mentally challenged, seizure disorder, asthma, hypertension, hypothyroidism and chronic hypoxemic respiratory failure who is currently at [facility]. Patient was sent to hospital due to worsening shortness of breath and altered mental status and was also hypoxic with pulse ox 40% when he presented to ER. Patient was placed on nonrebreather and was minimally responsive on arrival to ER. Patient had ABGs was done showed PaO2 153. pCO2 98 and also pH 7.13 patient was intubated in the ER. Patient was also sedated with propofol and fentanyl. CT head showed no acute bleed or mass effect. Sinusitis and mastoiditis as described above. CT angiogram of the head and neck showed no evidence of dissection of the cervical internal carotid arteries or vertebral arteries. Patchy groundglass and consolidative opacities in partially visualized upper lungs suspicious for multifocal pneumonia Chest x-ray showed endotracheal tube terminates 2.5 cm above ezra. Enteric tube distal sidehole overlies the expected gastric lumen. Small bilateral pleural effusions and subtle patchy opacities in the upper lobes which could reflect infectious etiology. EKG showed sinus rhythm with right bundle branch block. Laboratory data on admission showed WBC 12.3 hemoglobin 11.7 and platelets 176 and MCV 112 sodium 140 potassium 5.3 chloride 96 bicarb is 37 BUN 43 and creatinine 0.79 and blood sugar 125 and calcium 8.6 liver enzymes are not elevated troponin x 1 negative and procalcitonin level is 0.11 Patient is also hypothermic requiring Roly hugger. Influenza A BRAC COVID-19 and Legionella urine antigen negative. 09/14/2024 Patient is currently in the MICU. On sedation holiday. Was able to tolerate pressure support for short duration this morning currently back to [facility]- control.. ABG showed pH 7.4 [id number] and PO2 132 Other laboratory data showed WBC 6.6 hemoglobin 8.9 and MCV 104.6 and platelets 168. BUN 17 and creatinine 0.56. Chest x-ray showed cardiomegaly with small bilateral pleural effusions. Patient is on IV hydration with Ringer's lactate at 130 cc/h and also requiring pressure support with Levophed. Continue with antibiotics for multifocal pneumonia. Procalcitonin level is not elevated at 0.11. 09/15/2024 Patient is in the MICU. Intubated and on mechanical ventilator. Patient is back on sedation with propofol and is also on fentanyl drip. Currently on assist-control with respiratory rate 16, tidal volume 400 FiO2 30% and PEEP of 5. Chest x-ray showed cardiomegaly and small bilateral pleural effusions. Continued on IV hydration with Ringer's lactate at 75 cc/h. Patient is being continued on antibiotics in the form of ceftriaxone. Sputum culture showed haemophilus influenza. Laboratory showed WBC 6.0 hemoglobin 8.5 and platelets 159 sodium 137 potassium 3.6 chloride 107 bicarb is 31 BUN 51 creatinine 0.57 blood sugar 114 and calcium 7.9. 09/16/2024 Patient is in the MICU. Remains on mechanical ventilator. Sedated with propofol drip. Continues on IV hydration with Ringer's lactate at 75 cc/h. Patient was also started on NG tube feeding. Continued on antibiotics in the form of ceftriaxone. Sputum culture is growing haemophilus influenza. Lab data showed WBC 5.1 hemoglobin 7.8 and platelets 159, sodium 137 potassium 3.9 chloride 104 bicarb is 30 BUN 17 and creatinine 0.54 and blood sugar 101 and calcium 7.8. 09/17/2024 Patient is in the MICU. Currently intubated on mechanical ventilator. Patient did have daily sedation holiday today and was placed back on ProForma. Not on pressor support. Continued on antibiotics in the form of ceftriaxone. Sputum cultures growing haemophilus influenza. Patient is on IV hydration with Ringer's lactate at 75 cc/h. On tube feeding via NG tube. Chest x-ray showed ET tube 2.7 cm above ezra. No change in acute pulmonary process. Laboratory data showed WBC 4.8 hemoglobin 7.9 and platelets 192 sodium 139 potassium 4.0 chloride 106 bicarb is 32, BUN 19 and creatinine 0.49 and blood sugar 103 and calcium 8.0. 09/18/2024 Patient is in the MICU. Remains on mechanical ventilator. Patient is also sedated with propofol. Blood gas showed pH 7.44 [id number], PO270. Chest x-ray showed no acute cardiopulmonary process. Currently off antibiotics. Patient has been afebrile. Laboratory data showed WBC 4.8 hemoglobin 8.4 and platelets 233 sodium 138 potassium 3.8 chloride 106 bicarb is 28 BUN 20) 0.56 and blood sugar 94 and calcium 7.8. Patient is being continued DuoNebs, IV hydration with Ringer's lactate at 75 cc/h. Patient is also on valproic acid and Keppra. Neurology and pulmonary is on board. 09/19/2024 Patient is on mechanical ventilator and on sedation with propofol. IV hydration with Ringer's lactate at 75 cc out. Currently on assist-control with tidal volume 400 respiratory rate 16, FiO2 30% and PEEP of 5. Chest x-ray showed suboptimal due to skeletal deformities and kyphoscoliosis of the chest. Not on pressor support. Tolerating orogastric tube feeding. Currently patient is off antibiotics. Patient underwent bedside bronchoscopy by critical care team. Laboratory data showed WBC 5.1 hemoglobin 8.5 and platelets 240 sodium 139 potassium 4.1 chloride 105 bicarb is 28 BUN 21 and creatinine 0.45 blood sugar 103 magnesium 2.0. 09/20 I am resuming the care of the patient today Remains in the ICU intubated and sedated with pulmonary/renal care team helping with vent management He is s/p bronchoscopy yesterday He has a lot of secretion and scopolamine patch was added today As per staff public guardian are considering comfort care measures and they are going for a court order as patient has developmental delay throughout his life. 09/21 Patient is status post extubation. He started looking mildly tachypneic but tachycardic He remains on BiPAP with the setting of 15/ with FiO2 of 100% Carrillo catheter in place Patient remains patient was made DNR/DNI per public guardian Objective - Vital Signs Vital signs: Vital Signs Temp 97.7 F 09/21/24 08:00 Pulse 108 H 09/21/24 11:51 Resp 15 09/21/24 11:00 BP 99/61 09/21/24 11:00 Pulse Ox 100 09/21/24 11:00 FiO2 100 09/21/24 11:37 Intake & Output 09/20/24 09/21/24 09/21/24 18:59 06:59 18:59 Intake Total 1099.167 309 52 Output Total 2420 2270 745 Balance -7025.833 -2301 -693 Weight 68.4 kg Intake: IV 471 259 52 .9 KVO 120 130 40 Lactated Ringers 1,000 ml 315 90 @ 10 mls/hr IV .Q24H [facility] Rx#:[id number] a line 36 39 12 Intake, IV Titration 18.167 50 Amount Valproate Sodium 750 mg 50 In Sodium Chloride 0.9% 50 ml @ 50 mls/hr IVPB Q12HR [facility] Rx#:[id number] propofoL 1,000 mg In 18.167 Empty Bag 1 bag @ 15 MCG/ KG/MIN 7.348 mls/hr IV . [id number] AG Rx#:[id number] Tube Feeding 520 Other 90 Output: Urine 2185 2610 745 Stool 0 Other: Voiding Method Indwelling Catheter Indwelling Catheter Indwelling Catheter ABP, PAP, CO, CI - Last Documented Arterial Blood Pressure 114/52 - Exam -GENERAL: The patient is awake, looks in respiratory distress, generally weak on BiPAP HEENT: Pupils are round and equally reacting to light. EOMI. No scleral icterus. No conjunctival pallor. Normocephalic, atraumatic. No pharyngeal erythema. No thyromegaly. CARDIOVASCULAR: S1 and S2 present. No murmurs, rubs, or gallops. PULMONARY: Chest is clear to auscultation, no wheezing , no crackles. ABDOMEN: Soft, nontender, nondistended, normoactive bowel sounds. No palpable organomegaly. MUSCULOSKELETAL: No joint swelling or deformity. EXTREMITIES: No cyanosis, clubbing, or pedal edema. NEUROLOGICAL: Gross neurological examination did not reveal any focal deficits. SKIN: No rashes. no petechiae. - Labs CBC & Chem 7: 09/21/24 05:45 09/21/24 05:45 Labs: Abnormal Lab Results - Last 24 Hours (Table) 09/20/24 09/20/24 09/21/24 Range/Units 16:18 23:35 05:45 WBC 12.48 H (4.50-10.00) 10*3/uL RBC 2.82 L (4.40-5.60) 10*6/uL Hgb 9.7 L D (13.0-17.0) g/dL Hct 30.2 L (39.6-50.0) % MCV 107.1 H (80.0-97.0) fL MCH 34.4 H (27.0-32.0) pg MPV 9.0 L (9.5-12.2) fL Immature Gran # 0.08 H (0.00-0.04) 10*3/uL Neutrophils # 9.46 H (1.80-7.70) 10*3/uL Monocytes # 1.89 H (0.20-1.00) 10*3/uL ABG pH 7.46 H (7.35-7.45) ABG pCO2 48 H (35-45) mmHg ABG pO2 76 L (83-108) mmHg ABG HCO3 34 H (21-25) mmol/L ABG Total CO2 36 H (19-24) mmol/L ABG O2 Saturation (94-97) % Hemoglobin 9.3 L (13.0-17.5) gm/dL Sodium (137-145) mmol/L Chloride (98-107) mmol/L Carbon Dioxide (22-30) mmol/L BUN (9-20) mg/dL Creatinine (0.66-1.25) mg/dL POC Glucose (mg/dL) 121 H (70-110) mg/dL 09/21/24 09/21/24 Range/Units 05:45 09:43 WBC (4.50-10.00) 10*3/uL RBC (4.40-5.60) 10*6/uL Hgb (13.0-17.0) g/dL Hct (39.6-50.0) % MCV (80.0-97.0) fL MCH (27.0-32.0) pg MPV (9.5-12.2) fL Immature Gran # (0.00-0.04) 10*3/uL Neutrophils # (1.80-7.70) 10*3/uL Monocytes # (0.20-1.00) 10*3/uL ABG pH 7.33 L (7.35-7.45) ABG pCO2 73 H* (35-45) mmHg ABG pO2 64 L (83-108) mmHg ABG HCO3 38 H (21-25) mmol/L ABG Total CO2 41 H (19-24) mmol/L ABG O2 Saturation 91.0 L (94-97) % Hemoglobin 9.9 L (13.0-17.5) gm/dL Sodium 135 L (137-145) mmol/L Chloride 93 L (98-107) mmol/L Carbon Dioxide 37 H (22-30) mmol/L BUN 30 H (9-20) mg/dL Creatinine 0.61 L (0.66-1.25) mg/dL POC Glucose (mg/dL) (70-110) mg/dL Microbiology - Last 24 Hours (Table) 09/19/24 09:43 Gram Stain - Final Bronchoalviolar Lavage - Right Bronchial Washings Culture - Final Assessment and Plan Assessment: Acute hypoxic and hypercapnic respiratory failure requiring intubation mechanical ventilator. S/p extubation on 09/20 Multifocal pneumonia-healthcare associated. Sputum culture showed haemophilus influenza. Completed antibiotic course with ceftriaxone.. Sepsis secondary pneumonia Hypertension Hypothyroidism Hypothermia Altered mental status secondary to metabolic encephalopathy and infection History of intellectual disability Seizure disorder Severe kyphoscoliosis Right eye blindness Medical debility currently at [facility] Plan: Continue with IV fluid Continue with seizure medication per neurologist including IV Keppra and valproate as well as Tegretol Co s/p extubation Continue with BiPAP as per pulmonary/critical care team Neurology and critical care team consult Public guardian now considering comfort care Labs and medication were reviewed.. Continue same treatment. Continue with symptomatic treatment. Resume home medication. Monitor labs and vitals. DVT and GI prophylaxis. Further recommendations as per clinical course of the patient DVT prophylaxis: Subcutaneous heparin GI Prophylaxis: Ppi Prognosis is guarded CODE STATUS switched to DNR
[2024-09-22 00:01] LABS: Glucose,Whole Blood 91 mg/dL (70-110)
[2024-09-22 04:42] LABS: Basophils # (A) 0.03 10*3/uL (0.00-0.10); Basophils % (A) 0.3 %; Eosinophils # (A) 0.03 10*3/uL (0.04-0.35); Eosinophils % (A) 0.3 %; HCT 29.4 % (39.6-50.0); HGB 9.5 g/dL (13.0-17.0); Lymphocytes # (A) 0.53 10*3/uL (0.90-5.00); Lymphocytes % (A) 4.5 %; MCH 34.2 pg (27.0-32.0); MCHC 32.3 g/dL (32.0-37.0); Mean Platelet Volume 8.9 fL (9.5-12.2); Monocytes # (A) 1.13 10*3/uL (0.20-1.00); Monocytes % (A) 9.7 %; Neutrophils # (A) 9.87 10*3/uL (1.80-7.70); Neutrophils % (A) 84.6 %; Platelet Count 302 10*3/uL (140-440); RBC 2.78 10*6/uL (4.40-5.60); RDW 14.6 % (11.5-14.5); WBC 11.66 10*3/uL (4.50-10.00)
[2024-09-22 04:49] LABS: MCV 105.8 fL (80.0-97.0)
[2024-09-22 05:04] LABS: African American GFR (CKD) >90 (>60 ml/min/1.73 sqM); Anion Gap 6 mmol/L; Blood Urea Nitrogen 32 mg/dL (9-20); Carbon Dioxide 40 mmol/L (22-30); Chloride 89 mmol/L (98-107); Glucose 85 mg/dL (74-99); Non-African American GFR(CKD) >90 (>60 ml/min/1.73 sqM); Sodium 135 mmol/L (137-145)
[2024-09-22 05:59] LABS: Glucose,Whole Blood 83 mg/dL (70-110)
[2024-09-22] MEDS: IPRATROPIUM-ALBUTEROL 3 ML NEB INHALATION SCH (08:11)
--- NOTE | 2024-09-22 08:18 | XR ---
EXAMINATION TYPE: XR chest 1V portable DATE OF EXAM: 09/22/2024 4:07 AM COMPARISON: Multiple radiographs, with the most recent on 09/21/2024 TECHNIQUE: XR chest 1V portable Portable AP radiograph of the chest. CLINICAL INDICATION:Male, 63 years old with history of extubated to BIPAP; f/u Pneumonia; FINDINGS: The patient's head obscures the right upper lung limiting evaluation. Patient is rotated wh ich limits evaluation. Lungs/Pleura: No gross evidence of pneumothorax within the limitations. Small right and moderate left pleural effusions. Bibasilar patchy airspace opacities. Elevation of the left hemidiaphragm. Heart/mediastinum: Cardiomediastinal silhouette is enlarged and stable. Musculoskeletal: No acute osseous pathology. Marked dextroscoliotic curvature of the thoracic spine. Other findings: None Lines/Tubes: Stable right IJ central venous catheter with distal tip in the region of right atrium. IMPRESSION: 1. Cardiomegaly with small right and moderate left pleural effusions. Similar bibasilar airspace opa cities within limitations. 2. Stable right central venous catheter. [facility], , 09/22/2024 8:15 AM
[2024-09-22 09:21] LABS: ABG Base Excess 13.3 mmol/L; ABG Oxygen Saturation 81.6 % (94-97); ABG PCO2 60 mmHg (35-45); ABG PH 7.43 (7.35-7.45); ABG TCO2 42 mmol/L (19-24)
[2024-09-22 09:24] LABS: ABG HCO3 40 mmol/L (21-25); ABG PO2 47 mmHg (83-108); Allen Test Performed? no
[2024-09-22] MEDS: DEXMEDETOMIDINE/0.9% NACL(PMX) 400 MCG in EMPTY BAG 1 BAG IV SCH (09:46)
--- NOTE | 2024-09-22 10:17 | P.PN ---
Subjective Progress Note Date: 09/22/24 Patient is a 63-year-old male with past medical history significant for intellectual disability, seizure disorder, hypertension, hypothyroidism, chronic hypoxemic respiratory failure. He resides at a local [facility]. Noted to be confused with increased work of breathing by staff. His SpO2 was reading 40%. EMS was called and patient was transferred to the emergency department on a nonrebreather. He was minimally responsive on arrival. ABG consistent with severe hypercapnic respiratory failure with a PaO2 of 153, pCO2 greater than 98, pH of 7.13. Previously, received 4 mg IV Versed. Patient was intubated by the ER provider. Brain CT without contrast did not show any acute intracranial hemorrhage or mass effect. There was some sinusitis and moderate fluid in the mastoid air cells bilaterally. Brain CT angio did not show any evidence of cervical internal carotid artery or vertebral artery dissection or stenosis at the carotid bifurcations. No evidence of high-grade intracranial stenosis or aneurysm. Patchy groundglass and consolidative opacities visualized in the upper lung schwartz. Chest x-ray following intubation showing the endotracheal tube terminating 2.5 cm above the ezra. Severe kyphoscoliosis. There is patchy subtle opacities bilaterally. Suspect small bilateral pleural effusions. Enteric tube likely in the duodenum. CBC: WBC count 12.4, hemoglobin 11.7, platelets 176. CMP: Sodium 140, potassium 5.3, chloride 96, serum bicarb 37, BUN 43, creatinine 0.79, glucose 125. Lactic 2.4. LFTs not elevated. Troponin less than 0.012. EKG: Sinus rhythm, rate 97 bpm, RBBB pattern. Patient currently being evaluated in the intensive care unit. Remains intubated to the mechanical ventilator. Current ventilator settings assist-control, respiratory rate 20, tidal volume 450, FiO2 70%, PEEP of 5. Previous ventilator settings were appropriately adjusted following a recent follow-up ABG with a PaO2 of 187, PCO2 of 31, pH of 7.6. This was done on FiO2 100%. Respiratory rate has since been adjusted and FiO2 is being titrated appropriately. He is sedated on propofol which is infusing at 45 mcg/kg/min as well as fentanyl infusing at 0.5 mcg/kg/h. Currently synchronous with ventilator settings. Peak pressures around 26. Lactated Ringer's also infusing at 130 mL/h. Indwelling urinary catheter with urine output of greater than 100 mL/h. Blood pressure has been normotensive. Previously, patient was hypothermic with a temperature as low as 93.9 F, and was on a external warming blanket. Now normothermic. Continues with empiric antibiotics. 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 Current CODE STATUS is full. 09/14/2024 Patient seen and examined at the bedside. Patient continue be sedated and mechanically ventilated. Currently patient is sedated with fentanyl at 0.5 mcg/kg/min and propofol at 30 mcg/kg/min. Patient is on volume assist-control with setting of respiratory of 16, tidal volume of 400, FiO2 of 40% and PEEP of 5. Arterial blood gas today shows pH of 7.45, pCO2 43, PaO2 132, bicarb 29. FiO2 is decreased to 35%. Chest x-ray this morning shows cardiomegaly with small bilateral pleural effusions. Urine output is good. Patient is also on lactated Ringer's running at 130 cc/h and Levophed at 0.03 mcg/kg/h. Patient is continued to be on vancomycin, azithromycin and Rocephin for empiric coverage for multifocal pneumonia. Prolactin is 0.11. Lab work from today shows WBC 6.63, hemoglobin 8.9, platelet count 162, sodium 139, potassium 4.1, chloride 106, bicarb 27, BUN 17, creatinine 0.56, glucose 141, calcium 8.3. He is cur rently on vital HP tube feeds running at 30 cc/h with a goal of 50. 09/15/2024 Patient seen and examined at the bedside. Patient continued to be sedated and mechanically ventilated. Patient is currently on fentanyl at 0.05 mcg/kg/min and propofol at 25 mcg/kg/min. Patient is on volume assist-control with a settings of respiratory rate of 16, tidal volume of 400, FiO2 of 30%, PEEP of 5.0. ABG shows pH of 7.44, pCO2 45, PO2 of 70, HCO3 of 30. Chest x-ray done today shows cardiomegaly with small bilateral pleural effusions. Urine output is good. Patient is on lactated ringer Ringer's at 75 cc/h. He is getting tube feeds with vital HP at 55 which is at goal. Patient has been restarted on azithromycin and Rocephin for positive sputum culture which shows H. influenzae growth. Lab work from today shows WBC 6.08, hemoglobin 8.5, platelet count 159, sodium 137, potassium 3.6, chloride 107, bicarb 31, BUN 15, creatinine 0.57, glucose 114, calcium 7.9. TSH 19.7, free T41.26, cortisol 11.2. Iron 16, TIBC 136, percent saturation 11.76, transferrin 97, ferritin 446.0. Progress note dated September 16, 2024. 63-year-old male seen today in room 254. He remains on the mechanical ventilat or. He is on volume assist-control, rate 16, tidal volume 400, FiO2 30%, PEEP of 5. Blood gases show PO2 77, pCO2 of 42, pH is 7.47. The patient is currently on propofol at 25 mcg/kg/min, lactated Ringer's at 75 cc an hour, saline at 20 cc an hour. The patient is also getting vital high-protein at 52 cc an hour which is goal. Sputum was positive for Haemophilus influenzae. The patient continues on Rocephin. White count is 5.17, hemoglobin 7.8, hematocrit 23.8, platelet count is 159,000. Sodium 137, potassium 3.9, chloride 104, CO2 30, BUN 17, creatinine 0.54. Calcium is 7.8. Chest x-ray shows the endotracheal tube 2.4 cm above the ezra. The patient has diffuse bilateral opacities. Progress note dated September 17, 2024. 63-year-old male seen today in room 254. The patient remains on the mechanical ventilator, with settings of volume assist-control, rate 16, tidal volume 400, FiO2 30%, PEEP of 5. Blood gases show pO2 of 83, pCO2 of 44, and a pH of 7.44. He is on propofol at 35 mcg/kg/min, LR at 75 cc an hour, saline at 20 cc an hour, and vital high-protein at 52 cc an hour, which is goal. He continues on Rocephin for the Haemophilus influenzae that was in his sputum. Today the patient will have a daily interruption of sedation. I do not suspect he is ready for weaning and extubation. Current white count 4.8, hemoglobin 7.9, hematocrit 23.8, platelet count 192,000. Sodium 139, potassium 4, chlorides 106, CO2 32, BUN 19, creatinine 0.49. Glucose is 122. Calcium 8. Chest x-ray is largely unchanged. 09/18/2024, the patient remains intubated on the mechanical ventilator. This morning, the patient on a propofol of 35 mcg/kg/min. The patient also on lactat ed Ringer at 75 cc an hour. He remains on assist-control mode of mechanical ventilation at rate of 16, tidal volume of 400, FiO2 30% with a PEEP of 5. Blood gas showed pH of 7.44 with PCO2 of 44 and PO2 of 70. Chest x-ray from today shows severe kyphosis of the chest and kyphoscoliosis. The consolidation involving the right lung is improved. There are some residual left perihilar infiltrates. The patient was diagnosed and treated for Moraxella pneumonia and the patient is currently off antibiotics. Hemodynamically stable. He was intubated on 05/16/2025. He was initially treated with a combination of cefepime, Zithromax and vancomycin and later on switched to Zithromax and Rocephin and currently is off antibiotics. He continues to receive vital high- protein at rate of 52 cc an hour. Blood work from today shows a white cell count of 4.8, hemoglobin of 8.4 and platelet count of 233. Sodium level is at 138, BUN is 20 with a creatinine of 0.5. Otherwise, no other significant ev ents. He is arousable. Does not communicate. He is on antiepileptics including Tegretol and valproic acid. He is on heparin subcu for DVT prophylaxis. He remains on Synthroid. He is also on Keppra. On 09/20/2024, the patient is being seen for a follow-up. This morning, the patient remains sedated on propofol running at 30 mcg/kg/min. The patient remains on n lactated Ringer at rate of 75 cc an hour. At the same time, the patient remains intubated on mechanical ventilator. He remains on assist- control mode at rate of 60, tidal volume of 400, FiO2 30% with a PEEP of 5. Blood gas showed a pH of 7.43 with a [id number] and PO2 of 73. Chest x-ray findings are essentially suboptimal due to his skeletal deformities and kyphoscoliosis of the chest. The patient continues to have perihilar pulmonary infiltration and possibly some small bilateral pleural effusions. Orotracheal tube is in a good location. Meanwhile, the patient is receiving enteral feeding for nutritional support and the patient is on vital high-protein at rate of 52 cc an hour. The white cell count is 5.5 with a hemoglobin 8.5 and a platelet count of 240. Sodium is at 139, BUN is 20 with a creatinine of 0.45 and a potassium levels of 4.1. Blood sugars at 89. The patient is currently off antibiotics. Antiepile ptic medications are essentially unchanged. I performed a bedside bronchoscopy on this patient. Respiratory secretions were scant. Due to his severe kyphoscoliosis of the chest, there was some atelectatic changes at various segments of the lower lobes bilaterally. There was also atelectatic changes of the various segments of the right upper lobe. Nevertheless, no significant or secretions. No significant mucous retention. No mucous plugs. No endobronchial abnormalities. On 09/20/2024, the patient is being seen for a follow-up. I had a meeting with her public guardian. The message was given from the public guardian's date she does not want a comfort measures yet and she is interested in considering extubation or at least giving the patient a trial of extubation. The patient meanwhile remains on sedation. This morning, he remains on propofol running at 50 mcg/kg/min. Respiratory secretions are loose. Bronchoscopy was done yesterday. The follow-up cultures are still pending for now. Meanwhile, he is on assist-control rate of 16, tidal volume of 400, FiO2 30% with a PEEP of 5. No significant events or hemodynamic instability. Blood gas showed a pH of 7.46 with a [id number] and pO2 72. Fluid balance is -915 cc over the past 24 hours. Remains at lactated Ringer at a rate of 75 cc an hour and is also on vital HP at rate of 52. The white cell count 7.5, hemoglobin 8.2 and a platelet count of 258. Sodium is 136, BUN 25 with a creatinine 0.59. Potassium level is at 3.8. No pressors for now. No antibiotic coverage the patient completed the course of antibiotics. No seizure activity. Arousable off sedation. Extremely hard of hearing. On 09/21/2024, the patient remains extubated. Noted the patient was extubated on 09/20/2024 and the patient was placed on a BiPAP postextubation. This morning, he is on a BiPAP pressure of 16 over 5 cm of water with an FiO2 100%. Unable to wean down FiO2 any further due to development of hypoxemia. The patient is able to generate a tidal volume of 350 with a respiratory rate of 26 and a minute ventilation of 9 L/min. Chest x-ray is showing severe kyphoscoliosis of the chest, there is cardiomegaly and bilateral pleural effusions and pulm vessel congestion and perihilar airspace opacities. The patient is currently on Lasix 20 mg IV push every 12 hours. The patient is -3.3 L over the past 24 hours and the patient is producing excellent urine output. No signs of any significant respiratory distress, nevertheless, he seems to be BiPAP dependent. The white cell count of 12.4 with hemoglobin 9.7 and platelet count 279. BUN 30 with a creatinine of 0.6 and a sodium levels at 135 and a potassium level is at 4.4. Serum bicarb is at 37. No antibiotic coverage as the patient completed his antibiotic course. IV fluids are currently at KVO and the patient remains on Lasix 20 mg IV push every 12 hours. Arousable. Very hard of hearing. Unable to communicate at this point. Discussed the case again with the legal guardian and his CODE STATUS switched to DNR/DNI. On 09/22/24, the patient is essentially the same , still on the BIPAP and oxygenation is worse. The FU ABG shows worsening in the hypoxemia and the patient is stillon BIPAP 15/6, 100 Fio2. He is still on IV lasix and fluid balance is negative 2.7 liters. THe CXR is unchanged. Chest x-ray is showing severe kyphoscoliosis of the chest, there is cardiomegaly and bilateral pleural effusions and pulm vessel congestion and perihilar airspace opacities. The patient is currently on Lasix 20 mg IV push every 12 hours. Labs were reviewed No antibiotic coverage as the patient completed his antibiotic course. IV fluids are currently at KVO and the patient remains on Lasix 20 mg IV push every 12 hours. Arousable. Very hard of hearing. Unable to communicate at this point. Discussed the case again with the legal guardian and his CODE STATUS switched to DNR/DNI. Objective - Vital Signs Vital signs: Vital Signs Temp 99.0 F 09/22/24 08:00 Pulse 121 H 09/22/24 09:00 Resp 34 H 09/22/24 09:00 BP 139/74 09/22/24 09:00 Pulse Ox 86 L 09/22/24 09:00 FiO2 100 09/22/24 09:00 Intake & Output 09/21/24 09/22/24 09/22/24 18:59 06:59 18:59 Intake Total 143 206 52 Output Total 1545 1540 525 Balance -1402 -6354 -473 Weight 68.4 kg Intake: IV 143 206 52 .9 KVO 110 120 40 Valproate Sodium 750 mg 50 In Sodium Chloride 0.9% 50 ml @ 50 mls/hr IVPB Q12HR [facility] Rx#:[id number] a line 33 36 12 Output: Urine 1545 1540 525 Other: Voiding Method Indwelling Catheter Indwelling Catheter ABP, PAP, CO, CI - Last Documented Arterial Blood Pressure 150/63 - Exam No acute distress, extubated and the patient is currently on a BiPAP at a pressure of 16 over 5 cm of water with an FiO2 of 100%. Sitting up in bed. Has significant thoracolumbar kyphoscoliosis. HEENT examination is grossly unremarkable. Neck supple. Full range of motion. No adenopathy thyromegaly or neck vein distention. Cardiovascular examination reveals regular rhythm rate. S1-S2 normal. No S3 or S4. No discernible murmur noted. Lungs reveal bilateral coarse rhonchi. No wheezes. No crackles. Breath sounds equal bilaterally. The patient has significant kyphoscoliosis of the thoracic spine and scattered rhonchi heard bilaterally. Crackles in the lung bases. Diminished breath sounds in left lung base. Abdominal exam revealed normal bowel sounds. The abdomen was soft, non-tender, and without masses, organomegaly, or appreciable enlargement of the abdominal aorta. Extremities are intact. No cyanosis clubbing there is +1 edema in all 4 extremities involving the upper and lower extremities. Skin is without rash or lesion. Neurologic examination cannot be evaluated as the patient is unable to communicate. Opens eyes spontaneously. Withdraws to painful stimulation. - Labs CBC & Chem 7: 09/22/24 04:10 09/22/24 04:10 Labs: Abnormal Lab Results - Last 24 Hours (Table) 09/22/24 09/22/24 09/22/24 Range/Units 04:10 04:10 09:18 WBC 11.66 H (4.50-10.00) 10*3/uL RBC 2.78 L (4.40-5.60) 10*6/uL Hgb 9.5 L (13.0-17.0) g/dL Hct 29.4 L (39.6-50.0) % MCV 105.8 H (80.0-97.0) fL MCH 34.2 H (27.0-32.0) pg MPV 8.9 L (9.5-12.2) fL Immature Gran # 0.07 H (0.00-0.04) 10*3/uL Neutrophils # 9.87 H (1.80-7.70) 10*3/uL Lymphocytes # 0.53 L (0.90-5.00) 10*3/uL Monocytes # 1.13 H (0.20-1.00) 10*3/uL Eosinophils # 0.03 L (0.04-0.35) 10*3/uL ABG pCO2 60 H (35-45) mmHg ABG pO2 47 L* (83-108) mmHg ABG HCO3 40 H* (21-25) mmol/L ABG Total CO2 42 H (19-24) mmol/L ABG O2 Saturation 81.6 L (94-97) % Hemoglobin 10.5 L (13.0-17.5) gm/dL Sodium 135 L (137-145) mmol/L Chloride 89 L (98-107) mmol/L Carbon Dioxide 40 H (22-30) mmol/L BUN 32 H (9-20) mg/dL Microbiology - Last 24 Hours (Table) 09/19/24 09:43 Gram Stain - Final Bronchoalviolar Lavage - Right Bronchial Washings Culture - Final Assessment and Plan Plan: Acute hypoxemic and hypercapnic respiratory failure, secondary to bacterial pneumonia. Sputum culture was positive for haemophilus influenza, treated with IV antibiotics and the patient completed the course of antibiotics. The patient was extubated to a BiPAP on 09/20/2024 and the patient currently is on a BiPAP pressure of 16 over 5 cm of water on FiO2 of 100%. Chest x-ray showing small bilateral pleural effusion, pulm vessel congestion, perihilar opacities and the patient is currently being diuresed with IV Lasix. negative fluid balance and he has worsening in the oxygenation, poor prognosis, no reintubation Multifocal pneumonia, secondary to Haemophilus influenzae, treated with subsequent improvement of chest x-ray findings, improved, the patient is currently hemodynamically stable. Acute leukocytosis, secondary to infection, improved Hypothermia, resolved. Altered mental status, secondary to encephalopathy, and sepsis. This morning, the patient is sedated. He does have developmental delay and intellectual disability in addition to his history of seizure disorder. Currently free of any seizures. History of intellectual disability. History of seizure disorder. Maintained on Keppra, valproate and Depakote. Severe kyphoscoliosis. Blind right eye. History of hypertension. History of hypothyroidism. Plan Continue BiPAP for respiratory support, change setting to 16/10 Continue IV Lasix Fluid balance is negative IV Diamox Start precedex Keep the patient n.p.o. Close monitoring of the respiratory status CODE STATUS has been switched to DNR/DNI per guardian's wishes Will change IV fluids to KVO Lasix 20 mg IV every 12 hours Chest x-ray findings are unchanged, suboptimal chest x-ray due to body habitus US of the chest for any effusions The patient completed antibiotic course Continue antiepileptic medications No seizure activity for now clinically decompensating and the patient has a poor prognosis Continue supportive care and will continue to follow. Critical care evaluation 35 minutes. Time with Patient: Greater than 30
--- NOTE | 2024-09-22 11:34 | US ---
EXAMINATION TYPE: US chest DATE OF EXAM: 09/22/2024 COMPARISON: Multiple chest radiograph most recent of the same date. CLINICAL INDICATION: Male, 63 years old with history of possible pleural effusion; Fluid seen on Ches t XR Left greater than right TECHNIQUE: Grayscale imaging of the chest. Targeted ultrasound of the posterior lower FINDINGS: EXAM MEASUREMENTS: Right Pleural Effusion pocket size: 0 cm Right skin surface to fluid distance: N/A cm Left Pleural Effusion pocket size: 0 cm Left skin surface to fluid distance: N/A cm Markings not left Pulmonologists are able to review the images in the patient?s EMR. IMPRESSIONS: No distinct right pleural effusion. Trace left pleural effusion. [facility], , 09/22/2024 11:32 AM
[2024-09-22 12:45] LABS: Glucose,Whole Blood 98 mg/dL (70-110)
[2024-09-22] MEDS ORDERED: VANCOMYCIN IV PER PHARMACY 1 EACH MISC MISCELLANE PRN (13:02)
[2024-09-22] MEDS: VANCOMYCIN 1,250 MG in SODIUM CHLORIDE 0.9% 250 ML IVPB ONE (13:49)
[2024-09-22] MEDS: MEROPENEM 2 GM in SODIUM CHLORIDE 0.9% 100 ML IVPB SCH (13:49)
[2024-09-22 18:06] LABS: Glucose,Whole Blood 99 mg/dL (70-110)
--- NOTE | 2024-09-22 18:44 | P.PN ---
Subjective Patient is a 63-year-old male with a known history of mentally challenged, seizure disorder, asthma, hypertension, hypothyroidism and chronic hypoxemic respiratory failure who is currently at [facility]. Patient was sent to hospital due to worsening shortness of breath and altered mental status and was also hypoxic with pulse ox 40% when he presented to ER. Patient was placed on nonrebreather and was minimally responsive on arrival to ER. Patient had ABGs was done showed PaO2 153. pCO2 98 and also pH 7.13 patient was intubated in the ER. Patient was also sedated with propofol and fentanyl. CT head showed no acute bleed or mass effect. Sinusitis and mastoiditis as described above. CT angiogram of the head and neck showed no evidence of dissection of the cervical internal carotid arteries or vertebral arteries. Patchy groundglass and consolidative opacities in partially visualized upper lungs suspicious for multifocal pneumonia Chest x-ray showed endotracheal tube terminates 2.5 cm above ezra. Enteric tube distal sidehole overlies the expected gastric lumen. Small bilateral pleural effusions and subtle patchy opacities in the upper lobes which could reflect infectious etiology. EKG showed sinus rhythm with right bundle branch block. Laboratory data on admission showed WBC 12.3 hemoglobin 11.7 and platelets 176 and MCV 112 sodium 140 potassium 5.3 chloride 96 bicarb is 37 BUN 43 and creatinine 0.79 and blood sugar 125 and calcium 8.6 liver enzymes are not elevated troponin x 1 negative and procalcitonin level is 0.11 Patient is also hypothermic requiring Roly hugger. Influenza A BRAC COVID-19 and Legionella urine antigen negative. 09/14/2024 Patient is currently in the MICU. On sedation holiday. Was able to tolerate pressure support for short duration this morning currently back to [facility]- control.. ABG showed pH 7.4 [id number] and PO2 132 Other laboratory data showed WBC 6.6 hemoglobin 8.9 and MCV 104.6 and platelets 168. BUN 17 and creatinine 0.56. Chest x-ray showed cardiomegaly with small bilateral pleural effusions. Patient is on IV hydration with Ringer's lactate at 130 cc/h and also requiring pressure support with Levophed. Continue with antibiotics for multifocal pneumonia. Procalcitonin level is not elevated at 0.11. 09/15/2024 Patient is in the MICU. Intubated and on mechanical ventilator. Patient is back on sedation with propofol and is also on fentanyl drip. Currently on assist-control with respiratory rate 16, tidal volume 400 FiO2 30% and PEEP of 5. Chest x-ray showed cardiomegaly and small bilateral pleural effusions. Continued on IV hydration with Ringer's lactate at 75 cc/h. Patient is being continued on antibiotics in the form of ceftriaxone. Sputum culture showed haemophilus influenza. Laboratory showed WBC 6.0 hemoglobin 8.5 and platelets 159 sodium 137 potassium 3.6 chloride 107 bicarb is 31 BUN 51 creatinine 0.57 blood sugar 114 and calcium 7.9. 09/16/2024 Patient is in the MICU. Remains on mechanical ventilator. Sedated with propofol drip. Continues on IV hydration with Ringer's lactate at 75 cc/h. Patient was also started on NG tube feeding. Continued on antibiotics in the form of ceftriaxone. Sputum culture is growing haemophilus influenza. Lab data showed WBC 5.1 hemoglobin 7.8 and platelets 159, sodium 137 potassium 3.9 chloride 104 bicarb is 30 BUN 17 and creatinine 0.54 and blood sugar 101 and calcium 7.8. 09/17/2024 Patient is in the MICU. Currently intubated on mechanical ventilator. Patient did have daily sedation holiday today and was placed back on ProForma. Not on pressor support. Continued on antibiotics in the form of ceftriaxone. Sputum cultures growing haemophilus influenza. Patient is on IV hydration with Ringer's lactate at 75 cc/h. On tube feeding via NG tube. Chest x-ray showed ET tube 2.7 cm above ezra. No change in acute pulmonary process. Laboratory data showed WBC 4.8 hemoglobin 7.9 and platelets 192 sodium 139 potassium 4.0 chloride 106 bicarb is 32, BUN 19 and creatinine 0.49 and blood sugar 103 and calcium 8.0. 09/18/2024 Patient is in the MICU. Remains on mechanical ventilator. Patient is also sedated with propofol. Blood gas showed pH 7.44 KBQ108, PO270. Chest x-ray showed no acute cardiopulmonary process. Currently off antibiotics. Patient has been afebrile. Laboratory data showed WBC 4.8 hemoglobin 8.4 and platelets 233 sodium 138 potassium 3.8 chloride 106 bicarb is 28 BUN 20) 0.56 and blood sugar 94 and calcium 7.8. Patient is being continued DuoNebs, IV hydration with Ringer's lactate at 75 cc/h. Patient is also on valproic acid and Keppra. Neurology and pulmonary is on board. 09/19/2024 Patient is on mechanical ventilator and on sedation with propofol. IV hydration with Ringer's lactate at 75 cc out. Currently on assist-control with tidal volume 400 respiratory rate 16, FiO2 30% and PEEP of 5. Chest x-ray showed suboptimal due to skeletal deformities and kyphoscoliosis of the chest. Not on pressor support. Tolerating orogastric tube feeding. Currently patient is off antibiotics. Patient underwent bedside bronchoscopy by critical care team. Laboratory data showed WBC 5.1 hemoglobin 8.5 and platelets 240 sodium 139 potassium 4.1 chloride 105 bicarb is 28 BUN 21 and creatinine 0.45 blood sugar 103 magnesium 2.0. 09/20 I am resuming the care of the patient today Remains in the ICU intubated and sedated with pulmonary/renal care team helping with vent management He is s/p bronchoscopy yesterday He has a lot of secretion and scopolamine patch was added today As per staff public guardian are considering comfort care measures and they are going for a court order as patient has developmental delay throughout his life. 09/21 Patient is status post extubation. He started looking mildly tachypneic but tachycardic He remains on BiPAP with the setting of 15/6 with FiO2 of 100% Carrillo catheter in place Patient remains patient was made DNR/DNI per public guardian 09/22 Patient remains very lethargic. He remains on BiPAP He wake up to verbal stimulus to go back to sleep He still mildly tachypneic Chest x-ray showing bilateral congestion of the pulmonary blood vessels with suspected bilateral opacities. Patient finished IV treatment of antibiotics for multifocal pneumonia. With lack of improvement patient resumed on IV antibiotics with IV vancomycin and meropenem Patient currently DNR Objective - Vital Signs Vital signs: Vital Signs Temp 99.0 F 09/22/24 08:00 Pulse 120 H 09/22/24 11:21 Resp 32 H 09/22/24 11:00 BP 139/78 09/22/24 11:00 Pulse Ox 97 09/22/24 11:00 FiO2 100 09/22/24 11:11 Intake & Output 09/21/24 09/22/24 09/22/24 18:59 06:59 18:59 Intake Total 143 206 57.358 Output Total 1545 1540 525 Balance -1402 -1334 -467.642 Weight 68.4 kg Intake: IV 143 206 52 .9 KVO 110 120 40 Valproate Sodium 750 mg 50 In Sodium Chloride 0.9% 50 ml @ 50 mls/hr IVPB Q12HR [facility] Rx#:[id number] a line 33 36 12 Intake, IV Titration 5.358 Amount Dexmedetomidine/0.9% NaCl 5.358 (Pmx) 400 mcg In Empty Bag 1 bag @ 0.2 MCG/KG/HR 3.42 mls/hr IV .Q24H AG Rx#:[id number] Output: Urine 1545 1540 525 Other: Voiding Method Indwelling Catheter Indwelling Catheter Indwelling Catheter ABP, PAP, CO, CI - Last Documented Arterial Blood Pressure 126/61 - Exam -GENERAL: The patient is awake, looks in respiratory distress, generally weak on BiPAP HEENT: Pupils are round and equally reacting to light. EOMI. No scleral icterus. No conjunctival pallor. Normocephalic, atraumatic. No pharyngeal erythema. No th yromegaly. CARDIOVASCULAR: S1 and S2 present. No murmurs, rubs, or gallops. PULMONARY: Chest is clear to auscultation, no wheezing , no crackles. ABDOMEN: Soft, nontender, nondistended, normoactive bowel sounds. No palpable organomegaly. MUSCULOSKELETAL: No joint swelling or deformity. EXTREMITIES: No cyanosis, clubbing, or pedal edema. NEUROLOGICAL: Gross neurological examination did not reveal any focal deficits. SKIN: No rashes. no petechiae. - Labs CBC & Chem 7: 09/22/24 04:10 09/22/24 04:10 Labs: Abnormal Lab Results - Last 24 Hours (Table) 09/22/24 09/22/24 09/22/24 Range/Units 04:10 04:10 09:18 WBC 11.66 H (4.50-10.00) 10*3/uL RBC 2.78 L (4.40-5.60) 10*6/uL Hgb 9.5 L (13.0-17.0) g/dL Hct 29.4 L (39.6-50.0) % MCV 105.8 H (80.0-97.0) fL MCH 34.2 H (27.0-32.0) pg MPV 8.9 L (9.5-12.2) fL Immature Gran # 0.07 H (0.00-0.04) 10*3/uL Neutrophils # 9.87 H (1.80-7.70) 10*3/uL Lymphocytes # 0.53 L (0.90-5.00) 10*3/uL Monocytes # 1.13 H (0.20-1.00) 10*3/uL Eosinophils # 0.03 L (0.04-0.35) 10*3/uL ABG pCO2 60 H (35-45) mmHg ABG pO2 47 L* (83-108) mmHg ABG HCO3 40 H* (21-25) mmol/L ABG Total CO2 42 H (19-24) mmol/L ABG O2 Saturation 81.6 L (94-97) % Hemoglobin 10.5 L (13.0-17.5) gm/dL Sodium 135 L (137-145) mmol/L Chloride 89 L (98-107) mmol/L Carbon Dioxide 40 H (22-30) mmol/L BUN 32 H (9-20) mg/dL Microbiology - Last 24 Hours (Table) 09/19/24 09:43 Gram Stain - Final Bronchoalviolar Lavage - Right Bronchial Washings Culture - Final Assessment and Plan Assessment: Acute hypoxic and hypercapnic respiratory failure requiring intubation mechanical ventilator. S/p extubation on 09/20 Multifocal pneumonia-healthcare associated. Sputum culture showed haemophilus i nfluenza. Completed antibiotic course with ceftriaxone.. Sepsis secondary pneumonia Hypertension Hypothyroidism Hypothermia Altered mental status secondary to metabolic encephalopathy and infection History of intellectual disability Seizure disorder Severe kyphoscoliosis Right eye blindness Medical debility currently at [facility] Plan: Continue with IV fluid Continue with seizure medication per neurologist including IV Keppra and valproate as well as Tegretol Started on IV antibiotics IV vancomycin and meropenem Continue with BiPAP as per pulmonary/critical care team Neurology and critical care team consult Public guardian now considering comfort care Labs and medication were reviewed.. Continue same treatment. Continue with symptomatic treatment. Resume home medication. Monitor labs and vitals. DVT and GI prophylaxis. Further recommendations as per clinical course of the patient DVT prophylaxis: Subcutaneous heparin GI Prophylaxis: Ppi Prognosis is guarded CODE STATUS switched to DNR
[2024-09-22] MEDS: VANCOMYCIN 1,250 MG in SODIUM CHLORIDE 0.9% 250 ML IVPB SCH (23:53)
[2024-09-23 00:04] LABS: Glucose,Whole Blood 102 mg/dL (70-110)
[2024-09-23 04:13] LABS: ABG Oxygen Saturation 99.9 % (94-97); ABG PO2 235 mmHg (83-108)
[2024-09-23 04:16] LABS: ABG PCO2 >98 mmHg (35-45); ABG PH 7.12 (7.35-7.45); Allen Test Performed? No
[2024-09-23 04:20] LABS: Basophils # (A) 0.05 10*3/uL (0.00-0.10); Basophils % (A) 0.4 %; Eosinophils # (A) 0.01 10*3/uL (0.04-0.35); Eosinophils % (A) 0.1 %; HCT 33.5 % (39.6-50.0); HGB 10.1 g/dL (13.0-17.0); Lymphocytes # (A) 0.36 10*3/uL (0.90-5.00); Lymphocytes % (A) 2.9 %; MCH 34.4 pg (27.0-32.0); MCHC 30.1 g/dL (32.0-37.0); Monocytes # (A) 1.02 10*3/uL (0.20-1.00); Monocytes % (A) 8.1 %; Neutrophils # (A) 11.04 10*3/uL (1.80-7.70); Neutrophils % (A) 87.9 %; Platelet Count 311 10*3/uL (140-440); RBC 2.94 10*6/uL (4.40-5.60); RDW 14.5 % (11.5-14.5); WBC 12.55 10*3/uL (4.50-10.00)
[2024-09-23 04:29] LABS: African American GFR (CKD) 83 (>60 ml/min/1.73 sqM); Anion Gap 6 mmol/L; Blood Urea Nitrogen 40 mg/dL (9-20); Carbon Dioxide 39 mmol/L (22-30); Chloride 92 mmol/L (98-107); Glucose 103 mg/dL (74-99); MCV 113.9 fL (80.0-97.0); Non-African American GFR(CKD) 72 (>60 ml/min/1.73 sqM); Sodium 137 mmol/L (137-145)
[2024-09-23 05:54] LABS: Glucose,Whole Blood 106 mg/dL (70-110)
--- NOTE | 2024-09-23 08:34 | XR ---
EXAMINATION TYPE: XR chest 1V portable DATE OF EXAM: 09/23/2024 5:32 AM COMPARISON: Chest radiographs from 09/22/2024 TECHNIQUE: XR chest 1V portable Portable AP radiograph of the chest. CLINICAL INDICATION:Male, 63 years old with history of assess lungs; FINDINGS: Patient is rotated which limits evaluation. Lungs/Pleura: No right pleural effusion. Possible small left pleural effusion. Left basilar patchy ai rspace opacities. The right lung is relatively clear. Elevation of the left hemidiaphragm. Heart/mediastinum: Cardiomediastinal silhouette is enlarged and stable. Musculoskeletal: No acute osseous pathology. Marked dextroscoliotic curvature of the thoracic spine. Other findings: None Lines/Tubes: Stable right IJ central venous catheter with distal tip in the region of right atrium. IMPRESSION: 1. Possible small left pleural effusion with adjacent airspace opacity which may represent atelectas is versus pneumonia. 2. Stable right central venous catheter. [facility], , 09/23/2024 8:32 AM
[2024-09-23 10:03] LABS: ABG Oxygen Saturation 96.6 % (94-97); ABG PO2 99 mmHg (83-108)
[2024-09-23] MEDS: SODIUM BICARB 8.4% 50 ML SYR (1 MEQ/ML) IV STA (10:26)
[2024-09-23 11:52] LABS: Glucose,Whole Blood 125 mg/dL (70-110)
[2024-09-23 12:04] LABS: ABG Oxygen Saturation >100.0 % (94-97); ABG PO2 271 mmHg (83-108)
[2024-09-23 12:06] LABS: ABG PCO2 >98 mmHg (35-45); ABG PH 7.08 (7.35-7.45)
[2024-09-23 12:07] LABS: ABG PCO2 >98 mmHg (35-45); ABG PH 7.12 (7.35-7.45)
--- NOTE | 2024-09-23 13:07 | P.PN ---
Subjective Progress Note Date: 09/23/24 Patient is a 63-year-old male with past medical history significant for intellectual disability, seizure disorder, hypertension, hypothyroidism, chronic hypoxemic respiratory failure. He resides at a local [facility]. Noted to be confused with increased work of breathing by staff. His SpO2 was reading 40%. EMS was called and patient was transferred to the emergency department on a nonrebreather. He was minimally responsive on arrival. ABG consistent with severe hypercapnic respiratory failure with a PaO2 of 153, pCO2 greater than 98, pH of 7.13. Previously, received 4 mg IV Versed. Patient was intubated by the ER provider. Brain CT without contrast did not show any acute intracranial hemorrhage or mass effect. There was some sinusitis and moderate fluid in the mastoid air cells bilaterally. Brain CT angio did not show any evidence of cervical internal carotid artery or vertebral artery dissection or stenosis at the carotid bifurcations. No evidence of high-grade intracranial stenosis or aneurysm. Patchy groundglass and consolidative opacities visualized in the upper lung schwartz. Chest x-ray following intubation showing the endotracheal tube terminating 2.5 cm above the ezra. Severe kyphoscoliosis. There is patchy subtle opacities bilaterally. Suspect small bilateral pleural effusions. Enteric tube likely in the duodenum. CBC: WBC count 12.4, hemoglobin 11.7, platelets 176. CMP: Sodium 140, potassium 5.3, chloride 96, serum bicarb 37, BUN 43, creatinine 0.79, glucose 125. Lactic 2.4. LFTs not elevated. Troponin less than 0.012. EKG: Sinus rhythm, rate 97 bpm, RBBB pattern. Patient currently being evaluated in the intensive care unit. Remains intubated to the mechanical ventilator. Current ventilator settings assist-control, respiratory rate 20, tidal volume 450, FiO2 70%, PEEP of 5. Previous ventilator settings were appropriately adjusted following a recent follow-up ABG with a PaO2 of 187, PCO2 of 31, pH of 7.6. This was done on FiO2 100%. Respiratory rate has since been adjusted and FiO2 is being titrated appropriately. He is sedated on propofol which is infusing at 45 mcg/kg/min as well as fentanyl infusing at 0.5 mcg/kg/h. Currently synchronous with ventilator settings. Peak pressures around 26. Lactated Ringer's also infusing at 130 mL/h. Indwelling urinary catheter with urine output of greater than 100 mL/h. Blood pressure has been normotensive. Previously, patient was hypothermic with a temperature as low as 93.9 F, and was on a external warming blanket. Now normothermic. Continues with empiric antibiotics. Patient has a legal power of tax associate attorney. Current CODE STATUS is full. 09/14/2024 Patient seen and examined at the bedside. Patient continue be sedated and mechanically ventilated. Currently patient is sedated with fentanyl at 0.5 mcg/kg/min and propofol at 30 mcg/kg/min. Patient is on volume assist-control with setting of respiratory of 16, tidal volume of 400, FiO2 of 40% and PEEP of 5. Arterial blood gas today shows pH of 7.45, pCO2 43, PaO2 132, bicarb 29. FiO2 is decreased to 35%. Chest x-ray this morning shows cardiomegaly with small bilateral pleural effusions. Urine output is good. Patient is also on lactated Ringer's running at 130 cc/h and Levophed at 0.03 mcg/kg/h. Patient is continued to be on vancomycin, azithromycin and Rocephin for empiric coverage for multifocal pneumonia. Prolactin is 0.11. Lab work from today shows WBC 6.63, hemoglobin 8.9, platelet count 162, sodium 139, potassium 4.1, chloride 106, bicarb 27, BUN 17, creatinine 0.56, glucose 141, calcium 8.3. He is cur rently on vital HP tube feeds running at 30 cc/h with a goal of 50. 09/15/2024 Patient seen and examined at the bedside. Patient continued to be sedated and mechanically ventilated. Patient is currently on fentanyl at 0.05 mcg/kg/min and propofol at 25 mcg/kg/min. Patient is on volume assist-control with a settings of respiratory rate of 16, tidal volume of 400, FiO2 of 30%, PEEP of 5.0. ABG shows pH of 7.44, pCO2 45, PO2 of 70, HCO3 of 30. Chest x-ray done today shows cardiomegaly with small bilateral pleural effusions. Urine output is good. Patient is on lactated ringer Ringer's at 75 cc/h. He is getting tube feeds with vital HP at 55 which is at goal. Patient has been restarted on azithromycin and Rocephin for positive sputum culture which shows H. influenzae growth. Lab work from today shows WBC 6.08, hemoglobin 8.5, platelet count 159, sodium 137, potassium 3.6, chloride 107, bicarb 31, BUN 15, creatinine 0.57, glucose 114, calcium 7.9. TSH 19.7, free T41.26, cortisol 11.2. Iron 16, TIBC 136, percent saturation 11.76, transferrin 97, ferritin 446.0. Progress note dated September 16, 2024. 63-year-old male seen today in room 254. He remains on the mechanical ventilat or. He is on volume assist-control, rate 16, tidal volume 400, FiO2 30%, PEEP of 5. Blood gases show PO2 77, pCO2 of 42, pH is 7.47. The patient is currently on propofol at 25 mcg/kg/min, lactated Ringer's at 75 cc an hour, saline at 20 cc an hour. The patient is also getting vital high-protein at 52 cc an hour which is goal. Sputum was positive for Haemophilus influenzae. The patient continues on Rocephin. White count is 5.17, hemoglobin 7.8, hematocrit 23.8, platelet count is 159,000. Sodium 137, potassium 3.9, chloride 104, CO2 30, BUN 17, creatinine 0.54. Calcium is 7.8. Chest x-ray shows the endotracheal tube 2.4 cm above the ezra. The patient has diffuse bilateral opacities. Progress note dated September 17, 2024. 63-year-old male seen today in room 254. The patient remains on the mechanical ventilator, with settings of volume assist-control, rate 16, tidal volume 400, FiO2 30%, PEEP of 5. Blood gases show pO2 of 83, pCO2 of 44, and a pH of 7.44. He is on propofol at 35 mcg/kg/min, LR at 75 cc an hour, saline at 20 cc an hour, and vital high-protein at 52 cc an hour, which is goal. He continues on Rocephin for the Haemophilus influenzae that was in his sputum. Today the patient will have a daily interruption of sedation. I do not suspect he is ready for weaning and extubation. Current white count 4.8, hemoglobin 7.9, hematocrit 23.8, platelet count 192,000. Sodium 139, potassium 4, chlorides 106, CO2 32, BUN 19, creatinine 0.49. Glucose is 122. Calcium 8. Chest x-ray is largely unchanged. 09/18/2024, the patient remains intubated on the mechanical ventilator. This morning, the patient on a propofol of 35 mcg/kg/min. The patient also on lactat ed Ringer at 75 cc an hour. He remains on assist-control mode of mechanical ventilation at rate of 16, tidal volume of 400, FiO2 30% with a PEEP of 5. Blood gas showed pH of 7.44 with PCO2 of 44 and PO2 of 70. Chest x-ray from today shows severe kyphosis of the chest and kyphoscoliosis. The consolidation involving the right lung is improved. There are some residual left perihilar infiltrates. The patient was diagnosed and treated for Moraxella pneumonia and the patient is currently off antibiotics. Hemodynamically stable. He was intubated on 05/16/2025. He was initially treated with a combination of cefepime, Zithromax and vancomycin and later on switched to Zithromax and Rocephin and currently is off antibiotics. He continues to receive vital high- protein at rate of 52 cc an hour. Blood work from today shows a white cell count of 4.8, hemoglobin of 8.4 and platelet count of 233. Sodium level is at 138, BUN is 20 with a creatinine of 0.5. Otherwise, no other significant ev ents. He is arousable. Does not communicate. He is on antiepileptics including Tegretol and valproic acid. He is on heparin subcu for DVT prophylaxis. He remains on Synthroid. He is also on Keppra. On 09/20/2024, the patient is being seen for a follow-up. This morning, the patient remains sedated on propofol running at 30 mcg/kg/min. The patient remains on n lactated Ringer at rate of 75 cc an hour. At the same time, the patient remains intubated on mechanical ventilator. He remains on assist- control mode at rate of 60, tidal volume of 400, FiO2 30% with a PEEP of 5. Blood gas showed a pH of 7.43 with a VRA000 and PO2 of 73. Chest x-ray findings are essentially suboptimal due to his skeletal deformities and kyphoscoliosis of the chest. The patient continues to have perihilar pulmonary infiltration and possibly some small bilateral pleural effusions. Orotracheal tube is in a good location. Meanwhile, the patient is receiving enteral feeding for nutritional support and the patient is on vital high-protein at rate of 52 cc an hour. The white cell count is 5.5 with a hemoglobin 8.5 and a platelet count of 240. Sodium is at 139, BUN is 20 with a creatinine of 0.45 and a potassium levels of 4.1. Blood sugars at 89. The patient is currently off antibiotics. Antiepile ptic medications are essentially unchanged. I performed a bedside bronchoscopy on this patient. Respiratory secretions were scant. Due to his severe kyphoscoliosis of the chest, there was some atelectatic changes at various segments of the lower lobes bilaterally. There was also atelectatic changes of the various segments of the right upper lobe. Nevertheless, no significant or secretions. No significant mucous retention. No mucous plugs. No endobronchial abnormalities. On 09/20/2024, the patient is being seen for a follow-up. I had a meeting with her public guardian. The message was given from the public guardian's date she does not want a comfort measures yet and she is interested in considering extubation or at least giving the patient a trial of extubation. The patient meanwhile remains on sedation. This morning, he remains on propofol running at 50 mcg/kg/min. Respiratory secretions are loose. Bronchoscopy was done yesterday. The follow-up cultures are still pending for now. Meanwhile, he is on assist-control rate of 16, tidal volume of 400, FiO2 30% with a PEEP of 5. No significant events or hemodynamic instability. Blood gas showed a pH of 7.46 with a CXC685 and pO2 72. Fluid balance is -915 cc over the past 24 hours. Remains at lactated Ringer at a rate of 75 cc an hour and is also on vital HP at rate of 52. The white cell count 7.5, hemoglobin 8.2 and a platelet count of 258. Sodium is 136, BUN 25 with a creatinine 0.59. Potassium level is at 3.8. No pressors for now. No antibiotic coverage the patient completed the course of antibiotics. No seizure activity. Arousable off sedation. Extremely hard of hearing. On 09/21/2024, the patient remains extubated. Noted the patient was extubated on 09/20/2024 and the patient was placed on a BiPAP postextubation. This morning, he is on a BiPAP pressure of 16 over 5 cm of water with an FiO2 100%. Unable to wean down FiO2 any further due to development of hypoxemia. The patient is able to generate a tidal volume of 350 with a respiratory rate of 26 and a minute ventilation of 9 L/min. Chest x-ray is showing severe kyphoscoliosis of the chest, there is cardiomegaly and bilateral pleural effusions and pulm vessel congestion and perihilar airspace opacities. The patient is currently on Lasix 20 mg IV push every 12 hours. The patient is -3.3 L over the past 24 hours and the patient is producing excellent urine output. No signs of any significant respiratory distress, nevertheless, he seems to be BiPAP dependent. The white cell count of 12.4 with hemoglobin 9.7 and platelet count 279. BUN 30 with a creatinine of 0.6 and a sodium levels at 135 and a potassium level is at 4.4. Serum bicarb is at 37. No antibiotic coverage as the patient completed his antibiotic course. IV fluids are currently at KVO and the patient remains on Lasix 20 mg IV push every 12 hours. Arousable. Very hard of hearing. Unable to communicate at this point. Discussed the case again with the legal guardian and his CODE STATUS switched to DNR/DNI. On 09/22/24, the patient is essentially the same , still on the BIPAP and oxygenation is worse. The FU ABG shows worsening in the hypoxemia and the patient is stillon BIPAP 15/6, 100 Fio2. He is still on IV lasix and fluid balance is negative 2.7 liters. THe CXR is unchanged. Chest x-ray is showing severe kyphoscoliosis of the chest, there is cardiomegaly and bilateral pleural effusions and pulm vessel congestion and perihilar airspace opacities. The patient is currently on Lasix 20 mg IV push every 12 hours. Labs were reviewed No antibiotic coverage as the patient completed his antibiotic course. IV fluids are currently at KVO and the patient remains on Lasix 20 mg IV push every 12 hours. Arousable. Very hard of hearing. Unable to communicate at this point. Discussed the case again with the legal guardian and his CODE STATUS switched to DNR/DNI. 09/23/2024, the patient remains on a BiPAP at a pressure of 16 over 10 cm of water. Earlier this morning, the patient had significant diminished level of consciousness. Only grimacing to the painful stimulation. He is on a BiPAP pressure of 16/10 with an FiO2 of 100%. Blood gas showed a pH of 7.12 with a pCO2 of 98 and pO2 of 235. Fluid balance is -895 cc over the past 24 hours. While on the BiPAP, the patient is able to generate respirate of 20, tidal volume of above 400 and a minute ventilation of 9 L. No significant air leak from the mask. Chest x-ray findings were also noted. As mentioned, the patient has an unchanged severe scoliosis. There is possibly some bilateral airspace disease. There is improved aeration compared to yesterday's chest x-ray. Noted the patient was also started on broad-spectrum antibiotics on empiric basis and the patient is currently on a combination of Merrem and vancomycin. The rest of the blood work shows a white cell count of 12.5, hemoglobin of 10.1 and a platelet count of 311. The sodium is at 137, potassium is at 4, bicarb is at 39, BUN is 40 with a creatinine of 1.1. The patient remains NPO. He is a DNR/DNI CODE STATUS. He remains on IV Lasix. Objective - Vital Signs Vital signs: Vital Signs Temp 97.7 F 09/23/24 00:00 Pulse 96 09/23/24 07:46 Resp 22 09/23/24 07:46 BP 124/67 09/23/24 07:00 Pulse Ox 100 09/23/24 07:00 FiO2 100 09/23/24 07:44 Intake & Output 09/22/24 09/23/24 09/23/24 18:59 06:59 18:59 Intake Total 878.812 715.739 13 Output Total 1595 895 75 Balance -716.188 -179.261 -62 Intake: IV 206 556 13 .9 KVO 120 120 10 Meropenem 2 gm In Sodium 100 Chloride 0.9% 100 ml @ 33 .3 mls/hr IVPB Q8H [facility] Rx #:[id number] Valproate Sodium 750 mg 50 50 In Sodium Chloride 0.9% 50 ml @ 50 mls/hr IVPB Q12HR [facility] Rx#:[id number] Vancomycin 1,250 mg In 250 Sodium Chloride 0.9% 250 ml @ 125 mls/hr IVPB ONCE ONE Rx#:[id number] a line 36 36 3 Intake, IV Titration 672.812 159.739 Amount Dexmedetomidine/0.9% NaCl 40.812 1.739 (Pmx) 400 mcg In Empty Bag 1 bag @ 0.2 MCG/KG/HR 3.42 mls/hr IV .Q24H [facility] Rx#:[id number] Meropenem 2 gm In Sodium 132 33 Chloride 0.9% 100 ml @ 33 .3 mls/hr IVPB Q8H [facility] Rx #:[id number] Vancomycin 1,250 mg In 500 125 Sodium Chloride 0.9% 250 ml @ 125 mls/hr IVPB Q12H [facility] Rx#:[id number] Output: Urine 1595 895 75 Stool 0 Other: Voiding Method Indwelling Catheter Indwelling Catheter ABP, PAP, CO, CI - Last Documented Arterial Blood Pressure 130/54 - Exam No acute distress, extubated and the patient is currently on a BiPAP at a pressure of 16/10 cm of water with an FiO2 of 100%. Sitting up in bed. Has significant thoracolumbar kyphoscoliosis. Diminished level of consciousness, grimaces only to the painful stimulation. HEENT examination is grossly unremarkable. Neck supple. Full range of motion. No adenopathy thyromegaly or neck vein distention. Cardiovascular examination reveals regular rhythm rate. S1-S2 normal. No S3 or S4. No discernible murmur noted. Lungs reveal bilateral coarse rhonchi. No wheezes. No crackles. Breath sounds equal bilaterally. The patient has significant kyphoscoliosis of the thoracic spine and scattered rhonchi heard bilaterally. Crackles in the lung bases. Diminished breath sounds in left lung base. Abdominal exam revealed normal bowel sounds. The abdomen was soft, non-tender, and without masses, organomegaly, or appreciable enlargement of the abdominal aorta. Extremities are intact. No cyanosis clubbing there is +1 edema in all 4 extrem ities involving the upper and lower extremities. Skin is without rash or lesion. Neurologic examination cannot be evaluated as the patient is unable to communicate. Opens eyes spontaneously. Withdraws to painful stimulation. - Labs CBC & Chem 7: 09/23/24 03:58 09/23/24 03:58 Labs: Abnormal Lab Results - Last 24 Hours (Table) 09/22/24 09/23/24 09/23/24 Range/Units 09:18 03:58 03:58 WBC 12.55 H (4.50-10.00) 10*3/uL RBC 2.94 L (4.40-5.60) 10*6/uL Hgb 10.1 L (13.0-17.0) g/dL Hct 33.5 L (39.6-50.0) % MCV 113.9 H D (80.0-97.0) fL MCH 34.4 H (27.0-32.0) pg MCHC 30.1 L (32.0-37.0) g/dL MPV 9.0 L (9.5-12.2) fL Immature Gran # 0.07 H (0.00-0.04) 10*3/uL Neutrophils # 11.04 H (1.80-7.70) 10*3/uL Lymphocytes # 0.36 L (0.90-5.00) 10*3/uL Monocytes # 1.02 H (0.20-1.00) 10*3/uL Eosinophils # 0.01 L (0.04-0.35) 10*3/uL ABG pH (7.35-7.45) ABG pCO2 60 H (35-45) mmHg ABG pO2 47 L* (83-108) mmHg ABG HCO3 40 H* (21-25) mmol/L ABG Total CO2 42 H (19-24) mmol/L ABG O2 Saturation 81.6 L (94-97) % Hemoglobin 10.5 L (13.0-17.5) gm/dL Chloride 92 L (98-107) mmol/L Carbon Dioxide 39 H (22-30) mmol/L BUN 40 H (9-20) mg/dL Glucose 103 H (74-99) mg/dL 09/23/24 Range/Units 04:08 WBC (4.50-10.00) 10*3/uL RBC (4.40-5.60) 10*6/uL Hgb (13.0-17.0) g/dL Hct (39.6-50.0) % MCV (80.0-97.0) fL MCH (27.0-32.0) pg MCHC (32.0-37.0) g/dL MPV (9.5-12.2) fL Immature Gran # (0.00-0.04) 10*3/uL Neutrophils # (1.80-7.70) 10*3/uL Lymphocytes # (0.90-5.00) 10*3/uL Monocytes # (0.20-1.00) 10*3/uL Eosinophils # (0.04-0.35) 10*3/uL ABG pH 7.12 L* (7.35-7.45) ABG pCO2 >98 H* (35-45) mmHg ABG pO2 235 H (83-108) mmHg ABG HCO3 (21-25) mmol/L ABG Total CO2 (19-24) mmol/L ABG O2 Saturation 99.9 H (94-97) % Hemoglobin 10.3 L (13.0-17.5) gm/dL Chloride (98-107) mmol/L Carbon Dioxide (22-30) mmol/L BUN (9-20) mg/dL Glucose (74-99) mg/dL Assessment and Plan Plan: Acute hypoxemic and hypercapnic respiratory failure, secondary to bacterial pneumonia. Sputum culture was positive for haemophilus influenza, treated with IV antibiotics and the patient completed the course of antibiotics. The patient was extubated to a BiPAP on 09/20/2024 and the patient remains on a BiPAP at a pressure of 16 over 10 cm of water and FiO2 of 100%. Improvement in oxygenation on today's blood gas. Nevertheless, the patient is demonstrating significant respiratory acidosis despite having adequate minute ventilation as measured on his BiPAP machine. Chest x-ray was noted. Improvement in the volume status. Improvement in aeration. Underlying multifocal pneumonia cannot be completely ruled out. Multifocal pneumonia, secondary to Haemophilus influenzae, treated with subsequent improvement of chest x-ray findings, improved, the patient is currently hemodynamically stable. The patient was restarted on a combination of meropenem and vancomycin on empiric basis. Acute leukocytosis, secondary to infection, improved Hypothermia, resolved. Altered mental status, secondary to encephalopathy, and sepsis. This morning, the patient is sedated. He does have developmental delay and intellectual disability in addition to his history of seizure disorder. Currently free of any seizures. History of intellectual disability. History of seizure disorder. Maintained on Keppra, valproate and Depakote. Severe kyphoscoliosis. Blind right eye. History of hypertension. History of hypothyroidism. Plan Continue BiPAP for respiratory support, change setting to 16/10 Continue IV Lasix Fluid balance is negative No need for Precedex Keep the patient n.p.o. Close monitoring of the respiratory status CODE STATUS has been switched to DNR/DNI per guardian's wishes Repeat the blood gases IV fluids to KVO Lasix 20 mg IV every 12 hours Empiric antibiotic coverage with a combination of Merrem and vancomycin Continue antiepileptic medications No seizure activity for now clinically decompensating and the patient has a poor prognosis Continue supportive care and will continue to follow. Critical care evaluation 35 minutes. Time with Patient: Greater than 30
--- NOTE | 2024-09-23 13:58 | P.PN ---
Subjective Progress Note Date: 09/23/24 I am following-up with patient and he is about the same. No improvement in his overall condition. Continues to be on BiPAP. Objective - Vital Signs Vital signs: Vital Signs Temp 95 F L 09/23/24 12:00 Pulse 86 09/23/24 13:00 Resp 20 09/23/24 13:00 BP 110/63 09/23/24 13:00 Pulse Ox 99 09/23/24 13:00 FiO2 100 09/23/24 13:00 Intake & Output 09/22/24 09/23/24 09/23/24 18:59 06:59 18:59 Intake Total 878.812 715.739 91 Output Total 1595 895 600 Balance -716.188 -179.261 -509 Intake: IV 206 556 91 .9 KVO 120 120 70 Meropenem 2 gm In Sodium 100 Chloride 0.9% 100 ml @ 33 .3 mls/hr IVPB Q8H [facility] Rx #:[id number] Valproate Sodium 750 mg 50 50 In Sodium Chloride 0.9% 50 ml @ 50 mls/hr IVPB Q12HR [facility] Rx#:[id number] Vancomycin 1,250 mg In 250 Sodium Chloride 0.9% 250 ml @ 125 mls/hr IVPB ONCE ONE Rx#:[id number] a line 36 36 21 Intake, IV Titration 672.812 159.739 Amount Dexmedetomidine/0.9% NaCl 40.812 1.739 (Pmx) 400 mcg In Empty Bag 1 bag @ 0.2 MCG/KG/HR 3.42 mls/hr IV .Q24H [facility] Rx#:[id number] Meropenem 2 gm In Sodium 132 33 Chloride 0.9% 100 ml @ 33 .3 mls/hr IVPB Q8H [facility] Rx #:[id number] Vancomycin 1,250 mg In 500 125 Sodium Chloride 0.9% 250 ml @ 125 mls/hr IVPB Q12H [facility] Rx#:[id number] Output: Urine 1595 895 600 Stool 0 Other: Voiding Method Indwelling Catheter Indwelling Catheter Indwelling Catheter ABP, PAP, CO, CI - Last Documented Arterial Blood Pressure 134/54 - Exam General: Lying in bed and does not appear in acute distress. Lung:Is on BiPAP. Neuro: Very drowsy but is briefly awakeable to voice. He opens his eyes and tracks. Otherwise examination is very limited - Labs CBC & Chem 7: 09/23/24 03:58 09/23/24 03:58 Labs: Abnormal Lab Results - Last 24 Hours (Table) 09/23/24 09/23/24 09/23/24 Range/Units 03:58 03:58 04:08 WBC 12.55 H (4.50-10.00) 10*3/uL RBC 2.94 L (4.40-5.60) 10*6/uL Hgb 10.1 L (13.0-17.0) g/dL Hct 33.5 L (39.6-50.0) % MCV 113.9 H D (80.0-97.0) fL MCH 34.4 H (27.0-32.0) pg MCHC 30.1 L (32.0-37.0) g/dL MPV 9.0 L (9.5-12.2) fL Immature Gran # 0.07 H (0.00-0.04) 10*3/uL Neutrophils # 11.04 H (1.80-7.70) 10*3/uL Lymphocytes # 0.36 L (0.90-5.00) 10*3/uL Monocytes # 1.02 H (0.20-1.00) 10*3/uL Eosinophils # 0.01 L (0.04-0.35) 10*3/uL ABG pH 7.12 L* (7.35-7.45) ABG pCO2 >98 H* (35-45) mmHg ABG pO2 235 H (83-108) mmHg ABG O2 Saturation 99.9 H (94-97) % Hemoglobin 10.3 L (13.0-17.5) gm/dL Chloride 92 L (98-107) mmol/L Carbon Dioxide 39 H (22-30) mmol/L BUN 40 H (9-20) mg/dL Glucose 103 H (74-99) mg/dL POC Glucose (mg/dL) (70-110) mg/dL 09/23/24 09/23/24 09/23/24 Range/Units 10:00 11:50 12:02 WBC (4.50-10.00) 10*3/uL RBC (4.40-5.60) 10*6/uL Hgb (13.0-17.0) g/dL Hct (39.6-50.0) % MCV (80.0-97.0) fL MCH (27.0-32.0) pg MCHC (32.0-37.0) g/dL MPV (9.5-12.2) fL Immature Gran # (0.00-0.04) 10*3/uL Neutrophils # (1.80-7.70) 10*3/uL Lymphocytes # (0.90-5.00) 10*3/uL Monocytes # (0.20-1.00) 10*3/uL Eosinophils # (0.04-0.35) 10*3/uL ABG pH 7.08 L* 7.12 L* (7.35-7.45) ABG pCO2 >98 H* >98 H* (35-45) mmHg ABG pO2 271 H (83-108) mmHg ABG O2 Saturation >100.0 H (94-97) % Hemoglobin 10.9 L 10.5 L (13.0-17.5) gm/dL Chloride (98-107) mmol/L Carbon Dioxide (22-30) mmol/L BUN (9-20) mg/dL Glucose (74-99) mg/dL POC Glucose (mg/dL) 125 H (70-110) mg/dL Assessment and Plan Assessment: * Altered mental status, likely due to metabolic encephalopathy. * Acute hypoxic, hypercapnic respiratory failure, status post intubation and extubated on 09/20/2024. Is currently on BiPAP. * Severe kyphoscoliosis * Multifocal pneumonia, healthcare associated with sepsis * Hypothermia, due to above * History of intellectual disability * History of seizure disorder * Right eye blindness * Hypertension * Hypothyroidism * [facility] resident Plan: * Patient is unable to swallow therefore is not getting Tegretol during this hospital visit therefore I increased the Keppra to 1 g twice daily. His rest of his home seizure medication is same. * EEG was performed, which was abnormal due to background slowing of moderate degree, suggestive of generalized cerebral dysfunction as can be seen with toxic metabolic encephalopathy related to diffuse structural brain abnormality or medication effect. No epileptiform activity was seen. * Tegretol 3.8(4-12), Depakote 37 and Keppra level 32.3(3-60). Ammonia 16. * Patient currently on azithromycin and ceftriaxone. Patient is off vancomycin. * Other medical management as per IM and critical care. The plan is discussed with the nurse. Will follow-up with patient sporadically. Dr. De Luna will resume neurology service this Wednesday A.M. (09/25/2024). Time with Patient: Less than 30
--- NOTE | 2024-09-23 19:24 | P.PN ---
Subjective Patient is a 63-year-old male with a known history of mentally challenged, seizure disorder, asthma, hypertension, hypothyroidism and chronic hypoxemic respiratory failure who [facility] Patient was sent to hospital due to worsening shortness of breath and altered mental status and was also hypoxic with pulse ox 40% when he presented to ER. Patient was placed on nonrebreather and was minimally responsive on arrival to ER. Patient had ABGs was done showed PaO2 153. pCO2 98 and also pH 7.13 patient was intubated in the ER. Patient was also sedated with propofol and fentanyl. CT head showed no acute bleed or mass effect. Sinusitis and mastoiditis as described above. CT angiogram of the head and neck showed no evidence of dissection of the cervical internal carotid arteries or vertebral arteries. Patchy groundglass and consolidative opacities in partially visualized upper lungs suspicious for multifocal pneumonia Chest x-ray showed endotracheal tube terminates 2.5 cm above ezra. Enteric tube distal sidehole overlies the expected gastric lumen. Small bilateral pleural effusions and subtle patchy opacities in the upper lobes which could reflect infectious etiology. EKG showed sinus rhythm with right bundle branch block. Laboratory data on admission showed WBC 12.3 hemoglobin 11.7 and platelets 176 and MCV 112 sodium 140 potassium 5.3 chloride 96 bicarb is 37 BUN 43 and creatinine 0.79 and blood sugar 125 and calcium 8.6 liver enzymes are not elevated troponin x 1 negative and procalcitonin level is 0.11 Patient is also hypothermic requiring Roly hugger. Influenza A BRAC COVID-19 and Legionella urine antigen negative. 09/14/2024 Patient is currently in the MICU. On sedation holiday. Was able to tolerate pressure support for short duration this morning currently back to [facility]- control.. ABG showed pH 7.4 [id number] and PO2 132 Other laboratory data showed WBC 6.6 hemoglobin 8.9 and MCV 104.6 and platelets 168. BUN 17 and creatinine 0.56. Chest x-ray showed cardiomegaly with small bilateral pleural effusions. Patient is on IV hydration with Ringer's lactate at 130 cc/h and also requiring pressure support with Levophed. Continue with antibiotics for multifocal pneumonia. Procalcitonin level is not elevated at 0.11. 09/15/2024 Patient is in the MICU. Intubated and on mechanical ventilator. Patient is back on sedation with propofol and is also on fentanyl drip. Currently on assist-control with respiratory rate 16, tidal volume 400 FiO2 30% and PEEP of 5. Chest x-ray showed cardiomegaly and small bilateral pleural effusions. Continued on IV hydration with Ringer's lactate at 75 cc/h. Patient is being continued on antibiotics in the form of ceftriaxone. Sputum culture showed haemophilus influenza. Laboratory showed WBC 6.0 hemoglobin 8.5 and platelets 159 sodium 137 potassium 3.6 chloride 107 bicarb is 31 BUN 51 creatinine 0.57 blood sugar 114 and calcium 7.9. 09/16/2024 Patient is in the MICU. Remains on mechanical ventilator. Sedated with propofol drip. Continues on IV hydration with Ringer's lactate at 75 cc/h. Patient was also started on NG tube feeding. Continued on antibiotics in the form of ceftriaxone. Sputum culture is growing haemophilus influenza. Lab data showed WBC 5.1 hemoglobin 7.8 and platelets 159, sodium 137 potassium 3.9 chloride 104 bicarb is 30 BUN 17 and creatinine 0.54 and blood sugar 101 and calcium 7.8. 09/17/2024 Patient is in the MICU. Currently intubated on mechanical ventilator. Patient did have daily sedation holiday today and was placed back on ProForma. Not on pressor support. Continued on antibiotics in the form of ceftriaxone. Sputum cultures growing haemophilus influenza. Patient is on IV hydration with Ringer's lactate at 75 cc/h. On tube feeding via NG tube. Chest x-ray showed ET tube 2.7 cm above ezra. No change in acute pulmonary process. Laboratory data showed WBC 4.8 hemoglobin 7.9 and platelets 192 sodium 139 potassium 4.0 chloride 106 bicarb is 32, BUN 19 and creatinine 0.49 and blood sugar 103 and calcium 8.0. 09/18/2024 Patient is in the MICU. Remains on mechanical ventilator. Patient is also sedated with propofol. Blood gas showed pH 7.44 [id number], PO270. Chest x-ray showed no acute cardiopulmonary process. Currently off antibiotics. Patient has been afebrile. Laboratory data showed WBC 4.8 hemoglobin 8.4 and platelets 233 sodium 138 potassium 3.8 chloride 106 bicarb is 28 BUN 20) 0.56 and blood sugar 94 and calcium 7.8. Patient is being continued DuoNebs, IV hydration with Ringer's lactate at 75 cc/h. Patient is also on valproic acid and Keppra. Neurology and pulmonary is on board. 09/19/2024 Patient is on mechanical ventilator and on sedation with propofol. IV hydration with Ringer's lactate at 75 cc out. Currently on assist-control with tidal volume 400 respiratory rate 16, FiO2 30% and PEEP of 5. Chest x-ray showed suboptimal due to skeletal deformities and kyphoscoliosis of the chest. Not on pressor support. Tolerating orogastric tube feeding. Currently patient is off antibiotics. Patient underwent bedside bronchoscopy by critical care team. Laboratory data showed WBC 5.1 hemoglobin 8.5 and platelets 240 sodium 139 potassium 4.1 chloride 105 bicarb is 28 BUN 21 and creatinine 0.45 blood sugar 103 magnesium 2.0. 09/20 I am resuming the care of the patient today Remains in the ICU intubated and sedated with pulmonary/renal care team helping with vent management He is s/p bronchoscopy yesterday He has a lot of secretion and scopolamine patch was added today As per staff public guardian are considering comfort care measures and they are going for a court order as patient has developmental delay throughout his life. 09/21 Patient is status post extubation. He started looking mildly tachypneic but tachycardic He remains on BiPAP with the setting of 15/6 with FiO2 of 100% Carrillo catheter in place Patient remains patient was made DNR/DNI per public guardian 09/22 Patient remains very lethargic. He remains on BiPAP He wake up to verbal stimulus to go back to sleep He still mildly tachypneic Chest x-ray showing bilateral congestion of the pulmonary blood vessels with suspected bilateral opacities. Patient finished IV treatment of antibiotics for multifocal pneumonia. With lack of improvement patient resumed on IV antibiotics with IV vancomycin and meropenem Patient currently DNR 09/23 Patient remains very lethargic and almost unresponsive on BiPAP. He responds nearly to painful stimuli. He remains acidotic and hypercapnic He is on broad-spectrum antibiotics with IV vancomycin and meropenem started yesterday, chest x-ray shows some improvement He was given sodium bicarb Also he remains on IV Lasix and Keppra Objective - Vital Signs Vital signs: Vital Signs Temp 97.8 F 09/23/24 08:00 Pulse 95 09/23/24 09:00 Resp 16 09/23/24 09:00 BP 142/73 09/23/24 09:00 Pulse Ox 100 09/23/24 09:00 FiO2 100 09/23/24 09:36 Intake & Output 09/22/24 09/23/24 09/23/24 18:59 06:59 18:59 Intake Total 878.812 715.739 39 Output Total 1595 895 200 Balance -716.188 -179.261 -161 Intake: IV 206 556 39 .9 KVO 120 120 30 Meropenem 2 gm In Sodium 100 Chloride 0.9% 100 ml @ 33 .3 mls/hr IVPB Q8H [facility] Rx #:[id number] Valproate Sodium 750 mg 50 50 In Sodium Chloride 0.9% 50 ml @ 50 mls/hr IVPB Q12HR [facility] Rx#:[id number] Vancomycin 1,250 mg In 250 Sodium Chloride 0.9% 250 ml @ 125 mls/hr IVPB ONCE ONE Rx#:[id number] a line 36 36 9 Intake, IV Titration 672.812 159.739 Amount Dexmedetomidine/0.9% NaCl 40.812 1.739 (Pmx) 400 mcg In Empty Bag 1 bag @ 0.2 MCG/KG/HR 3.42 mls/hr IV .Q24H [facility] Rx#:[id number] Meropenem 2 gm In Sodium 132 33 Chloride 0.9% 100 ml @ 33 .3 mls/hr IVPB Q8H [facility] Rx #:[id number] Vancomycin 1,250 mg In 500 125 Sodium Chloride 0.9% 250 ml @ 125 mls/hr IVPB Q12H [facility] Rx#:[id number] Output: Urine 1595 895 200 Stool 0 Other: Voiding Method Indwelling Catheter Indwelling Catheter Indwelling Catheter ABP, PAP, CO, CI - Last Documented Arterial Blood Pressure 134/54 - Exam -GENERAL: The patient is awake, looks in respiratory distress, generally weak on BiPAP HEENT: Pupils are round and equally reacting to light. EOMI. No scleral icterus. No conjunctival pallor. Normocephalic, atraumatic. No pharyngeal erythema. No thyromegaly. CARDIOVASCULAR: S1 and S2 present. No murmurs, rubs, or gallops. PULMONARY: Chest is clear to auscultation, no wheezing , no crackles. ABDOMEN: Soft, nontender, nondistended, normoactive bowel sounds. No palpable organomegaly. MUSCULOSKELETAL: No joint swelling or deformity. EXTREMITIES: No cyanosis, clubbing, or pedal edema. NEUROLOGICAL: Gross neurological examination did not reveal any focal deficits. SKIN: No rashes. no petechiae. - Labs CBC & Chem 7: 09/23/24 03:58 09/23/24 03:58 Labs: Abnormal Lab Results - Last 24 Hours (Table) 09/23/24 09/23/24 09/23/24 Range/Units 03:58 03:58 04:08 WBC 12.55 H (4.50-10.00) 10*3/uL RBC 2.94 L (4.40-5.60) 10*6/uL Hgb 10.1 L (13.0-17.0) g/dL Hct 33.5 L (39.6-50.0) % MCV 113.9 H D (80.0-97.0) fL MCH 34.4 H (27.0-32.0) pg MCHC 30.1 L (32.0-37.0) g/dL MPV 9.0 L (9.5-12.2) fL Immature Gran # 0.07 H (0.00-0.04) 10*3/uL Neutrophils # 11.04 H (1.80-7.70) 10*3/uL Lymphocytes # 0.36 L (0.90-5.00) 10*3/uL Monocytes # 1.02 H (0.20-1.00) 10*3/uL Eosinophils # 0.01 L (0.04-0.35) 10*3/uL ABG pH 7.12 L* (7.35-7.45) ABG pCO2 >98 H* (35-45) mmHg ABG pO2 235 H (83-108) mmHg ABG O2 Saturation 99.9 H (94-97) % Hemoglobin 10.3 L (13.0-17.5) gm/dL Chloride 92 L (98-107) mmol/L Carbon Dioxide 39 H (22-30) mmol/L BUN 40 H (9-20) mg/dL Glucose 103 H (74-99) mg/dL Assessment and Plan Assessment: Acute hypoxic and hypercapnic respiratory failure requiring intubation mechanical ventilator. S/p extubation on 09/20 Multifocal pneumonia-healthcare associated. Sputum culture showed haemophilus influenza. Completed antibiotic course with ceftriaxone.. Sepsis secondary pneumonia Hypertension Hypothyroidism Hypothermia Altered mental status secondary to metabolic encephalopathy and infection History of intellectual disability Seizure disorder Severe kyphoscoliosis Right eye blindness Medical debility [facility] Plan: C currently off IV fluid and getting IV Lasix 40 mg twice daily Continue with seizure medication per neurologist including IV Keppra and valproate as well as Tegretol Started on IV antibiotics IV vancomycin and meropenem Continue with BiPAP as per pulmonary/critical care team Neurology and critical care team consult Public guardian now considering comfort care Labs and medication were reviewed.. Continue same treatment. Continue with symptomatic treatment. Resume home medication. Monitor labs and vitals. DVT and GI prophylaxis. Further recommendations as per clinical course of the patient DVT prophylaxis: Subcutaneous heparin GI Prophylaxis: Ppi Prognosis is guarded CODE STATUS switched to DNR
[2024-09-23 23:42] LABS: Glucose,Whole Blood 105 mg/dL (70-110)
[2024-09-24 04:50] LABS: Basophils # (A) 0.06 10*3/uL (0.00-0.10); Basophils % (A) 0.7 %; HCT 33.1 % (39.6-50.0); Lymphocytes # (A) 0.37 10*3/uL (0.90-5.00); Lymphocytes % (A) 4.5 %; MCHC 30.2 g/dL (32.0-37.0); Mean Platelet Volume 9.1 fL (9.5-12.2); Monocytes # (A) 0.78 10*3/uL (0.20-1.00); Monocytes % (A) 9.4 %; Neutrophils # (A) 6.88 10*3/uL (1.80-7.70); Neutrophils % (A) 83.3 %; Platelet Count 263 10*3/uL (140-440); RBC 2.94 10*6/uL (4.40-5.60); RDW 14.1 % (11.5-14.5); WBC 8.26 10*3/uL (4.50-10.00)
[2024-09-24 04:52] LABS: ABG Base Excess 10.5 mmol/L; ABG Oxygen Saturation 99.7 % (94-97); ABG PH 7.27 (7.35-7.45); ABG PO2 142 mmHg (83-108); ABG TCO2 43 mmol/L (19-24)
[2024-09-24 04:52] LABS: MCV 112.6 fL (80.0-97.0)
[2024-09-24 04:54] LABS: ABG HCO3 40 mmol/L (21-25); ABG PCO2 87 mmHg (35-45); Allen Test Performed? No
[2024-09-24 05:20] LABS: African American GFR (CKD) >90 (>60 ml/min/1.73 sqM); Blood Urea Nitrogen 48 mg/dL (9-20); Calcium 8.7 mg/dL (8.4-10.2); Chloride 94 mmol/L (98-107); Glucose 99 mg/dL (74-99); Non-African American GFR(CKD) 84 (>60 ml/min/1.73 sqM); Potassium 3.6 mmol/L (3.5-5.1); Sodium 143 mmol/L (137-145)
[2024-09-24 05:27] LABS: Anion Gap 10 mmol/L; Carbon Dioxide 39 mmol/L (22-30)
[2024-09-24 05:41] LABS: Glucose,Whole Blood 101 mg/dL (70-110)
[2024-09-24] MEDS: POTASSIUM CHLORIDE 10 MEQ in WATER FOR INJECTION 1 100ML.BAG IVPB SCH (05:54)
--- NOTE | 2024-09-24 07:49 | XR ---
EXAMINATION TYPE: XR chest 1V portable DATE OF EXAM: 09/24/2024 5:58 AM COMPARISON: Multiple radiographs, with the most recent on 09/23/2024 TECHNIQUE: XR chest 1V portable Portable AP radiograph of the chest. CLINICAL INDICATION:Male, 63 years old with history of assess lungs; shortness of breath. FINDINGS: Patient is rotated which limits evaluation. Lungs/Pleura: Similar possible small left pleural effusion. Left basilar patchy airspace opacities. T here is new opacification of the right mid and lower lung with possible small pleural effusion. [place] tion of the left hemidiaphragm. Heart/mediastinum: Cardiomediastinal silhouette is enlarged and stable. Musculoskeletal: No acute osseous pathology. Marked dextroscoliotic curvature of the thoracic spine. Other findings: None Lines/Tubes: Stable right IJ central venous catheter with distal tip in the region of right atrium. IMPRESSION: 1. Similar possible small left pleural effusion with adjacent airspace opacity which may represent a telectasis versus pneumonia. New opacification of the right mid and lower lung with possible small pl eural effusion. May represent atelectasis versus pneumonia versus related to patient rotation. 2. Stable right central venous catheter. [facility], , 09/24/2024 7:47 AM
[2024-09-24] MEDS: VANCOMYCIN TROUGH DUE 1 EACH MISC MISCELLANE ONE (11:30)
[2024-09-24 11:34] LABS: Glucose,Whole Blood 98 mg/dL (70-110)
[2024-09-24 12:00] LABS: ABG Base Excess 11.8 mmol/L; ABG Oxygen Saturation 94.2 % (94-97); ABG PH 7.32 (7.35-7.45); ABG PO2 65 mmHg (83-108); ABG TCO2 43 mmol/L (19-24)
[2024-09-24 12:02] LABS: ABG HCO3 40 mmol/L (21-25); ABG PCO2 78 mmHg (35-45)
[2024-09-24 12:03] LABS: African American GFR (CKD) >90 (>60 ml/min/1.73 sqM); Non-African American GFR(CKD) >90 (>60 ml/min/1.73 sqM)
--- NOTE | 2024-09-24 17:59 | P.PN ---
Subjective Progress Note Date: 09/24/24 Patient is a 63-year-old male with past medical history significant for intellectual disability, seizure disorder, hypertension, hypothyroidism, chronic hypoxemic respiratory failure. [facility] Noted to be confused with increased work of breathing by staff. His SpO2 was reading 40%. EMS was called and patient was transferred to the emergency department on a nonrebreather. He was minimally responsive on arrival. ABG consistent with severe hypercapnic respiratory failure with a PaO2 of 153, pCO2 greater than 98, pH of 7.13. Previously, received 4 mg IV Versed. Patient was intubated by the ER provider. Brain CT without contrast did not show any acute intracranial hemorrhage or mass effect. There was some sinusitis and moderate fluid in the mastoid air cells bilaterally. Brain CT angio did not show any evidence of cervical internal carotid artery or vertebral artery dissection or stenosis at the carotid bifurcations. No evidence of high-grade intracranial stenosis or aneurysm. Patchy groundglass and consolidative opacities visualized in the upper lung schwartz. Chest x-ray following intubation showing the endotracheal tube terminating 2.5 cm above the ezra. Severe kyphoscoliosis. There is patchy subtle opacities bilaterally. Suspect small bilateral pleural effusions. Enteric tube likely in the duodenum. CBC: WBC count 12.4, hemoglobin 11.7, platelets 176. CMP: Sodium 140, potassium 5.3, chloride 96, serum bicarb 37, BUN 43, creatinine 0.79, glucose 125. Lactic 2.4. LFTs not elevated. Troponin less than 0.012. EKG: Sinus rhythm, rate 97 bpm, RBBB pattern. Patient currently being evaluated in the intensive care unit. Remains intubated to the mechanical ventilator. Current ventilator settings assist-control, respiratory rate 20, tidal volume 450, FiO2 70%, PEEP of 5. Previous ventilator settings were appropriately adjusted following a recent follow-up ABG with a PaO2 of 187, PCO2 of 31, pH of 7.6. This was done on FiO2 100%. Respiratory rate has since been adjusted and FiO2 is being titrated appropriately. He is sedated on propofol which is infusing at 45 mcg/kg/min as well as fentanyl infusing at 0.5 mcg/kg/h. Currently synchronous with ventilator settings. Peak pressures around 26. Lactated Ringer's also infusing at 130 mL/h. Indwelling urinary catheter with urine output of greater than 100 mL/h. Blood pressure has been normotensive. Previously, patient was hypothermic with a temperature as low as 93.9 F, and was on a external warming blanket. Now normothermic. Continues with empiric antibiotics. 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 Current CODE STATUS is full. 09/14/2024 Patient seen and examined at the bedside. Patient continue be sedated and mechanically ventilated. Currently patient is sedated with fentanyl at 0.5 mcg/kg/min and propofol at 30 mcg/kg/min. Patient is on volume assist-control with setting of respiratory of 16, tidal volume of 400, FiO2 of 40% and PEEP of 5. Arterial blood gas today shows pH of 7.45, pCO2 43, PaO2 132, bicarb 29. FiO2 is decreased to 35%. Chest x-ray this morning shows cardiomegaly with small bilateral pleural effusions. Urine output is good. Patient is also on lactated Ringer's running at 130 cc/h and Levophed at 0.03 mcg/kg/h. Patient is continued to be on vancomycin, azithromycin and Rocephin for empiric coverage for multifocal pneumonia. Prolactin is 0.11. Lab work from today shows WBC 6.63, hemoglobin 8.9, platelet count 162, sodium 139, potassium 4.1, chloride 106, bicarb 27, BUN 17, creatinine 0.56, glucose 141, calcium 8.3. He is cur rently on vital HP tube feeds running at 30 cc/h with a goal of 50. 09/15/2024 Patient seen and examined at the bedside. Patient continued to be sedated and mechanically ventilated. Patient is currently on fentanyl at 0.05 mcg/kg/min and propofol at 25 mcg/kg/min. Patient is on volume assist-control with a settings of respiratory rate of 16, tidal volume of 400, FiO2 of 30%, PEEP of 5.0. ABG shows pH of 7.44, pCO2 45, PO2 of 70, HCO3 of 30. Chest x-ray done today shows cardiomegaly with small bilateral pleural effusions. Urine output is good. Patient is on lactated ringer Ringer's at 75 cc/h. He is getting tube feeds with vital HP at 55 which is at goal. Patient has been restarted on azithromycin and Rocephin for positive sputum culture which shows H. influenzae growth. Lab work from today shows WBC 6.08, hemoglobin 8.5, platelet count 159, sodium 137, potassium 3.6, chloride 107, bicarb 31, BUN 15, creatinine 0.57, glucose 114, calcium 7.9. TSH 19.7, free T41.26, cortisol 11.2. Iron 16, TIBC 136, percent saturation 11.76, transferrin 97, ferritin 446.0. Progress note dated September 16, 2024. 63-year-old male seen today in room 254. He remains on the mechanical ventilat or. He is on volume assist-control, rate 16, tidal volume 400, FiO2 30%, PEEP of 5. Blood gases show PO2 77, pCO2 of 42, pH is 7.47. The patient is currently on propofol at 25 mcg/kg/min, lactated Ringer's at 75 cc an hour, saline at 20 cc an hour. The patient is also getting vital high-protein at 52 cc an hour which is goal. Sputum was positive for Haemophilus influenzae. The patient continues on Rocephin. White count is 5.17, hemoglobin 7.8, hematocrit 23.8, platelet count is 159,000. Sodium 137, potassium 3.9, chloride 104, CO2 30, BUN 17, creatinine 0.54. Calcium is 7.8. Chest x-ray shows the endotracheal tube 2.4 cm above the ezra. The patient has diffuse bilateral opacities. Progress note dated September 17, 2024. 63-year-old male seen today in room 254. The patient remains on the mechanical ventilator, with settings of volume assist-control, rate 16, tidal volume 400, FiO2 30%, PEEP of 5. Blood gases show pO2 of 83, pCO2 of 44, and a pH of 7.44. He is on propofol at 35 mcg/kg/min, LR at 75 cc an hour, saline at 20 cc an hour, and vital high-protein at 52 cc an hour, which is goal. He continues on Rocephin for the Haemophilus influenzae that was in his sputum. Today the patient will have a daily interruption of sedation. I do not suspect he is ready for weaning and extubation. Current white count 4.8, hemoglobin 7.9, hematocrit 23.8, platelet count 192,000. Sodium 139, potassium 4, chlorides 106, CO2 32, BUN 19, creatinine 0.49. Glucose is 122. Calcium 8. Chest x-ray is largely unchanged. 09/18/2024, the patient remains intubated on the mechanical ventilator. This morning, the patient on a propofol of 35 mcg/kg/min. The patient also on lactat ed Ringer at 75 cc an hour. He remains on assist-control mode of mechanical ventilation at rate of 16, tidal volume of 400, FiO2 30% with a PEEP of 5. Blood gas showed pH of 7.44 with PCO2 of 44 and PO2 of 70. Chest x-ray from today shows severe kyphosis of the chest and kyphoscoliosis. The consolidation involving the right lung is improved. There are some residual left perihilar infiltrates. The patient was diagnosed and treated for Moraxella pneumonia and the patient is currently off antibiotics. Hemodynamically stable. He was intubated on 05/16/2025. He was initially treated with a combination of cefepime, Zithromax and vancomycin and later on switched to Zithromax and Rocephin and currently is off antibiotics. He continues to receive vital high- protein at rate of 52 cc an hour. Blood work from today shows a white cell count of 4.8, hemoglobin of 8.4 and platelet count of 233. Sodium level is at 138, BUN is 20 with a creatinine of 0.5. Otherwise, no other significant ev ents. He is arousable. Does not communicate. He is on antiepileptics including Tegretol and valproic acid. He is on heparin subcu for DVT prophylaxis. He remains on Synthroid. He is also on Keppra. On 09/20/2024, the patient is being seen for a follow-up. This morning, the patient remains sedated on propofol running at 30 mcg/kg/min. The patient remains on n lactated Ringer at rate of 75 cc an hour. At the same time, the patient remains intubated on mechanical ventilator. He remains on assist- control mode at rate of 60, tidal volume of 400, FiO2 30% with a PEEP of 5. Blood gas showed a pH of 7.43 with a PCE458 and PO2 of 73. Chest x-ray findings are essentially suboptimal due to his skeletal deformities and kyphoscoliosis of the chest. The patient continues to have perihilar pulmonary infiltration and possibly some small bilateral pleural effusions. Orotracheal tube is in a good location. Meanwhile, the patient is receiving enteral feeding for nutritional support and the patient is on vital high-protein at rate of 52 cc an hour. The white cell count is 5.5 with a hemoglobin 8.5 and a platelet count of 240. Sodium is at 139, BUN is 20 with a creatinine of 0.45 and a potassium levels of 4.1. Blood sugars at 89. The patient is currently off antibiotics. Antiepile ptic medications are essentially unchanged. I performed a bedside bronchoscopy on this patient. Respiratory secretions were scant. Due to his severe kyphoscoliosis of the chest, there was some atelectatic changes at various segments of the lower lobes bilaterally. There was also atelectatic changes of the various segments of the right upper lobe. Nevertheless, no significant or secretions. No significant mucous retention. No mucous plugs. No endobronchial abnormalities. On 09/20/2024, the patient is being seen for a follow-up. I had a meeting with her public guardian. The message was given from the public guardian's date she does not want a comfort measures yet and she is interested in considering extubation or at least giving the patient a trial of extubation. The patient meanwhile remains on sedation. This morning, he remains on propofol running at 50 mcg/kg/min. Respiratory secretions are loose. Bronchoscopy was done yesterday. The follow-up cultures are still pending for now. Meanwhile, he is on assist-control rate of 16, tidal volume of 400, FiO2 30% with a PEEP of 5. No significant events or hemodynamic instability. Blood gas showed a pH of 7.46 with a EMQ716 and pO2 72. Fluid balance is -915 cc over the past 24 hours. Remains at lactated Ringer at a rate of 75 cc an hour and is also on vital HP at rate of 52. The white cell count 7.5, hemoglobin 8.2 and a platelet count of 258. Sodium is 136, BUN 25 with a creatinine 0.59. Potassium level is at 3.8. No pressors for now. No antibiotic coverage the patient completed the course of antibiotics. No seizure activity. Arousable off sedation. Extremely hard of hearing. On 09/21/2024, the patient remains extubated. Noted the patient was extubated on 09/20/2024 and the patient was placed on a BiPAP postextubation. This morning, he is on a BiPAP pressure of 16 over 5 cm of water with an FiO2 100%. Unable to wean down FiO2 any further due to development of hypoxemia. The patient is able to generate a tidal volume of 350 with a respiratory rate of 26 and a minute ventilation of 9 L/min. Chest x-ray is showing severe kyphoscoliosis of the chest, there is cardiomegaly and bilateral pleural effusions and pulm vessel congestion and perihilar airspace opacities. The patient is currently on Lasix 20 mg IV push every 12 hours. The patient is -3.3 L over the past 24 hours and the patient is producing excellent urine output. No signs of any significant respiratory distress, nevertheless, he seems to be BiPAP dependent. The white cell count of 12.4 with hemoglobin 9.7 and platelet count 279. BUN 30 with a creatinine of 0.6 and a sodium levels at 135 and a potassium level is at 4.4. Serum bicarb is at 37. No antibiotic coverage as the patient completed his antibiotic course. IV fluids are currently at KVO and the patient remains on Lasix 20 mg IV push every 12 hours. Arousable. Very hard of hearing. Unable to communicate at this point. Discussed the case again with the legal guardian and his CODE STATUS switched to DNR/DNI. On 09/22/24, the patient is essentially the same , still on the BIPAP and oxygenation is worse. The FU ABG shows worsening in the hypoxemia and the patient is stillon BIPAP 15/6, 100 Fio2. He is still on IV lasix and fluid balance is negative 2.7 liters. THe CXR is unchanged. Chest x-ray is showing severe kyphoscoliosis of the chest, there is cardiomegaly and bilateral pleural effusions and pulm vessel congestion and perihilar airspace opacities. The patient is currently on Lasix 20 mg IV push every 12 hours. Labs were reviewed No antibiotic coverage as the patient completed his antibiotic course. IV fluids are currently at KVO and the patient remains on Lasix 20 mg IV push every 12 hours. Arousable. Very hard of hearing. Unable to communicate at this point. Discussed the case again with the legal guardian and his CODE STATUS switched to DNR/DNI. 09/23/2024, the patient remains on a BiPAP at a pressure of 16 over 10 cm of water. Earlier this morning, the patient had significant diminished level of consciousness. Only grimacing to the painful stimulation. He is on a BiPAP pressure of 16/10 with an FiO2 of 100%. Blood gas showed a pH of 7.12 with a pCO2 of 98 and pO2 of 235. Fluid balance is -895 cc over the past 24 hours. While on the BiPAP, the patient is able to generate respirate of 20, tidal volume of above 400 and a minute ventilation of 9 L. No significant air leak from the mask. Chest x-ray findings were also noted. As mentioned, the patient has an unchanged severe scoliosis. There is possibly some bilateral airspace disease. There is improved aeration compared to yesterday's chest x-ray. Noted the patient was also started on broad-spectrum antibiotics on empiric basis and the patient is currently on a combination of Merrem and vancomycin. The rest of the blood work shows a white cell count of 12.5, hemoglobin of 10.1 and a platelet count of 311. The sodium is at 137, potassium is at 4, bicarb is at 39, BUN is 40 with a creatinine of 1.1. The patient remains NPO. He is a DNR/DNI CODE STATUS. He remains on IV Lasix. On 09/24/2024, the patient remains essentially unchanged compared to yesterday. Grimaces only to deep painful stimulation. Very hard to communicate with. He has intellectual disability and he also is deaf. As such, it is extremely difficult to communicate with the patient. He is tolerating the BiPAP pressure of 16 over 10 cm of water with an FiO2 of 100%. Blood gas from today shows improvement in the acid-base status with a pH of 7.27 with a pCO2 of 87 and PO2 142. Chest x-ray is suboptimal due to body habitus. There is ongoing persistent consolidation of the lower lobes along with severe thoracic kyphoscoliosis. The patient remains in a negative fluid balance of 942 cc over the past 24 hours. While on a BiPAP machine, the patient has a ventricular tachycardia volume of 400 with a minute ventilation of 9.8. The patient remains on Lasix 20 mg IV push every 12 hours. The patient remains on Merrem and vancomycin as broad-spectrum antibiotic coverage. Remains on DuoNeb updrafts. No sedation for now. No seizure activity. The patient remains NPO. In terms of the blood work from today, the patient's white cell count is at 8.2 with a hemoglobin of 10 and a platelet count of 263. Sodium is at 143, potassium is at 3.6, bicarb is at 39, BUN is 48 with a creatinine of 0.2. Follow-up blood gases later on during the day while being on FiO2 of 80% showed further improvement in respiratory status. The patient's pH was 7.32 with a PCO2 of 78 and PO2 of 65. He is a DNR/DNI CODE STATUS. Will continue monitoring his progress. Objective - Vital Signs Vital signs: Vital Signs Temp 98.8 F 09/24/24 16:00 Pulse 109 H 09/24/24 17:00 Resp 26 H 09/24/24 17:00 BP 117/55 09/24/24 17:00 Pulse Ox 100 09/24/24 17:00 FiO2 100 09/24/24 17:00 Intake & Output 09/23/24 09/24/24 09/24/24 18:59 06:59 18:59 Intake Total 156 509.135 826 Output Total 312 637 1513 Balance -674 -290.865 -174 Intake: IV 156 506 326 .9 KVO 120 120 80 Meropenem 2 gm In Sodium 200 66 Chloride 0.9% 100 ml @ 33 .3 mls/hr IVPB Q8H AG Rx #:[id number] Potassium Chloride 10 meq 100 100 In Water For Injection 1 100ml.bag @ 100 mls/hr IVPB Q1H AG Rx#: [id number] Valproate Sodium 750 mg 50 50 In Sodium Chloride 0.9% 50 ml @ 50 mls/hr IVPB Q12HR AG Rx#:[id number] a line 36 36 30 Intake, IV Titration 3.135 500 Amount Dexmedetomidine/0.9% NaCl 3.135 (Pmx) 400 mcg In Empty Bag 1 bag @ 0.2 MCG/KG/HR 3.42 mls/hr IV .Q24H AG Rx#:[id number] Vancomycin 1,250 mg In 500 Sodium Chloride 0.9% 250 ml @ 125 mls/hr IVPB Q12H AG Rx#:[id number] Output: Urine 341 981 0949 Other: Voiding Method Indwelling Catheter Indwelling Catheter Indwelling Catheter ABP, PAP, CO, CI - Last Documented Arterial Blood Pressure 110/46 - Exam No acute distress, extubated and the patient is currently on a BiPAP at a pressure of 16/10 cm of water with an FiO2 of 100%. Sitting up in bed. Has significant thoracolumbar kyphoscoliosis. Diminished level of consciousness, grimaces only to the painful stimulation. HEENT examination is grossly unremarkable. Neck supple. Full range of motion. No adenopathy thyromegaly or neck vein distention. Cardiovascular examination reveals regular rhythm rate. S1-S2 normal. No S3 or S4. No discernible murmur noted. Lungs reveal bilateral coarse rhonchi. No wheezes. No crackles. Breath sounds equal bilaterally. The patient has significant kyphoscoliosis of the thoracic spine and scattered rhonchi heard bilaterally. Crackles in the lung bases. Diminished breath sounds in left lung base. Abdominal exam revealed normal bowel sounds. The abdomen was soft, non-tender, and without masses, organomegaly, or appreciable enlargement of the abdominal aorta. Extremities are intact. No cyanosis clubbing there is +1 edema in all 4 extremities involving the upper and lower extremities. Skin is without rash or lesion. Neurologic examination cannot be evaluated as the patient is unable to commu nicate. Opens eyes spontaneously. Withdraws to painful stimulation. - Labs CBC & Chem 7: 09/24/24 04:37 09/24/24 11:28 Labs: Abnormal Lab Results - Last 24 Hours (Table) 09/24/24 09/24/24 09/24/24 Range/Units 04:37 04:37 04:48 RBC 2.94 L (4.40-5.60) 10*6/uL Hgb 10.0 L (13.0-17.0) g/dL Hct 33.1 L (39.6-50.0) % MCV 112.6 H (80.0-97.0) fL MCH 34.0 H (27.0-32.0) pg MCHC 30.2 L (32.0-37.0) g/dL MPV 9.1 L (9.5-12.2) fL Immature Gran # 0.17 H (0.00-0.04) 10*3/uL Lymphocytes # 0.37 L (0.90-5.00) 10*3/uL Eosinophils # 0.00 L (0.04-0.35) 10*3/uL ABG pH 7.27 L (7.35-7.45) ABG pCO2 87 H* (35-45) mmHg ABG pO2 142 H (83-108) mmHg ABG HCO3 40 H* (21-25) mmol/L ABG Total CO2 43 H (19-24) mmol/L ABG O2 Saturation 99.7 H (94-97) % Hemoglobin 10.1 L (13.0-17.5) gm/dL Chloride 94 L (98-107) mmol/L Carbon Dioxide 39 H (22-30) mmol/L BUN 48 H (9-20) mg/dL Creatinine (0.66-1.25) mg/dL 09/24/24 09/24/24 Range/Units 11:28 11:58 RBC (4.40-5.60) 10*6/uL Hgb (13.0-17.0) g/dL Hct (39.6-50.0) % MCV (80.0-97.0) fL MCH (27.0-32.0) pg MCHC (32.0-37.0) g/dL MPV (9.5-12.2) fL Immature Gran # (0.00-0.04) 10*3/uL Lymphocytes # (0.90-5.00) 10*3/uL Eosinophils # (0.04-0.35) 10*3/uL ABG pH 7.32 L (7.35-7.45) ABG pCO2 78 H* (35-45) mmHg ABG pO2 65 L (83-108) mmHg ABG HCO3 40 H* (21-25) mmol/L ABG Total CO2 43 H (19-24) mmol/L ABG O2 Saturation (94-97) % Hemoglobin 10.5 L (13.0-17.5) gm/dL Chloride (98-107) mmol/L Carbon Dioxide (22-30) mmol/L BUN (9-20) mg/dL Creatinine 0.29 L (0.66-1.25) mg/dL Assessment and Plan Plan: Acute hypoxemic and hypercapnic respiratory failure, secondary to bacterial pneumonia. Sputum culture was positive for haemophilus influenza, treated with IV antibiotics and the patient completed the course of antibiotics. The patient was extubated to a BiPAP on 09/20/2024 and the patient remains on a BiPAP at a pressure of 16 over 10 cm of water and FiO2 of 100%. Improvement in oxygenation and acid-base status on today's blood gases. FiO2 has been down to 80%. Please refer to the most recent blood gases. Diminished level of consciousness, partly due to CO2 narcosis. In addition, the patient is quite encephalopathic, has intellectual delay in addition to deafness making communication extremely difficult with the patient. The patient remains NPO. Multifocal pneumonia, secondary to Haemophilus influenzae, treated with subsequent improvement of chest x-ray findings, improved, the patient is currently hemodynamically stable. The patient was restarted on a combination of meropenem and vancomycin on empiric basis. Patient is also being diuresed with IV Lasix and fluid balance remains negative. Acute leukocytosis, secondary to infection, improved Hypothermia, resolved. Altered mental status, secondary to encephalopathy, and sepsis. This morning, the patient is sedated. He does have developmental delay and intellectual disability in addition to his history of seizure disorder. Currently free of any seizures. History of intellectual disability. History of seizure disorder. Maintained on Keppra, valproate and Depakote. Severe kyphoscoliosis. Blind right eye. History of hypertension. History of hypothyroidism. Plan Continue BiPAP for respiratory support, change setting to 16/10 Monitor the blood gases Continue IV Lasix 20 mg IV every 12 hours Fluid balance is negative No sedation Keep the patient n.p.o. consider a Dobbhoff catheter insertion at a later stage if the patient's respiratory failure remains quite prolonged. Obviously, he may not be able to swallow at this point in time. Close monitoring of the respiratory status CODE STATUS has been switched to DNR/DNI per guardian's wishes Empiric antibiotic coverage with a combination of Merrem and vancomycin Continue antiepileptic medications No seizure activity for now clinically decompensating and the patient has a poor prognosis Continue supportive care and will continue to follow. Critical care evaluation 35 minutes. Time with Patient: Greater than 30
[2024-09-24 18:26] LABS: Glucose,Whole Blood 101 mg/dL (70-110)
--- NOTE | 2024-09-24 18:57 | P.PN ---
Subjective Patient is a 63-year-old male with a known history of mentally challenged, seizure disorder, asthma, hypertension, hypothyroidism and chronic hypoxemic respiratory failure who is currently at [facility]. Patient was sent to hospital due to worsening shortness of breath and altered mental status and was also hypoxic with pulse ox 40% when he presented to ER. Patient was placed on nonrebreather and was minimally responsive on arrival to ER. Patient had ABGs was done showed PaO2 153. pCO2 98 and also pH 7.13 patient was intubated in the ER. Patient was also sedated with propofol and fentanyl. CT head showed no acute bleed or mass effect. Sinusitis and mastoiditis as described above. CT angiogram of the head and neck showed no evidence of dissection of the cervical internal carotid arteries or vertebral arteries. Patchy groundglass and consolidative opacities in partially visualized upper lungs suspicious for multifocal pneumonia Chest x-ray showed endotracheal tube terminates 2.5 cm above ezra. Enteric tube distal sidehole overlies the expected gastric lumen. Small bilateral pleural effusions and subtle patchy opacities in the upper lobes which could reflect infectious etiology. EKG showed sinus rhythm with right bundle branch block. Laboratory data on admission showed WBC 12.3 hemoglobin 11.7 and platelets 176 and MCV 112 sodium 140 potassium 5.3 chloride 96 bicarb is 37 BUN 43 and creatinine 0.79 and blood sugar 125 and calcium 8.6 liver enzymes are not elevated troponin x 1 negative and procalcitonin level is 0.11 Patient is also hypothermic requiring Roly hugger. Influenza A BRAC COVID-19 and Legionella urine antigen negative. 09/14/2024 Patient is currently in the MICU. On sedation holiday. Was able to tolerate pressure support for short duration this morning currently back to [facility]- control.. ABG showed pH 7.4 [id number] and PO2 132 Other laboratory data showed WBC 6.6 hemoglobin 8.9 and MCV 104.6 and platelets 168. BUN 17 and creatinine 0.56. Chest x-ray showed cardiomegaly with small bilateral pleural effusions. Patient is on IV hydration with Ringer's lactate at 130 cc/h and also requiring pressure support with Levophed. Continue with antibiotics for multifocal pneumonia. Procalcitonin level is not elevated at 0.11. 09/15/2024 Patient is in the MICU. Intubated and on mechanical ventilator. Patient is back on sedation with propofol and is also on fentanyl drip. Currently on assist-control with respiratory rate 16, tidal volume 400 FiO2 30% and PEEP of 5. Chest x-ray showed cardiomegaly and small bilateral pleural effusions. Continued on IV hydration with Ringer's lactate at 75 cc/h. Patient is being continued on antibiotics in the form of ceftriaxone. Sputum culture showed haemophilus influenza. Laboratory showed WBC 6.0 hemoglobin 8.5 and platelets 159 sodium 137 potassium 3.6 chloride 107 bicarb is 31 BUN 51 creatinine 0.57 blood sugar 114 and calcium 7.9. 09/16/2024 Patient is in the MICU. Remains on mechanical ventilator. Sedated with propofol drip. Continues on IV hydration with Ringer's lactate at 75 cc/h. Patient was also started on NG tube feeding. Continued on antibiotics in the form of ceftriaxone. Sputum culture is growing haemophilus influenza. Lab data showed WBC 5.1 hemoglobin 7.8 and platelets 159, sodium 137 potassium 3.9 chloride 104 bicarb is 30 BUN 17 and creatinine 0.54 and blood sugar 101 and calcium 7.8. 09/17/2024 Patient is in the MICU. Currently intubated on mechanical ventilator. Patient did have daily sedation holiday today and was placed back on ProForma. Not on pressor support. Continued on antibiotics in the form of ceftriaxone. Sputum cultures growing haemophilus influenza. Patient is on IV hydration with Ringer's lactate at 75 cc/h. On tube feeding via NG tube. Chest x-ray showed ET tube 2.7 cm above ezra. No change in acute pulmonary process. Laboratory data showed WBC 4.8 hemoglobin 7.9 and platelets 192 sodium 139 potassium 4.0 chloride 106 bicarb is 32, BUN 19 and creatinine 0.49 and blood sugar 103 and calcium 8.0. 09/18/2024 Patient is in the MICU. Remains on mechanical ventilator. Patient is also sedated with propofol. Blood gas showed pH 7.44 MCO393, PO270. Chest x-ray showed no acute cardiopulmonary process. Currently off antibiotics. Patient has been afebrile. Laboratory data showed WBC 4.8 hemoglobin 8.4 and platelets 233 sodium 138 potassium 3.8 chloride 106 bicarb is 28 BUN 20) 0.56 and blood sugar 94 and calcium 7.8. Patient is being continued DuoNebs, IV hydration with Ringer's lactate at 75 cc/h. Patient is also on valproic acid and Keppra. Neurology and pulmonary is on board. 09/19/2024 Patient is on mechanical ventilator and on sedation with propofol. IV hydration with Ringer's lactate at 75 cc out. Currently on assist-control with tidal volume 400 respiratory rate 16, FiO2 30% and PEEP of 5. Chest x-ray showed suboptimal due to skeletal deformities and kyphoscoliosis of the chest. Not on pressor support. Tolerating orogastric tube feeding. Currently patient is off antibiotics. Patient underwent bedside bronchoscopy by critical care team. Laboratory data showed WBC 5.1 hemoglobin 8.5 and platelets 240 sodium 139 potassium 4.1 chloride 105 bicarb is 28 BUN 21 and creatinine 0.45 blood sugar 103 magnesium 2.0. 09/20 I am resuming the care of the patient today Remains in the ICU intubated and sedated with pulmonary/renal care team helping with vent management He is s/p bronchoscopy yesterday He has a lot of secretion and scopolamine patch was added today As per staff public guardian are considering comfort care measures and they are going for a court order as patient has developmental delay throughout his life. 09/21 Patient is status post extubation. He started looking mildly tachypneic but tachycardic He remains on BiPAP with the setting of 15/6 with FiO2 of 100% Carrillo catheter in place Patient remains patient was made DNR/DNI per public guardian 09/22 Patient remains very lethargic. He remains on BiPAP He wake up to verbal stimulus to go back to sleep He still mildly tachypneic Chest x-ray showing bilateral congestion of the pulmonary blood vessels with suspected bilateral opacities. Patient finished IV treatment of antibiotics for multifocal pneumonia. With lack of improvement patient resumed on IV antibiotics with IV vancomycin and meropenem Patient currently DNR 09/23 Patient remains very lethargic and almost unresponsive on BiPAP. He responds nearly to painful stimuli. He remains acidotic and hypercapnic He is on broad-spectrum antibiotics with IV vancomycin and meropenem started yesterday, chest x-ray shows some improvement He was given sodium bicarb Also he remains on IV Lasix and Keppra 09/24 Patient is clinically looks similar to yesterday still very lethargic, still on BiPAP. It looks like it is hard to medicate with the patient Labs showing some improvement with pH went up to 7.2 still acidotic and pCO2 is better at 78 still elevated. Patient still tachycardic and tachypneic He remains on IV vancomycin and meropenem Objective - Vital Signs Vital signs: Vital Signs Temp 98.6 F 09/24/24 12:00 Pulse 116 H 09/24/24 12:00 Resp 16 09/24/24 12:00 BP 137/65 09/24/24 12:00 Pulse Ox 97 09/24/24 12:00 FiO2 80 09/24/24 12:00 Intake & Output 09/23/24 09/24/24 09/24/24 18:59 06:59 18:59 Intake Total 156 509.135 218 Output Total 830 800 740 Balance -674 -290.865 -522 Intake: IV 156 506 218 .9 KVO 120 120 50 Meropenem 2 gm In Sodium 200 Chloride 0.9% 100 ml @ 33 .3 mls/hr IVPB Q8H AG Rx #:[id number] Potassium Chloride 10 meq 100 100 In Water For Injection 1 100ml.bag @ 100 mls/hr IVPB Q1H AG Rx#: [id number] Valproate Sodium 750 mg 50 50 In Sodium Chloride 0.9% 50 ml @ 50 mls/hr IVPB Q12HR AG Rx#:[id number] a line 36 36 18 Intake, IV Titration 3.135 Amount Dexmedetomidine/0.9% NaCl 3.135 (Pmx) 400 mcg In Empty Bag 1 bag @ 0.2 MCG/KG/HR 3.42 mls/hr IV .Q24H AG Rx#:[id number] Output: Urine 830 800 740 Other: Voiding Method Indwelling Catheter Indwelling Catheter Indwelling Catheter ABP, PAP, CO, CI - Last Documented Arterial Blood Pressure 118/54 - Exam -GENERAL: The patient is awake, looks in respiratory distress, generally weak on BiPAP HEENT: Pupils are round and equally reacting to light. EOMI. No scleral icterus. No conjunctival pallor. Normocephalic, atraumatic. No pharyngeal erythema. No thyromegaly. CARDIOVASCULAR: S1 and S2 present. No murmurs, rubs, or gallops. PULMONARY: Chest is clear to auscultation, no wheezing , no crackles. ABDOMEN: Soft, nontender, nondistended, normoactive bowel sounds. No palpable organomegaly. MUSCULOSKELETAL: No joint swelling or deformity. EXTREMITIES: No cyanosis, clubbing, or pedal edema. NEUROLOGICAL: Gross neurological examination did not reveal any focal deficits. SKIN: No rashes. no petechiae. - Labs CBC & Chem 7: 09/24/24 04:37 09/24/24 11:28 Labs: Abnormal Lab Results - Last 24 Hours (Table) 09/24/24 09/24/24 09/24/24 Range/Units 04:37 04:37 04:48 RBC 2.94 L (4.40-5.60) 10*6/uL Hgb 10.0 L (13.0-17.0) g/dL Hct 33.1 L (39.6-50.0) % MCV 112.6 H (80.0-97.0) fL MCH 34.0 H (27.0-32.0) pg MCHC 30.2 L (32.0-37.0) g/dL MPV 9.1 L (9.5-12.2) fL Immature Gran # 0.17 H (0.00-0.04) 10*3/uL Lymphocytes # 0.37 L (0.90-5.00) 10*3/uL Eosinophils # 0.00 L (0.04-0.35) 10*3/uL ABG pH 7.27 L (7.35-7.45) ABG pCO2 87 H* (35-45) mmHg ABG pO2 142 H (83-108) mmHg ABG HCO3 40 H* (21-25) mmol/L ABG Total CO2 43 H (19-24) mmol/L ABG O2 Saturation 99.7 H (94-97) % Hemoglobin 10.1 L (13.0-17.5) gm/dL Chloride 94 L (98-107) mmol/L Carbon Dioxide 39 H (22-30) mmol/L BUN 48 H (9-20) mg/dL Creatinine (0.66-1.25) mg/dL 09/24/24 09/24/24 Range/Units 11:28 11:58 RBC (4.40-5.60) 10*6/uL Hgb (13.0-17.0) g/dL Hct (39.6-50.0) % MCV (80.0-97.0) fL MCH (27.0-32.0) pg MCHC (32.0-37.0) g/dL MPV (9.5-12.2) fL Immature Gran # (0.00-0.04) 10*3/uL Lymphocytes # (0.90-5.00) 10*3/uL Eosinophils # (0.04-0.35) 10*3/uL ABG pH 7.32 L (7.35-7.45) ABG pCO2 78 H* (35-45) mmHg ABG pO2 65 L (83-108) mmHg ABG HCO3 40 H* (21-25) mmol/L ABG Total CO2 43 H (19-24) mmol/L ABG O2 Saturation (94-97) % Hemoglobin 10.5 L (13.0-17.5) gm/dL Chloride (98-107) mmol/L Carbon Dioxide (22-30) mmol/L BUN (9-20) mg/dL Creatinine 0.29 L (0.66-1.25) mg/dL Assessment and Plan Assessment: Acute hypoxic and hypercapnic respiratory failure requiring intubation mechanical ventilator. S/p extubation on 09/20 Multifocal pneumonia-healthcare associated. Sputum culture showed haemophilus influenza. Completed antibiotic course with ceftriaxone.. Sepsis secondary pneumonia Hypertension Hypothyroidism Hypothermia Altered mental status secondary to metabolic encephalopathy and infection History of intellectual disability Seizure disorder Severe kyphoscoliosis Right eye blindness Medical debility currently at [facility] Plan: C currently off IV fluid and getting IV Lasix 40 mg twice daily Continue with seizure medication per neurologist including IV Keppra and valproate as well as Tegretol Started on IV antibiotics IV vancomycin and meropenem Continue with BiPAP as per pulmonary/critical care team Neurology and critical care team consult Public guardian now considering comfort care Labs and medication were reviewed.. Continue same treatment. Continue with symptomatic treatment. Resume home medication. Monitor labs and vitals. DVT and GI prophylaxis. Further recommendations as per clinical course of the patient DVT prophylaxis: Subcutaneous heparin GI Prophylaxis: Ppi Prognosis is guarded CODE STATUS switched to DNR
[2024-09-24] MEDS: VANCOMYCIN 1,500 MG in SODIUM CHLORIDE 0.9% 500 ML 500 ML IVPB SCH (21:02)
[2024-09-24 23:50] LABS: Glucose,Whole Blood 103 mg/dL (70-110)
[2024-09-25 06:00] LABS: HCT 31.4 % (39.6-50.0); HGB 9.4 g/dL (13.0-17.0); MCH 33.7 pg (27.0-32.0); MCHC 29.9 g/dL (32.0-37.0); Mean Platelet Volume 9.2 fL (9.5-12.2); Platelet Count 287 10*3/uL (140-440); RBC 2.79 10*6/uL (4.40-5.60); RDW 14.3 % (11.5-14.5); WBC 8.44 10*3/uL (4.50-10.00)
[2024-09-25 06:02] LABS: MCV 112.5 fL (80.0-97.0)
[2024-09-25 06:05] LABS: Glucose,Whole Blood 96 mg/dL (70-110)
[2024-09-25 06:10] LABS: Glucose,Whole Blood 95 mg/dL (70-110)
[2024-09-25 06:45] LABS: African American GFR (CKD) >90 (>60 ml/min/1.73 sqM); Blood Urea Nitrogen 43 mg/dL (9-20); Chloride 95 mmol/L (98-107); Glucose 99 mg/dL (74-99); Non-African American GFR(CKD) >90 (>60 ml/min/1.73 sqM); Potassium 3.4 mmol/L (3.5-5.1); Sodium 143 mmol/L (137-145)
[2024-09-25 06:52] LABS: Anion Gap 9 mmol/L
[2024-09-25 07:08] LABS: Carbon Dioxide 39 mmol/L (22-30)
[2024-09-25 07:56] LABS: ABG Base Excess 13.6 mmol/L; ABG Oxygen Saturation 79.7 % (94-97); ABG PH 7.37 (7.35-7.45); ABG TCO2 43 mmol/L (19-24)
[2024-09-25 08:00] LABS: ABG PCO2 72 mmHg (35-45)
[2024-09-25] MEDS ORDERED: POTASSIUM CHLORIDE 20 MEQ in WATER FOR INJECTION 1 100ML.BAG IVPB SCH (08:00)
[2024-09-25 08:01] LABS: ABG HCO3 41 mmol/L (21-25); ABG PO2 43 mmHg (83-108); Allen Test Performed? no
--- NOTE | 2024-09-25 08:49 | XR ---
EXAMINATION TYPE: XR chest 1V portable DATE OF EXAM: 09/25/2024 5:28 AM COMPARISON: 09/24/2024 CLINICAL INDICATION: Male, 63 years old with history of assess lungs, shortness of breath FINDINGS: Marked dextroconvex scoliotic deformity limits the evaluation. Right IJ CVC tip within the right atri um. Heart likely upper limits of normal. Interstitial and patchy opacities persist with slight improv ing aeration. Suspect ongoing small left pleural effusion. IMPRESSION: Severe dextroconvex scoliosis limits assessment. Interstitial and patchy changes persist with slight improvement. Ongoing small left pleural effusion with adjacent atelectasis and/or consolidation. Impr oving effusion on the right. [facility], , 09/25/2024 8:47 AM
[2024-09-25] MEDS ORDERED: MORPHINE SULFATE 2 MG/ML SYRINGE IVP PRN (09:57)
[2024-09-25] MEDS ORDERED: ONDANSETRON 4 MG/2 ML VIAL IVP PRN (09:57)
[2024-09-25] MEDS ORDERED: LORazepam 2 MG/ML INJ IV PRN (09:57)
[2024-09-25] MEDS ORDERED: GLYCOPYRROLATE 0.2 MG/ML 2 ML VIAL IVP PRN (09:57)
[2024-09-25 10:06] VITALS: BP 134/74; PULSE 110; RESP 42
[2024-09-25 10:13] VITALS: TEMP 98.2
[2024-09-25] MEDS: ATROPINE OPHTH SOLN 1% 5ML BTL SUBLINGUAL PRN (10:29)
[2024-09-25] MEDS: SCOPOLAMINE 1 MG/72 HR PATCH TRANSDERM SCH (10:30)
[2024-09-25] MEDS: LORazepam 2 MG/ML INJ IV ONE (11:38)
[2024-09-25] MEDS: MORPHINE SULFATE 4 MG/ML SYRINGE IVP PRN (11:38)
[2024-09-25] MEDS: MORPHINE SULFATE 100 MG in SODIUM CHLORIDE 0.9% 90 ML IV SCH (11:54)
--- NOTE | 2024-09-25 12:52 | P.PN ---
Subjective Progress Note Date: 09/25/24 Principal diagnosis: Acute hypoxic and hypercapnic respiratory failure secondary to bilateral pneumonia Patient is a 63-year-old male with past medical history significant for in tellectual disability, seizure disorder, hypertension, hypothyroidism, chronic hypoxemic respiratory failure. He resides at a local [facility]. Noted to be confused with increased work of breathing by staff. His SpO2 was reading 40%. EMS was called and patient was transferred to the emergency department on a nonrebreather. He was minimally responsive on arrival. ABG consistent with severe hypercapnic respiratory failure with a PaO2 of 153, pCO2 greater than 98, pH of 7.13. Previously, received 4 mg IV Versed. Patient was intubated by the ER provider. Brain CT without contrast did not show any acute intracranial hemorrhage or mass effect. There was some sinusitis and moderate fluid in the mastoid air cells bilaterally. Brain CT angio did not show any evidence of cervical internal carotid artery or vertebral artery dissection or stenosis at the carotid bifurcations. No evidence of high-grade intracranial stenosis or aneurysm. Patchy groundglass and consolidative opacities visualized in the upper lung schwartz. Chest x-ray following intubation showing the endotracheal tube terminating 2.5 cm above the ezra. Severe kyphoscoliosis. There is patchy subtle opacities bilaterally. Suspect small bilateral pleural effusions. Enteric tube likely in the duodenum. CBC: WBC count 12.4, hemoglobin 11.7, platelets 176. CMP: Sodium 140, potassium 5.3, chloride 96, serum bicarb 37, BUN 43, creatinine 0.79, glucose 125. Lactic 2.4. LFTs not elevated. Troponin less than 0.012. EKG: Sinus rhythm, rate 97 bpm, RBBB pattern. Patient currently being evaluated in the intensive care unit. Remains intubated to the mechanical ventilator. Current ventilator settings assist-control, respiratory rate 20, tidal volume 450, FiO2 70%, PEEP of 5. Previous ventilator settings were appropriately adjusted following a recent follow-up ABG with a PaO2 of 187, PCO2 of 31, pH of 7.6. This was done on FiO2 100%. Respiratory rate has since been adjusted and FiO2 is being titrated appropriately. He is sedated on propofol which is infusing at 45 mcg/kg/min as well as fentanyl infusing at 0.5 mcg/kg/h. Currently synchronous with ventilator settings. Peak pressures around 26. Lactated Ringer's also infusing at 130 mL/h. Indwelling urinary catheter with urine output of greater than 100 mL/h. Blood pressure has been normotensive. Previously, patient was hypothermic with a temperature as low as 93.9 F, and was on a external warming blanket. Now normothermic. Continues with empiric antibiotics. Patient has a legal power of employment law attorney. Current CODE STATUS is full. 09/23/2024, the patient remains on a BiPAP at a pressure of 16 over 10 cm of water. Earlier this morning, the patient had significant diminished level of consciousness. Only grimacing to the painful stimulation. He is on a BiPAP pressure of 16/10 with an FiO2 of 100%. Blood gas showed a pH of 7.12 with a pCO2 of 98 and pO2 of 235. Fluid balance is -895 cc over the past 24 hours. While on the BiPAP, the patient is able to generate respirate of 20, tidal volume of above 400 and a minute ventilation of 9 L. No significant air leak from the mask. Chest x-ray findings were also noted. As mentioned, the patient has an unchanged severe scoliosis. There is possibly some bilateral airspace disease. There is improved aeration compared to yesterday's chest x-ray. Noted the patient was also started on broad-spectrum antibiotics on empiric basis and the patient is currently on a combination of Merrem and vancomycin. The rest of the blood work shows a white cell count of 12.5, hemoglobin of 10.1 and a platelet count of 311. The sodium is at 137, potassium is at 4, bicarb is at 39, BUN is 40 with a creatinine of 1.1. The patient remains NPO. He is a DNR/DNI CODE STATUS. He remains on IV Lasix. On 09/24/2024, the patient remains essentially unchanged compared to yesterday. Grimaces only to deep painful stimulation. Very hard to communicate with. He has intellectual disability and he also is deaf. As such, it is extremely difficult to communicate with the patient. He is tolerating the BiPAP pressure of 16 over 10 cm of water with an FiO2 of 100%. Blood gas from today shows improvement in the acid-base status with a pH of 7.27 with a pCO2 of 87 and PO2 142. Chest x-ray is suboptimal due to body habitus. There is ongoing persistent consolidation of the lower lobes along with severe thoracic kyphoscoliosis. The patient remains in a negative fluid balance of 942 cc over the past 24 hours. While on a BiPAP machine, the patient has a ventricular tachycardia volume of 400 with a minute ventilation of 9.8. The patient remains on Lasix 20 mg IV push every 12 hours. The patient remains on Merrem and vancomycin as broad-spectrum antibiotic coverage. Remains on DuoNeb updrafts. No sedation for now. No seizure activity. The patient remains NPO. In terms of the blood work from today, the patient's white cell count is at 8.2 with a hemoglobin of 10 and a platelet count of 263. Sodium is at 143, potassium is at 3.6, bicarb is at 39, BUN is 48 with a creatinine of 0.2. Follow-up blood gases later on during the day while being on FiO2 of 80% showed further improvement in respiratory status. The patient's pH was 7.32 with a PCO2 of 78 and PO2 of 65. He is a DNR/DNI CODE STATUS. Will continue monitoring his progress. Patient was seen today on 09/25/2024, patient remains on BiPAP, 15/03, patient remains on Merrem and vancomycin his sputum cultures have been positive for H. influenzae patient continues to have significantly abnormal chest x-ray with significant bilateral airspace disease. ABG today on BiPAP showed a pO2 of 43 pCO2 72 pH of 7.37 patient is on LR at 10 cc/h. Patient does not seem to be doing well, apparently his legal guardian has changed his CODE STATUS to no code, and I believe CODE STATUS is going to be changed today later to comfort care. And I think that is appropriate. Patient does not seem to be making any improvement. He is quite frail and ill. WBC count is 8.4 hemoglobin 9.4 electrolytes are normal potassium is 3.4 bicarb is 39 BUN is 43 creatinine 0.76. Objective - Vital Signs Vital signs: Vital Signs Temp 98.2 F 09/25/24 08:00 Pulse 110 H 09/25/24 10:00 Resp 42 H 09/25/24 10:00 BP 134/74 09/25/24 10:00 Pulse Ox 84 L 09/25/24 10:00 FiO2 100 09/25/24 11:22 Intake & Output 09/24/24 09/25/24 09/25/24 18:59 06:59 18:59 Intake Total 881 169 39 Output Total 1085 1350 150 Balance -204 -1181 -111 Weight 68.4 kg Intake: IV 381 169 39 0.9 Normal Saline @ KVO 95 130 30 Meropenem 2 gm In Sodium 100 Chloride 0.9% 100 ml @ 33 .3 mls/hr IVPB Q8H AG Rx #:[id number] Normal Saline Pressure 36 39 9 Bag Potassium Chloride 10 meq 100 In Water For Injection 1 100ml.bag @ 100 mls/hr IVPB Q1H AG Rx#: [id number] Valproate Sodium 750 mg 50 In Sodium Chloride 0.9% 50 ml @ 50 mls/hr IVPB Q12HR AG Rx#:[id number] Intake, IV Titration 500 Amount Vancomycin 1,250 mg In 500 Sodium Chloride 0.9% 250 ml @ 125 mls/hr IVPB Q12H AG Rx#:[id number] Output: Urine 1085 1350 150 Other: Voiding Method Indwelling Catheter Indwelling Catheter Indwelling Catheter ABP, PAP, CO, CI - Last Documented Arterial Blood Pressure 111/50 - Exam GENERAL: 63-year-old male on BiPAP, looks frail and chronically ill. HEENT: Pupils are round and equally reacting to light. EOMI. No scleral icterus. No conjunctival pallor. Normocephalic, atraumatic. No pharyngeal erythema. No thyromegaly. CARDIOVASCULAR: S1 and S2 present. No murmurs, rubs, or gallops. PULMONARY: Lungs reveal bilateral coarse rhonchi. No wheezes. No crackles. Breath sounds equal bilaterally. The patient has significant kyphoscoliosis of the thoracic spine and scattered rhonchi heard bilaterally. Crackles in the lung bases. Diminished breath sounds in left lung base. ABDOMEN: Soft, nontender, nondistended, normoactive bowel sounds. No palpable organomegaly. MUSCULOSKELETAL: No joint swelling or deformity. EXTREMITIES: No cyanosis, clubbing, or pedal edema. NEUROLOGICAL: Gross neurological examination did not reveal any focal deficits. SKIN: No rashes. no petechiae. - Labs CBC & Chem 7: 09/25/24 05:30 09/25/24 05:30 Labs: Abnormal Lab Results - Last 24 Hours (Table) 09/25/24 09/25/24 09/25/24 Range/Units 05:30 05:30 07:50 RBC 2.79 L (4.40-5.60) 10*6/uL Hgb 9.4 L (13.0-17.0) g/dL Hct 31.4 L (39.6-50.0) % MCV 112.5 H (80.0-97.0) fL MCH 33.7 H (27.0-32.0) pg MCHC 29.9 L (32.0-37.0) g/dL MPV 9.2 L (9.5-12.2) fL ABG pCO2 72 H* (35-45) mmHg ABG pO2 43 L* (83-108) mmHg ABG HCO3 41 H* (21-25) mmol/L ABG Total CO2 43 H (19-24) mmol/L ABG O2 Saturation 79.7 L (94-97) % Hemoglobin 9.6 L (13.0-17.5) gm/dL Potassium 3.4 L (3.5-5.1) mmol/L Chloride 95 L (98-107) mmol/L Carbon Dioxide 39 H (22-30) mmol/L BUN 43 H (9-20) mg/dL Assessment and Plan Assessment: Impression: Acute hypoxic and hypercapnic respiratory failure secondary to bacterial pneumonia secondary to haemophilus influenza Diminished level of consciousness, partly due to CO2 narcosis. This is a picture of acute metabolic encephalopathy secondary to CO2 narcosis Multifocal pneumonia, secondary to Haemophilus influenzae Acute leukocytosis, secondary to above Hypothermia, resolved. History of mentally challenged History of seizure disorder. Maintained on Keppra, valproate and Depakote. Severe kyphoscoliosis., With severe restrictive lung disease Blind right eye. History of hypertension. History of hypothyroidism. Recommendation: Continue BiPAP 16/10 Continue diuretics Continue antibiotics Continue bronchodilators Continue antiepileptic meds for seizures Overall picture seems to be extremely poor Patient is critically ill, Fully agree with comfort care measures considering the overall clinical picture. Will continue to follow while in ICU Time with Patient: Less than 30
--- NOTE | 2024-09-25 19:51 | P.PN ---
Subjective Patient is a 63-year-old male with a known history of mentally challenged, seizure disorder, asthma, hypertension, hypothyroidism and chronic hypoxemic respiratory failure who is currently at [facility]. Patient was sent to hospital due to worsening shortness of breath and altered mental status and was also hypoxic with pulse ox 40% when he presented to ER. Patient was placed on nonrebreather and was minimally responsive on arrival to ER. Patient had ABGs was done showed PaO2 153. pCO2 98 and also pH 7.13 patient was intubated in the ER. Patient was also sedated with propofol and fentanyl. CT head showed no acute bleed or mass effect. Sinusitis and mastoiditis as described above. CT angiogram of the head and neck showed no evidence of dissection of the cervical internal carotid arteries or vertebral arteries. Patchy groundglass and consolidative opacities in partially visualized upper lungs suspicious for multifocal pneumonia Chest x-ray showed endotracheal tube terminates 2.5 cm above ezra. Enteric tube distal sidehole overlies the expected gastric lumen. Small bilateral pleural effusions and subtle patchy opacities in the upper lobes which could reflect infectious etiology. EKG showed sinus rhythm with right bundle branch block. Laboratory data on admission showed WBC 12.3 hemoglobin 11.7 and platelets 176 and MCV 112 sodium 140 potassium 5.3 chloride 96 bicarb is 37 BUN 43 and creatinine 0.79 and blood sugar 125 and calcium 8.6 liver enzymes are not elevated troponin x 1 negative and procalcitonin level is 0.11 Patient is also hypothermic requiring Roly hugger. Influenza A BRAC COVID-19 and Legionella urine antigen negative. 09/14/2024 Patient is currently in the MICU. On sedation holiday. Was able to tolerate pressure support for short duration this morning currently back to [facility]- control.. ABG showed pH 7.4 [id number] and PO2 132 Other laboratory data showed WBC 6.6 hemoglobin 8.9 and MCV 104.6 and platelets 168. BUN 17 and creatinine 0.56. Chest x-ray showed cardiomegaly with small bilateral pleural effusions. Patient is on IV hydration with Ringer's lactate at 130 cc/h and also requiring pressure support with Levophed. Continue with antibiotics for multifocal pneumonia. Procalcitonin level is not elevated at 0.11. 09/15/2024 Patient is in the MICU. Intubated and on mechanical ventilator. Patient is back on sedation with propofol and is also on fentanyl drip. Currently on assist-control with respiratory rate 16, tidal volume 400 FiO2 30% and PEEP of 5. Chest x-ray showed cardiomegaly and small bilateral pleural effusions. Continued on IV hydration with Ringer's lactate at 75 cc/h. Patient is being continued on antibiotics in the form of ceftriaxone. Sputum culture showed haemophilus influenza. Laboratory showed WBC 6.0 hemoglobin 8.5 and platelets 159 sodium 137 potassium 3.6 chloride 107 bicarb is 31 BUN 51 creatinine 0.57 blood sugar 114 and calcium 7.9. 09/16/2024 Patient is in the MICU. Remains on mechanical ventilator. Sedated with propofol drip. Continues on IV hydration with Ringer's lactate at 75 cc/h. Patient was also started on NG tube feeding. Continued on antibiotics in the form of ceftriaxone. Sputum culture is growing haemophilus influenza. Lab data showed WBC 5.1 hemoglobin 7.8 and platelets 159, sodium 137 potassium 3.9 chloride 104 bicarb is 30 BUN 17 and creatinine 0.54 and blood sugar 101 and calcium 7.8. 09/17/2024 Patient is in the MICU. Currently intubated on mechanical ventilator. Patient did have daily sedation holiday today and was placed back on ProForma. Not on pressor support. Continued on antibiotics in the form of ceftriaxone. Sputum cultures growing haemophilus influenza. Patient is on IV hydration with Ringer's lactate at 75 cc/h. On tube feeding via NG tube. Chest x-ray showed ET tube 2.7 cm above ezra. No change in acute pulmonary process. Laboratory data showed WBC 4.8 hemoglobin 7.9 and platelets 192 sodium 139 potassium 4.0 chloride 106 bicarb is 32, BUN 19 and creatinine 0.49 and blood sugar 103 and calcium 8.0. 09/18/2024 Patient is in the MICU. Remains on mechanical ventilator. Patient is also sedated with propofol. Blood gas showed pH 7.44 [id number], PO270. Chest x-ray showed no acute cardiopulmonary process. Currently off antibiotics. Patient has been afebrile. Laboratory data showed WBC 4.8 hemoglobin 8.4 and platelets 233 sodium 138 potassium 3.8 chloride 106 bicarb is 28 BUN 20) 0.56 and blood sugar 94 and calcium 7.8. Patient is being continued DuoNebs, IV hydration with Ringer's lactate at 75 cc/h. Patient is also on valproic acid and Keppra. Neurology and pulmonary is on board. 09/19/2024 Patient is on mechanical ventilator and on sedation with propofol. IV hydration with Ringer's lactate at 75 cc out. Currently on assist-control with tidal volume 400 respiratory rate 16, FiO2 30% and PEEP of 5. Chest x-ray showed suboptimal due to skeletal deformities and kyphoscoliosis of the chest. Not on pressor support. Tolerating orogastric tube feeding. Currently patient is off antibiotics. Patient underwent bedside bronchoscopy by critical care team. Laboratory data showed WBC 5.1 hemoglobin 8.5 and platelets 240 sodium 139 potassium 4.1 chloride 105 bicarb is 28 BUN 21 and creatinine 0.45 blood sugar 103 magnesium 2.0. 09/20 I am resuming the care of the patient today Remains in the ICU intubated and sedated with pulmonary/renal care team helping with vent management He is s/p bronchoscopy yesterday He has a lot of secretion and scopolamine patch was added today As per staff public guardian are considering comfort care measures and they are going for a court order as patient has developmental delay throughout his life. 09/21 Patient is status post extubation. He started looking mildly tachypneic but tachycardic He remains on BiPAP with the setting of 15/6 with FiO2 of 100% Carrillo catheter in place Patient remains patient was made DNR/DNI per public guardian 09/22 Patient remains very lethargic. He remains on BiPAP He wake up to verbal stimulus to go back to sleep He still mildly tachypneic Chest x-ray showing bilateral congestion of the pulmonary blood vessels with suspected bilateral opacities. Patient finished IV treatment of antibiotics for multifocal pneumonia. With lack of improvement patient resumed on IV antibiotics with IV vancomycin and meropenem Patient currently DNR 09/23 Patient remains very lethargic and almost unresponsive on BiPAP. He responds nearly to painful stimuli. He remains acidotic and hypercapnic He is on broad-spectrum antibiotics with IV vancomycin and meropenem started yesterday, chest x-ray shows some improvement He was given sodium bicarb Also he remains on IV Lasix and Keppra 09/24 Patient is clinically looks similar to yesterday still very lethargic, still on BiPAP. It looks like it is hard to medicate with the patient Labs showing some improvement with pH went up to 7.2 still acidotic and pCO2 is better at 78 still elevated. Patient still tachycardic and tachypneic He remains on IV vancomycin and meropenem 09/25 Patient remains in normal clinical progress he still lethargic confused n oninteractive does not respond to stimuli while he is on BiPAP all the time more than 72 hours. No improvement despite full treatment even with broad-spectrum antibiotic with IV vancomycin and meropenem Chest x-ray showing no improvement as well over several days Comfort care to be considered today per recommendation. Objective - Vital Signs Vital signs: Vital Signs Temp 98.2 F 09/25/24 08:00 Pulse 110 H 09/25/24 10:00 Resp 42 H 09/25/24 10:00 BP 134/74 09/25/24 10:00 Pulse Ox 84 L 09/25/24 10:00 FiO2 100 09/25/24 11:22 Intake & Output 09/25/24 09/25/24 09/26/24 06:59 18:59 06:59 Intake Total 169 46.733 Output Total 1350 150 Balance -1181 -103.267 Weight 68.4 kg Intake: IV 169 39 0.9 Normal Saline @ KVO 130 30 Normal Saline Pressure 39 9 Bag Intake, IV Titration 7.733 Amount Morphine Sulfate 100 mg 7.733 In Sodium Chloride 0.9% 90 ml @ 2 MG/HR 2 mls/hr IV .Q24H [facility] Rx#: [id number] Output: Urine 1350 150 Other: Voiding Method Indwelling Catheter Indwelling Catheter ABP, PAP, CO, CI - Last Documented Arterial Blood Pressure 111/50 - Exam -GENERAL: The patient is awake, looks in respiratory distress, generally weak on BiPAP HEENT: Pupils are round and equally reacting to light. EOMI. No scleral icterus. No conjunctival pallor. Normocephalic, atraumatic. No pharyngeal erythema. No thyromegaly. CARDIOVASCULAR: S1 and S2 present. No murmurs, rubs, or gallops. PULMONARY: Chest is clear to auscultation, no wheezing , no crackles. ABDOMEN: Soft, nontender, nondistended, normoactive bowel sounds. No palpable organomegaly. MUSCULOSKELETAL: No joint swelling or deformity. EXTREMITIES: No cyanosis, clubbing, or pedal edema. NEUROLOGICAL: Gross neurological examination did not reveal any focal deficits. SKIN: No rashes. no petechiae. - Labs CBC & Chem 7: 09/25/24 05:30 09/25/24 05:30 Labs: Abnormal Lab Results - Last 24 Hours (Table) 09/25/24 09/25/24 09/25/24 Range/Units 05:30 05:30 07:50 RBC 2.79 L (4.40-5.60) 10*6/uL Hgb 9.4 L (13.0-17.0) g/dL Hct 31.4 L (39.6-50.0) % MCV 112.5 H (80.0-97.0) fL MCH 33.7 H (27.0-32.0) pg MCHC 29.9 L (32.0-37.0) g/dL MPV 9.2 L (9.5-12.2) fL ABG pCO2 72 H* (35-45) mmHg ABG pO2 43 L* (83-108) mmHg ABG HCO3 41 H* (21-25) mmol/L ABG Total CO2 43 H (19-24) mmol/L ABG O2 Saturation 79.7 L (94-97) % Hemoglobin 9.6 L (13.0-17.5) gm/dL Potassium 3.4 L (3.5-5.1) mmol/L Chloride 95 L (98-107) mmol/L Carbon Dioxide 39 H (22-30) mmol/L BUN 43 H (9-20) mg/dL Assessment and Plan Assessment: Acute hypoxic and hypercapnic respiratory failure requiring intubation mechanical ventilator. S/p extubation on 09/20 Multifocal pneumonia-healthcare associated. Sputum culture showed haemophilus influenza. Completed antibiotic course with ceftriaxone.. Sepsis secondary pneumonia Hypertension Hypothyroidism Hypothermia Altered mental status secondary to metabolic encephalopathy and infection History of intellectual disability Seizure disorder Severe kyphoscoliosis Right eye blindness Medical debility currently at [facility] Plan: Patient making little progress but continues to be considered From the medical perspective this looks appropriate C currently off IV fluid and getting IV Lasix 40 mg twice daily Continue with seizure medication per neurologist including IV Keppra and valproate as well as Tegretol Started on IV antibiotics IV vancomycin and meropenem Continue with BiPAP as per pulmonary/critical care team Neurology and critical care team consult Public guardian now considering comfort care Labs and medication were reviewed.. Continue same treatment. Continue with symptomatic treatment. Resume home medication. Monitor labs and vitals. DVT and GI prophylaxis. Further recommendations as per clinical course of the patient DVT prophylaxis: Subcutaneous heparin GI Prophylaxis: Ppi Prognosis is guarded CODE STATUS switched to DNR
== END 2024-09-25 20:36 | disposition expired | DRG 870 ==
LOC: EC 15:54 → 2SICU 17:45 → EEVIPCON 17:45
PROVIDERS: ADMIT Internal Medicine; ATTEND Internal Medicine
PROC: 5A1955Z Respiratory Ventilation, Greater than 96 Consecutive Hours (ICD-10-PCS; principal; 2024-09-12)
PROC: 0BH17EZ Insertion of Endotracheal Airway into Trachea, Via Natural or Artificial Opening (ICD-10-PCS; principal; 2024-09-12)
PROC: 3E0G76Z Introduction of Nutritional Substance into Upper GI, Via Natural or Artificial Opening (ICD-10-PCS; 2024-09-13)
PROC: 0DH67UZ Insertion of Feeding Device into Stomach, Via Natural or Artificial Opening (ICD-10-PCS; 2024-09-13)
PROC: 4A133J1 Monitoring of Arterial Pulse, Peripheral, Percutaneous Approach (ICD-10-PCS; 2024-09-13)
PROC: 03HY32Z Insertion of Monitoring Device into Upper Artery, Percutaneous Approach (ICD-10-PCS; 2024-09-13)
PROC: 4A133B1 Monitoring of Arterial Pressure, Peripheral, Percutaneous Approach (ICD-10-PCS; 2024-09-13)
PROC: 02HV33Z Insertion of Infusion Device into Superior Vena Cava, Percutaneous Approach (ICD-10-PCS; 2024-09-13)
PROC: 3E043XZ Introduction of Vasopressor into Central Vein, Percutaneous Approach (ICD-10-PCS; 2024-09-14)
PROC: 0B968ZZ Drainage of Right Lower Lobe Bronchus, Via Natural or Artificial Opening Endoscopic (ICD-10-PCS; 2024-09-19)
PROC: 0B9B8ZZ Drainage of Left Lower Lobe Bronchus, Via Natural or Artificial Opening Endoscopic (ICD-10-PCS; 2024-09-19)
PROC: 0B948ZZ Drainage of Right Upper Lobe Bronchus, Via Natural or Artificial Opening Endoscopic (ICD-10-PCS; 2024-09-19)
PROC: 5A09557 Assistance with Respiratory Ventilation, Greater than 96 Consecutive Hours, Continuous Positive Airway Pressure (ICD-10-PCS; 2024-09-20)
DX: A41.3 Sepsis due to Hemophilus influenzae (principal); G93.41 Metabolic encephalopathy; J14 Pneumonia due to Hemophilus influenzae; J96.02 Acute respiratory failure with hypercapnia; J96.01 Acute respiratory failure with hypoxia; E87.20 Acidosis, unspecified; J90 Pleural effusion, not elsewhere classified; I47.20 Ventricular tachycardia, unspecified; Z66 Do not resuscitate; Z51.5 Encounter for palliative care; H70.90 Unspecified mastoiditis, unspecified ear; G40.909 Epilepsy, unspecified, not intractable, without status epilepticus; E03.9 Hypothyroidism, unspecified; I11.9 Hypertensive heart disease without heart failure; J45.909 Unspecified asthma, uncomplicated; D53.9 Nutritional anemia, unspecified; R65.20 Severe sepsis without septic shock; R68.0 Hypothermia, not associated with low environmental temperature; F79 Unspecified intellectual disabilities; H54.61 Unqualified visual loss, right eye, normal vision left eye; H91.90 Unspecified hearing loss, unspecified ear; I45.10 Unspecified right bundle-branch block; J98.4 Other disorders of lung; M41.9 Scoliosis, unspecified; Z79.890 Hormone replacement therapy; Z79.899 Other long term (current) drug therapy; Z11.52 Encounter for screening for COVID-19; Z71.3 Dietary counseling and surveillance; Z88.0 Allergy status to penicillin; Z88.8 Allergy status to other drugs, medicaments and biological substances
CPT/HCPCS: 31500; 36415; 36600; 70450; 70496; 70498; 71045; 76604; 80048; 80053; 80156; 80164; 80177; 80202; 81001; 82140; 82533; 82550; 82565; 82607; 82728; 82747; 82805; 83540; 83550; 83605; 83735; 84132; 84145; 84439; 84443; 84484; 85025; 85027; 85610; 85730; 87040; 87070; 87205; 87449; 87636; 93005; 93306; 94003; 94640; 94660; 95822; 96365; 96368; 96375; 99291